=== PATIENT | female | born 1940 | race Caucasian/White ===

== ENCOUNTER 2016-06-16 17:31 | Emergency (ER) | payer OTHER, MEDICARE ==
[~2016-06-16] VITALS: Ht 157.5 cm; Wt 49.9 kg
[~2016-06-16 17:31] MED LIST: ADVAIR 250-501 EACH INH; ASPIRIN CHILDRE81 MG PO; ATORVASTATIN CA40 MG PO; BENZONATATE200 M1 PO; CALCIUM1 TAB PO; CIPROFLOXACIN250 MG PO; COUMADIN 1 MG TA1 MG PO; COUMADIN 2.5 M2.5 MG PO; COUMADIN5 M2 PO; LEVOTHYROXINE0.1 M1 PO; MULTI VITAMINS1 TAB PO; SYNTHROID112 MCG PO; VITAMIN C500 M3 PO; VITAMIN D1000 IU PO; WARFARIN SOD5 MG PO
--- NOTE | 2016-06-16 18:00 | ED DYSPNEA/ASTHMA COMPLAINT ---
History of Present Illness General Chief Complaint: Dyspnea (COPD, CHF, Other) Stated Complaint: SOB Source: patient, family, old records Exam Limitations: no limitations Allergies Coded Allergies: alendronate sodium (LIGHT HEADED, WOOZY PER PT 06/16/16) metronidazole (Mild, NAUSEA 10/08/15) risedronate sodium (From ACTONEL) (Mild, DIZZY 10/08/15) tamsulosin (Mild, NAUSEA 10/08/15) Reconcile Medications Albuterol Sulfate 2.5 MG/3 ML (0.083 %) VIAL.NEB 1 Vial INH/CARI Q4P PRN WHEEZING Amoxicillin 500 MG CAPSULE 2 CAP PO BID ANTIBIOTIC (Reported) Ascorbic Acid (Vitamin C) (Unknown Strength) TAB (Unknown Dose) PO DAILY SUPPLEMENT (Reported) Azithromycin (Zithromax) 250 MG TABLET 1 DP PO AD WHEEZING 2 the first day followed by 1 for days 2-5 Benzonatate (Tessalon Perle) 100 MG CAPSULE 1 CAP PO TID PRN COUGH Calcium/Sodium (Calcium) 1 TAB TAB 1 TAB PO DAILY SUPPLEMENT (Reported) Cholecalciferol (Vitamin D3) 1,000 UNIT TABLET 1 TAB PO DAILY SUPPLEMENT ( Reported) Denosumab (Prolia) (Unknown Strength) SYRINGE (Unknown Dose) INJ Q6M BONES ( Reported) Fluticasone/Salmeterol (Advair 250-50 Diskus) 250 MCG-50 MCG/DOSE BLST.W.DEV 1 PUF INH BID PRN BREATHING PROBLEMS (Reported) Levothyroxine Sodium (Synthroid) 112 MCG TABLET 1 TAB PO DAILY AC THYROID ( Reported) Multivitamin (One Daily Multivitamin) 1 TAB TAB 1 TAB PO DAILY SUPPLEMENT ( Reported) [NEBULIZER MACHINE] 0 USE DIRECTED Warfarin Sodium (Coumadin) 5 MG TABLET 1 TAB PO QWED BLOOD THINNER (Reported) Warfarin Sodium (Coumadin) 2.5 MG TAB 1.5 TAB PO AD BLOOD THINNER (Reported) Triage Note: PT STATES THAT SHE HAS ASTHMA AND THAT FOR THE PAST FEW DAYS SHE HAS BEEN HAVING INCREASED SOB. USING INHALERS BUT WITH LITTLE RELIEF.O2 SAT 94% ON RA Triage Nurses Notes Reviewed? yes Onset: Gradual Duration: day(s): (3), constant Timing: recent history Severity: mild, moderate Prior Episodes/Possible Cause: occasional episodes Associated Symptoms: cough HPI: 75-year-old female with history of asthma, aortic valve replacement and thyroidectomy TIA presents emergency room complaining of a three-day history of an asthma exacerbation states she's been short of breath wheezing despite using her albuterol and Advair inhalers. Patient is seen by resort housekeeper Dr. jensen, however states she has an adverse reaction to prednisone forte she cannot take PT is not smoke. She is never been hospitalized secondary to her asthma. She denies any chest pain. She reports that she's had a nonproductive cough since the symptoms began no fever no chills no leg swelling no pain with inspiration. No abdominal pain nausea vomiting or diarrhea. She does not use oxygen at home (SHERYL OLGUNI) Vital Signs & Intake/Output Vital Signs & Intake/Output Vital Signs Date Time Temp Pulse Resp B/P Pulse O2 O2 Flow FiO2 Ox Delivery Rate 06/16 194 98.4 78 20 100/55 95 Room Air 06/16 1801 97 06/16 1735 97.0 78 22 136/82 94 Room Air Past History Travel History Traveled to [place] past 21 day No Medical History Any Pertinent Medical History? 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 No (SHERYL OLGUIN) Review of Systems Review of Systems Constitutional: Reports: see HPI. All Other Systems: Reviewed and Negative Comments Review of systems: See HPI, All other systems negative. Constitutional, no chills no fever, no malaise HEENT: No visual changes no sore throat no congestion Cardiovascular: No chest pain , no palpitation Skin, no rashes, no change in skin Respiratory: dyspnea cough no sputum GI: No nausea no vomiting, no diarrhea, : No dysuria Muscle skeletal: No joint pain, no back pain, no neck pain, Neurologic: No numbness no headache Psych: No stress Heme/endocrine: No bruising no bleeding Immunology: No lymphadenopathy (SHERYL OLGUIN) Physical Exam Physical Exam General Appearance: well developed/nourished, alert, awake Respiratory: normal breath sounds, chest non-tender Comments: Well-developed well-nourished person in no acute distress HEENT: Normal EENT exam; PERRL, EOMI. HEAD is atraumatic. moist mucous membranes. Neck: Supple, normal range of motion Back: Nontender, no CVA tenderness. Full range of motion Cardiovascular: Regular rate and rhythms no murmurs rubs Respiratory:. mild respiratory distress. Patient speaking in full complete sentences.WHEEZING b/l no rhonchi no rales Abdomen: Soft, nontender nondistended, Extremity: No edema, full range of motion of extremities Neuro: Alert oriented x3, motor sensory normal, There were no obvious focal neurologic abnormalities. Skin: No appreciable rash on exposed skin, skin is warm and dry. Psych: Mood and affect is normal, memory and judgment is normal. Core Measures ACS in differential dx? Yes Severe Sepsis Present: No Septic Shock Present: No (SHERYL OLGUIN) Progress Differential Diagnosis: asthma, AMI, bronchitis, costochondritis, COPD, musculoskeletal pain, pericarditis, pulmonary embolism, pneumonia, pneumothorax, unstable angina Diagnostic Imaging: Viewed by Me: Radiology Read. Discussed w/RAD: Radiology Read. Radiology Impression: PATIENT: MILLY KNUTSON PRESENT AGE: 75 PATIENT ACCOUNT NO: [id number] : 38 LOCATION: [facility] ORDERING PHYSICIAN: SHERYL HARRIS SERVICE DATE: 06/16/16 EXAM TYPE: RAD - XRY- CHEST XRAY, PA AND LATERAL EXAMINATION: XR CHEST CLINICAL INFORMATION: Cough and dyspnea. COMPARISON: Chest x-ray 04/17/2016 TECHNIQUE: PA and lateral views of the chest were obtained. FINDINGS: Status post median sternotomy. Lungs are clear. No pulmonary vascular congestion. No infiltrate or pleural effusion. The heart size is normal. The cardiac and mediastinal contours are normal. There are calcifications of the thoracic aorta. There are multilevel degenerative changes of dorsal spine. IMPRESSION: No acute abnormality of the chest. DICTATED BY: KAYKAY PÉREZ MD DATE/TIME DICTATED:06/16/161839 DIRECTOR NEWS:LIGIA DATE/TIME TRANSCRIBED:06/16/161839 CONFIDENTIAL, DO NOT COPY WITHOUT APPROPRIATE AUTHORIZATION. <Electronically signed in Other Vendor System> SIGNED BY: KAYKAY PÉREZ MD 06/16/16 3576 Initial ED EKG: nsr at 70, no acute st seg changes, normal axis Prior EKG: unchanged (04/2016) (TO HARRIS,SHERYL) Plan of Care: Orders Procedure Date/time Status Regular Diet 06/17 B Active PROTHROMBIN TIME 06/16 1800 Complete TROPONIN LEVEL 06/16 1746 Complete COMPREHENSIVE METABOLIC PANEL 06/16 1746 Complete CBC WITHOUT DIFFERENTIAL 06/16 1746 Complete EKG 06/16 174 Active Laboratory Tests 06/16/16 1808: Anion Gap 12, Estimated GFR > 60, BUN/Creatinine Ratio 28.6 H, Glucose 87, Calcium 8.9, Total Bilirubin 0.6, AST 31, ALT 32, Alkaline Phosphatase 67, Troponin I < 0.01, Total Protein 7.0, Albumin 4.2, Globulin 2.8, Albumin/ Globulin Ratio 1.5, PT 26.0 H, INR 2.50 H, CBC w Diff NO MAN DIFF REQ, RBC 4.64, MCV 92.1, MCH 30.7, RDW 13.7, MPV 9.2, Gran % 48.0, Lymphocytes % 30.9, Monocytes % 8.7, Eosinophils % 11.9 H, Basophils % 0.5, Absolute Granulocytes 3.1, Absolute Lymphocytes 2.0, Absolute Monocytes 0.6, Absolute Eosinophils 0.8, Absolute Basophils 0, PUBS MCHC 33.4 Labs ordered alert interviewed patient medicated with DuoNeb chest x-ray ordered. Case was discussed with Dr. Conklin. Patient is refusing dose of prednisone. Old records reviewed patient states that it makes her "feel shaky" and she is refusing at this time despite my recommendations. d/w pt her sx on repeat eval repports improvement, lungs appears cta pt still feels dyspneic, labs pending d/w pt her xray findings repeat albuterol neb ordered. pt was given decadron po during last visit which she states she did not have an adverse reaction too. 06/16/2016 7:31:08 PM patient ambulatory around the ER oxygen saturation 95-96% feeling well she feels better with repeat albuterol neb. Discussed currently follow-up her lab results. I discussed with her need for close follow-up with her resort housekeeper she feels well with going home prescription for Z-Kt and Tessalon Perles that she's had in the past with improvement albuterol machine and albuterol nebs provided she will return at anytime sooner with any concerns. I answered all her questions cleared for discharge (SHERYL OLGUIN) Departure Departure Time of Disposition: 1941 Disposition: HOME OR SELF CARE Condition: Stable Clinical Impression Primary Impression: Asthma Referrals: MAYNOR CLOUD,JORDON Hernandez (PCP/Family) Additional Instructions: ZPAK DIRECTED, TESSALON PERLES FOR COUGH, ALBUTEROL NEBUILZER DISCUSSED. FOLLOW UP WITH DR JENSEN THIS WEEK. CONTINUE USING YOUR INHALERS PREVIOUSLY DIRECTED. RETURN AT ANYTIME SOONER WITH ANY CONCERNS Departure Forms: Customer Survey General Discharge Information Prescriptions: Current Visit Scripts Albuterol Sulfate 1 Vial INH/CARI Q4P PRN WHEEZING #50 Vial Azithromycin (Zithromax) 1 DP PO AD #6 TAB 2 the first day followed by 1 for days 2-5 Benzonatate (Tessalon Perle) 1 CAP PO TID PRN COUGH #30 CAP [NEBULIZER MACHINE] 0 #1 USE DIRECTED (SHERYL OLGUIN) PA/ENGINE DISPATCHER Co-Sign Statement Statement: ED Attending supervision documentation- [X] I saw and evaluated the patient. I have also reviewed all the pertinent lab results and diagnostic results. I agree with the findings and the plan of care as documented in the PA's/ENGINE DISPATCHER's documentation. [] I have reviewed the ED Record and agree with the PA's/ENGINE DISPATCHER's documentation. [] Additions or exceptions (if any) to the PAs/ENGINE DISPATCHER's note and plan are summarized below: [] (ZAID CLOUD,HERI Beth) Critical Care Note Critical Care Note Critical Care Time: non-applicable (SHERYL OLGUIN)
[2016-06-16 18:28] LABS: ABSOLUTE BASOPHIL COUNT 0 /CUMM (0.0-0.2); ABSOLUTE EOSINOPHIL COUNT 0.8 /CUMM (0.0-0.7); ABSOLUTE GRANULOCYTE CT 3.1 /CUMM (1.4-6.5); ABSOLUTE MONOCYTE COUNT 0.6 /CUMM (0.10-0.60); BASOPHIL % 0.5 % (0.0-2.0); EOSINOPHIL % 11.9 % (0-5); HEMATOCRIT 42.7 % (37-47); MEAN CORPUSCULAR HGB 30.7 PG (27.0-31.0); MEAN CORPUSCULAR HGB CONC 33.4 G/DL (33.0-37.0); MEAN CORPUSCULAR VOLUME 92.1 FL (81.0-99.0); MEAN PLATELET VOLUME 9.2 FL (7.4-10.4); PLATELET COUNT 205 /CUMM (130-400); RBC DISTRIBUTION WIDTH 13.7 % (11.5-14.5); RED BLOOD CELL CT 4.64 /CUMM (4.20-5.40); WHITE BLOOD CELL COUNT 6.5 /CUMM (4.8-10.8)
[2016-06-16] MEDS ORDERED: AMOXICILLIN500 M2 PO (18:37)
[2016-06-16] MEDS ORDERED: PROLIA60 MG/1 ML INJ (18:38)
--- NOTE | 2016-06-16 18:45 | RADIOLOGY REPORT ---
EXAMINATION: XR CHEST CLINICAL INFORMATION: Cough and dyspnea. COMPARISON: Chest x-ray 04/17/2016 TECHNIQUE: PA and lateral views of the chest were obtained. FINDINGS: Status post median sternotomy. Lungs are clear. No pulmonary vascular congestion. No infiltrate or pleural effusion. The heart size is normal. The cardiac and mediastinal contours are normal. There are calcifications of the thoracic aorta. There are multilevel degenerative changes of dorsal spine. IMPRESSION: No acute abnormality of the chest.
[2016-06-16] MEDS ORDERED: TESSALON PERLE100 M1 PO (18:53)
[2016-06-16] MEDS ORDERED: ZITHROMAX250 M2 PO (18:53)
[2016-06-16] MEDS ORDERED: NEBULIZER MACHINE (18:53)
[2016-06-16] MEDS ORDERED: ALBUTEROL2.5 MG/3 M INH/SOL (18:53)
[2016-06-16 19:43] VITALS: BP 100/55
[2016-06-17] MEDS ORDERED: ZITHROMAX250 M2 PO (10:37)
[2016-06-17] MEDS ORDERED: DELTASONE20 MG PO (10:37)
[2016-06-17] MEDS ORDERED: TESSALON PERLE100 M1 PO (10:37)
== END 2016-06-16 19:55 ==
LOC: ERH 17:31
PROVIDERS: Physician Assistant Medical
DX: J45.909 Unspecified asthma, uncomplicated (principal)
CPT/HCPCS: 1263; 93005; 93010

== ENCOUNTER 2016-06-17 10:03 | Inpatient (IN) | payer OTHER, MEDICARE ==
[~2016-06-17] VITALS: Ht 157.5 cm; Wt 49.9 kg
[~2016-06-17 10:03] MED LIST changes: +ALBUTEROL2.5 MG/3 M INH/SOL; +AMOXICILLIN500 M2 PO; +NEBULIZER MACHINE; +PROLIA60 MG/1 ML INJ; +TESSALON PERLE100 M1 PO; +ZITHROMAX250 M2 PO
--- NOTE | 2016-06-17 10:15 | NUR ---
PT PRESENTS TO ER C/O OF SOB. PT STATES SHE WAS SEEN HERE YESTERDAY FOR AN ASTHMA ATTACK AND REFUSED ADMISSION BECAUSE OF HER SPOUSE BECAUSE SHE CARES FOR HIM. PT STATES TODAY SHE FEELS WORSE. PT O2 SAT ON ARRIVAL 87%. 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 PT DENIES CHEST PAIN. PT C/O BILATERAL EAR PAIN
--- NOTE | 2016-06-17 10:17 | NUR ---
PT TO ROOM 12 VIA W/C. CHANGED INTO GOWN. AWAITING EVAL.
--- NOTE | 2016-06-17 10:29 | NUR ---
DR DURADN AT BEDSIDE.
--- NOTE | 2016-06-17 10:29 | ED DYSPNEA/ASTHMA COMPLAINT ---
History of Present Illness General Chief Complaint: Wheezing/Asthma Stated Complaint: SOB/ASTHMA Source: patient Exam Limitations: no limitations Vital Signs & Intake/Output Vital Signs & Intake/Output Vital Signs Date Time Temp Pulse Resp B/P Pulse O2 O2 Flow FiO2 Ox Delivery Rate 06/17 1708 95 06/17 1519 97.8 75 20 123/58 93 Room Air 06/17 1429 97.5 77 18 124/69 96 Room Air 06/17 1229 96.9 83 20 124/71 99 Room Air 06/17 1156 16 98 Room Air 06/17 1145 91 06/17 1130 Room Air 06/17 1120 20 97 Room Air 06/17 1046 92 06/17 1012 96.6 107 24 115/81 88 Room Air Allergies Coded Allergies: alendronate sodium (LIGHT HEADED, WOOZY PER PT 06/16/16) metronidazole (Mild, NAUSEA 10/08/15) risedronate sodium (From ACTONEL) (Mild, DIZZY 10/08/15) tamsulosin (Mild, NAUSEA 10/08/15) Reconcile Medications Ascorbic Acid (Vitamin C) (Unknown Strength) TAB (Unknown Dose) PO DAILY SUPPLEMENT (Reported) Azithromycin (Zithromax) 250 MG TABLET 1 DP PO AD WHEEZING 2 the first day followed by 1 for days 2-5 Benzonatate (Tessalon Perle) 100 MG CAPSULE 1 CAP PO TID PRN COUGH Benzonatate (Tessalon Perle) 100 MG CAPSULE 1 CAP PO TID PRN COUGH Calcium/Sodium (Calcium) 1 TAB TAB 1 TAB PO DAILY SUPPLEMENT (Reported) Cholecalciferol (Vitamin D3) 1,000 UNIT TABLET 1 TAB PO DAILY SUPPLEMENT ( Reported) Denosumab (Prolia) (Unknown Strength) SYRINGE (Unknown Dose) INJ Q6M BONES ( Reported) Fluticasone/Salmeterol (Advair 250-50 Diskus) 250 MCG-50 MCG/DOSE BLST.W.DEV 1 PUF INH BID PRN BREATHING PROBLEMS (Reported) Levothyroxine Sodium (Synthroid) 112 MCG TABLET 1 TAB PO DAILY AC THYROID ( Reported) Multivitamin (One Daily Multivitamin) 1 TAB TAB 1 TAB PO DAILY SUPPLEMENT ( Reported) [NEBULIZER MACHINE] 0 USE DIRECTED Prednisone (Deltasone) 20 MG TABLET 2 TAB PO DAILY ASTHMA DATE DOSE 06/20- 60MG 06/22-17 50MG 06/25- 40MG 06/28- 30MG 07/01- 20MG 07/04- 10MG Warfarin Sodium (Coumadin) 5 MG TABLET 1 TAB PO QWED BLOOD THINNER (Reported) Warfarin Sodium (Coumadin) 2.5 MG TAB 1.5 TAB PO AD BLOOD THINNER (Reported) Triage Note: PT PRESENTS TO ER C/O OF SOB. PT STATES SHE WAS SEEN HERE YESTERDAY FOR AN ASTHMA ATTACK AND REFUSED ADMISSION BECAUSE OF HER SPOUSE BECAUSE SHE CARES FOR HIM. PT STATES TODAY SHE FEELS WORSE. PT O2 SAT ON ARRIVAL 87%. 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 PT DENIES CHEST PAIN. PT C/O BILATERAL EAR PAIN Triage Nurses Notes Reviewed? yes Onset: Abrupt Duration: day(s): (3) Timing: multiple episodes today Severity: moderate Activities at Onset: none Associated Symptoms: cough, dyspnea HPI: This is a 75 year old female with history of asthma who was seen in the ED yesterday who presents with persistent difficulty breathing and tachycardia. 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 No fever or chills, denies any productive cough. Past History Travel History Traveled to [place] past 21 day No Medical History Any Pertinent Medical History? 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 No Review of Systems Review of Systems Constitutional: Denies: chills, fever. EENTM: Reports: no symptoms. Respiratory: Reports: cough, short of breath. Denies: sputum production. Cardiovascular: Reports: palpitations. Denies: chest pain. GI: Denies: abdominal pain, nausea, vomiting. Genitourinary: Reports: no symptoms. Musculoskeletal: Reports: no symptoms. Skin: Reports: no symptoms. Neurological/Psychological: Reports: anxiety. Hematologic/Endocrine: Denies: bruising, bleeding, polyuria, polydipsia. Immunologic/Allergic: Denies: splenectomy. All Other Systems: Reviewed and Negative Physical Exam Physical Exam General Appearance: well developed/nourished, alert, awake, anxious, comfortable , moderate distress Head: atraumatic, normal appearance Eyes: Bilateral: normal appearance, PERRL, EOMI. Ears, Nose, Throat: normal pharynx, normal ENT inspection, hearing grossly normal Neck: normal inspection, supple, full range of motion Respiratory: decreased breath sounds, accessory muscle use, wheezing Cardiovascular: regular rate/rhythm Peripheral Pulses: 2+ radial (R), 2+ radial (L) Gastrointestinal: normal bowel sounds, soft, non-tender Extremities: normal inspection, normal capillary refill, normal range of motion, no edema Neurologic/Psych: no motor/sensory deficits, awake, alert Skin: intact, normal color, warm/dry Core Measures ACS in differential dx? No Severe Sepsis Present: No Septic Shock Present: No Progress Differential Diagnosis: asthma, bronchitis, CHF, pneumonia Plan of Care: Orders Procedure Date/time Status Heart Healthy Diet 06/17 D Active RT ED ORDERS 06/[address] in observation 06/17 1242 Active Patient Data 06/17 1242 Active Vital Signs 06/17 1242 Active Code Status 06/17 1242 Active TROPONIN LEVEL 06/17 1237 Complete PARTIAL THROMBOPLASTIN TIME 06/17 1237 Complete PROTHROMBIN TIME 06/17 1237 Complete D-DIMER 06/17 1237 Complete COMPREHENSIVE METABOLIC PANEL 06/17 1237 Complete CBC WITHOUT DIFFERENTIAL 06/17 1237 Complete RT ED ORDERS 06/17 1144 Active Intake & Output 06/17 1037 Active RT ED ORDERS 06/17 1032 Active EKG 06/17 1019 Active Laboratory Tests 06/17/16 1254: Anion Gap 13, Estimated GFR > 60, BUN/Creatinine Ratio 28.3 H, Glucose 106 H, Calcium 9.6, Total Bilirubin 1.1, AST 31, ALT 34, Alkaline Phosphatase 76, Troponin I < 0.01, Total Protein 7.4, Albumin 4.6, Globulin 2.8, Albumin/ Globulin Ratio 1.6, PT 27.2 H, INR 2.62 H, APTT 37, D-Dimer 204, CBC w Diff NO MAN DIFF REQ, RBC 4.97, MCV 91.4, MCH 30.7, RDW 13.4, MPV 9.1, Gran % 76.3 H, Lymphocytes % 18.0 L, Monocytes % 0.9 L, Eosinophils % 4.0, Basophils % 0.8, Absolute Granulocytes 4.9, Absolute Lymphocytes 1.2, Absolute Monocytes 0.1 L, Absolute Eosinophils 0.3, Absolute Basophils 0.1, PUBS MCHC 33.6 Initial ED EKG: NSR Prior EKG: unchanged Departure Departure Time of Disposition: 1724 Disposition: STILL A PATIENT Condition: Stable Clinical Impression Primary Impression: Asthma exacerbation Referrals: JORDON MCGUIRE MD (PCP/Family) Additional Instructions: DEAF/HARD OF HEARING SPECIALIST YOUR PRESCRIPTIONS FROM THE PHARMACY AND FOLLOW UP YOUR DOCTOR. RETURN NEEDED. Departure Forms: Customer Survey General Discharge Information Prescriptions: Current Visit Scripts Benzonatate (Tessalon Perle) 1 CAP PO TID PRN COUGH #30 CAP Prednisone (Deltasone) 2 TAB PO DAILY #20 TAB DATE DOSE 06/20- 60MG 06/22- 50MG 06/25- 40MG 06/28- 30MG 07/01- 20MG 07/04- 10MG Admission Note Spoke With: GENARO MANN MD Documentation of Exam: Documentation of any treatments & extenuating circumstances including Concerns Regarding Discharge (functional status, medication knowledge or non-compliance, living conditions, etc.) that warrant an admission rather than observation: [TRC /NEBS, IV STEROIDS, CT CHEST ANGIOGRAM, PULMONARY CONSULTATION] Critical Care Note Critical Care Note Critical Care Time: 75-104 min ED Attending Observation Initial Observation Note: I have seen and personally examined MILLY KNUTSON on 06/17/16 at 1307. I agree with the current emergency department documentation. The disposition (admission or discharge) is uncertain at this time, she needs a period of observation for the following reason(s): [TRC/NEBS, IV SOLUMEDROL, IV MAGNESIUM, OXYGEN] The ED Nurse caring for this patient has been personally informed as to what the patient is being observed for. Observation Re-Evaluation: I have reevaluated MILLY KNUTSON on 06/17/16 at 1531. The physical findings that support the continued need to observe this patient include [patient resting comfortably with her family at bedside. Second gram of magnesium currently infusing. Scant bilateral wheezing. She is eating her lunch at this time. We will repeat an albuterol nebulizer treatment and reevaluate the patient. In general she is feeling much better. She looks well and is conversing with her family.]. Observation Discharge: I have reevaluated MILLY KNUTSON on 06/17/16 at 1722. The patient is: (): Stable for discharge ([X]): To be admitted to Nursing Floor (): To be placed in Observation on Nursing Floor (): For transfer to other facility The patient was being observed for [ASTHMA EXACERBATION] As a result of that observation, I have determined [STILL INCREASED WORK OF BREATHING WITH AMBULATION, IMPROVED AERATION. SYMPTOMATIC DESPITE IV SOLUMEDROL , MULTIPLE NEB TREATMENTS AND IV MAGNESIUM. WILL REQUIRE INPATIENT.].
--- NOTE | 2016-06-17 10:35 | NUR ---
RT CALLED FOR NEB
[2016-06-17] MEDS ORDERED: ZITHROMAX250 M2 PO (10:37)
[2016-06-17] MEDS ORDERED: DELTASONE20 MG PO (10:37)
[2016-06-17] MEDS ORDERED: TESSALON PERLE100 M1 PO (10:37)
--- NOTE | 2016-06-17 10:45 | NUR ---
RT AT BEDSIDE.
--- NOTE | 2016-06-17 11:29 | NUR ---
RT CALLED FOR ANOTHER DUONEB
--- NOTE | 2016-06-17 11:55 | NUR ---
SECOND DUONEB COMPLETED. 98% ON ROOM AIR AND RESPIRATIONS APPEAR EVEN AND UNLABORED
--- NOTE | 2016-06-17 12:28 | NUR ---
IMPROVEMENT IN AIR MOVEMENT, BREATH SOUNDS INCREASED TO BASES AFTER ALBUTEROL TX. O2 SAT 99% ON ROOM AIR. WET COUGH NOTED, NOT EXPECTORATING ANY SPUTUM. VSS.
--- NOTE | 2016-06-17 12:57 | NUR ---
BLOOD DRAWN AND SENT TO LAB. SST,LAV,BLUE X 2.
--- NOTE | 2016-06-17 13:01 | NUR ---
PT EXPERIENCED SIGNIFICANT DIFF BREATHING AND INCREASED WORK WITH AMBULATION. USE OF ACCESSORY MUSCLES OBSERVED. STATES "I REALLY FEEL LIKE CRAP". AMBULATORY O2 SAT 91-92% RA. 96-99% AT REST WHEN NOT MOVING. DR DURAND INFORMED AND TO BEDSIDE TO DISCUSS PLAN AND RECOMMENDED ADMISSION. PLAN FOR ED OBS AT THIS TIME. IV ESTABLISHED AND MEDICATED WITH SOLUMEDROL PER EMAR, NS IVF BOLUS RUNNING AND MAG SULFATE GTT RUNNING AT 0.5 G/HR (50ML/HR) PER eMAR, PLAN FOR A TOTAL OF 2G INFUSION
[2016-06-17 13:02] LABS: ABSOLUTE BASOPHIL COUNT 0.1 /CUMM (0.0-0.2); ABSOLUTE EOSINOPHIL COUNT 0.3 /CUMM (0.0-0.7); ABSOLUTE GRANULOCYTE CT 4.9 /CUMM (1.4-6.5); ABSOLUTE LYMPH COUNT 1.2 /CUMM (1.2-3.4); ABSOLUTE MONOCYTE COUNT 0.1 /CUMM (0.10-0.60); BASOPHIL % 0.8 % (0.0-2.0); HEMATOCRIT 45.5 % (37-47); MEAN CORPUSCULAR HGB 30.7 PG (27.0-31.0); MEAN CORPUSCULAR HGB CONC 33.6 G/DL (33.0-37.0); MEAN CORPUSCULAR VOLUME 91.4 FL (81.0-99.0); MEAN PLATELET VOLUME 9.1 FL (7.4-10.4); PLATELET COUNT 236 /CUMM (130-400); RBC DISTRIBUTION WIDTH 13.4 % (11.5-14.5); RED BLOOD CELL CT 4.97 /CUMM (4.20-5.40); WHITE BLOOD CELL COUNT 6.4 /CUMM (4.8-10.8)
[2016-06-17 13:03] LABS: GRANULOCYTE % 76.3 % (42.2-75.2)
[2016-06-17 13:16] LABS: PT 27.2 SEC (9.4-12.5); PTT 37 SEC (25-37)
--- NOTE | 2016-06-17 15:11 | NUR ---
2ND MAG SULFATE 1G INFUSING PER EMAR. VSS. FAMILY AT BEDSIDE. PT HAS NO NEEDS/COMPLAINTS AT THIS TIME.
--- NOTE | 2016-06-17 17:05 | NUR ---
RESP AT BEDSIDE FOR TX.
--- NOTE | 2016-06-17 17:46 | NUR ---
DR. MANN TO BEDSIDE FOR EVAL.
--- NOTE | 2016-06-17 18:07 | History & Physical ---
See Addendum ESTEBAN MUNGUIA MD 06/17/16 1806: General Information and HPI History of Present Illness: Ms. Reed is a 75 year old lady with a PMH significant for asthma, Afib on Coumadin, TIA (2010) thoracic aortic aneurysm status post repair and a valve replacement, previously admitted in 2014 for pre-disolcation syndrome, who presents with progressively worsening exertional dyspnea associated with productive cough and wheezing for the past 2 weeks. As per patient she normally uses advair twice a day with rescue inhaler as needed. However due to her worsening shortness of breath especially with walking, patient has been using her albuterol inhaler more frquently, averaging about twice daily. Patient has also been taking prednisone 40mg daily as prescribed by Dr. White outpatient. Her dyspnea persisted, however, and she has been increasingly coughing more, spitting out yellow or white sputum occassionally. Patient subsequently presented to ED yesterday but there were no significant abnormalities found on the CXR and physical exam. As such patient was discharged on azithromycin and benzonatate after being treated with Proventil, Atrovent and Decadron with some relief. However at home patient's dyspnea worsened again and patient returned to ED today with the same unresolved symptoms as a result. On ROS patient endorses palpitations which is chronic for her reportedly. She denies any chest pain, abdominal pain, nausea, vomiting, diarrhea, constipation, headache, dizziness/ lightheadedness. Patient does not smoke and denies any alcohol/substance use. She lives with her at home and is fully independent with all of her ADLs, not requiring any walking aids. Of note, per previous ED records, patient is reportedly allergic to predisone which she has been placed on by Dr. White previously. She has tolerated Decadron without any ADRs however. PCP - Dr. Lopez Financial Writer - Dr. White Rv Technician - Dr. Brandon Full code. Allergies/Medications Allergies: Coded Allergies: alendronate sodium (LIGHT HEADED, WOOZY PER PT 06/16/16) metronidazole (Mild, NAUSEA 10/08/15) risedronate sodium (From ACTONEL) (Mild, DIZZY 10/08/15) tamsulosin (Mild, NAUSEA 10/08/15) Home Med list Albuterol Sulfate 2.5 MG/3 ML (0.083 %) VIAL.NEB 1 Vial INH/CARI Q4P PRN WHEEZING Amoxicillin 500 MG CAPSULE 2 CAP PO BID ANTIBIOTIC (Reported) Ascorbic Acid (Vitamin C) (Unknown Strength) TAB (Unknown Dose) PO DAILY SUPPLEMENT (Reported) Azithromycin (Zithromax) 250 MG TABLET 1 DP PO AD BRONCHITIS 2 the first day followed by 1 for days 2-5 Azithromycin (Zithromax) 250 MG TABLET 1 DP PO AD WHEEZING 2 the first day followed by 1 for days 2-5 Benzonatate (Tessalon Perle) 100 MG CAPSULE 1 CAP PO TID PRN COUGH Benzonatate (Tessalon Perle) 100 MG CAPSULE 1 CAP PO TID PRN COUGH Calcium/Sodium (Calcium) 1 TAB TAB 1 TAB PO DAILY SUPPLEMENT (Reported) Cholecalciferol (Vitamin D3) 1,000 UNIT TABLET 1 TAB PO DAILY SUPPLEMENT ( Reported) Denosumab (Prolia) (Unknown Strength) SYRINGE (Unknown Dose) INJ Q6M BONES ( Reported) Fluticasone/Salmeterol (Advair 250-50 Diskus) 250 MCG-50 MCG/DOSE BLST.W.DEV 1 PUF INH BID PRN BREATHING PROBLEMS (Reported) Levothyroxine Sodium (Synthroid) 112 MCG TABLET 1 TAB PO DAILY AC THYROID ( Reported) Multivitamin (One Daily Multivitamin) 1 TAB TAB 1 TAB PO DAILY SUPPLEMENT ( Reported) [NEBULIZER MACHINE] 0 USE DIRECTED Prednisone (Deltasone) 20 MG TABLET 2 TAB PO DAILY ASTHMA Warfarin Sodium (Coumadin) 5 MG TABLET 1 TAB PO QWED BLOOD THINNER (Reported) Warfarin Sodium (Coumadin) 2.5 MG TAB 1.5 TAB PO AD BLOOD THINNER (Reported) Past History Travel History Traveled to [place] past 21 day No Medical History Neurological: NONE EENT: NONE Cardiovascular: AORTIC VALVE REPLACEMENT Respiratory: asthma Gastrointestinal: NONE Hepatic: NONE Renal: NONE Musculoskeletal: NONE Psychiatric: NONE Endocrine: NONE Blood Disorders: NONE Cancer(s): NONE 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 Home Who Do You Live With? spouse Services at Home: None Primary Language: Ghanaian Smoking Status: Former Smoker (at 11 y/o) ETOH Use: denies use Illicit Drug Use: denies illicit drug use Review of Systems Review of Systems Constitutional: Reports: see HPI. Exam & Diagnostic Data Last 24 Hrs of Vital Signs/I&O Vital Signs Date Time Temp Pulse Resp B/P Pulse O2 O2 Flow FiO2 Ox Delivery Rate 06/17 1708 95 06/17 1519 97.8 75 20 123/58 93 Room Air 06/17 1429 97.5 77 18 124/69 96 Room Air 06/17 1229 96.9 83 20 124/71 99 Room Air 06/17 1156 16 98 Room Air 06/17 1145 91 06/17 1130 Room Air 06/17 1120 20 97 Room Air 06/17 1046 92 06/17 1012 96.6 107 24 115/81 88 Room Air Intake & Output 06/17 1600 06/17 0800 06/17 0000 Intake Total Output Total Balance Patient 49.895 kg Weight Physical Exam General Appearance Alert, Oriented X3, Cooperative, No Acute Distress Skin No Rashes, No Breakdown, No Significant Lesion HEENT Atraumatic, PERRLA, EOMI, Mucous Membr. moist/pink Neck Supple, No JVD, +2 Carotid Pulse wo Bruit, No LAD Cardiovascular Regular Rate, Normal S1, Normal S2, No Murmurs, Gallops, Rubs Lungs Clear to Auscultation, Normal Air Movement Abdomen Normal Bowel Sounds, Soft, No Tenderness, No Hepatospenomegaly, No Masses Neurological Normal Speech, Sensation Intact, Cranial Nerves 3-12 NL Extremities No Clubbing, No Cyanosis, No Edema, Normal Pulses, No Tenderness/ Swelling Vascular Normal Pulses, Pulses Symmetrical Last 24 Hrs of Labs/Emanuel: Laboratory Tests 06/17/16 1254: Anion Gap 13, Estimated GFR > 60, BUN/Creatinine Ratio 28.3 H, Glucose 106 H, Calcium 9.6, Total Bilirubin 1.1, AST 31, ALT 34, Alkaline Phosphatase 76, Troponin I < 0.01, Total Protein 7.4, Albumin 4.6, Globulin 2.8, Albumin/ Globulin Ratio 1.6, PT 27.2 H, INR 2.62 H, APTT 37, D-Dimer 204, CBC w Diff NO MAN DIFF REQ, RBC 4.97, MCV 91.4, MCH 30.7, RDW 13.4, MPV 9.1, Gran % 76.3 H, Lymphocytes % 18.0 L, Monocytes % 0.9 L, Eosinophils % 4.0, Basophils % 0.8, Absolute Granulocytes 4.9, Absolute Lymphocytes 1.2, Absolute Monocytes 0.1 L, Absolute Eosinophils 0.3, Absolute Basophils 0.1, PUBS MCHC 33.6 Microbiology 06/17 2010 BLOOD: Blood Culture - RECD 06/17 1999 BLOOD: Blood Culture - RECD 06/17 1809 LOWER RESP: Respiratory Culture - COLB 06/17 1809 LOWER RESP: Gram Stain - COLB Assessment/Plan Assessment: Ms. Reed is a 75 year old lady with a PMH significant for asthma, Afib on Coumadin, TIA (2010) thoracic aortic aneurysm status post repair and a valve replacement who presents with progressively worsening exertional dyspnea associated with productive cough and wheezing, most likely 2/2 astham exacerbation. # Asthma exacerbation * Admit to general medicine service * Vitals per protocol * Oxygen supplement as needed to maintain O2 sat > 92% * Cont Symbicort and Proventil with TRC nebulizer treatment as neededx * Consult pulmonology (Dr. White) in the morning * Follow CXR * Cont Solumeddrol 40mg IV Q8 with a plan to taper tomorrow * Cont Zithromax 250mg PO daily * Cont Tesalon 100mg PO TID PRN cough # Atrial fibrillation Currently rate and rhythm under control. At home patient reports taking warfarin 3.75mg daily except for on thursday when she takes 5mg. * Check INR daily, dose warfarin (received 3mg in ED today) * Inform Dr. Brandon about the admission (courtesy call) # Hypothyrodism * Cont home med Synthroid 0.112mg PO daily - Heart healthy diet - Mild pain pathway - DVTppx with Coumadin - Full code. As Ranked By This Provider Problem List: 1. Asthma exacerbation 2. TIA (transient ischemic attack) 3. Thoracic aortic aneurysm 4. Asthma 5. DVT prophylaxis 6. Hypothyroidism 7. History of aortic valve replacement with metallic valve Core Measures/Miscellaneous Acute Coronary Syndrome ACS Diagnosis: No Cerebrovascular Accident CVA/TIA Diagnosis: No Congestive Heart Failure CHF Diagnosis: No Venous Thromboembolism VTE Risk Factors: Age > 40 VTE Prophylaxis Ordered Inpt: Pharm- Warfarin No Mech VTE prophylaxis d/t: No contraindications No VTE Pharm Prophylaxis d/t: No contraindications VTE Diagnosis: No VTE Type: NONE VTE Confirmed by (Test): NONE Severe Sepsis Severe Sepsis Present: No Septic Shock Septic Shock Present: No Miscellaneous Documentation Attending Case Discussed With: Dr. Mcmahan Primary Care Physician: JORDON LOPEZ MD Patient sees these Specialists PCP Cardio Pulm Level of Patient Care: General Medicine TEVIN SALEH 06/17/16 6825: Resident Review Statement Resident Statement: examined this patient, discussed with email marketing intern, agreed with email marketing intern, discussed with family Other Findings: Patient is 75 year old female with PMH of aortic aneurysm, prosthetic aortic valve, hx of TIA in 2010, was brought with chief complain of difficulty breathing and wheezing. Patient states that difficulty breathing started a couple of weeks ago, it was exertional in nature and she was also orthopenia. She was using her inhailers advair more than usual. She came to ER yesterday and was sent home on zepack, tesslon perles and albuterol and she was supposed to follow up with Dr. White as outpatient. Patient reports that her symptoms worsened. She also had cough which has improved. She continues to bring yellowish white phlem. Denies any fever/chills. Had flu shot this season. SHe denies smoking, follows with combo welder Dr Brandon every 6 months and takes warfarin for atrial fibrillation. Labs and vitals as above Assessment and plan. WIll start patient on azithromycin PO. wheezing improved after dose of solumedrol in ER, will taper steroids to 40 mg q8 tomorrow. TRC nebs as needed. Patient continued on her home medication including her inhailers. Warfarin dosed as 3.5 mg for tonight will chk INR in am will obtain CXR, pulmonary consult in am DVT ppx - on warfarin Patient is full code GEANRO MCMAHAN MD 06/17/16 5589: Attending MD Review Statement Attending Statement Attending Statement: examined this patient, discuss w/resident/PA/MOTOR BRAKEMAN, agreed w/resident/PA/MOTOR BRAKEMAN, reviewed EMR data (avail), discussed with nursing, reviewed images, amended to note Attending Assessment/Plan: The patient is a 75 yo female with h/o "asthma" (followed by Dr. White), h/o afib (on chronic Coumadin), s/p thoracic aortic aneurysm repair and valve replacement , hypothyroidism, and osteoporosis who presented in the [facility] ED initially yesterday with c/o worsening dyspnea, cough and wheezing over a 2 week period. She was given steroids, zithromax, etc. and was unable to fill the prescription. She has been caring for her who has been ill and took him to a stress test in Cardiology here today. Breathing became worse and she returned to the ED for further evaluation. She was given IV steroids and aerosol treatment. Pulse ox on presentation on RA was 88%. Improved post treatment, however she did have significant dyspnea with minimal exertion. She denied any fever, chills, or chest pain. Sputum has been yellow/white. Physical Exam: VS: T 97.8, P 75, R 20, BP 123/52, PO 88%-92% HEENT: eyes- PERRLA, EOMI bony- sl dry mucosa Neck: no JVD, bruits, or adenopathy Chest: moderate diffuse coarse rhonchi that improve upon cough, minimal wheeze on forced expiration, no rales Cor: RRR, nl S1, S2, no murm Abd: BS+, soft, NT, - HSM Ext: no edema, pulses 1+ Neuro: alert & oriented x 3, non-focal exam Labs/Tests- as above Impression/Plan: #Asthmatic Bronchitis- patient with h/o asthma and now with above symptoms that have been progressing x 2 weeks. Plan: Admit to general medicine. IV Solumedrol Aerosol/Nebs Zithromax Patient is followed by Dr. White/Pulmonary Sputum C & S if possible Tessalon Perles tid prn. #Acute Hypoxic Respiratory Failure- documented pulse ox of 88% upon presentation in ED. Improved with IV Medrol & aerosol. Plan: Close monitoring of pulse ox. #H/O Afib- on Coumadin. INR therapeutic. Plan: Continue OP dose of Coumadin. #Hypothyroid- on Levothyroxine. Clinically euthyroid. Plan: Continue Levothyroxine. #Osteoporosis- on Prolia. Plan: Will resume as OP.
--- NOTE | 2016-06-17 19:45 | NUR ---
PT MEDICATED WITH COUMADIN PER EMAR.
--- NOTE | 2016-06-17 21:48 | RADIOLOGY REPORT ---
EXAMINATION: XR PORTABLE CHEST CLINICAL INFORMATION: Difficulty breathing. COMPARISON: Chest x-ray 06/16/2016 TECHNIQUE: Portable view of the chest was obtained. 7:40 PM FINDINGS: Status post median sternotomy. No acute change of the chest. No pulmonary vascular congestion. The lungs are clear. No pleural effusion. IMPRESSION: No acute abnormality of the chest.
--- NOTE | 2016-06-17 21:49 | Admission Certification ---
Admission Certification Certification Statement - As attending physician, I certify that at the time of - admission, based on clinical presentation, severity of - symptoms, need for further diagnostic testing and - therapeutic interventions, and risk of adverse outcomes - without in-hospital treatment, in my clinical assessment, - this patient requires an acute hospital stay for a minimum - of two nights or longer. I have also considered psychsocial - factors such as support system, advanced age, financial - issues, cognitive issues, and failed out-patient treatments, - past re-admission history, safety of patient, and lack of - compliance as applicable. Specific rationale supporting this admission is: Patient with asthmatic bronchitis and acute hypoxic respiratory failure. Extreme dyspnea. Pulse ox 88% on presentation. Needs admit for close respiratory observation. IV steroids and aerosol RX. Zitrhomax.
--- NOTE | 2016-06-17 22:08 | PN- Att Addend ---
Attending Addendum Attending Brief Note The patient is a 75 yo female with h/o "asthma" (followed by Dr. White), h/o afib (on chronic Coumadin), s/p thoracic aortic aneurysm repair and valve replacement , hypothyroidism, and osteoporosis who presented in the [facility] ED initially yesterday with c/o worsening dyspnea, cough and wheezing over a 2 week period. She was given steroids, zithromax, etc. and was unable to fill the prescription. She has been caring for her who has been ill and took him to a stress test in Cardiology here today. Breathing became worse and she returned to the ED for further evaluation. She was given IV steroids and aerosol treatment. Pulse ox on presentation on RA was 88%. Improved post treatment, however she did have significant dyspnea with minimal exertion. She denied any fever, chills, or chest pain. Sputum has been yellow/white. Physical Exam: VS: T 97.8, P 75, R 20, BP 123/52, PO 88%-92% HEENT: eyes- PERRLA, EOMI bony- sl dry mucosa Neck: no JVD, bruits, or adenopathy Chest: moderate diffuse coarse rhonchi that improve upon cough, minimal wheeze on forced expiration, no rales Cor: RRR, nl S1, S2 Abd: BS+, soft, NT, - HSM Ext: no edema, pulses 1+ Neuro: alert & oriented x 3, non-focal exam Labs/Tests- as above Impression/Plan: #Asthmatic Bronchitis- patient with h/o asthma and now with above symptoms that have been progressing x 2 weeks. Plan: Admit to general medicine. IV Solumedrol Aerosol/Nebs IV Zithromax Patient is followed by Dr. White/Pulmonary Sputum C & S if possible Tessalon Perles tid prn. #Acute Hypoxic Respiratory Failure- documented pulse ox of 88% upon presentation in ED. Improved with IV Medrol & aerosol. Plan: Close monitoring of pulse ox. #H/O Afib- on Coumadin. INR therapeutic. Plan: Continue OP dose of Coumadin. #Hypothyroid- on Levothyroxine. Clinically euthyroid. Plan: Continue Levothyroxine. #Osteoporosis- on Prolia. Plan: Will resume as OP.
[2016-06-17 23:18] VITALS: BP 100/57
[2016-06-18 05:57] LABS: PT 32.5 SEC (9.4-12.5)
[2016-06-18 06:00] LABS: ABSOLUTE BASOPHIL COUNT 0 /CUMM (0.0-0.2); ABSOLUTE EOSINOPHIL COUNT 0 /CUMM (0.0-0.7); ABSOLUTE GRANULOCYTE CT 5.1 /CUMM (1.4-6.5); ABSOLUTE LYMPH COUNT 0.9 /CUMM (1.2-3.4); ABSOLUTE MONOCYTE COUNT 0.5 /CUMM (0.10-0.60); BASOPHIL % 0.2 % (0.0-2.0); EOSINOPHIL % 0 % (0-5); GRANULOCYTE % 78.5 % (42.2-75.2); MEAN CORPUSCULAR HGB 31.1 PG (27.0-31.0); MEAN CORPUSCULAR HGB CONC 33.8 G/DL (33.0-37.0); MEAN CORPUSCULAR VOLUME 92.2 FL (81.0-99.0); MEAN PLATELET VOLUME 9.2 FL (7.4-10.4); PLATELET COUNT 218 /CUMM (130-400); RBC DISTRIBUTION WIDTH 13.5 % (11.5-14.5); RED BLOOD CELL CT 4.37 /CUMM (4.20-5.40); WHITE BLOOD CELL COUNT 6.5 /CUMM (4.8-10.8)
[2016-06-18 06:07] VITALS: BP 101/55
[2016-06-18 06:13] LABS: HEMATOCRIT 40.2 % (37-47)
--- NOTE | 2016-06-18 06:19 | PN- Housestaff ---
EZRA CLOUD,ESTEBAN 06/18/16 0618: Subjective Follow-up For: Asthma exacerbation Subjective: Patient seen and examined at bedside. Resting comfortably in bed, reading a book. Patient says her cough and dyspnea much improved. She had a good night of sleep. Feeling better this morning. Denies headache, fever, chills, chest pain, palpitations, nausea, vomiting, diarrhea, blurred/double vision, dizziness/ lightheadedness. Review of Systems Constitutional: Reports: see HPI. Objective Last 24 Hrs of Vital Signs/I&O Vital Signs Date Time Temp Pulse Resp B/P Pulse O2 O2 Flow FiO2 Ox Delivery Rate 06/18 1319 Room Air 06/18 0800 Room Air 06/18 0723 99.1 81 101/55 96 06/18 0607 99.1 81 20 101/55 92 Room Air 06/17 2318 97.5 78 16 100/57 92 06/17 2255 Room Air 06/17 2251 97.5 78 16 100/57 92 Room Air 06/17 1708 95 06/17 1519 97.8 75 20 123/58 93 Room Air 06/17 1429 97.5 77 18 124/69 96 Room Air Intake & Output 06/18 1600 06/18 0800 06/18 0000 Intake Total 120 Output Total Balance 120 Intake, Oral 120 Patient 49.895 kg Weight Physical Exam General Appearance: Alert, Oriented X3, Cooperative, No Acute Distress Other Physical Findings: Skin No Rashes, No Breakdown, No Significant Lesion HEENT Atraumatic, PERRLA, EOMI, Mucous Membr. moist/pink Neck Supple, No JVD, +2 Carotid Pulse wo Bruit, No LAD Cardiovascular Regular Rate, Normal S1, Normal S2, No Murmurs, Gallops, Rubs Lungs Clear to Auscultation, Normal Air Movement Abdomen Normal Bowel Sounds, Soft, No Tenderness, No Hepatospenomegaly, No Masses Neurological Normal Speech, Sensation Intact, Cranial Nerves 3-12 NL Extremities No Clubbing, No Cyanosis, No Edema, Normal Pulses, No Tenderness/ Swelling Vascular Normal Pulses, Pulses Symmetrical Current Medications: Current Medications Sig/Corby Start time Last Medication Dose Route Stop Time Status Admin Acetaminophen 0 .STK-MED ONE 06/18 0251 DC PO Acetaminophen 650 MG Q8P PRN 06/17 1845 AC 06/18 PO 0253 Albuterol Sulfate 3 ML EVERY 4 HRS/AWAKE 06/18 1600 AC INH Albuterol Sulfate 3 ML EVERY 4 HRS/AWAKE .. 06/18 1350 AC INH 06/18 1559 Albuterol Sulfate 3 ML Q4P PRN 06/17 1845 DC 06/18 INH 1208 Albuterol Sulfate 3 ML ONCE ONE 06/17 1545 DC 06/17 INH 06/17 1546 1708 Azithromycin 250 MG DAILY 06/18 1000 DC 06/18 PO 0934 Benzonatate 100 MG TID PRN 06/17 1900 AC 06/18 PO 0934 Budesonide/ 2 PUF BID 06/17 2200 DC 06/18 Formoterol Fumarate INH 0934 Levothyroxine Sodium 0.112 MG DAILY AC 06/18 0700 AC 06/18 PO 0625 Magnesium Sulfate 1 GM Q2H 06/17 1245 DC 06/17 Dextrose/Water 100 ML IV 06/17 1644 1504 Methylprednisolone 0 .STK-MED ONE 06/18 1411 DC .ROUTE Methylprednisolone 0 .STK-MED ONE 06/18 0614 DC .ROUTE Methylprednisolone 0 .STK-MED ONE 06/17 2210 DC .ROUTE Methylprednisolone 40 MG Q8 06/17 2200 AC 06/18 IV 1415 Warfarin Sodium 3.5 MG COUMADIN 1700 ONE 06/17 1845 DC 06/17 PO 06/17 1846 1945 Last 24 Hrs of Lab/Emanuel Results Last 24 Hrs of Labs/Mics: Laboratory Tests 06/18/16 0541: PT 32.5 H, INR 3.13 H, CBC w Diff NO MAN DIFF REQ, RBC 4.37, MCV 92.2, MCH 31.1 H, RDW 13.5, MPV 9.2, Gran % 78.5 H, Lymphocytes % 13.3 L, Monocytes % 8.0, Eosinophils % 0, Basophils % 0.2, Absolute Granulocytes 5.1, Absolute Lymphocytes 0.9 L, Absolute Monocytes 0.5, Absolute Eosinophils 0, Absolute Basophils 0, PUBS MCHC 33.8 Microbiology 06/17 2010 BLOOD: Blood Culture - RES 06/17 1999 BLOOD: Blood Culture - RES 06/17 1809 LOWER RESP: Respiratory Culture - CAN Cancelled: SPECIMEN NOT RECEIVED IN LABORATORY 06/17 1809 LOWER RESP: Gram Stain - CAN Cancelled: SPECIMEN NOT RECEIVED IN LABORATORY Assessment/Plan Assessment: Ms. Reed is a 75 year old lady with a PMH significant for asthma, Afib on Coumadin, TIA (2010) thoracic aortic aneurysm status post repair and a valve replacement who presents with progressively worsening exertional dyspnea associated with productive cough and wheezing, most likely 2/2 astham exacerbation. # Asthma exacerbation * Admit to general medicine service * Vitals per protocol * Oxygen supplement as needed to maintain O2 sat > 92% * Cont Symbicort and Proventil with TRC nebulizer treatment as neededx * Consult pulmonology (Dr. White) in the morning * Follow CXR * Cont Solumeddrol 40mg IV Q8 with a plan to taper tomorrow * Cont Zithromax 250mg PO daily * Cont Tesalon 100mg PO TID PRN cough # Acute hypoxic respiratory failure Patient's oxygen satruation was low at 88% on admission. Currently satting well on RA after TRC treatment with inhalers and IV steroid. * Cont plans as per above to treat for asthma attack * Vitals qshift * Oxygen support as needed # Atrial fibrillation Currently rate and rhythm under control. At home patient reports taking warfarin 3.75mg daily except for on thursday when she takes 5mg. * Check INR daily, dose warfarin (received 3mg in ED today) * Inform Dr. Brandon about the admission (courtesy call) # Hypothyrodism * Cont home med Synthroid 0.112mg PO daily - Heart healthy diet - Mild pain pathway - DVTppx with Coumadin - Full code. Problem List: 1. Chest pain 2. TIA (transient ischemic attack) 3. Thoracic aortic aneurysm 4. Asthma 5. Hypothyroidism 6. DVT prophylaxis 7. Asthma exacerbation 8. History of aortic valve replacement with metallic valve Pain Ratin Pain Location: 0 Pain Goal: Remain pain free Pain Plan: Mild pathway Tomorrow's Labs & Rationales: CBC to monitor for infection SHAY POPE MD 06/18/16 1352: Attending MD Review Statement Attending Statement Attending MD Statement: examined this patient, discuss w/resident/PA/RETIREMENT ASSISTANT, agreed w/resident/PA/RETIREMENT ASSISTANT, reviewed EMR data (avail), discussed with nursing, discussed with case mgmt, amended to note Attending Assessment/Plan: She has seen and examined. Resting comfortably and not in acute distress. She is afebrile and hemodynamically stable. She saturating 96% on room air. She reports feeling better. She reports mild nonproductive cough. She denies shortness of breath at rest and denies chest pain. On examination she has adequate entry bilaterally with mild expiratory wheeze. She has a soft 2/6 systolic normal. Abdomen is soft and nontender. She has no peripheral edema. She has no jugular venous distention. Recommendation: -Continue current bronchodilator therapy and systemic steroid therapy. -If she continues to do well tomorrow she may be transitioned to oral steroids and possibly discharge if cleared by the pulmonology service. -Her BNP is not significantly elevated. No evidence of volume overload. Her chronic diastolic dysfunction does not appear to be decompensated at present. -Continue anticoagulation therapy with Coumadin. Given her mechanical valve her INR goal is 2.5-3.5.
--- NOTE | 2016-06-18 09:44 | Cons- Pulmonary ---
General Information and HPI Consulting Request Date of Consult: 06/18/16 Requested By: Dr. Mcmahan Reason for Consult: Dyspnea wheezing asthma exacerbation Source of Information: patient Exam Limitations: no limitations History of Present Illness: 75 year old woman. Consultatoin for wheezing, dyspnea and asthma exacerbation. Known to me from office. Seems to be having an exacerbation vs upper respiratory infection. +wheezing, no fevers, no chills. +shortness of breath with exertion outside which has not changed. Asthma was diagnosed about 30 years ago, she is on Advair 250/50 BID with rinsing of the mouth. Patient reporting medication regimen is working well for her. She able to work outside the home without issues with breathing. History of diastolic dysfunction. History of post nasal drip. Gets routine injections for Osteoporosis. No leukocytosis, feels better with steroids. No peak flow recorded as of yet. Allergies/Medications Allergies: Coded Allergies: alendronate sodium (LIGHT HEADED, WOOZY PER PT 06/16/16) metronidazole (Mild, NAUSEA 10/08/15) risedronate sodium (From ACTONEL) (Mild, DIZZY 10/08/15) tamsulosin (Mild, NAUSEA 10/08/15) Home Med List: Albuterol Sulfate 2.5 MG/3 ML (0.083 %) VIAL.NEB 1 Vial INH/CARI Q4P PRN WHEEZING Amoxicillin 500 MG CAPSULE 2 CAP PO BID ANTIBIOTIC (Reported) Ascorbic Acid (Vitamin C) (Unknown Strength) TAB (Unknown Dose) PO DAILY SUPPLEMENT (Reported) Azithromycin (Zithromax) 250 MG TABLET 1 DP PO AD BRONCHITIS 2 the first day followed by 1 for days 2-5 Azithromycin (Zithromax) 250 MG TABLET 1 DP PO AD WHEEZING 2 the first day followed by 1 for days 2-5 Benzonatate (Tessalon Perle) 100 MG CAPSULE 1 CAP PO TID PRN COUGH Benzonatate (Tessalon Perle) 100 MG CAPSULE 1 CAP PO TID PRN COUGH Calcium/Sodium (Calcium) 1 TAB TAB 1 TAB PO DAILY SUPPLEMENT (Reported) Cholecalciferol (Vitamin D3) 1,000 UNIT TABLET 1 TAB PO DAILY SUPPLEMENT ( Reported) Denosumab (Prolia) (Unknown Strength) SYRINGE (Unknown Dose) INJ Q6M BONES ( Reported) Fluticasone/Salmeterol (Advair 250-50 Diskus) 250 MCG-50 MCG/DOSE BLST.W.DEV 1 PUF INH BID PRN BREATHING PROBLEMS (Reported) Levothyroxine Sodium (Synthroid) 112 MCG TABLET 1 TAB PO DAILY AC THYROID ( Reported) Multivitamin (One Daily Multivitamin) 1 TAB TAB 1 TAB PO DAILY SUPPLEMENT ( Reported) [NEBULIZER MACHINE] 0 USE DIRECTED Prednisone (Deltasone) 20 MG TABLET 2 TAB PO DAILY ASTHMA Warfarin Sodium (Coumadin) 5 MG TABLET 1 TAB PO QWED BLOOD THINNER (Reported) Warfarin Sodium (Coumadin) 2.5 MG TAB 1.5 TAB PO AD BLOOD THINNER (Reported) Current Medications: Current Medications Sig/Corby Start time Last Medication Dose Route Stop Time Status Admin Acetaminophen 0 .STK-MED ONE 06/18 0251 DC PO Acetaminophen 650 MG Q8P PRN 06/17 1845 06/18 PO 0253 Albuterol Sulfate 3 ML Q4P PRN 06/17 1845 AC INH Albuterol Sulfate 3 ML ONCE ONE 06/17 1545 DC 06/17 INH 06/17 1546 1708 Albuterol Sulfate 3 ML ONCE ONE 06/17 1145 DC 06/17 INH 06/17 1146 1146 Albuterol Sulfate 3 ML ONCE ONE 06/17 1045 DC 06/17 INH 06/17 1046 1044 Azithromycin 250 MG DAILY 06/18 1000 AC 06/18 PO 0934 Benzonatate 100 MG TID PRN 06/17 1900 AC 06/18 PO 0934 Budesonide/ 2 PUF BID 06/17 2200 06/18 Formoterol Fumarate INH 0934 Ipratropium [place] 2.5 ML ONCE ONE 06/17 1145 MN 06/17 INH 06/17 1146 1146 Ipratropium [place] 2.5 ML ONCE ONE 06/17 1045 DC 06/17 INH 06/17 1046 1044 Levothyroxine Sodium 0.112 MG DAILY AC 06/18 0700 06/18 PO 0625 Magnesium Sulfate 1 GM Q2H 06/17 1245 MN 06/17 Dextrose/Water 100 ML IV 06/17 1644 1504 Methylprednisolone 0 .STK-MED ONE 06/18 0614 DC .ROUTE Methylprednisolone 0 .STK-MED ONE 06/17 2210 DC .ROUTE Methylprednisolone 40 MG Q8 06/17 2200 06/18 IV 0625 Methylprednisolone 125 MG ONCE ONE 06/17 1245 DC 06/17 IV 06/17 1246 1246 Methylprednisolone 0 .STK-MED ONE 06/17 1241 DC .ROUTE Prednisone 40 MG ONCE ONE 06/17 1045 DC 06/17 PO 06/17 1046 1038 Prednisone 0 .STK-MED ONE 06/17 1037 DC PO Sodium Chloride 1,000 ML BOLUS ONE 06/17 1245 DC 06/17 IV 06/17 1344 1250 Warfarin Sodium 3.5 MG COUMADIN 1700 ONE 06/17 1845 DC 06/17 PO 06/17 1846 1945 Review of Systems Comments 18 point review of systems was performed and reviewed. Please see pertinent positives and pertinent negatives in the HPI. Otherwise ROS is negative. 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 Home Who Do You Live With? spouse Services at Home: None Primary Language: Syriac Smoking Status: Former Smoker (at 11 y/o) ETOH Use: denies use Illicit Drug Use: denies illicit drug use Exam & Diagnostic Data Last 24 Hrs of Vital Signs/I&O Vital Signs Date Time Temp Pulse Resp B/P Pulse O2 O2 Flow FiO2 Ox Delivery Rate 06/18 0723 99.1 81 101/55 96 06/18 0607 99.1 81 20 101/55 92 Room Air 06/17 2318 97.5 78 16 100/57 92 06/17 2255 Room Air 06/17 2251 97.5 78 16 100/57 92 Room Air 06/17 1708 95 06/17 1519 97.8 75 20 123/58 93 Room Air 06/17 1429 97.5 77 18 124/69 96 Room Air 06/17 1229 96.9 83 20 124/71 99 Room Air 06/17 1156 16 98 Room Air 06/17 1145 91 06/17 1130 Room Air 06/17 1120 20 97 Room Air 06/17 1046 92 06/17 1012 96.6 107 24 115/81 88 Room Air Intake & Output 06/18 1600 06/18 0800 06/18 0000 Intake Total 120 Output Total Balance 120 Intake, Oral 120 Patient 110 lb Weight Physical Exam Other Physical Findings: Generally - Awake, alert and comfortable without distress Head and neck - normocephalic, atraumatic, EOMI grossly intact Cardiovascular - S1, S2, CLICK present Lungs - bilateral inspiratory and expiratory wheezing Abdomen - Bowel sounds positive, soft, non-tender Extremities - without edema Last 48 Hrs of Labs/Emanuel: Laboratory Tests 06/18/16 0541: PT 32.5 H, INR 3.13 H, CBC w Diff NO MAN DIFF REQ, RBC 4.37, MCV 92.2, MCH 31.1 H, RDW 13.5, MPV 9.2, Gran % 78.5 H, Lymphocytes % 13.3 L, Monocytes % 8.0, Eosinophils % 0, Basophils % 0.2, Absolute Granulocytes 5.1, Absolute Lymphocytes 0.9 L, Absolute Monocytes 0.5, Absolute Eosinophils 0, Absolute Basophils 0, PUBS MCHC 33.8 06/17/16 1254: Anion Gap 13, Estimated GFR > 60, BUN/Creatinine Ratio 28.3 H, Glucose 106 H, Calcium 9.6, Total Bilirubin 1.1, AST 31, ALT 34, Alkaline Phosphatase 76, Troponin I < 0.01, Nit-M-Uxmrgsjpijo Pept Pending, Total Protein 7.4, Albumin 4.6, Globulin 2.8, Albumin/Globulin Ratio 1.6, PT 27.2 H, INR 2.62 H, APTT 37, D-Dimer 204, CBC w Diff NO MAN DIFF REQ, RBC 4.97, MCV 91.4, MCH 30.7, RDW 13.4, MPV 9.1, Gran % 76.3 H, Lymphocytes % 18.0 L, Monocytes % 0.9 L, Eosinophils % 4.0, Basophils % 0.8, Absolute Granulocytes 4.9, Absolute Lymphocytes 1.2, Absolute Monocytes 0.1 L, Absolute Eosinophils 0.3, Absolute Basophils 0.1, PUBS MCHC 33.6 Assessment/Plan Impression/Plan: Impression 75-year-old woman * Exacerbation of asthma likely secondary to URI/bronchitis * Diastolic congestive heart failure stage I history * Atrial fibrillation on Coumadin Plan - Peak flow should be performed in all patients admitted with an asthma exacerbation. Please obtain a peak flow at this time and continue to check once every shift - Continue Solu-Medrol 40 mg IV every 8 today - Discontinue Symbicort patient is on Advair at home we'll continue Advair upon discharge - Continue Lourdes Brody - MEGAN nebs - Continue Coumadin - We'll taper steroids review - Check BNP if elevated would repeat echo to evaluate diastolic dysfunction DVT prophylaxis at all times Consult Acknowledgment - Thank you for your consult request.
--- NOTE | 2016-06-18 10:18 | NUR ---
QUICK FLU OBTAINED AND SENT TO LAB
--- NOTE | 2016-06-18 10:34 | NUR ---
PT ALERT AND ORIENTED X 3. LCTA. NON-PRODUCITVE COUGH. NO C/O PAIN. RAPID FLU OBTIANED ORDERED. WILL CONTINUE TO MONITOR.
--- NOTE | 2016-06-18 12:20 | NUR ---
RT AT BEDSIDE FOR TREATMENT. PT REPORTS IMPROVEMENT IN SYMPTOMS AND SOB. IMPROVED LUNG SOUNDS.
--- NOTE | 2016-06-18 12:28 | NUR ---
BED ASSIGNMENT 223-01, WILL CALL WHEN READY
[2016-06-18 14:48] VITALS: BP 104/59
--- NOTE | 2016-06-18 15:10 | NUR ---
REPORT GIVEN AND DISTRIBUTION CALLED
[2016-06-18 15:42] VITALS: BP 110/60
--- NOTE | 2016-06-18 15:45 | NUR ---
PT ARRIVED TO FLOOR VIA WHEELCHAIR FROM ED. AO, RA, OOB INDEPDENTLY, NO C/O PAIN, VSS, ORIENTED TO ROOM AND CALL LIGHT, ADMISSION COMPLETED BY ED RN. ASSESSMENT COMPLETE. WILL CONTINUE TO MONITOR.
[2016-06-18 22:22] VITALS: BP 102/60
[2016-06-19 06:15] VITALS: BP 102/62
--- NOTE | 2016-06-19 06:21 | PN- Housestaff ---
EZRA CLOUD,ESTEBAN 06/19/16 0620: Subjective Follow-up For: Asthma exacerbation Subjective: Patient seen and examined at bedside. No events reported overnight. Resting comfortably in bed, getting a breathing treatment. Peak flow this morning 250. Patient reports improvement in her cough and dyspnea.Denies headache, fever, chills, chest pain, palpitations, nausea, vomiting, diarrhea, blurred/double vision, dizziness/lightheadedness. Review of Systems Constitutional: Reports: see HPI. Objective Last 24 Hrs of Vital Signs/I&O Vital Signs Date Time Temp Pulse Resp B/P Pulse O2 O2 Flow FiO2 Ox Delivery Rate 06/19 0826 95 Room Air 06/19 0615 98.1 79 20 102/62 94 Room Air 06/18 2222 98.4 74 20 102/60 93 Room Air 06/18 2132 94 Room Air 06/18 2004 94 Room Air 06/18 1645 88 Room Air 06/18 1600 Nasal 2.0L Cannula 06/18 1542 97.4 73 20 110/60 95 Room Air 06/18 1515 96 Room Air 06/18 1448 97.5 77 20 104/59 96 Room Air 06/18 1447 97.5 77 20 104/59 96 Room Air 06/18 1319 Room Air Intake & Output 06/19 1600 06/19 0800 06/19 0000 Intake Total 260 251 Output Total Balance 260 251 Intake, IV 20 11 Intake, Oral 240 240 Physical Exam General Appearance: Alert, Oriented X3, Cooperative, No Acute Distress Other Physical Findings: Skin No Rashes, No Breakdown, No Significant Lesion HEENT Atraumatic, PERRLA, EOMI, Mucous Membr. moist/pink Neck Supple, No JVD, +2 Carotid Pulse wo Bruit, No LAD Cardiovascular Regular Rate, Normal S1, Normal S2, No Murmurs, Gallops, Rubs Lungs Clear to Auscultation, Normal Air Movement Abdomen Normal Bowel Sounds, Soft, No Tenderness, No Hepatospenomegaly, No Masses Neurological Normal Speech, Sensation Intact, Cranial Nerves 3-12 NL Extremities No Clubbing, No Cyanosis, No Edema, Normal Pulses, No Tenderness/ Swelling Vascular Normal Pulses, Pulses Symmetrical Current Medications: Current Medications Sig/Corby Start time Last Medication Dose Route Stop Time Status Admin Acetaminophen 650 MG Q8P PRN 06/17 1845 AC 06/18 PO 0253 Albuterol Sulfate 3 ML EVERY 4 HRS/AWAKE 06/18 1600 AC 06/19 INH 0819 Albuterol Sulfate 3 ML EVERY 4 HRS/AWAKE .. 06/18 1350 DC INH 06/18 1559 Albuterol Sulfate 3 ML Q4P PRN 06/17 1845 DC 06/18 INH 1208 Azithromycin 250 MG DAILY 06/18 1000 DC 06/18 PO 0934 Benzonatate 100 MG TID PRN 06/17 1900 AC 06/18 PO 0934 Budesonide/ 2 PUF BID 06/17 2200 DC 06/18 Formoterol Fumarate INH 0934 Levothyroxine Sodium 0.112 MG DAILY AC 06/18 0700 AC 06/19 PO 0521 Methylprednisolone 0 .STK-MED ONE 06/18 1411 DC .ROUTE Methylprednisolone 40 MG Q8 06/17 2200 AC 06/19 IV 0521 Warfarin Sodium 2 MG ONCE ONE 06/18 1815 CAN PO 06/18 181 Warfarin Sodium 1 MG ONCE ONE 06/18 181 DC 06/18 PO 06/18 1813 Last 24 Hrs of Lab/Emanuel Results Last 24 Hrs of Labs/Mics: Laboratory Tests 06/19/16 0710: PT 36.9 H, INR 3.56 H, CBC w Diff Pending, WBC Pending, RBC Pending, Hgb Pending, Hct Pending, MCV Pending, MCH Pending, RDW Pending, Plt Count Pending, MPV Pending, Gran % Pending, Lymphocytes % Pending, Monocytes % Pending, Eosinophils % Pending, Basophils % Pending, Absolute Granulocytes Pending, Absolute Lymphocytes Pending, Absolute Monocytes Pending, Absolute Eosinophils Pending, Absolute Basophils Pending, PUBS MCHC Pending Assessment/Plan Assessment: Ms. Reed is a 75 year old lady with a PMH significant for asthma, Afib on Coumadin, TIA (2010) thoracic aortic aneurysm status post repair and a valve replacement who presents with progressively worsening exertional dyspnea associated with productive cough and wheezing, most likely 2/2 astham exacerbation. # Asthma exacerbation * Admit to general medicine service * Vitals per protocol * Oxygen supplement as needed to maintain O2 sat > 92% * Cont Symbicort and Proventil with TRC nebulizer treatment as neededx * Consult pulmonology (Dr. White) in the morning * Follow CXR * Cont Solumeddrol 40mg IV Q8 with a plan to taper tomorrow * Cont Zithromax 250mg PO daily * Cont Tesalon 100mg PO TID PRN cough # Acute hypoxic respiratory failure Patient's oxygen satruation was low at 88% on admission. Currently satting well on RA after TRC treatment with inhalers and IV steroid. * Cont plans as per above to treat for asthma attack * Vitals qshift * Oxygen support as needed # Atrial fibrillation Currently rate and rhythm under control. At home patient reports taking warfarin 3.75mg daily except for on thursday when she takes 5mg. * Check INR daily, dose warfarin (received 3mg in ED today) * Inform Dr. Brandon about the admission (courtesy call) # Hypothyrodism * Cont home med Synthroid 0.112mg PO daily - Heart healthy diet - Mild pain pathway - DVTppx with Coumadin - Full code. Problem List: 1. Asthma exacerbation Pain Ratin Pain Location: 0 Pain Goal: Remain pain free Pain Plan: Mild pathway Tomorrow's Labs & Rationales: None - d/c SUMA FORBES 06/19/16 1656: Attending MD Review Statement Attending Statement Attending MD Statement: examined this patient, discuss w/resident/PA/SUBASSEMBLIES WIRER, agreed w/resident/PA/SUBASSEMBLIES WIRER, reviewed EMR data (avail), discussed with nursing, discussed with case mgmt Attending Assessment/Plan: Asthma exacerbation seen by pulmonary today and switch to by mouth prednisone 60 mg daily. INR level as high at 3.56 Will hold Coumadin tonight. Discussed with patient and her care plan.
--- NOTE | 2016-06-19 07:34 | Patient Discharge Instructions ---
Discharge Instructions General Discharge Information You were seen/treated for: Asthma exacerbation Special Instructions: Please follow up with Dr. White (pulmonology) and Dr. Rodriguez (primary care) within 1 week of discharge. Please follow up with Dr. Brandon (cardiology) and Dr. Hipolito Bull ( cardiothoracic surgeon at [facility]; [phone]) within 1 week of discharge. Diet Continue normal diet: Yes Activity Full Activity/No Limits: Yes Acute Coronary Syndrome Inclusion Criteria At DC or during hospital stay patient has or had the following: ACS DIAGNOSIS No Discharge Core Measures Meds if any: Prescribed or Continued at Discharge Meds if any: NOT Prescribed or Continued at Discharge Congestive Heart Failure Inclusion Criteria At DC or during hospital stay patient has or had the following: CHF DIAGNOSIS No Discharge Core Measures Meds if any: Prescribed or Continued at Discharge Meds if any: NOT Prescribed or Continued at Discharge Cerebrovascular accident Inclusion Criteria At DC or during hospital stay patient has or had the following: CVA/TIA Diagnosis No Discharge Core Measures Meds if any: Prescribed or Continued at Discharge Meds if any: NOT Prescribed or Continued at Discharge Venous thromboembolism Inclusion Criteria VTE Diagnosis No VTE Type NONE VTE Confirmed by (Test) NONE Discharge Core Measures - Per Current guidelines, there needs to be overlap - treatment for the first 5 days of Warfarin therapy. - If discharged on Warfarin prior to 5 days of - overlap therapy, the patient will need to be - assessed for post discharge needs including - *Post discharge parental anticoagulation - *Warfarin and/or parental anticoagulation education - *Follow up date to check INR post discharge At least 5 days overlap therapy as Inpatient No Meds if any: Prescribed or Continued at Discharge Note: Overlap Therapy is Warfarin and Anticoagulant Meds if any: NOT Prescribed or Continued at Discharge
[2016-06-19 08:18] LABS: ABSOLUTE BASOPHIL COUNT 0 /CUMM (0.0-0.2); ABSOLUTE EOSINOPHIL COUNT 0 /CUMM (0.0-0.7); ABSOLUTE GRANULOCYTE CT 7.6 /CUMM (1.4-6.5); ABSOLUTE LYMPH COUNT 0.9 /CUMM (1.2-3.4); ABSOLUTE MONOCYTE COUNT 0.3 /CUMM (0.10-0.60); BASOPHIL % 0 % (0.0-2.0); EOSINOPHIL % 0 % (0-5); HEMATOCRIT 40.7 % (37-47); MEAN CORPUSCULAR HGB 30.9 PG (27.0-31.0); MEAN CORPUSCULAR HGB CONC 33.5 G/DL (33.0-37.0); MEAN CORPUSCULAR VOLUME 92.1 FL (81.0-99.0); MEAN PLATELET VOLUME 9.7 FL (7.4-10.4); RBC DISTRIBUTION WIDTH 13.9 % (11.5-14.5); RED BLOOD CELL CT 4.42 /CUMM (4.20-5.40); WHITE BLOOD CELL COUNT 8.9 /CUMM (4.8-10.8)
[2016-06-19 08:28] LABS: PT 36.9 SEC (9.4-12.5)
[2016-06-19 08:57] LABS: GRANULOCYTE % 85.8 % (42.2-75.2); PLATELET COUNT 204 /CUMM (130-400)
[2016-06-19] MEDS ORDERED: DELTASONE20 MG PO ×2 (09:20→12:26)
--- NOTE | 2016-06-19 11:00 | PN- Pulmonary ---
Subjective HPI/Critical Care Issues: Patient seen and examined. No chest pain, still with dyspnea primarily with exertion, significant wheezing. No nausea, vomiting, diarrhea or constipation. Afebrile and hemodynamically stable. Objective Current Medications: Current Medications Sig/Corby Start time Last Medication Dose Route Stop Time Status Admin Acetaminophen 650 MG Q8P PRN 06/17 1845 AC 06/18 PO 0253 Albuterol Sulfate 3 ML EVERY 4 HRS/AWAKE 06/18 1600 AC 06/19 INH 0819 Albuterol Sulfate 3 ML EVERY 4 HRS/AWAKE .. 06/18 1350 DC INH 06/18 1559 Albuterol Sulfate 3 ML Q4P PRN 06/17 1845 DC 06/18 INH 1208 Azithromycin 250 MG DAILY 06/18 1000 DC 06/18 PO 0934 Benzonatate 100 MG TID PRN 06/17 1900 AC 06/18 PO 0934 Levothyroxine Sodium 0.112 MG DAILY AC 06/18 0700 AC 06/19 PO 0521 Methylprednisolone 0 .STK-MED ONE 06/18 1411 DC .ROUTE Methylprednisolone 40 MG Q8 06/17 2200 DC 06/19 IV 0521 Prednisone 40 MG DAILY 06/19 1000 AC PO Warfarin Sodium 2 MG ONCE ONE 06/18 1815 CAN PO 06/18 1816 Warfarin Sodium 1 MG ONCE ONE 06/18 1815 DC 06/18 PO 06/18 181 2123 Vital Signs & I&O Last 24 Hrs of Vitals and I&O: Vital Signs Date Time Temp Pulse Resp B/P Pulse O2 O2 Flow FiO2 Ox Delivery Rate 06/19 0826 95 Room Air 06/19 0615 98.1 79 20 102/62 94 Room Air 06/18 2222 98.4 74 20 102/60 93 Room Air 06/18 2132 94 Room Air 06/18 2004 94 Room Air 06/18 1645 88 Room Air 06/18 1600 Nasal 2.0L Cannula 06/18 1542 97.4 73 20 110/60 95 Room Air 06/18 1515 96 Room Air 06/18 1448 97.5 77 20 104/59 96 Room Air 06/18 1447 97.5 77 20 104/59 96 Room Air 06/18 1319 Room Air Intake & Output 06/19 1600 06/19 0800 06/19 0000 Intake Total 260 251 Output Total Balance 260 251 Intake, IV 20 11 Intake, Oral 240 240 Exam Other Physical Findings: Generally - Awake, alert and comfortable without distress Head and neck - normocephalic, atraumatic, EOMI grossly intact Cardiovascular - S1, S2, CLICK present Lungs - bilateral inspiratory and expiratory wheezing Abdomen - Bowel sounds positive, soft, non-tender Extremities - without edema Results Last 24 Hrs of Lab Results: Laboratory Tests 06/19/16 0710: PT 36.9 H, INR 3.56 H, CBC w Diff NO MAN DIFF REQ, RBC 4.42, MCV 92.1, MCH 30.9, RDW 13.9, MPV 9.7, Gran % 85.8 H, Lymphocytes % 10.3 L, Monocytes % 3.9, Eosinophils % 0, Basophils % 0 L, Absolute Granulocytes 7.6 H, Absolute Lymphocytes 0.9 L, Absolute Monocytes 0.3, Absolute Eosinophils 0, Absolute Basophils 0, PUBS MCHC 33.5 Impression/Plan Impression/Plan Impression/Plan: Impression 75-year-old woman * Exacerbation of asthma likely secondary to URI/bronchitis * Diastolic congestive heart failure stage I history * Atrial fibrillation on Coumadin Plan - Peak flow qshift - begin prednisone 60x3, 50x3, 40x3, 30x3, 20x3, 10x3 then stop, d/c Solu-Medrol - Continue Tessalon Perles - TRC nebs - Continue Coumadin - f/u echo DVT prophylaxis at all times Dc planning for tomorrow
--- NOTE | 2016-06-19 14:21 | NUR ---
AFTER AMBULATING IN HALLWAY ON WHAT PT DESCRIBED "LONG WALK," PT C/O SOB HEADACHE. RN TOOK VITALS: BP: 98/72, P: 92, O2: 97, RR: 16 ROSA ROE, EMBEDDED SOFTWARE ARCHITECT, AND THIS RN PROVIDED COPD EDUCATION. PLACED PT ON 2L O2 NC AND APPLIED COOL WASHCLOTH TO FOREHEAD. STAT ECHOCARDIOGRAM ORDERED. WILL CONTINUE TO MONITOR. ANABELL CUBA RN
[2016-06-19 15:24] VITALS: BP 100/60
--- NOTE | 2016-06-19 16:18 | ECHOCARDIOGRAM REPORT ---
MILLY KNUTSON Age: 75 : 1940 Gender: F Exam Date: 06/19/2016 12:39 Exam Location: [facility] Ht (in): 62 Wt (lb): 110 BSA: 1.48 BP: 102 / 62 Ordering Physician: ESTEBAN MUNGUIA MD Referring Physician: ESTEBAN MUNGUIA MD Technologist: Jadon Gee [facility] Room Number: 223-01 Indications: SHORTNESS OF BREATH Rhythm: Sinus Technical Quality: Fair FINDINGS Left Ventricle Normal size left ventricle. Mild concentric left ventricular hypertrophy. No obvious regional wall motion abnormalities. Normal left ventricular ejection fraction visually estimated at >65 %. "pseudonormal" filling pattern of the left ventricle for age (stage 2 diastolic dysfunction). Right Ventricle Mild right ventricular dilatation. Right Atrium Normal right atrial size. Left Atrium Mild left atrial dilatation. Mitral Valve Mild mitral annular calcification. Mitral valve thickened. Mild mitral regurgitation. Aortic Valve Mechanical prosthetic aortic valve, bileaflet tilting disk type. Gradient recorded across the prosthetic aortic valve within the expected range. Trace aortic regurgitation. Tricuspid Valve Structurally normal tricuspid valve. Trace tricuspid regurgitation. Right ventricular systolic pressure estimated at 30 mmHg. Pulmonic Valve Pulmonic valve not well visualized, grossly normal. Trace pulmonic regurgitation. Pericardium Small pericardial effusion. Great Vessels Moderate aortic dilatation at the level of the sinuses of valsalva (root). CONCLUSIONS Normal size left ventricle. Mild concentric left ventricular hypertrophy. Normal left ventricular ejection fraction visually estimated at >65 "pseudonormal" filling pattern of the left ventricle for age (stage 2 diastolic dysfunction). Mild right ventricular dilatation. Normal right atrial size. Mild left atrial dilatation. Mild mitral regurgitation. Gradient recorded across the prosthetic aortic valve within the expected range. Trace aortic regurgitation. Trace tricuspid regurgitation. Right ventricular systolic pressure estimated at 30 mmHg. Trace pulmonic regurgitation. Small pericardial effusion. Moderate aortic dilatation at the level of the sinuses of valsalva (root). Ambrosio Brandon M.D. (Electronically Signed) Final Date: 19 June 2016 16:18 MEASUREMENTS (Male / Female) Normal Values 2D ECHO LV Diastolic Diameter PLAX 4.2 cm 4.2 - 5.9 / 3.9 - 5.3 cm LV Systolic Diameter PLAX 2.4 cm 2.1 - 4.0 cm LV Fractional Shortening PLAX 42.9 % 25 - 46 % LV Ejection Fraction 2D Teich 74.3 % IVS Diastolic Thickness 1.2 cm LVPW Diastolic Thickness 1.1 cm LV Relative Wall Thickness 0.5 Aortic Root Diameter 4.2 cm LA Systolic Diameter LX 4.4 cm 3.0 - 4.0 / 2.7 - 3.8 cm LV Ejection Fraction MOD BP 69.5 % >= 55 % LV Diastolic Length 4C 7.4 cm 6.9 - 10.3 cm LV Diastolic Area 4C 27.0 cm LV Diastolic Volume MOD 4C 81.0 cm LV Ejection Fraction MOD 4C 64.2 % LV Stroke Volume MOD 4C 52.0 cm LV Systolic Length 4C 6.3 cm LV Systolic Area 4C 14.4 cm LV Systolic Volume MOD 4C 29.0 cm LV Ejection Fraction MOD 2C 74.1 % LV Diastolic Volume 4C AL 84.2 cm 85 - 139 / 69 - 109 cm LV Systolic Volume 4C AL 27.8 cm LV Ejection Fraction 4C AL 67.0 % LV Stroke Volume 4C AL 56.4 cm LV Ejection Fraction 2C AL 75.2 % LA Volume 49.0 cm 18 - 58 / 22 - 52 cm Ascending Aorta Diameter 3.3 cm DOPPLER AV Peak Velocity 219.0 cm/s AV Peak Gradient 19.2 mmHg AV Mean Velocity 130.0 cm/s AV Mean Gradient 8.0 mmHg AV Velocity Time Integral 36.9 cm LVOT Peak Velocity 79.0 cm/s LVOT Peak Gradient 2.5 mmHg LVOT Mean Velocity 56.9 cm/s LVOT Mean Gradient 2.0 mmHg LVOT Velocity Time Integral 16.2 cm MV Peak Velocity 114.0 cm/s MV Peak Gradient 5.2 mmHg MV Mean Velocity 57.4 cm/s MV Mean Gradient 2.0 mmHg Mitral E Point Velocity 80.5 cm/s Mitral A Point Velocity 76.0 cm/s Mitral E to A Ratio 1.1 MV PHT Velocity 91.7 cm/s MV Deceleration [place] 473.0 cm/s MV Pressure Half Time 58.2 ms MV Area PHT 3.8 cm MV Deceleration Time 162.0 ms TR Peak Velocity 250.0 cm/s TR Peak Gradient 25.0 mmHg PV Peak Velocity 101.0 cm/s PV Peak Gradient 4.1 mmHg PV Mean Velocity 67.1 cm/s PV Mean Gradient 2.0 mmHg PV Velocity Time Integral 21.9 cm LV E' Lateral Velocity 8.0 cm/s Mitral E to LV E' Lateral Ratio 10.1 LV E' Septal Velocity 7.6 cm/s Mitral E to LV E' Septal Ratio 10.6
[2016-06-19 23:35] VITALS: BP 104/60
[2016-06-20] MEDS ORDERED: DELTASONE20 MG PO (06:22)
--- NOTE | 2016-06-20 06:25 | PN- Housestaff ---
EZRA CLOUD,ESTEBAN 06/20/16 0624: Subjective Follow-up For: Asthma exacerbation Subjective: Patient seen and examined at bedside. No events reported overnight. No new complaints. Feels better in terms of breathing. Endorses intermitten chest tightness which she has had since 2005 reportedly. Denies headache, fever, chills, chest pain, palpitations, nausea, vomiting, diarrhea, blurred/double vision, dizziness/lightheadedness. Review of Systems Constitutional: Reports: see HPI. Objective Last 24 Hrs of Vital Signs/I&O Vital Signs Date Time Temp Pulse Resp B/P Pulse O2 O2 Flow FiO2 Ox Delivery Rate 06/20 0631 97.6 67 20 104/70 95 Room Air 06/19 2335 97.9 76 20 104/60 96 Room Air 06/19 1625 93 Room Air 06/19 1524 97.7 80 20 100/60 94 06/19 0826 95 Room Air 06/19 0800 97 Nasal 2.0L Cannula Intake & Output 06/20 0800 06/20 0000 06/19 1600 Intake Total 800 1200 Output Total Balance 800 1200 Intake, Oral 800 1200 Physical Exam General Appearance: Alert, Oriented X3, Cooperative, No Acute Distress Other Physical Findings: Skin No Rashes, No Breakdown, No Significant Lesion HEENT Atraumatic, PERRLA, EOMI, Mucous Membr. moist/pink Neck Supple, No JVD, +2 Carotid Pulse wo Bruit, No LAD Cardiovascular Regular Rate, Normal S1, Normal S2, No Murmurs, Gallops, Rubs Lungs Clear to Auscultation, Normal Air Movement Abdomen Normal Bowel Sounds, Soft, No Tenderness, No Hepatospenomegaly, No Masses Neurological Normal Speech, Sensation Intact, Cranial Nerves 3-12 NL Extremities No Clubbing, No Cyanosis, No Edema, Normal Pulses, No Tenderness/ Swelling Vascular Normal Pulses, Pulses Symmetrical Current Medications: Current Medications Sig/Corby Start time Last Medication Dose Route Stop Time Status Admin Acetaminophen 650 MG .STK-MED ONE 06/19 1503 DC PO 06/19 1504 Acetaminophen 650 MG Q8P PRN 06/17 1845 AC 06/19 PO 1508 Albuterol Sulfate 3 ML EVERY 4 HRS/AWAKE 06/18 1600 AC 06/19 INH 2033 Benzonatate 100 MG TID PRN 06/17 1900 AC 06/18 PO 0934 Levothyroxine Sodium 0.112 MG DAILY AC 06/18 0700 AC 06/20 PO 0543 Methylprednisolone 40 MG Q8 06/17 2200 DC 06/19 IV 0521 Patient Medication 1 ED .STK-MED ONE 06/19 1344 DC Teaching ED 06/19 1345 Patient Medication 1 ED .STK-MED ONE 06/19 1328 DC Teaching ED 06/19 1329 Prednisone 60 MG DAILY 06/20 1000 AC PO Prednisone 20 MG ONCE ONE 06/19 1230 DC 06/19 PO 06/19 1231 1435 Prednisone 40 MG DAILY 06/19 1000 DC 06/19 PO 1216 Assessment/Plan Assessment: Ms. Reed is a 75 year old lady with a PMH significant for asthma, Afib on Coumadin, TIA (2010) thoracic aortic aneurysm status post repair and a valve replacement who presents with progressively worsening exertional dyspnea associated with productive cough and wheezing, most likely 2/2 astham exacerbation. # Asthma exacerbation * Vitals per protocol * Oxygen supplement as needed to maintain O2 sat > 92% * Cont Symbicort and Proventil with TRC nebulizer treatment as neededx * Appreciate recs from pulmonology (Dr. White) * Cont steroid taper, Prednisone 60mg PO today * Cont Tesalon 100mg PO TID PRN cough * Patient stable for discharge on steroid taper per Dr. White # Acute hypoxic respiratory failure - Resolved Patient's oxygen satruation was low at 88% on admission. Currently satting well on RA after TRC treatment with inhalers and IV steroid. Currently satting well on RA. * Cont plans as per above to treat for asthma attack * Vitals qshift * Oxygen support as needed # Thoracic aortic aneurysm Patient carries a h/o thoracic aortic aneurysm which has reportedly increased in size on echocardiogram done this admission per Dr. Daniel (singe machine operator). In the setting of patient's persistent chest heaviness, we will pursue an imaging study to r/o mechanical impingement by the dilatation as well as dissection. * CT aniogram to better assess the thoracic aortic aneuyrsm * Appreciate cardio recs # Atrial fibrillation Currently rate and rhythm under control. At home patient reports taking warfarin 3.75mg daily except for on thursday when she takes 5mg. * Check INR daily, dose warfarin * Appreciate cardio recs # Hypothyrodism * Cont home med Synthroid 0.112mg PO daily - Heart healthy diet - Mild pain pathway - DVTppx with Coumadin - Full code. Problem List: 1. Asthma exacerbation Pain Ratin Pain Location: 0 Pain Goal: Remain pain free Pain Plan: Mild pathway Tomorrow's Labs & Rationales: None - d/c SUMA FORBES 06/20/16 1636: Attending MD Review Statement Attending Statement Attending MD Statement: examined this patient, discuss w/resident/PA/HOUSE SERVANT, agreed w/resident/PA/HOUSE SERVANT, reviewed EMR data (avail), discussed with nursing, discussed with case mgmt Attending Assessment/Plan: Patient seen and examined at bedside. Discussed with patient the care plan. Echo done reveals the mechanical wall to be functioning okay without any significant aortic regurgitation. CTA of the chest was done to evaluate for thoracic aneurysm which is stable. Patient is being discharged home in stable condition. Benefit to the discharge summary for more details.
[2016-06-20 06:31] VITALS: BP 104/70
[2016-06-20 08:40] LABS: ABSOLUTE BASOPHIL COUNT 0 /CUMM (0.0-0.2); ABSOLUTE EOSINOPHIL COUNT 0 /CUMM (0.0-0.7); ABSOLUTE GRANULOCYTE CT 5.4 /CUMM (1.4-6.5); ABSOLUTE LYMPH COUNT 2.5 /CUMM (1.2-3.4); ABSOLUTE MONOCYTE COUNT 0.5 /CUMM (0.10-0.60); BASOPHIL % 0.3 % (0.0-2.0); EOSINOPHIL % 0.5 % (0-5); GRANULOCYTE % 63.5 % (42.2-75.2); HEMATOCRIT 41.8 % (37-47); MEAN CORPUSCULAR HGB 30.8 PG (27.0-31.0); MEAN CORPUSCULAR HGB CONC 33.2 G/DL (33.0-37.0); MEAN CORPUSCULAR VOLUME 92.6 FL (81.0-99.0); MEAN PLATELET VOLUME 9.4 FL (7.4-10.4); PLATELET COUNT 183 /CUMM (130-400); RBC DISTRIBUTION WIDTH 13.3 % (11.5-14.5); RED BLOOD CELL CT 4.52 /CUMM (4.20-5.40); WHITE BLOOD CELL COUNT 8.4 /CUMM (4.8-10.8)
[2016-06-20 08:43] LABS: PT 29.9 SEC (9.4-12.5)
--- NOTE | 2016-06-20 10:58 | Cons- Cardiology ---
General Information and HPI Consulting Request Date of Consult: 06/20/16 Requested By: SHAY POPE M.D Reason for Consult: Chest discomfort. Source of Information: patient, old records Exam Limitations: no limitations History of Present Illness: Mrs. Catia Reed is a 75-year-old female with a history of light remote tobacco use, dyslipidemia, thyroid carcinoma s/p thyroidectomy, subsequent hypothyroidism on replacement, ascending thoracic aortic aneurysm s/p repair and placement of a mechanical aortic valve prosthesis (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 She denied any fever, chills, weight gain, orthopnea, paroxysmal nocturnal dyspnea, lower extremity edema, etc. The echocardiogram performed yesterday (06/19/2016) revealed dilatation of the aortic root to 4.2 cm and ascending thoracic aorta to 3.3 cm both of which have increased from her previous echocardiogram (01/29/2014) when her aortic root was 3.8 cm and her ascending thoracic aorta was 2.9 cm. Her last CTA (07/04/2015) revealed dilatation of the aortic root to 4.5 cm in its maximal AP diameter (unchanged from prior CTA performed 01/02/2015) and mid ascending thoracic aorta to 4.3 x 3.9 cm where it previously measured 4.1 x 3.9. Similarly, the ascending aorta at the level of the brachiocephalic artery was 3.9 x 3.5 cm where previously measured 3.7 x 3.4 cm. Allergies/Medications Allergies: Coded Allergies: alendronate sodium (LIGHT HEADED, WOOZY PER PT 06/16/16) metronidazole (Mild, NAUSEA 10/08/15) risedronate sodium (From ACTONEL) (Mild, DIZZY 10/08/15) tamsulosin (Mild, NAUSEA 10/08/15) Home Med List: Albuterol Sulfate 2.5 MG/3 ML (0.083 %) VIAL.NEB 1 Vial INH/CARI Q4P PRN WHEEZING Amoxicillin 500 MG CAPSULE 2 CAP PO BID ANTIBIOTIC (Reported) Ascorbic Acid (Vitamin C) (Unknown Strength) TAB (Unknown Dose) PO DAILY SUPPLEMENT (Reported) Azithromycin (Zithromax) 250 MG TABLET 1 DP PO AD WHEEZING 2 the first day followed by 1 for days 2-5 Benzonatate (Tessalon Perle) 100 MG CAPSULE 1 CAP PO TID PRN COUGH Benzonatate (Tessalon Perle) 100 MG CAPSULE 1 CAP PO TID PRN COUGH Calcium/Sodium (Calcium) 1 TAB TAB 1 TAB PO DAILY SUPPLEMENT (Reported) Cholecalciferol (Vitamin D3) 1,000 UNIT TABLET 1 TAB PO DAILY SUPPLEMENT ( Reported) Denosumab (Prolia) (Unknown Strength) SYRINGE (Unknown Dose) INJ Q6M BONES ( Reported) Fluticasone/Salmeterol (Advair 250-50 Diskus) 250 MCG-50 MCG/DOSE BLST.W.DEV 1 PUF INH BID PRN BREATHING PROBLEMS (Reported) Levothyroxine Sodium (Synthroid) 112 MCG TABLET 1 TAB PO DAILY AC THYROID ( Reported) Multivitamin (One Daily Multivitamin) 1 TAB TAB 1 TAB PO DAILY SUPPLEMENT ( Reported) [NEBULIZER MACHINE] 0 USE DIRECTED Prednisone (Deltasone) 20 MG TABLET 2 TAB PO DAILY ASTHMA DATE DOSE 06/20- 60MG 06/22- 50MG 06/25- 40MG 06/28- 30MG 07/01- 20MG 07/04- 10MG Warfarin Sodium (Coumadin) 5 MG TABLET 1 TAB PO QWED BLOOD THINNER (Reported) Warfarin Sodium (Coumadin) 2.5 MG TAB 1.5 TAB PO AD BLOOD THINNER (Reported) Review of Systems Review of Systems: A 14 point system review was obtained and was noncontributory other than as above, except for the fact that the patient wears glasses. 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 Home Who Do You Live With? spouse Services at Home: None Primary Language: Vietnamese Smoking Status: Former Smoker (at 11 y/o) ETOH Use: denies use Illicit Drug Use: denies illicit drug use Exam & Diagnostic Data Vital Signs and I&O Vital Signs Date Time Temp Pulse Resp B/P Pulse O2 O2 Flow FiO2 Ox Delivery Rate 06/20 0821 98 Room Air Room Air 06/20 0631 97.6 67 20 104/70 95 Room Air 06/19 2335 97.9 76 20 104/60 96 Room Air 06/19 1625 93 Room Air 06/19 1524 97.7 80 20 100/60 94 Intake & Output 06/20 1600 06/20 0800 06/20 0000 06/19 1600 06/19 0800 06/19 0000 Intake Total 800 1200 260 251 Output Total Balance 800 1200 260 251 Intake, IV 20 11 Intake, Oral 800 1200 240 240 Physical Exam: Well-developed, well-nourished elderly female with nasal oxygen in place in no acute distress. Vital signs: See above. HEENT: Normocephalic, atraumatic, EOMI, slightly dry mucous membranes. Neck: No JVD, no bruits. Lungs: Decreased breath sounds with occasional wheeze. Heart: S1, S2 with appropriate mechanical valve sounds and grade 1-2/6 systolic murmur. No gallop or rub appreciated. PMI fifth ICS at [facility]. Abdomen: Soft, nontender, positive bowel sounds. Extremities: No edema. Labs/Emanuel Results: Laboratory Tests 06/20 06/19 0655 0710 Coagulation PT (9.4 - 12.5 SEC) 29.9 H 36.9 H INR (0.90 - 1.19) 2.88 H 3.56 H Hematology CBC w Diff NO MAN DIFF REQ NO MAN DIFF REQ WBC (4.8 - 10.8 /CUMM) 8.4 8.9 RBC (4.20 - 5.40 /CUMM) 4.52 4.42 Hgb (12.0 - 16.0 G/DL) 13.9 13.6 Hct (37 - 47 %) 41.8 40.7 MCV (81.0 - 99.0 FL) 92.6 92.1 MCH (27.0 - 31.0 PG) 30.8 30.9 RDW (11.5 - 14.5 %) 13.3 13.9 Plt Count (130 - 400 /CUMM) 183 204 MPV (7.4 - 10.4 FL) 9.4 9.7 Gran % (42.2 - 75.2 %) 63.5 85.8 H Lymphocytes % (20.5 - 51.1 %) 29.5 10.3 L Monocytes % (1.7 - 9.3 %) 6.2 3.9 Eosinophils % (0 - 5 %) 0.5 0 Basophils % (0.0 - 2.0 %) 0.3 0 L Absolute Granulocytes (1.4 - 6.5 /CUMM) 5.4 7.6 H Absolute Lymphocytes (1.2 - 3.4 /CUMM) 2.5 0.9 L Absolute Monocytes (0.10 - 0.60 /CUMM) 0.5 0.3 Absolute Eosinophils (0.0 - 0.7 /CUMM) 0 0 Absolute Basophils (0.0 - 0.2 /CUMM) 0 0 PUBS MCHC (33.0 - 37.0 G/DL) 33.2 33.5 Diagnostic Data EKG Results (06/17/2016) sinus rhythm, probable left atrial abnormality, and minor nondiagnostic ST depression. Minor changes when compared to previous tracing ( 06/16/2016). CXR Results (06/17/2016) Status post median sternotomy. No acute change of the chest. No pulmonary vascular congestion. The lungs are clear. No pleural effusion. Other Results Echocardiogram (06/19/2016) Normal size left ventricle. Mild concentric left ventricular hypertrophy. Normal left ventricular ejection fraction visually estimated at >65 5. "pseudonormal" filling pattern of the left ventricle for age (stage 2 diastolic dysfunction). Mild right ventricular dilatation. Normal right atrial size. Mild left atrial dilatation. Mild mitral regurgitation. Gradient recorded across the prosthetic aortic valve within the expected range. Trace aortic regurgitation. Trace tricuspid regurgitation. Right ventricular systolic pressure estimated at 30 mmHg. Trace pulmonic regurgitation. Small pericardial effusion. Moderate aortic dilatation at the level of the sinuses of valsalva ( root). Assessment/Plan Assessment/Plan Mrs. Reed is an elderly female with a history of ascending thoracic aortic aneurysm s/p repair and placement of a mechanical aortic valve prosthesis ([employer]) for associated moderate aortic regurgitation on 08/05/2005 and asthma who was admitted to [facility] on Thursday (06/17/2016) with a one-week history of progressive shortness of breath on exertion, wheezing, shakiness, lightheadedness, productive and nonproductive cough, and constant moderately severe ("8/10") substernal "pressure". Although, she feels improved as far as her asthma is concerned and is less short of breath, the substernal chest pressure she has been experiencing is still present and of concern. The discomfort is also not reproducible by palpation to the chest wall, which would be anticipated were the discomfort secondary to musculoskeletal soreness from her coughing. The concern is whether the discomfort may be secondary to mechanical impingement of surrounding structures in her chest from further dilatation of her ascending thoracic aortic aneurysm, dissection, etc. Would recommend repeating a CTA of her chest to reassess the size of her aortic root and ascending thoracic aorta. Should there be no significant change from her previous CTA or other unsuspected abnormalities, anticipate that she can be discharged for further outpatient evaluation and management which will include follow-up with her cardiothoracic surgeon at [facility] (Hipolito Bull M.D. [phone]). Continue warfarin anticoagulation for her mechanical aortic prosthesis which is also serving to prophylax against deep venous thrombosis. Further recommendations will follow, thank you. Consult Acknowledgment - Thank you for your consult request.
--- NOTE | 2016-06-20 11:32 | PN- Pulmonary ---
Subjective HPI/Critical Care Issues: Patient seen and examined. No chest pain, improved dyspnea and off oxygen. No nausea, vomiting, diarrhea or constipation. Afebrile and hemodynamically stable. Objective Current Medications: Current Medications Sig/Corby Start time Last Medication Dose Route Stop Time Status Admin Acetaminophen 650 MG .STK-MED ONE 06/19 1503 DC PO 06/19 1504 Acetaminophen 650 MG Q8P PRN 06/17 1845 AC 06/19 PO 1508 Albuterol Sulfate 3 ML EVERY 4 HRS/AWAKE 06/18 1600 AC 06/20 INH 0818 Benzonatate 100 MG TID PRN 06/17 1900 AC 06/18 PO 0934 Levothyroxine Sodium 0.112 MG DAILY AC 06/18 0700 AC 06/20 PO 0543 Patient Medication 1 ED .STK-MED ONE 06/19 1344 MN Teaching ED 06/19 1345 Patient Medication 1 ED .STK-MED ONE 06/19 1328 MN Teaching ED 06/19 1329 Prednisone 50 MG DAILY 06/22 1000 AC PO Prednisone 60 MG DAILY 06/20 1000 AC 06/20 PO 06/21 2300 1018 Prednisone 20 MG ONCE ONE 06/19 1230 DC 06/19 PO 06/19 1231 1435 Prednisone 40 MG DAILY 06/19 1000 DC 06/19 PO 1216 Vital Signs & I&O Last 24 Hrs of Vitals and I&O: Vital Signs Date Time Temp Pulse Resp B/P Pulse O2 O2 Flow FiO2 Ox Delivery Rate 06/20 0821 98 Room Air Room Air 06/20 0631 97.6 67 20 104/70 95 Room Air 06/19 2335 97.9 76 20 104/60 96 Room Air 06/19 1625 93 Room Air 06/19 1524 97.7 80 20 100/60 94 Intake & Output 06/20 1600 06/20 0800 06/20 0000 Intake Total 800 Output Total Balance 800 Intake, Oral 800 Exam Other Physical Findings: Generally - Awake, alert and comfortable without distress Head and neck - normocephalic, atraumatic, EOMI grossly intact Cardiovascular - S1, S2, CLICK present Lungs - bilateral inspiratory and expiratory wheezing Abdomen - Bowel sounds positive, soft, non-tender Extremities - without edema Results Last 24 Hrs of Lab Results: Laboratory Tests 06/20/16 0655: PT 29.9 H, INR 2.88 H, CBC w Diff NO MAN DIFF REQ, RBC 4.52, MCV 92.6, MCH 30.8, RDW 13.3, MPV 9.4, Gran % 63.5, Lymphocytes % 29.5, Monocytes % 6.2, Eosinophils % 0.5, Basophils % 0.3, Absolute Granulocytes 5.4, Absolute Lymphocytes 2.5, Absolute Monocytes 0.5, Absolute Eosinophils 0, Absolute Basophils 0, PUBS MCHC 33.2 Impression/Plan Impression/Plan Impression/Plan: Impression 75-year-old woman * Exacerbation of asthma likely secondary to URI/bronchitis * Diastolic congestive heart failure stage I history * Atrial fibrillation on Coumadin Plan - Peak flow qshift - prednisone 60x3, 50x3, 40x3, 30x3, 20x3, 10x3 then stop, d/c Solu-Medrol - Continue Tessalon Perles - TRC nebs - Continue Coumadin - f/u echo DVT prophylaxis at all times Dc planning cardiology follow up
[2016-06-20 14:07] VITALS: BP 100/60
--- NOTE | 2016-06-20 15:21 | CT SCAN REPORT ---
EXAMINATION: CT ANGIOGRAM CHEST CLINICAL INFORMATION: Chest pain with history of thoracic aortic aneurysm. COMPARISON: CTA chest from 07/04/2015. TECHNIQUE: Multiple axial images were obtained through the chest after the administration of 96 mL of Optiray 350 intravenous contrast. Images were reviewed on a dedicated 3-D workstation. DLP: 302 mGy-cm. FINDINGS: Median sternotomy, aortic valve replacement, and ascending aortic repair. Vascular measurements: The following vascular measurements (maximum diameter by minimum diameter) were made orthogonal to the center line using curved planar reformats. Sinuses of Valsalva: 5.0 x 4.1 cm. Previously 4.9 x 3.8 cm. Sinotubular junction: 3.3 x 2.8 cm. Previously 3.6 x 3.2 cm. Mid ascending aorta: 4.0 x 3.6 cm. Previously 4.4 x 3.9 cm. Distal ascending aorta: 4.0 x 3.6 cm. Previously 4.0 x 3.4 cm. Mid aortic arch: 3.6 x 3.3 cm. Previously 3.6 x 3.2 cm. Proximal descending aorta: 3.2 x 2.7 cm. Previously 3.1 x 2.8 cm. Distal descending aorta: 2.9 x 2.6 cm. Previously 2.7 x 2.4 cm. Diffuse fusiform aneurysmal change of the thoracic aorta. No evidence for intramural hematoma or acute aortic dissection. Four-vessel aortic arch. The great vessels are patent. Minor atelectasis in the lung bases. No suspicious nodule or mass lesion. No lymphadenopathy in the mediastinum. No axillary adenopathy or chest wall mass. There are multiple simple cysts in the liver. The upper left kidney and spleen and visible portion of the pancreas are unremarkable. IMPRESSION: Status post aortic valve replacement with ascending aortic repair. No significant change in diffuse fusiform aneurysmal change of the thoracic aorta when compared to prior exam. No evidence of dissection or intramural hematoma.
--- NOTE | 2016-06-20 15:42 | Discharge Summary ---
See Addendum Visit Information Visit Dates Admission Date: 06/17/16 Discharge Date: 06/19/16 Hospital Course Course Attending Physician: SHAY POPE M.D Primary Care Physician: MAYNOR CLOUD,JORDON Hernandez Hospital Course: Ms. Reed is a 75 year old lady with a PMH significant for asthma, Afib on Coumadin, TIA (2010) thoracic aortic aneurysm status post repair and a valve replacement who presented with progressively worsening exertional dyspnea associated with productive cough and wheezing, most likely 2/2 astham exacerbation. # Asthma exacerbation Patient was admitted to general medicine service. She received oxygen supplement as needed to maintain O2 sat > 92%. She was kept on Symbicort and Proventil with TRC nebulizer treatment as needed. She received 1 dose of Zithromax 250mg PO. Her maintenance trainer Dr. White was consulted and followed the patient daily. Patient received IV Solumedrol which was transitioned to prednisone. Patient was discharged on steroid taper starting at a dose of 60mg. She was also kept and discharged on Tesalon 100mg PO TID PRN cough. # Acute hypoxic respiratory failure Patient's oxygen satruation was low at 88% on admission, requiring 2L of oxygen via NC. Most likely due to her asthma exacerbation. Cardiac causes were ruled out with echocardiogram, which showed a normal size LV with a normal EF > 65%. Echo was remarkable for "pseudonormal" filling pattern of the left ventricle for age (stage 2 diastolic dysfunction) but this finding was not significant enough to cause her repiratory decompensation. Patient's respiratory status imporved through the hospital stay after the treatment as described above. Patient was satting well on RA by the time of discharge. # Thoracic aortic aneurysm Patient carries a h/o thoracic aortic aneurysm which has reportedly increased in size on echocardiogram done this admission per Dr. Daniel (clerical and office support workers). In the setting of patient's persistent chest heaviness, we pursued an imaging study to r/o mechanical impingement by the dilatation as well as dissection. CT aniogram showed no significant change in diffuse fusiform aneurysmal change of the thoracic aorta when compared to prior exam. No evidence of dissection or intramural hematoma. She was instructed to follow up with Dr. Peter Bull (cardiothoracic surgeon at [facility]; [phone]) within 1 week of discharge. # Atrial fibrillation Her rate and rhythm were well controlled. Patient's INR was checked daily and she received the appropriate dose of warfarin. # Hypothyrodism * Continued home med Synthroid 0.112mg PO daily Allergies: Coded Allergies: alendronate sodium (LIGHT HEADED, WOOZY PER PT 06/16/16) metronidazole (Mild, NAUSEA 10/08/15) risedronate sodium (From ACTONEL) (Mild, DIZZY 10/08/15) tamsulosin (Mild, NAUSEA 10/08/15) Disposition Summary Disposition Principal Diagnosis: Asthma exacerbation Additional Diagnosis: Acute hypoxic respiratory failure Discharge Disposition: home or self care Discharge Instructions General Discharge Information Code Status: Full Code Patient's Diet: Regular Patient's Activity: Full Follow-Up Instructions/Appts: Please follow up with Dr. White (pulmonology) and Dr. Rodriguez (primary care) within 1 week of discharge. Please follow up with Dr. Brandon (cardiology) and Dr. Peter Bull ( cardiothoracic surgeon at [facility]; [phone]) within 1 week of discharge. Medications at Discharge Discharge Medications: Stop taking the following medications: Amoxicillin (Amoxicillin) 500 MG CAPSULE ORAL TWICE DAILY Qty = 12 Continue taking these medications: Fluticasone/Salmeterol (Advair 250-50 Diskus) 250 MCG-50 MCG/DOSE BLST.W.DEV 1 Puff Inhale through mouth TWICE DAILY as needed for BREATHING PROBLEMS Calcium/Sodium (Calcium) 1 TAB TAB 1 Tablet ORAL DAILY Comments: PER PT Cholecalciferol (Vitamin D3) 1,000 UNIT TABLET 1 Tablet ORAL DAILY Comments: PER PT Warfarin Sodium (Coumadin) 5 MG TABLET 1 Tablet ORAL EVERY THURSDAY Comments: LAST GIVEN 06/20/16 AT 5:00 PM Warfarin Sodium (Coumadin) 2.5 MG TAB 1.5 Tablet ORAL As Directed Comments: 3.75MG ON ALL DAYS EXCEPT THU PER PT Levothyroxine Sodium (Synthroid) 112 MCG TABLET 1 Tablet ORAL DAILY BEFORE BREAKFAST Comments: LAST GIVEN 06/20/16 AT 0600 AM Multivitamin (One Daily Multivitamin) 1 TAB TAB 1 Tablet ORAL DAILY Comments: PER PT Ascorbic Acid (Vitamin C) (Unknown Strength) TAB Unknown Dose ORAL DAILY Comments: PER PT Denosumab (Prolia) (Unknown Strength) SYRINGE Unknown Dose INJECTABLE Q6M Comments: PER PT APR 2016 Azithromycin (Zithromax) 250 MG TABLET 1 Dose Pack ORAL As Directed Qty = 6 Instructions: 2 the first day followed by 1 for days 2-5 Benzonatate (Tessalon Perle) 100 MG CAPSULE 1 Capsule ORAL THREE TIMES DAILY as needed for COUGH Qty = 30 Comments: LAST GIVEN 06/18/16 AT 09:30 AM [NEBULIZER MACHINE] 0 Qty = 1 Instructions: USE DIRECTED Start taking the following new medications: Prednisone (Deltasone) 20 MG TABLET 2 Tablet ORAL DAILY Qty = 20 No Refills Instructions: DATE DOSE 06/20- 60MG 06/22- 50MG 06/25- 40MG 06/28- 30MG 07/01- 20MG 07/04- 10MG Comments: LAST GIVEN 06/20/16 AT 10:00 AM Benzonatate (Tessalon Perle) 100 MG CAPSULE 1 Capsule ORAL THREE TIMES DAILY as needed for COUGH Qty = 30 No Refills Comments: LAST GIVEN 06/18/16 AT 09:90 AM Copies To: CHRISTOPHER CLOUD,PETER Cheney; ALEX CLOUD,GINGER Bhatti; LINA CLOUD,LARA Attending MD Review Statement Documenting Attending: ANDREI CLOUD,SUMA Bhatti Other Findings: Patient seen and examined at bedside. Discussed with patient the care plan. Echo done reveals the mechanical wall to be functioning okay without any significant aortic regurgitation. CTA of the chest was done to evaluate for thoracic aneurysm which is stable. Patient is being discharged home in stable condition. Please refer to the discharge summary for more details. Agree with the resident documentation.
== END 2016-06-20 17:21 | DRG 202 ==
LOC: ENRESERVTM → ENRESERVDT → ERH 10:03 → ERHI 12:42 → ERH 12:42 → ERHI 12:42 → 2NA 18:12 → ENPENDDIS 18:12 → ERHI 18:12 → 2NA 18:12 → ERHI 18:38 → 2NA 06-18 15:27
PROVIDERS: Emergency Medicine; Internal Medicine; ADMIT Internal Medicine
DX: J45.901 Unspecified asthma with (acute) exacerbation (principal); J96.01 Acute respiratory failure with hypoxia; I50.32 Chronic diastolic (congestive) heart failure; I48.91 Unspecified atrial fibrillation; Z79.01 Long term (current) use of anticoagulants; Z86.73 Personal history of transient ischemic attack (TIA), and cerebral infarction without residual deficits; Z87.891 Personal history of nicotine dependence; Z95.2 Presence of prosthetic heart valve; E03.9 Hypothyroidism, unspecified; M81.0 Age-related osteoporosis without current pathological fracture
CPT/HCPCS: 2NASP; ERO; 87040; 87070; 87804; 87804-59; 93005; 93010; 93306; J0456; J2920; J2930; J3490

== ENCOUNTER 2017-07-08 07:53 | Inpatient (IN) | payer OTHER ==
[~2017-07-08] VITALS: Ht 157.5 cm; Wt 51.7 kg
[~2017-07-08 07:53] MED LIST changes: +ADVAIR 500-501 EACH INH; +CALCIUM 500 +1 EAC5 PO; -CALCIUM1 TAB PO; +CALCIUM600 M3 PO; +COUMADIN7.5 M1 PO; +DELTASONE20 MG PO; +LEVOTHYROXINE125 MCG PO; +MEDROL4 M2 PO; +MONTELUKAST SOD10 M1 PO; -MULTI VITAMINS1 TAB PO; +ONE DAILY MULT1 EAC2 PO; +PREDNISONE10 M2 PO; +VIBRAMYCIN100 MG PO; -VITAMIN C500 M3 PO; +VITAMIN C500 M6 PO; +VITAMIN D250000 UNIT PO; +WARFARIN SODIUM1 M1 PO; +WARFARIN SODIUM5 M1 PO
--- NOTE | 2017-07-08 07:58 | ED GENERAL ADULT ---
See Addendum History of Present Illness General Chief Complaint: Dyspnea (COPD, CHF, Other) Stated Complaint: SOB Source: patient Exam Limitations: no limitations Vital Signs & Intake/Output Vital Signs & Intake/Output Vital Signs Date Time Temp Pulse Resp B/P B/P Pulse O2 O2 Flow FiO2 Mean Ox Delivery Rate 07/08 0855 99 Nasal 4.0L Cannula 07/08 0808 97.6 84 24 167/103 96 Room Air Allergies Coded Allergies: alendronate sodium (LIGHT HEADED, WOOZY PER PT 07/08/17) metronidazole (Mild, NAUSEA 07/08/17) risedronate sodium (From ACTONEL) (Mild, DIZZY 07/08/17) tamsulosin (Mild, NAUSEA 07/08/17) Reconcile Medications Albuterol Sulfate 2.5 MG/3 ML (0.083 %) VIAL.NEB 1 Vial INH/CARI TID RESP ( Reported) Ascorbate Calcium (Vitamin C) (Unknown Strength) TABLET (Unknown Dose) PO DAILY SUPPLEMENT (Reported) Calcium (Elemental-Fr Calcarb) (Calcium) (Unknown Strength) TABLET (Unknown Dose) PO DAILY SUPPLEMENT (Reported) Denosumab (Prolia) (Unknown Strength) SYRINGE (Unknown Dose) INJ Q6M BONES ( Reported) Doxycycline Hyclate (Vibramycin) 100 MG CAPSULE 1 CAP PO BID bronchitis Ergocalciferol (Vitamin D2) (Vitamin D2) 50,000 UNIT CAPSULE 1 CAP PO Q2W SUPPLEMENT (Reported) Fluticasone/Salmeterol (Advair 500-50 Diskus) 500 MCG-50 MCG/DOSE BLST.W.DEV 1 PUF INH BID RESP (Reported) Levothyroxine Sodium 125 MCG TABLET 1 TAB PO DAILY THYROID (Reported) Methylprednisolone. (Medrol) 4 MG TAB.DS.PK 0 PO SEE ADMIN CRITERIA asthma Montelukast Sodium 10 MG TABLET 1 TAB PO DAILY hypereosinophilia (Reported) Multivitamin (One Daily Multivitamin) 1 EACH TABLET 1 TAB PO DAILY SUPPLEMENT (Reported) Warfarin Sodium 5 MG TABLET 1 TAB PO TUWTHFRSASUN BLOOD THINNER (Reported) Warfarin Sodium 1 MG TABLET 3.75 MG PO QMON BLOOD THINNER (Reported) Triage Nurses Notes Reviewed? yes Onset: Abrupt Duration: day(s): Timing: recent history HPI: 07/07/17 8:30 AM 68-year-old female presents to the emergency department for difficulty breathing. The patient has a past medical history of asthma. She is also status post aortic valve replacement. She says she's had severe difficulty breathing that started last night and became severe this morning. She denies any chest pain. There is no fever. She does have a cough. Past History Travel History Traveled to [place] past 21 day No Medical History Any Pertinent Medical History? 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 No Review of Systems Review of Systems Constitutional: Denies: fever. EENTM: Reports: no symptoms. Respiratory: Reports: cough, short of breath. Cardiovascular: Denies: chest pain. GI: Denies: abdominal pain. Genitourinary: Reports: no symptoms. Musculoskeletal: Reports: muscle pain. Skin: Reports: no symptoms. Neurological/Psychological: Reports: no symptoms. Hematologic/Endocrine: Reports: no symptoms. Immunologic/Allergic: Reports: no symptoms. Physical Exam Physical Exam General Appearance: alert, awake, anxious, moderate distress Head: atraumatic, normal appearance Eyes: Bilateral: normal appearance, PERRL, EOMI. Ears, Nose, Throat: normal pharynx, normal ENT inspection Neck: normal inspection, supple Respiratory: decreased breath sounds, wheezing Cardiovascular: regular rate/rhythm, increased S1 Peripheral Pulses: 4+ radial (R), 4+ radial (L) Gastrointestinal: non-tender Back: normal range of motion Extremities: normal range of motion Neurologic/Psych: awake, alert, oriented x 3 Skin: intact, normal color, warm/dry Core Measures ACS in differential dx? Yes No ASA d/t ON ANTICOAGULANTS CVA/TIA Diagnosis: No Sepsis Present: No Sepsis Focused Exam Completed? No Progress Differential Diagnoses I considered the following diagnoses in my evaluation of the patient: [CHF, pneumonia, COPD exacerbation] Plan of Care: Orders Procedure Date/time Status RAPID VIRAL INFLUENZA A 07/08 947 Active UPPER RESPIRATORY CULTURE 07/08 947 Active AEROSOL (GEN) 07/08 914 Complete AEROSOL (GEN) 07/08 0855 Complete D-DIMER 07/08 847 Complete TROPONIN LEVEL 07/08 845 Complete PROTHROMBIN TIME 07/08 845 Complete COMPREHENSIVE METABOLIC PANEL 07/08 845 Complete CBC WITHOUT DIFFERENTIAL 07/08 845 Complete EKG 07/08 0754 Active Laboratory Tests 07/08/17 0854: PT 20.5 H, INR 1.97 H 07/08/17 0854: Anion Gap 13, Estimated GFR > 60, BUN/Creatinine Ratio 25.0, Glucose 80, Calcium 9.6, Total Bilirubin 0.7, AST 31, ALT 29, Alkaline Phosphatase 63, Troponin I < 0.01, Total Protein 7.3, Albumin 4.6, Globulin 2.7, Albumin/Globulin Ratio 1.7, D-Dimer High Sensitivty < 200, CBC w Diff NO MAN DIFF REQ, RBC 5.12, MCV 90.3, MCH 29.9, MCHC 33.1, RDW 13.7, MPV 9.6, Gran % 64.4, Lymphocytes % 20.2 L, Monocytes % 9.1, Eosinophils % 5.9 H, Basophils % 0.4, Absolute Granulocytes 4.4, Absolute Lymphocytes 1.4, Absolute Monocytes 0.6, Absolute Eosinophils 0.4, Absolute Basophils 0 Microbiology 07/08 947 UPPER RESP: Upper Respiratory Culture - ORD 07/08 947 NASOPHARYN: Influenza Virus A & B Rapid Smear - ORD Initial ED EKG: SINUS RHYTHYM, NSST, NO SIG CHANGE, PAC Departure Departure Disposition: STILL A PATIENT Condition: Stable Clinical Impression Primary Impression: Asthma Secondary Impressions: Dyspnea Referrals: Jessica CLOUD,Margarito Hernandez (PCP/Family) Departure Forms: Customer Survey General Discharge Information Admission Note Spoke With: Satya CLOUD,Sara Cheney Documentation of Exam: Documentation of any treatments & extenuating circumstances including Concerns Regarding Discharge (functional status, medication knowledge or non-compliance, living conditions, etc.) that warrant an admission rather than observation: [The patient needs admission for IV steroids, nebulizers every 4 hours, oxygen, pulmonary consultation`] Critical Care Note Critical Care Note Critical Care Time: non-applicable
[2017-07-08 09:03] LABS: ABSOLUTE BASOPHIL COUNT 0 /CUMM (0.0-0.2); ABSOLUTE EOSINOPHIL COUNT 0.4 /CUMM (0.0-0.7); ABSOLUTE GRANULOCYTE CT 4.4 /CUMM (1.4-6.5); ABSOLUTE LYMPH COUNT 1.4 /CUMM (1.2-3.4); ABSOLUTE MONOCYTE COUNT 0.6 /CUMM (0.10-0.60); BASOPHIL % 0.4 % (0.0-2.0); EOSINOPHIL % 5.9 % (0-5); GRANULOCYTE % 64.4 % (42.2-75.2); HEMATOCRIT 46.2 % (37-47); MEAN CORPUSCULAR HGB 29.9 PG (27.0-31.0); MEAN CORPUSCULAR HGB CONC 33.1 G/DL (33.0-37.0); MEAN CORPUSCULAR VOLUME 90.3 FL (81.0-99.0); MEAN PLATELET VOLUME 9.6 FL (7.4-10.4); PLATELET COUNT 232 /CUMM (130-400); RBC DISTRIBUTION WIDTH 13.7 % (11.5-14.5); RED BLOOD CELL CT 5.12 /CUMM (4.20-5.40); WHITE BLOOD CELL COUNT 6.8 /CUMM (4.8-10.8)
[2017-07-08 09:13] LABS: PT 20.5 SEC (9.4-12.5)
--- NOTE | 2017-07-08 09:33 | RADIOLOGY REPORT ---
EXAMINATION: CR PORTABLE CHEST CLINICAL INFORMATION: Shortness of breath. Rule out pneumonia. COMPARISON: Several prior chest x-rays, most recent of which is dated 04/23/2017. TECHNIQUE: Portable AP erect view of the chest was obtained. FINDINGS: The patient is status post median sternotomy. The cardiac silhouette is within normal limits in size. Ectasia and tortuosity of the thoracic aorta is again noted, unchanged. Lungs appear hyperinflated. There is some linear opacity in the left lung base, consistent with subsegmental atelectasis. No dense consolidation, effusion or pneumothorax is seen. Mild S-shaped thoracic scoliosis is again noted. IMPRESSION: 1. Findings consistent with obstructive lung disease with minimal subsegmental atelectasis in left lung base. 2. Ectatic and tortuous aorta.
--- NOTE | 2017-07-08 10:36 | History & Physical ---
[place] CLOUD,[facility] 07/08/17 1035: General Information and HPI MD Statement: I have seen and personally examined MILLY KNUTSON and documented this H&P. The patient is a 76 year old F who presented with a patient stated chief complaint of shortness of breath. Source of Information: patient Exam Limitations: no limitations History of Present Illness: This is a pleasemt 76-year-old lady with a history of light remote tobacco use, dyslipidemia, thyroid carcinoma s/p thyroidectomy, subsequent hypothyroidism on replacement, ascending thoracic aortic aneurysm s/p repair and placement of a mechanical aortic valve prosthesis ([employer]) for associated moderate aortic regurgitation on 08/05/2005 complicated by pericarditis/pericardial effusion requiring pericardial window 09/2005, a retroperitoneal bleed while on warfarin anticoagulation with supratherapeutic INR 01/2007, a suspected transient ischemic attack in 12/2010, asthma with recent [facility] admission in 02/2017 for asthma exacerbation (no intubation was needed, managed by steroid taper and discharged on day 3), presents for evaluation of shortness of breath. Onset of shortness of breath less than 24 hours while she was home doing her regular chores. She reported increased work of breathing that progressivley worsened today in the morning prompting her to present at ED. Denies any chest pain/tightness, fever/chills, acute worsening of her chronicn cough, recent URI, sick contact or recent travel. When interviewed by house staff, patient was noted to be speaking in full sentences with no apparent respiratory distress. However, this was after patient had received solumedrol 125mg IV and nebulizer treatments. At baseline patient is able to do gardening and ild to moderate exertional activities without any problem. She intermittently uses her rescue MDI less than once a week, no nocturnal symptoms and is on Advair and singulair maintanence therapy. No reports of recent frequent use of the rescue inhaler. Never intubated for asthma, followed by Dr White. No occupational or home exposure to allergens. Up to date with Flu and Pneumovax Vaccination. Has home peak flow meter but does not recall her baseline. Allergies/Medications Allergies: Coded Allergies: alendronate sodium (LIGHT HEADED, WOOZY PER PT 07/08/17) metronidazole (Mild, NAUSEA 07/08/17) risedronate sodium (From ACTONEL) (Mild, DIZZY 07/08/17) tamsulosin (Mild, NAUSEA 07/08/17) Home Med list Albuterol Sulfate 2.5 MG/3 ML (0.083 %) VIAL.NEB 1 Vial INH/CARI TID RESP ( Reported) Ascorbate Calcium (Vitamin C) (Unknown Strength) TABLET (Unknown Dose) PO DAILY SUPPLEMENT (Reported) Calcium (Elemental-Fr Calcarb) (Calcium) (Unknown Strength) TABLET (Unknown Dose) PO DAILY SUPPLEMENT (Reported) Denosumab (Prolia) (Unknown Strength) SYRINGE (Unknown Dose) INJ Q6M BONES ( Reported) Doxycycline Hyclate (Vibramycin) 100 MG CAPSULE 1 CAP PO BID bronchitis Ergocalciferol (Vitamin D2) (Vitamin D2) 50,000 UNIT CAPSULE 1 CAP PO Q2W SUPPLEMENT (Reported) Fluticasone/Salmeterol (Advair 500-50 Diskus) 500 MCG-50 MCG/DOSE BLST.W.DEV 1 PUF INH BID RESP (Reported) Levothyroxine Sodium 125 MCG TABLET 1 TAB PO DAILY THYROID (Reported) Methylprednisolone. (Medrol) 4 MG TAB.DS.PK 0 PO SEE ADMIN CRITERIA asthma Montelukast Sodium 10 MG TABLET 1 TAB PO DAILY hypereosinophilia (Reported) Multivitamin (One Daily Multivitamin) 1 EACH TABLET 1 TAB PO DAILY SUPPLEMENT (Reported) Warfarin Sodium 5 MG TABLET 1 TAB PO TUWTHFRSASUN BLOOD THINNER (Reported) Warfarin Sodium 1 MG TABLET 3.75 MG PO QMON BLOOD THINNER (Reported) Past History Travel History Traveled to [place] past 21 day No Medical History Neurological: NONE EENT: NONE Cardiovascular: AORTIC VALVE REPLACEMENT Respiratory: asthma Gastrointestinal: diverticulitis Hepatic: NONE Renal: NONE Musculoskeletal: NONE Psychiatric: NONE Endocrine: NONE Blood Disorders: NONE Cancer(s): NONE PATTERN HAND/Reproductive: NONE History of MRSA: No History of VRE: No History of CDIFF: No Tetanus Vaccine: 06/24/12 Surgical History Surgical History: appendectomy, hysterectomy, GALLBLADDER aortic valve replacement Past Family/Social History Family History Relations & Conditions if any Relation not specified for: *No pertinent family history Psychosocial History Who Do You Live With? spouse Services at Home: None Primary Language: Serbian Review of Systems Review of Systems Constitutional: Reports: see HPI. EENTM: Reports: no symptoms. Cardiovascular: Reports: no symptoms. Respiratory: Reports: short of breath. GI: Reports: no symptoms. Genitourinary: Reports: no symptoms. Musculoskeletal: Reports: no symptoms. Skin: Reports: no symptoms. Neurological/Psychological: Reports: no symptoms. Hematologic/Endocrine: Reports: no symptoms. Immunologic/Allergic: Reports: no symptoms. All Other Systems: Reviewed and Negative Exam & Diagnostic Data Last 24 Hrs of Vital Signs/I&O Vital Signs Date Time Temp Pulse Resp B/P B/P Pulse O2 O2 Flow FiO2 Mean Ox Delivery Rate 07/09 1412 98.0 82 18 100/60 92 07/09 0830 95 Room Air 07/09 0620 98.2 75 18 100/64 95 Room Air 07/09 0000 Room Air 07/08 2240 98.0 77 20 108/70 91 Room Air 07/08 2058 Room Air 07/08 1806 97 Room Air 07/08 1806 98.2 44 20 110/62 97 Room Air 07/08 1547 98.4 84 22 124/74 95 Room Air Intake & Output 07/09 1600 07/09 0800 07/09 0000 Intake Total 950 120 120 Output Total Balance 950 120 120 Intake, IV 20 20 Intake, Oral 950 100 100 Patient 51.71 kg Weight Weight Reported by Patient Measurement Method Physical Exam General Appearance Alert, Oriented X3, Cooperative Skin No Significant Lesion Skin Temp/Moisture Exam: Warm/Dry Sepsis Skin Exam (color): Normal for Ethnicity HEENT Atraumatic, PERRLA, EOMI, Mucous Membr. moist/pink Neck Supple, No JVD Lymphatic Cervical nl Cardiovascular Regular Rate, loud systolic click click heard in aortic and pulmonic area. Lungs minimal exp wheezes heard on upper lung billings bilaterally (exam was done s/p solumedrol iv and nebulizer treatment). Abdomen Normal Bowel Sounds, Soft, No Tenderness Neurological Normal Speech, Strength at 5/5 X4 Ext, Normal Tone, Sensation Intact, Cranial Nerves 3-12 NL Extremities No Clubbing, No Cyanosis, No Edema, Normal Pulses, No Tenderness/ Swelling Assessment/Plan Assessment: This is a 76 yo lady with a history of asthma and card valvular abnormalisties s /p prosthetic valve placement present with acute onset of shortness of breath and increased work of breathing. No fever/chills, leukocytes. CXR suggestive of atelectasis. Impression Asthma Exacerbation. Possibly 2/2 to acute viral bronchitis. History of chronic diseases: Hypothyroidism, valvular diseass reqiring prostehic aortic valve placement, diastolic CHF. Plan * Admit to gen med * 02 supplementation to keep sats >88% * Please obtain peak flow measurement now and q shift after neb treatment * Incentive spirometry * s/p Solumedrol 125, continue with 40 mg q 8h and taper accordingly * TRC/nebs * f/u sputum cultures and legionella/strept urine antigen * Continue singulair * Obtain TSH level * Dose coumadin per INR ideal goal of 2.5, we will also bridge with Lovenox 1.5mg/kg today since INR is subtheraputic at 1.97. * CODE STATUS: DNR/DNI * DIET: REGULAR * DVT PPX: Addressed by Coumadin As Ranked By This Provider Problem List: 1. Asthma with acute exacerbation Core Measures/Misc (02/22) Acute Coronary Syndrome ACS Diagnosis: No Congestive Heart Failure Congestive Heart Failure Diagnosis No Cerebrovascular Accident CVA/TIA Diagnosis: No VTE (View Protocol) VTE Risk Factors No risk factors No Mechanical VTE Prophylaxis d/t N/A MechProphylax Ordered No VTE Pharm Prophylaxis d/t Other Sepsis (View protocol) Sepsis Present: No [place] CLOUD,Rosaura 07/08/17 1209: Attending MD Review Statement Attending Statement Attending MD Statement: examined this patient, discuss w/resident/PA/LACING STRING CUTTER, agreed w/resident/PA/LACING STRING CUTTER, reviewed EMR data (avail), discussed with nursing, discussed with case mgmt, reviewed images, amended to note Attending Assessment/Plan: 76 y/o F with pmh sig for dyslipidemia, thyroid carcinoma s/p thyroidectomy, subsequent hypothyroidism on replacement, ascending thoracic aortic aneurysm s/p repair and placement of a mechanical aortic valve prosthesis ([employer]) for associated moderate aortic regurgitation on 08/05/2005 complicated by pericarditis/pericardial effusion requiring pericardial window 09/2005, a retroperitoneal bleed while on warfarin anticoagulation with supratherapeutic INR 01/2007, a suspected transient ischemic attack in 12/2010, asthma with recent [facility] admission in 02/2017 for asthma exacerbation, presented with shortness of breath and dyspnea on exertion. Symptoms started this morning. She did mention that she went to her granddaughter's [place] this past weekend. She is complaining of feeling more dyspneic and having shortness of breath. She says that she always coughs but currently she is coughing more with production of yellowish sputum. She denies any fevers or chills. She denies any chest pain. She denies any nausea, vomiting or abdominal pain. No sore throat/ear ache. Vital Signs Date Time Temp Pulse Resp B/P B/P Pulse O2 O2 Flow FiO2 Mean Ox Delivery Rate 07/08 1157 97.8 87 20 113/73 97 Nasal 2.0L Cannula 07/08 0855 99 Nasal 4.0L Cannula 07/08 0808 97.6 84 24 167/103 96 Room Air on exam; aox3, nad. cv; s1,s2, rrr, + click sound from the valve. resp; overall decreased bs b/l abd; soft, nt, bs+ ext; no edema. Laboratory Tests 07/08 07/08 0854 0854 Chemistry Sodium (137 - 145 mmol/L) 147 H Potassium (3.5 - 5.1 mmol/L) 4.0 Chloride (98 - 107 mmol/L) 104 Carbon Dioxide (22 - 30 mmol/L) 30 Anion Gap (5 - 16) 13 BUN (7 - 17 mg/dL) 15 Creatinine (0.5 - 1.0 mg/dL) 0.6 Estimated GFR (>60 ml/min) > 60 BUN/Creatinine Ratio (7 - 25 %) 25.0 Glucose (65 - 99 mg/dL) 80 Calcium (8.4 - 10.2 mg/dL) 9.6 Total Bilirubin (0.2 - 1.3 mg/dL) 0.7 AST (14 - 36 U/L) 31 ALT (9 - 52 U/L) 29 Alkaline Phosphatase (<127 U/L) 63 Troponin I (< 0.11 ng/ml) < 0.01 Total Protein (6.3 - 8.2 g/dL) 7.3 Albumin (3.5 - 5.0 g/dL) 4.6 Globulin (1.9 - 4.2 gm/dL) 2.7 Albumin/Globulin Ratio (1.1 - 2.2 %) 1.7 Coagulation PT (9.4 - 12.5 SEC) 20.5 H INR (0.90 - 1.19) 1.97 H D-Dimer High Sensitivty (0 - 243 ng/ml) < 200 Hematology CBC w Diff NO MAN DIFF REQ WBC (4.8 - 10.8 /CUMM) 6.8 RBC (4.20 - 5.40 /CUMM) 5.12 Hgb (12.0 - 16.0 G/DL) 15.3 Hct (37 - 47 %) 46.2 MCV (81.0 - 99.0 FL) 90.3 MCH (27.0 - 31.0 PG) 29.9 MCHC (33.0 - 37.0 G/DL) 33.1 RDW (11.5 - 14.5 %) 13.7 Plt Count (130 - 400 /CUMM) 232 MPV (7.4 - 10.4 FL) 9.6 Gran % (42.2 - 75.2 %) 64.4 Lymphocytes % (20.5 - 51.1 %) 20.2 L Monocytes % (1.7 - 9.3 %) 9.1 Eosinophils % (0 - 5 %) 5.9 H Basophils % (0.0 - 2.0 %) 0.4 Absolute Granulocytes (1.4 - 6.5 /CUMM) 4.4 Absolute Lymphocytes (1.2 - 3.4 /CUMM) 1.4 Absolute Monocytes (0.10 - 0.60 /CUMM) 0.6 Absolute Eosinophils (0.0 - 0.7 /CUMM) 0.4 Absolute Basophils (0.0 - 0.2 /CUMM) 0 CXR: IMPRESSION: 1. Findings consistent with obstructive lung disease with minimal subsegmental atelectasis in left lung base. 2. Ectatic and tortuous aorta. EKG: sinus rythm with APCs. A/P; 76 y/o F with pmh sig for dyslipidemia, thyroid carcinoma s/p thyroidectomy , subsequent hypothyroidism on replacement, ascending thoracic aortic aneurysm s /p repair and placement of a mechanical aortic valve prosthesis ([employer]) for associated moderate aortic regurgitation on 08/05/2005 complicated by pericarditis/pericardial effusion requiring pericardial window 09/2005, a retroperitoneal bleed while on warfarin anticoagulation with supratherapeutic INR 01/2007, a suspected transient ischemic attack in 12/2010, asthma is presenting with the shortness of breath. Patient will be admitted with acute asthma exacerbation. Patient will be admitted to medicine floor. Received IV steroids in the emergency room. We'll continue the IV steroids and TRC nebs. Will continue montelukast past. Appreciate pulmonology input. Please follow recommendations. Please check sputum cultures. INR is subtherapeutic. Patient does have a mechanical valve. Her goal INR should be between 2.5 - 3.5. Patient should receive Lovenox to bridge with Coumadin until her INR is at the goal. Continue other home meds. DVT px; On coumadin. DNR/I.
--- NOTE | 2017-07-08 11:28 | Cons- Pulmonary ---
General Information and HPI Consulting Request Date of Consult: 07/08/17 Requested By: Dr. Bliss Reason for Consult: Asthma exacerbation Source of Information: patient Exam Limitations: no limitations History of Present Illness: 76-year-old woman with significant history of asthma. Her fractional excretion of nitric oxide in the office significantly elevated. She is compliant with her medications and is a nonsmoker. She frequently visits [facility] and may have had sick contacts throughout her visits. Overall she's feeling somewhat better but her wheezing has been severe and she is still winded although she has improved she will require a period of observation and nebulizer/steroid therapy No chest pain no palpitations no nausea vomiting or diarrhea or headaches. Allergies/Medications Allergies: Coded Allergies: alendronate sodium (LIGHT HEADED, WOOZY PER PT 07/08/17) metronidazole (Mild, NAUSEA 07/08/17) risedronate sodium (From ACTONEL) (Mild, DIZZY 07/08/17) tamsulosin (Mild, NAUSEA 07/08/17) Home Med List: Albuterol Sulfate 2.5 MG/3 ML (0.083 %) VIAL.NEB 1 Vial INH/CARI TID RESP ( Reported) Ascorbate Calcium (Vitamin C) (Unknown Strength) TABLET (Unknown Dose) PO DAILY SUPPLEMENT (Reported) Calcium (Elemental-Fr Calcarb) (Calcium) (Unknown Strength) TABLET (Unknown Dose) PO DAILY SUPPLEMENT (Reported) Denosumab (Prolia) (Unknown Strength) SYRINGE (Unknown Dose) INJ Q6M BONES ( Reported) Doxycycline Hyclate (Vibramycin) 100 MG CAPSULE 1 CAP PO BID bronchitis Ergocalciferol (Vitamin D2) (Vitamin D2) 50,000 UNIT CAPSULE 1 CAP PO Q2W SUPPLEMENT (Reported) Fluticasone/Salmeterol (Advair 500-50 Diskus) 500 MCG-50 MCG/DOSE BLST.W.DEV 1 PUF INH BID RESP (Reported) Levothyroxine Sodium 125 MCG TABLET 1 TAB PO DAILY THYROID (Reported) Methylprednisolone. (Medrol) 4 MG TAB.DS.PK 0 PO SEE ADMIN CRITERIA asthma Montelukast Sodium 10 MG TABLET 1 TAB PO DAILY hypereosinophilia (Reported) Multivitamin (One Daily Multivitamin) 1 EACH TABLET 1 TAB PO DAILY SUPPLEMENT (Reported) Warfarin Sodium 5 MG TABLET 1 TAB PO TUWTHFRSASUN BLOOD THINNER (Reported) Warfarin Sodium 1 MG TABLET 3.75 MG PO QMON BLOOD THINNER (Reported) Current Medications: Current Medications Sig/[place] Start time Last Medication Dose Route Stop Time Status Admin Acetaminophen 500 MG Q6P PRN 07/08 1100 AC PO Acetaminophen 1,000 MG Q8P PRN 07/08 1100 AC IV Acetaminophen 0 .STK-MED ONE 07/08 0948 DC IV Acetaminophen 1,000 MG ONCE ONE 07/08 0945 DC 07/08 IV 07/08 0946 0946 Albuterol Sulfate 3 ML ONCE ONE 07/08 0845 DC 07/08 INH 07/08 0846 0855 Albuterol Sulfate 3 ML ONCE ONE 07/08 0845 DC 07/08 INH 07/08 0846 0914 Ipratropium [place] 2.5 ML ONCE ONE 07/08 0845 DC 07/08 INH 07/08 0846 0855 Ipratropium [place] 2.5 ML ONCE ONE 07/08 0845 DC 07/08 INH 07/08 0846 0914 Levothyroxine Sodium 0.125 MG DAILY AC 07/09 0700 AC PO Methylprednisolone 40 MG Q8 07/08 2200 AC IV Methylprednisolone 0 .STK-MED ONE 07/08 0855 DC .ROUTE Methylprednisolone 125 MG ONCE ONE 07/08 0845 DC 07/08 IV 07/08 0846 0853 Montelukast Sodium 10 MG DAILY 07/08 1044 AC 07/08 PO 1124 Review of Systems Comments 18 point review of systems was performed and reviewed. Please see pertinent positives and pertinent negatives in the HPI. Otherwise ROS is negative. 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 spouse Services at Home: None Primary Language: Luxembourgish Exam & Diagnostic Data Last 24 Hrs of Vital Signs/I&O Vital Signs Date Time Temp Pulse Resp B/P B/P Pulse O2 O2 Flow FiO2 Mean Ox Delivery Rate 07/08 0755 99 Nasal 4.0L Cannula 07/08 807 97.6 84 24 167/103 96 Room Air Intake & Output 07/08 1600 07/08 0800 07/08 0000 Intake Total Output Total Balance Patient 115 lb Weight Weight Reported by Patient Measurement Method Physical Exam Other Physical Findings: Generally - Awake, alert Head and neck - normocephalic, atraumatic, EOMI grossly intact Cardiovascular - S1, S2, no murmurs, rubs or gallops Lungs -bilateral scattered wheezing Abdomen - Bowel sounds positive, soft, non-tender Extremities - without edema Last 48 Hrs of Labs/Emanuel: Laboratory Tests 07/08/17 0854: PT 20.5 H, INR 1.97 H 07/08/17 0854: Anion Gap 13, Estimated GFR > 60, BUN/Creatinine Ratio 25.0, Glucose 80, Calcium 9.6, Total Bilirubin 0.7, AST 31, ALT 29, Alkaline Phosphatase 63, Troponin I < 0.01, Total Protein 7.3, Albumin 4.6, Globulin 2.7, Albumin/Globulin Ratio 1.7, D-Dimer High Sensitivty < 200, CBC w Diff NO MAN DIFF REQ, RBC 5.12, MCV 90.3, MCH 29.9, MCHC 33.1, RDW 13.7, MPV 9.6, Gran % 64.4, Lymphocytes % 20.2 L, Monocytes % 9.1, Eosinophils % 5.9 H, Basophils % 0.4, Absolute Granulocytes 4.4, Absolute Lymphocytes 1.4, Absolute Monocytes 0.6, Absolute Eosinophils 0.4, Absolute Basophils 0 Assessment/Plan Impression/Plan: Impression 68-year-old woman with a significant history of asthma here with exacerbation of asthma likely secondary to viral bronchitis Plan -Continue Solu-Medrol 40 mg IV every 8 hours -ensure patient has peak flow checked qshift and recorded -[facility] nebs -Continue home medications -Continue Singulair -Nebulizer therapy -Out of bed as tolerated -Ensure patient has incentive spirometer -DVT prophylaxis at all times Consult Acknowledgment - Thank you for your consult request.
--- NOTE | 2017-07-08 12:18 | Admission Certification ---
Admission Certification Certification Statement - As attending physician, I certify that at the time of - admission, based on clinical presentation, severity of - symptoms, need for further diagnostic testing and - therapeutic interventions, and risk of adverse outcomes - without in-hospital treatment, in my clinical assessment, - this patient requires an acute hospital stay for a minimum - of two nights or longer. I have also considered psychsocial - factors such as support system, advanced age, financial - issues, cognitive issues, and failed out-patient treatments, - past re-admission history, safety of patient, and lack of - compliance as applicable. Specific rationale supporting this admission is: Patient admitted with acute asthma exacerbation, needs IV steroids, TRC nebs.
[2017-07-08 18:06] VITALS: BP 110/62
[2017-07-08 22:40] VITALS: BP 108/70
[2017-07-09 06:20] VITALS: BP 100/64
--- NOTE | 2017-07-09 08:09 | PN- Housestaff ---
[place] CLOUD,Rick 07/09/17 0809: Subjective Follow-up For: Asthma exacerbation Subjective: Seen and examined at bedside. She reports that her most of breath has improved compared to yesterday. She however endorses fatigue and some shortness of breath on ambulation. She states "I don't think I am ready to go home". She denies any fever, chills chest pain, palpitation, nausea, vomiting, abdominal pain or dysuria. No acute overnight event reported by nursing staff. Review of Systems Constitutional: Reports: see HPI. Objective Last 24 Hrs of Vital Signs/I&O Vital Signs Date Time Temp Pulse Resp B/P B/P Pulse O2 O2 Flow FiO2 Mean Ox Delivery Rate 07/09 0830 95 Room Air 07/09 0620 98.2 75 18 100/64 95 Room Air 07/09 0000 Room Air 07/08 2240 98.0 77 20 108/70 91 Room Air 07/08 2058 Room Air 07/08 1806 97 Room Air 07/08 1806 98.2 44 20 110/62 97 Room Air 07/08 1547 98.4 84 22 124/74 95 Room Air 07/08 1157 97.8 87 20 113/73 97 Nasal 2.0L Cannula Intake & Output 07/09 1600 07/09 0800 07/09 0000 Intake Total 120 120 Output Total Balance 120 120 Intake, IV 20 20 Intake, Oral 100 100 Patient 51.71 kg Weight Weight Reported by Patient Measurement Method Physical Exam General Appearance: Alert, Oriented X3, Cooperative Skin: No Rashes, No Significant Lesion Neck: Supple, No JVD Lymphatic: Axillary nl, Cervical nl Cardiovascular: MECHANICAL HEART VALVE CLICK SOUND HEARD DURING SYSTOLE. Lungs: B/L RHONCI Abdomen: Normal Bowel Sounds, Soft, No Tenderness Neurological: Normal Gait, Normal Speech Extremities: No Clubbing, No Cyanosis Assessment/Plan Assessment: This is a 76-year-old pleasant lady with a history of mild intermittent asthma, aortic valve replacement and thoracic aneurysm repair on Coumadin, hypothyroidism, resistance with symptoms of shortness of breath consistent with an asthma exacerbation. Impression Asthma exacerbation. Most likely secondary to possible viral bronchitis. History of chronic diseases: Hypothyroidism, aortic valve replacement, asthma Plan * We'll switch Solu-Medrol to 4O mg q 12 * Will start Mucomyst twice a day * Incentive spirometry * TRC/nebs * f/u sputum cultures and legionella/strept urine antigen * Continue singulair * Will start azithromycin * INR 2.97 today, will dose 5 mg Coumadin * CODE STATUS: DNR/DNI * DIET: REGULAR * DVT PPX: Addressed by Coumadin Problem List: 1. Asthma with acute exacerbation Pain Ratin Pain Location: HEADACHE Pain Goal: Remain pain free Pain Plan: PER PATHWAY Tomorrow's Labs & Rationales: APAP [place] CLOUD,Rosaura 07/09/17 1145: Attending MD Review Statement Attending Statement Attending MD Statement: examined this patient, discuss w/resident/PA/[employer], agreed w/resident/PA/[employer], reviewed EMR data (avail), discussed with nursing, discussed with case mgmt, reviewed images, amended to note Attending Assessment/Plan: Patient seen and examined, still coughing quite a bit. Still feeling a bit short of breath. Bringing up yellowish brownish sputum. Vital Signs Date Time Temp Pulse Resp B/P B/P Pulse O2 O2 Flow FiO2 Mean Ox Delivery Rate 07/09 0830 95 Room Air 07/09 0620 98.2 75 18 100/64 95 Room Air 07/09 0000 Room Air 07/08 2240 98.0 77 20 108/70 91 Room Air 07/08 2058 Room Air 07/08 1806 97 Room Air 07/08 1806 98.2 44 20 110/62 97 Room Air 07/08 1547 98.4 84 22 124/74 95 Room Air 07/08 1157 97.8 87 20 113/73 97 Nasal 2.0L Cannula on exam; aox3, nad. cv; s1,s2, rrr resp; some scattered wheeze abd; soft, nt, bs+ ext; no edema Laboratory Tests 07/09 08 Chemistry Sodium (137 - 145 mmol/L) 141 Potassium (3.5 - 5.1 mmol/L) 4.7 Chloride (98 - 107 mmol/L) 103 Carbon Dioxide (22 - 30 mmol/L) 24 Anion Gap (5 - 16) 13 BUN (7 - 17 mg/dL) 22 H Creatinine (0.5 - 1.0 mg/dL) 0.6 Estimated GFR (>60 ml/min) > 60 BUN/Creatinine Ratio (7 - 25 %) 36.7 H Coagulation PT (9.4 - 12.5 SEC) 31.0 H INR (0.90 - 1.19) 2.98 H Hematology CBC w Diff NO MAN DIFF REQ WBC (4.8 - 10.8 /CUMM) 8.5 RBC (4.20 - 5.40 /CUMM) 4.57 Hgb (12.0 - 16.0 G/DL) 13.8 Hct (37 - 47 %) 41.2 MCV (81.0 - 99.0 FL) 90.1 MCH (27.0 - 31.0 PG) 30.3 MCHC (33.0 - 37.0 G/DL) 33.6 RDW (11.5 - 14.5 %) 13.7 Plt Count (130 - 400 /CUMM) 225 MPV (7.4 - 10.4 FL) 9.4 Gran % (42.2 - 75.2 %) 87.4 H Lymphocytes % (20.5 - 51.1 %) 9.9 L Monocytes % (1.7 - 9.3 %) 2.6 Eosinophils % (0 - 5 %) 0.1 Basophils % (0.0 - 2.0 %) 0 Absolute Granulocytes (1.4 - 6.5 /CUMM) 7.4 H Absolute Lymphocytes (1.2 - 3.4 /CUMM) 0.8 L Absolute Monocytes (0.10 - 0.60 /CUMM) 0.2 Absolute Eosinophils (0.0 - 0.7 /CUMM) 0 Absolute Basophils (0.0 - 0.2 /CUMM) 0 A/P; 76 y/o F with pmh sig for dyslipidemia, thyroid carcinoma s/p thyroidectomy , subsequent hypothyroidism on replacement, ascending thoracic aortic aneurysm s /p repair and placement of a mechanical aortic valve prosthesis ([employer]) for associated moderate aortic regurgitation on 08/05/2005 complicated by pericarditis/pericardial effusion requiring pericardial window 09/2005, a retroperitoneal bleed while on warfarin anticoagulation with supratherapeutic INR 01/2007, a suspected transient ischemic attack in 12/2010, asthma is admitted with acute asthma exacerbation as well as acute bronchitis. Would add azithromycin. We'll also add Mucomyst nebulized twice a day as recommended by pulmonology. Please check sputum culture. Will decrease steroids to every 12. INR is therapeutic today, will dose Coumadin accordingly. No need to give further Lovenox. Continue other TRC nebs and medications. DVT px: Patient on Coumadin, will be dosed at 4 mg today. INR is in therapeutic range.
[2017-07-09 09:28] LABS: ABSOLUTE BASOPHIL COUNT 0 /CUMM (0.0-0.2); ABSOLUTE EOSINOPHIL COUNT 0 /CUMM (0.0-0.7); ABSOLUTE GRANULOCYTE CT 7.4 /CUMM (1.4-6.5); ABSOLUTE LYMPH COUNT 0.8 /CUMM (1.2-3.4); ABSOLUTE MONOCYTE COUNT 0.2 /CUMM (0.10-0.60); BASOPHIL % 0 % (0.0-2.0); EOSINOPHIL % 0.1 % (0-5); MEAN CORPUSCULAR HGB 30.3 PG (27.0-31.0); MEAN CORPUSCULAR HGB CONC 33.6 G/DL (33.0-37.0); MEAN CORPUSCULAR VOLUME 90.1 FL (81.0-99.0); MEAN PLATELET VOLUME 9.4 FL (7.4-10.4); PLATELET COUNT 225 /CUMM (130-400); RBC DISTRIBUTION WIDTH 13.7 % (11.5-14.5); RED BLOOD CELL CT 4.57 /CUMM (4.20-5.40); WHITE BLOOD CELL COUNT 8.5 /CUMM (4.8-10.8)
[2017-07-09 10:15] LABS: HEMATOCRIT 41.2 % (37-47)
--- NOTE | 2017-07-09 10:27 | PN- Pulmonary ---
Subjective HPI/Critical Care Issues: Patient seen and examined this morning. She is still coughing some brownish phlegm overall she is improved from admission. Objective Current Medications: Current Medications Sig/Corby Start time Last Medication Dose Route Stop Time Status Admin Acetaminophen 0 .STK-MED ONE 07/08 1501 DC IV Acetaminophen 500 MG Q6P PRN 07/08 1100 AC PO Acetaminophen 1,000 MG Q8P PRN 07/08 1100 AC 07/08 IV 1500 Acetylcysteine 2 ML BID 07/09 1018 UNVr INH Albuterol Sulfate 3 ML EVERY 4 HRS/AWAKE 07/09 0800 AC 07/09 INH 0823 Azithromycin 250 MG DAILY 07/10 1000 AC PO Azithromycin 500 MG ONCE ONE 07/09 1015 DC PO 07/09 1016 Enoxaparin Sodium 80 MG ONCE ONE 07/08 1445 DC 07/08 SC 07/08 1446 1457 Levothyroxine Sodium 0.125 MG DAILY AC 07/09 0700 DC PO Levothyroxine Sodium 0.125 MG DAILY AC 07/08 1715 AC 07/09 PO 0551 Methylprednisolone 40 MG Q12 07/09 1000 AC IV Methylprednisolone 40 MG Q8 07/08 2200 DC 07/09 IV 0550 Montelukast Sodium 10 MG DAILY 07/08 1044 AC 07/09 PO 0859 Sodium Chloride 2 SPRAY Q4P PRN 07/09 0930 AC POLLO Tramadol HCl 0 .STK-MED ONE 07/08 1726 DC PO Tramadol HCl 50 MG ONCE ONE 07/08 1715 DC 07/08 PO 07/08 1716 1738 Warfarin Sodium 5 MG COUMADIN 1700 ONE 07/09 1700 UNVr PO 07/09 1701 Warfarin Sodium 5 MG COUMADIN 1700 ONE 07/08 1700 DC 07/08 PO 07/08 1701 1738 Vital Signs & I&O Last 24 Hrs of Vitals and I&O: Vital Signs Date Time Temp Pulse Resp B/P B/P Pulse O2 O2 Flow FiO2 Mean Ox Delivery Rate 07/09 0830 95 Room Air 07/09 0620 98.2 75 18 100/64 95 Room Air 07/09 0000 Room Air 07/08 2240 98.0 77 20 108/70 91 Room Air 07/088 Room Air 07/08 180 97 Room Air 07/08 180 98.2 44 20 110/62 97 Room Air 07/08 1547 98.4 84 22 124/74 95 Room Air 07/08 1157 97.8 87 20 113/73 97 Nasal 2.0L Cannula Intake & Output 07/09 1600 07/09 0800 07/09 0000 Intake Total 120 120 Output Total Balance 120 120 Intake, IV 20 20 Intake, Oral 100 100 Patient 114 lb Weight Weight Reported by Patient Measurement Method Exam Other Physical Findings: Generally - Awake, alert Head and neck - normocephalic, atraumatic, EOMI grossly intact Cardiovascular - S1, S2, no murmurs, rubs or gallops Lungs -bilateral scattered wheezing Abdomen - Bowel sounds positive, soft, non-tender Extremities - without edema Results Last 24 Hrs of Lab Results: Laboratory Tests 07/09/17 0825: Anion Gap 13, Estimated GFR > 60, BUN/Creatinine Ratio 36.7 H, PT 31.0 H, INR 2.98 H, CBC w Diff Pending, WBC Pending, RBC Pending, Hgb Pending, Hct Pending, MCV Pending, MCH Pending, MCHC Pending, RDW Pending, Plt Count Pending, MPV Pending, Gran % Pending, Lymphocytes % Pending, Monocytes % Pending, Eosinophils % Pending, Basophils % Pending, Absolute Granulocytes Pending, Absolute Lymphocytes Pending, Absolute Monocytes Pending, Absolute Eosinophils Pending, Absolute Basophils Pending Impression/Plan Impression/Plan Impression/Plan: Impression 68-year-old woman with a significant history of asthma here with exacerbation of asthma likely secondary to viral bronchitis Plan -reduce solumedrol to 40mg iv q12h -mucomyst nebulized bid -add zithromax -peak flow q shift -TR nebs -Continue home medications -Continue Singulair -Nebulizer therapy -Out of bed as tolerated -incentive spirometery -DVT prophylaxis at all times
[2017-07-09 10:29] LABS: GRANULOCYTE % 87.4 % (42.2-75.2)
[2017-07-09 14:12] VITALS: BP 100/60
[2017-07-09 22:25] VITALS: BP 110/62
[2017-07-10 05:57] VITALS: BP 118/70
--- NOTE | 2017-07-10 07:26 | PN- Housestaff ---
[place] CLOUD,Rick 07/10/17 0726: Subjective Follow-up For: asthma exacerbation Subjective: Seen and examined at [facility]. Pt reports no increased shortness of breath, afebrile. Review of Systems Constitutional: Reports: see HPI. Objective Last 24 Hrs of Vital Signs/I&O Vital Signs Date Time Temp Pulse Resp B/P B/P Pulse O2 O2 Flow FiO2 Mean Ox Delivery Rate 07/10 0820 92 Room Air 07/10 0557 97.9 91 20 118/70 94 07/09 2225 97.5 91 18 110/62 92 Room Air Intake & Output 07/10 1600 07/10 0800 07/10 0000 Intake Total 400 500 Output Total Balance 400 500 Intake, Oral 400 500 Physical Exam General Appearance: Alert, Oriented X3, Cooperative Cardiovascular: Regular Rate Lungs: Clear to Auscultation, Normal Air Movement Abdomen: Normal Bowel Sounds, Soft, No Tenderness Other Physical Findings: kin: No Rashes, No Significant Lesion Neck: Supple, No JVD Lymphatic: Axillary nl, Cervical nl Cardiovascular: MECHANICAL HEART VALVE CLICK SOUND HEARD DURING SYSTOLE. Lungs: cta b/l Abdomen: Normal Bowel Sounds, Soft, No Tenderness Neurological: Normal Gait, Normal Speech Extremities: No Clubbing, No Cyanosis Current Medications: Current Medications Sig/Corby Start time Last Medication Dose Route Stop Time Status Admin Acetaminophen 500 MG Q6P PRN 07/08 1100 DCD 07/10 PO 0344 Acetaminophen 1,000 MG Q8P PRN 07/08 1100 DCD 07/08 IV 1500 Acetylcysteine 4 ML BID 07/09 1018 DCD 07/10 INH 0817 Albuterol Sulfate 3 ML EVERY 4 HRS/AWAKE 07/09 0800 DCD 07/10 INH 0813 Azithromycin 250 MG DAILY 07/10 1000 DCD 07/10 PO 0930 Levothyroxine Sodium 0.125 MG DAILY AC 07/08 1715 DCD 07/10 PO 0627 Methylprednisolone 40 MG Q12 07/09 1000 DCD 07/10 IV 0930 Montelukast Sodium 10 MG DAILY 07/08 1044 DCD 07/10 PO 0930 Sodium Chloride 2 SPRAY Q4P PRN 07/09 0930 DCD 07/10 POLLO 0628 Last 24 Hrs of Lab/Emanuel Results Last 24 Hrs of Labs/Mics: Laboratory Tests 07/10/17 0745: Anion Gap 13, Estimated GFR > 60, BUN/Creatinine Ratio 41.7 H, PT 45.8 *H, INR 4.43 *H, CBC w Diff NO MAN DIFF REQ, RBC 4.53, MCV 91.0, MCH 30.0, MCHC 33.0, RDW 14.1, MPV 9.9, Gran % 82.3 H, Lymphocytes % 12.9 L, Monocytes % 4.8, Eosinophils % 0, Basophils % 0, Absolute Granulocytes 7.6 H, Absolute Lymphocytes 1.2, Absolute Monocytes 0.5, Absolute Eosinophils 0, Absolute Basophils 0 Assessment/Plan Assessment: This is a 76-year-old pleasant lady with a history of mild intermittent asthma, aortic valve replacement and thoracic aneurysm repair on Coumadin, hypothyroidism, resistance with symptoms of shortness of breath consistent with an asthma exacerbation. Impression Asthma exacerbation. Most likely secondary to possible viral bronchitis. History of chronic diseases: Hypothyroidism, aortic valve replacement, asthma Plan Respiratory status improved. Patient was ambulating with no obvious shortness of breath. Stable with no wheezes on physical examination. Will discharge patient on a rapid prednisone taper and 3 days supply of azithromycin to complete a 5 day course. Problem List: 1. Asthma with acute exacerbation Pain Ratin Pain Location: none Pain Goal: Remain pain free Pain Plan: per pathway Tomorrow's Labs & Rationales: none-discharge Jane Cheatham MDesha 07/10/17 1051: Attending MD Review Statement Attending Statement Attending MD Statement: examined this patient, discuss w/resident/PA/[employer], agreed w/resident/PA/[employer], reviewed EMR data (avail), discussed with nursing, discussed with case mgmt, reviewed images, amended to note Attending Assessment/Plan: Patient seen and examined, overall feeling much better. Her BP has improved and she's not coughing as bad. She remains afebrile and has a normal white count. Her INR is supratherapeutic today. Patient is otherwise medically stable for discharge home today. She is not requiring any oxygen and her lung exam also shows much improvement with wheezing and rhonchi. Patient was instructed to not to take any Coumadin tonight. Take 3 mg of Coumadin on Thursday and Thursday which is lower than her home dose. Repeat INR check will be done on Thursday. Patient goes to Coumadin clinic across the hospital for her Coumadin check. Afterwards her Coumadin can be adjusted according to her INR. Patient be discharged on prednisone taper as well as antibiotics azithromycin to complete the course. She will follow with her primary care doctor and Dr. White as an outpatient.
[2017-07-10] MEDS ORDERED: AZITHROMYCIN250 M1 PO (08:22)
[2017-07-10 09:08] LABS: ABSOLUTE BASOPHIL COUNT 0 /CUMM (0.0-0.2); ABSOLUTE EOSINOPHIL COUNT 0 /CUMM (0.0-0.7); ABSOLUTE GRANULOCYTE CT 7.6 /CUMM (1.4-6.5); ABSOLUTE LYMPH COUNT 1.2 /CUMM (1.2-3.4); ABSOLUTE MONOCYTE COUNT 0.5 /CUMM (0.10-0.60); BASOPHIL % 0 % (0.0-2.0); EOSINOPHIL % 0 % (0-5); GRANULOCYTE % 82.3 % (42.2-75.2); HEMATOCRIT 41.2 % (37-47); MEAN PLATELET VOLUME 9.9 FL (7.4-10.4); PLATELET COUNT 207 /CUMM (130-400); RBC DISTRIBUTION WIDTH 14.1 % (11.5-14.5); RED BLOOD CELL CT 4.53 /CUMM (4.20-5.40); WHITE BLOOD CELL COUNT 9.3 /CUMM (4.8-10.8)
[2017-07-10] MEDS ORDERED: PREDNISONE10 M2 PO (09:11)
[2017-07-10 09:17] LABS: PT 45.8 SEC (9.4-12.5)
--- NOTE | 2017-07-10 09:36 | Patient Discharge Instructions ---
Discharge Instructions General Discharge Information You were seen/treated for: Asthma worsening Special Instructions: Please seek immediate medical attention if you develop worsening breathing problems Please hold of you coumadin today, and then take 3 mg on 07/11 and 07/12. On Thursday 07/13 Please get your INR labwork done and based on the results check with your primary care physician julissa you should resume your original coumadin dosing (Your regular dosing has been tem[porarily stopped) Acute Coronary Syndrome Inclusion Criteria At DC or during hospital stay patient has or had the following: ACS DIAGNOSIS No Discharge Core Measures Meds if any: Prescribed or Continued at Discharge Meds if any: NOT Prescribed or Continued at Discharge Congestive Heart Failure Inclusion Criteria At DC or during hospital stay patient has or had the following: CHF DIAGNOSIS No Discharge Core Measures Meds if any: Prescribed or Continued at Discharge Meds if any: NOT Prescribed or Continued at Discharge Cerebrovascular accident Inclusion Criteria At DC or during hospital stay patient has or had the following: CVA/TIA Diagnosis No Discharge Core Measures Meds if any: Prescribed or Continued at Discharge Meds if any: NOT Prescribed or Continued at Discharge Venous thromboembolism Inclusion Criteria VTE Diagnosis No VTE Type NONE VTE Confirmed by (Test) NONE Discharge Core Measures - Per Current guidelines, there needs to be overlap - treatment for the first 5 days of Warfarin therapy. - If discharged on Warfarin prior to 5 days of - overlap therapy, the patient will need to be - assessed for post discharge needs including - *Post discharge parental anticoagulation - *Warfarin and/or parental anticoagulation education - *Follow up date to check INR post discharge At least 5 days overlap therapy as Inpatient No Meds if any: Prescribed or Continued at Discharge Note: Overlap Therapy is Warfarin and Anticoagulant Meds if any: NOT Prescribed or Continued at Discharge
--- NOTE | 2017-07-10 10:35 | PN- Pulmonary ---
Subjective HPI/Critical Care Issues: pt seen and examined feeling much better Objective Current Medications: Current Medications Sig/Corby Start time Last Medication Dose Route Stop Time Status Admin Acetaminophen 500 MG Q6P PRN 07/08 1100 AC 07/10 PO 0344 Acetaminophen 1,000 MG Q8P PRN 07/08 1100 AC 07/08 IV 1500 Acetylcysteine 4 ML BID 07/09 1018 AC 07/10 INH 0817 Albuterol Sulfate 3 ML EVERY 4 HRS/AWAKE 07/09 0800 AC 07/10 INH 0813 Azithromycin 250 MG DAILY 07/10 1000 AC 07/10 PO 0930 Levothyroxine Sodium 0.125 MG DAILY AC 07/08 1715 AC 07/10 PO 0627 Methylprednisolone 40 MG Q12 07/09 1000 AC 07/10 IV 0930 Montelukast Sodium 10 MG DAILY 07/08 1044 AC 07/10 PO 0930 Sodium Chloride 2 SPRAY Q4P PRN 07/09 0930 AC 07/10 POLLO 0628 Warfarin Sodium 5 MG COUMADIN 1700 ONE 07/09 1700 CAN PO 07/09 1701 Warfarin Sodium 4 MG COUMADIN 1700 ONE 07/09 1700 DC 07/09 PO 07/09 1701 1656 Vital Signs & I&O Last 24 Hrs of Vitals and I&O: Vital Signs Date Time Temp Pulse Resp B/P B/P Pulse O2 O2 Flow FiO2 Mean Ox Delivery Rate 07/10 0557 97.9 91 20 118/70 94 07/09 2225 97.5 91 18 110/62 92 Room Air 07/09 1709 96 Room Air 07/09 1412 98.0 82 18 100/60 92 Intake & Output 07/10 1600 07/10 0800 07/10 0000 Intake Total 400 500 Output Total Balance 400 500 Intake, Oral 400 500 Exam Other Physical Findings: Generally - Awake, alert Head and neck - normocephalic, atraumatic, EOMI grossly intact Cardiovascular - S1, S2, no murmurs, rubs or gallops Lungs -bilateral scattered wheezing Abdomen - Bowel sounds positive, soft, non-tender Extremities - without edema Results Last 24 Hrs of Lab Results: Laboratory Tests 07/10/17 0745: Anion Gap 13, Estimated GFR > 60, BUN/Creatinine Ratio 41.7 H, PT 45.8 *H, INR 4.43 *H, CBC w Diff NO MAN DIFF REQ, RBC 4.53, MCV 91.0, MCH 30.0, MCHC 33.0, RDW 14.1, MPV 9.9, Gran % 82.3 H, Lymphocytes % 12.9 L, Monocytes % 4.8, Eosinophils % 0, Basophils % 0, Absolute Granulocytes 7.6 H, Absolute Lymphocytes 1.2, Absolute Monocytes 0.5, Absolute Eosinophils 0, Absolute Basophils 0 Impression/Plan Impression/Plan Impression/Plan: Impression 68-year-old woman with a significant history of asthma here with exacerbation of asthma likely secondary to viral bronchitis Plan -dc solumedrol -begin prednisone 60x2, 50x2, 40x2, 30x2, 20x2, 10x2 then stop -plan for dc today -mucomyst nebulized bid -course of zithromax -peak flow q shift -TRC nebs -Continue home medications -Continue Singulair -Nebulizer therapy -Out of bed as tolerated -incentive spirometery -DVT prophylaxis at all times
--- NOTE | 2017-07-10 11:35 | Discharge Summary ---
Hospital Course Allergies: Coded Allergies: alendronate sodium (LIGHT HEADED, WOOZY PER PT 07/08/17) metronidazole (Mild, NAUSEA 07/08/17) risedronate sodium (From ACTONEL) (Mild, DIZZY 07/08/17) tamsulosin (Mild, NAUSEA 07/08/17) Discharge Instructions Medications at Discharge Discharge Medications: Stop taking the following medications: Warfarin Sodium (Warfarin Sodium) 5 MG TABLET ORAL WTFRSASUN Qty = 90 Warfarin Sodium (Warfarin Sodium) 1 MG TABLET ORAL EVERY THURSDAY Methylprednisolone. (Medrol) 4 MG TAB.DS.PK ORAL SEE INSTRUCTIONS Qty = 1 Doxycycline Hyclate (Vibramycin) 100 MG CAPSULE ORAL TWICE DAILY Qty = 14 Continue taking these medications: Multivitamin (One Daily Multivitamin) 1 EACH TABLET 1 Tablet ORAL DAILY Ascorbate Calcium (Vitamin C) (Unknown Strength) TABLET Unknown Dose ORAL DAILY Denosumab (Prolia) (Unknown Strength) SYRINGE Unknown Dose INJECTABLE Q6M Comments: NOT GIVEN Montelukast Sodium (Montelukast Sodium) 10 MG TABLET 1 Tablet ORAL DAILY Qty = 90 Comments: Last Taken:07/10/17 Time: 0930 Fluticasone/Salmeterol (Advair 500-50 Diskus) 500 MCG-50 MCG/DOSE BLST.W.DEV 1 Puff Inhale through mouth TWICE DAILY Qty = 60 Albuterol Sulfate (Albuterol Sulfate) 2.5 MG/3 ML (0.083 %) VIAL.NEB 1 Vial Inhale Solution THREE TIMES DAILY Qty = 540 Comments: Last Taken:07/10/17 Time:0800 Levothyroxine Sodium (Levothyroxine Sodium) 125 MCG TABLET 1 Tablet ORAL DAILY Qty = 90 Comments: Last Taken:07/10/17 Time:0300 Ergocalciferol (Vitamin D2) (Vitamin D2) 50,000 UNIT CAPSULE 1 Capsule ORAL EVERY 2 WEEKS Qty = 6 Calcium (Elemental-Fr Calcarb) (Calcium) (Unknown Strength) TABLET Unknown Dose ORAL DAILY Start taking the following new medications: Azithromycin (Azithromycin) 250 MG TABLET 250 Milligram ORAL DAILY Qty = 3 No Refills Instructions: TAKE FOR 3 MORE DAYS TO COMPLETE TOTAL OF 5 DAYS Prednisone (Prednisone) 10 MG TABLET 1 Tablet ORAL SEE INSTRUCTIONS Qty = 29 No Refills Instructions: 5 TABS FOR 2 DAYS, 4 TABS FOR 2 DAYS, 3 TABS FOR 2 DAYS, 2 FOR 2 DAYS, 1 TAB FOR 1 DAY, THEN STOP
== END 2017-07-10 11:13 | DRG 202 ==
LOC: ERH 07:53 → ERHI 10:18 → 2NA 10:18 → ENRESERV 15:29 → ENTRNSPT 17:28 → EDTRNSPTSTS 17:47 → EDTRNSPT 17:47 → 2NA 17:57 → CMPTRNSPT 18:01 → 2NA 07-10 07:21 → ENPENDDIS 07-10 10:12 → 2NA 07-10 11:13
PROVIDERS: Emergency Medicine; Student in an Organized Health Care Education/Training Program
DX: J45.901 Unspecified asthma with (acute) exacerbation (principal); I50.32 Chronic diastolic (congestive) heart failure; J20.8 Acute bronchitis due to other specified organisms; F17.200 Nicotine dependence, unspecified, uncomplicated; E78.5 Hyperlipidemia, unspecified; Z85.850 Personal history of malignant neoplasm of thyroid; E03.9 Hypothyroidism, unspecified; Z79.01 Long term (current) use of anticoagulants
CPT/HCPCS: 2NAP; 36415; 71045; 82436; 87070; 87449; 87450; 87804; 87804-59; 93005; 93010; 96374; 96375; J0131; J0456; J1650; J2920; J2930; J7608

== ENCOUNTER 2017-11-22 07:36 | Inpatient (IN) | payer OTHER ==
[~2017-11-22] VITALS: Ht 157.5 cm; Wt 50.0 kg
[~2017-11-22 07:36] MED LIST changes: +AZITHROMYCIN250 M1 PO
[2017-11-22] MEDS ORDERED: COUMADIN2.5 M1 PO (07:49)
--- NOTE | 2017-11-22 08:20 | ED DYSPNEA/ASTHMA COMPLAINT ---
History of Present Illness General Chief Complaint: Dyspnea (COPD, CHF, Other) Stated Complaint: SOB Source: patient, family, old records Exam Limitations: no limitations Vital Signs & Intake/Output Vital Signs & Intake/Output Vital Signs Date Time Temp Pulse Resp B/P B/P Pulse O2 O2 Flow FiO2 Mean Ox Delivery Rate 11/24 1320 97.9 84 21 109/62 97 Nasal Cannula 11/24 0810 96 Nasal 2.0L Cannula 11/24 0800 96 Nasal 2.0L Cannula 11/24 0608 97.9 66 20 110/78 96 Nasal 2.0L Cannula 11/23 2259 95 Nasal 2.0L Cannula 11/23 2214 97.7 86 18 96/58 95 Nasal Cannula 11/23 2054 Nasal 2.0L Cannula ED Intake and Output 11/24 0000 11/23 1200 Intake Total 980 260 Output Total Balance 980 260 Intake, IV 20 20 Intake, Oral 960 240 Patient 114 lb Weight Allergies Coded Allergies: alendronate sodium (LIGHT HEADED, WOOZY PER PT 07/08/17) metronidazole (Mild, NAUSEA 07/08/17) risedronate sodium (From ACTONEL) (Mild, DIZZY 07/08/17) tamsulosin (Mild, NAUSEA 07/08/17) Reconcile Medications Albuterol Sulfate 2.5 MG/3 ML (0.083 %) VIAL.NEB 1 Vial INH/CARI TID RESP ( Reported) Ascorbate Calcium (Vitamin C) (Unknown Strength) TABLET (Unknown Dose) PO DAILY SUPPLEMENT (Reported) Azithromycin 250 MG TABLET 250 MG PO DAILY BRONCHITIS/ASTHMA TAKE FOR 3 MORE DAYS TO COMPLETE TOTAL OF 5 DAYS Calcium (Elemental-Fr Calcarb) (Calcium) (Unknown Strength) TABLET (Unknown Dose) PO DAILY SUPPLEMENT (Reported) Denosumab (Prolia) (Unknown Strength) SYRINGE (Unknown Dose) INJ Q6M BONES ( Reported) Ergocalciferol (Vitamin D2) (Vitamin D2) 50,000 UNIT CAPSULE 1 CAP PO Q2W SUPPLEMENT (Reported) Fluticasone/Salmeterol (Advair 500-50 Diskus) 500 MCG-50 MCG/DOSE BLST.W.DEV 1 PUF INH BID RESP (Reported) Levothyroxine Sodium 125 MCG TABLET 1 TAB PO DAILY THYROID (Reported) Montelukast Sodium 10 MG TABLET 1 TAB PO DAILY hypereosinophilia (Reported) Multivitamin (One Daily Multivitamin) 1 EACH TABLET 1 TAB PO DAILY SUPPLEMENT (Reported) Prednisone 10 MG TABLET 1 TAB PO SEE ADMIN CRITERIA ASTHMA 5 TABS FOR 2 DAYS, 4 TABS FOR 2 DAYS, 3 TABS FOR 2 DAYS, 2 FOR 2 DAYS, 1 TAB FOR 1 DAY, THEN STOP Warfarin Sodium (Coumadin) 2.5 MG TABLET 1 TAB PO DAILY AORTIC VALVE REPLACEMENT (Reported) Triage Note: PT TO ED C/O WORSENING SOB SINCE YESTERDAY. H/O ASTHMA AND COPD. HAS BEEN USING INHALERS AND NEBS WITH NO RELIEF. RA SATS 94%. PT NOTED SOB WITH SPEECH, DENIES ANY PAIN. HEARTRATE 44. TAKEN TO ROOM 12 VIA W/C. PLACED ON 2L NC. Triage Nurses Notes Reviewed? yes HPI: Patient presents for evaluation of gradually worsening and now severe shortness of breath that began about 2 days ago. Patient has an history of COPD and has been using her nebulizer about twice a day and her rescue inhaler a bit more frequently. She denies any associated fever or cold symptoms chest pain or leg swelling. She does refer however a cough productive of yellowish phlegm. She has used her metered-dose inhaler twice today or with her Advair inhaler. She last used her nebulizer her last night. She denies cigarette smoking. Past History Travel History Traveled to [place] past 21 day No Medical History Any Pertinent Medical History? 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 No Review of Systems Review of Systems Constitutional: Reports: no symptoms. EENTM: Reports: no symptoms. Respiratory: Reports: see HPI. Cardiovascular: Reports: no symptoms. GI: Reports: no symptoms. Genitourinary: Reports: no symptoms. Musculoskeletal: Reports: no symptoms. Skin: Reports: no symptoms. Neurological/Psychological: Reports: no symptoms. Hematologic/Endocrine: Reports: no symptoms. Immunologic/Allergic: Reports: no symptoms. All Other Systems: Reviewed and Negative Physical Exam Physical Exam Respiratory: SEE BELOW Comments: Gen.: Well-nourished, well-developed, mild to moderate respiratory distress. Head: Normocephalic, atraumatic. Eyes: Normal inspection bilaterally Ears: Normal inspection bilaterally Nose: Normal inspection Throat/mouth : Moist mucosa Neck: Supple, full range of motion, no goiter Heart: Slightly irregular rate and rhythm, no murmurs rubs or gallops Lungs: Scattered and expiratory wheezing with otherwise adequate air entry Chest: Nontender Back: Normal range of motion Abdomen: Soft, nontender, nondistended, normal bowel sounds Extremities: Normal range of motion grossly, equal radial pulses, no cyanosis clubbing or edema, calves nontender Neurologic: Cranial nerves grossly intact, speech is clear Skin: warm and dry Psychiatric: Calm, cooperative, no apparent delusions or hallucinations Core Measures ACS in differential dx? No CVA/TIA Diagnosis No Sepsis Present: No Sepsis Focused Exam Completed? No Progress Differential Diagnosis: asthma, bronchitis, CHF, COPD, pneumonia Plan of Care: Orders Procedure Date/time Status PROTHROMBIN TIME 11/25 0600 Active LOWER RESPIRATORY CULTURE 11/24 1100 Active THERAPIST ORDERS 11/24 UNK Complete Change service to 11/24 UNK Active AEROSOL CHG 11/23 UNK Complete OXYGEN 11/23 UNK Complete OXYGEN DAILY CHARGE 11/23 UNK Complete Current Medications Sig/Corby Start time Last Medication Dose Stop Time Status Admin Methylprednisolone 40 MG BID 11/24 2100 AC (Solumedrol) Loratadine 10 MG DAILY 11/24 1345 AC 11/24 (Claritin) 1446 Azithromycin 250 MG DAILY 11/23 1005 AC 11/24 (Zithromax) 11/26 0901 0807 Montelukast Sodium 10 MG DAILY 11/23 0900 AC 11/24 (Singulair) 1446 Levothyroxine Sodium 0.125 MG DAILY AC 11/23 0700 AC 11/24 (Synthroid) 0556 Albuterol Sulfate 3 ML TID 11/22 2100 AC 11/24 (Proventil) 1327 Laboratory Tests 11/24/17 0730: PT 29.5 H, INR 2.68 H Microbiology 11/24 1100 LOWER RESP: Respiratory Culture - RES 11/24 1100 LOWER RESP: Gram Stain - RES Diagnostic Imaging: Discussed w/RAD: Radiology Read. CXR Impression: PATIENT: MILLY KNUTSON PRESENT AGE: 76 PATIENT ACCOUNT NO: [id number] : 38 LOCATION: [facility] ORDERING PHYSICIAN: Jose Davison MD SERVICE DATE: 11/22/17 EXAM TYPE: RAD - XRY-CHEST XRAY, TWO VIEWS EXAMINATION: XR CHEST CLINICAL INFORMATION: Dyspnea; question pneumonia. COMPARISON: Prior chest regressed, most recently 07/08/2017; CT thorax dated 06/20/2016. TECHNIQUE: Frontal and lateral views of the chest were obtained. FINDINGS: The heart, great vessels, pulmonary vasculature and mediastinum are stable. Again, there is tortuosity of the thoracic aorta. Median sternotomy wires are noted. There is mild left basilar linear atelectasis. The right lung field appears clear. There is mild hyperinflation. No acute osseous abnormality is seen. IMPRESSION: 1. No active cardiopulmonary disease. There is no significant change. 2. There is mild left base linear atelectasis. 3. There is mild hyperinflation. DICTATED BY: Hipolito Tello MD DATE/TIME DICTATED:821 FULL TIME STAFF INTERPRETER:LIGIA DATE/TIME TRANSCRIBED:11/22/17821 CONFIDENTIAL, DO NOT COPY WITHOUT APPROPRIATE AUTHORIZATION. <Electronically signed in Other Vendor System> SIGNED BY: Hipolito Tello MD 11/22/1728 Initial ED EKG: NSR, PAC,PVC Comments: 11/22/2017 9:02:17 AM patient has just received a nebulizer treatment. She appears more comfortable clinically, her air entry has improved and her wheezing has begun to resolve. Patient however did have a pronounced cough and sputum specimen has been obtained. Departure Departure Disposition: STILL A PATIENT Condition: Stable Clinical Impression Primary Impression: COPD exacerbation Referrals: Jessica CLOUD,Margarito Hernandez (PCP/Family) Departure Forms: Customer Survey General Discharge Information Admission Note Spoke With: Humberto Mcmahan MD Documentation of Exam: Documentation of any treatments & extenuating circumstances including Concerns Regarding Discharge (functional status, medication knowledge or non-compliance, living conditions, etc.) that warrant an admission rather than observation: Patient is experiencing an acute exacerbation of COPD. Despite nebulizers and steroids the patient still feels too short of breath to return home. With ambulation the patient's O2 saturation dropped to 88%. I do not feel she is capable of outpatient treatment at this time. She likely would have great difficulty in compliance with outpatient treatment and could potentially return in worse clinical condition. In addition the exertion of outpatient treatment would worsen her dyspnea leading to hypoxia chest pain syncope and mortality. I feel she now requires hospitalization for nebulizer treatments [id number], IV steroids and oxygen supplementation as needed. Pulmonary consultation should be considered. Given the patient's advanced age and medical comorbidities I feel her treatment and recovery will likely be prolonged and complicated. I feel she will require a multiple day hospitalization. Critical Care Note Critical Care Note Critical Care Time: 30-74 min
--- NOTE | 2017-11-22 08:28 | RADIOLOGY REPORT ---
EXAMINATION: XR CHEST CLINICAL INFORMATION: Dyspnea; question pneumonia. COMPARISON: Prior chest regressed, most recently 07/08/2017; CT thorax dated 06/20/2016. TECHNIQUE: Frontal and lateral views of the chest were obtained. FINDINGS: The heart, great vessels, pulmonary vasculature and mediastinum are stable. Again, there is tortuosity of the thoracic aorta. Median sternotomy wires are noted. There is mild left basilar linear atelectasis. The right lung field appears clear. There is mild hyperinflation. No acute osseous abnormality is seen. IMPRESSION: 1. No active cardiopulmonary disease. There is no significant change. 2. There is mild left base linear atelectasis. 3. There is mild hyperinflation.
[2017-11-22 08:49] LABS: ABSOLUTE BASOPHIL COUNT 0 /CUMM (0.0-0.2); ABSOLUTE EOSINOPHIL COUNT 0.9 /CUMM (0.0-0.7); ABSOLUTE GRANULOCYTE CT 3.6 /CUMM (1.4-6.5); ABSOLUTE LYMPH COUNT 1.5 /CUMM (1.2-3.4); ABSOLUTE MONOCYTE COUNT 0.6 /CUMM (0.10-0.60); BASOPHIL % 0.3 % (0.0-2.0); EOSINOPHIL % 13.9 % (0-5); GRANULOCYTE % 53.9 % (42.2-75.2); HEMATOCRIT 46.9 % (37-47); MEAN CORPUSCULAR HGB 30.6 PG (27.0-31.0); MEAN CORPUSCULAR HGB CONC 33.8 G/DL (33.0-37.0); MEAN CORPUSCULAR VOLUME 90.3 FL (81.0-99.0); MEAN PLATELET VOLUME 9.1 FL (7.4-10.4); PLATELET COUNT 253 /CUMM (130-400); RBC DISTRIBUTION WIDTH 13.4 % (11.5-14.5); WHITE BLOOD CELL COUNT 6.7 /CUMM (4.8-10.8)
--- NOTE | 2017-11-22 14:10 | History & Physical ---
[place] CLOUD,[facility] 11/22/17 1409: General Information and HPI MD Statement: I have seen and personally examined MILLY KNUTSON and documented this H&P. The patient is a 76 year old F who presented with a patient stated chief complaint of shortness of breath. Exam Limitations: no limitations History of Present Illness: This is a pleasemt 76-year-old lady with a history of remote tobacco use, dyslipidemia, thyroid carcinoma s/p thyroidectomy, subsequent hypothyroidism on replacement, ascending thoracic aortic aneurysm s/p repair and placement of a mechanical aortic valve prosthesis ([employer] Bret) for associated moderate aortic regurgitation on 08/05/2005 complicated by pericarditis/pericardial effusion requiring pericardial window 09/2005, a retroperitoneal bleed while on warfarin anticoagulation with supratherapeutic INR 01/2007, a suspected transient ischemic attack in 12/2010, chronic asthma with recent [facility] admission in 2017 for exacerbation, presents to [facility] ED for 2-3 day history of worsenig shortness of breath. Associated symptoms include increase cough and sputum production. In the past few days, she has had an increase usage of her albuterol MDI. Denies fever/chills, recent URI, sick contact or recent travel. She also denies cp/palpitation, lower extremity swelling, PND or increased orthopnea. Patient's tower loader operator is Dr White, she was scheduled for a routine f/u next week. Patient reports her asthma is normally well controlled with advair and albuterol MDI. She actively engages in outdoor walking exrecise. She has never had an exacerbation wich required intubation. Allergies/Medications Allergies: Coded Allergies: alendronate sodium (LIGHT HEADED, WOOZY PER PT 07/08/17) metronidazole (Mild, NAUSEA 07/08/17) risedronate sodium (From ACTONEL) (Mild, DIZZY 07/08/17) tamsulosin (Mild, NAUSEA 07/08/17) Home Med list Albuterol Sulfate 2.5 MG/3 ML (0.083 %) VIAL.NEB 1 Vial INH/CARI TID RESP ( Reported) Ascorbate Calcium (Vitamin C) (Unknown Strength) TABLET (Unknown Dose) PO DAILY SUPPLEMENT (Reported) Azithromycin 250 MG TABLET 250 MG PO DAILY BRONCHITIS/ASTHMA TAKE FOR 3 MORE DAYS TO COMPLETE TOTAL OF 5 DAYS Calcium (Elemental-Fr Calcarb) (Calcium) (Unknown Strength) TABLET (Unknown Dose) PO DAILY SUPPLEMENT (Reported) Denosumab (Prolia) (Unknown Strength) SYRINGE (Unknown Dose) INJ Q6M BONES ( Reported) Ergocalciferol (Vitamin D2) (Vitamin D2) 50,000 UNIT CAPSULE 1 CAP PO Q2W SUPPLEMENT (Reported) Fluticasone/Salmeterol (Advair 500-50 Diskus) 500 MCG-50 MCG/DOSE BLST.W.DEV 1 PUF INH BID RESP (Reported) Levothyroxine Sodium 125 MCG TABLET 1 TAB PO DAILY THYROID (Reported) Montelukast Sodium 10 MG TABLET 1 TAB PO DAILY hypereosinophilia (Reported) Multivitamin (One Daily Multivitamin) 1 EACH TABLET 1 TAB PO DAILY SUPPLEMENT (Reported) Prednisone 10 MG TABLET 1 TAB PO SEE ADMIN CRITERIA ASTHMA 5 TABS FOR 2 DAYS, 4 TABS FOR 2 DAYS, 3 TABS FOR 2 DAYS, 2 FOR 2 DAYS, 1 TAB FOR 1 DAY, THEN STOP Warfarin Sodium (Coumadin) 2.5 MG TABLET 1 TAB PO DAILY AORTIC VALVE REPLACEMENT (Reported) Past History Travel History Traveled to [place] past 21 day No Medical History Neurological: NONE EENT: NONE Cardiovascular: AORTIC VALVE REPLACEMENT Respiratory: asthma, COPD Gastrointestinal: diverticulitis Hepatic: NONE Renal: NONE Musculoskeletal: NONE Psychiatric: NONE Endocrine: NONE Blood Disorders: NONE Cancer(s): thyroid cancer 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 spouse Services at Home: None Primary Language: Stateless ETOH Use: denies use Illicit Drug Use: denies illicit drug use Review of Systems Review of Systems Constitutional: Reports: no symptoms. Exam & Diagnostic Data Last 24 Hrs of Vital Signs/I&O Vital Signs Date Time Temp Pulse Resp B/P B/P Pulse O2 O2 Flow FiO2 Mean Ox Delivery Rate 11/22 1630 96 Nasal 2.0L Cannula 11/22 1630 97.9 86 20 123/68 96 Nasal 2.0L Cannula 11/22 1613 97.3 84 18 126/85 98 Nasal 2.0L Cannula 11/22 1423 98.7 86 20 113/65 98 Room Air 11/22 1137 96.6 102 24 125/94 93 Room Air 11/22 1044 95 Nasal 2.0L Cannula 11/22 0840 95 Nasal 2.0L Cannula 11/22 0820 97 Nasal 2.0L Cannula 11/22 0741 96.5 44 20 133/85 93 Room Air Intake & Output 11/22 1600 11/22 0800 11/22 0000 Intake Total Output Total Balance Patient 51.71 kg Weight Weight Estimated Measurement Method Physical Exam General Appearance Alert, Oriented X3, Cooperative Last 24 Hrs of Labs/Emanuel: Laboratory Tests 11/22/17 1525: Troponin I < 0.01 11/22/17 1525: Anion Gap 11, Estimated GFR > 60, BUN/Creatinine Ratio 28.3 H, Phosphorus 3.7, TSH 0.017 L, PT 31.0 H, INR 2.81 H, CBC w Diff MAN DIFF ORDERED, RBC 4.91, MCV 90.5, MCH 30.6, MCHC 33.8, RDW 13.0, MPV 9.5, Gran % 92.3 H, Lymphocytes % 7.1 L, Monocytes % 0.4 L, Eosinophils % 0.1, Basophils % 0.1, Absolute Granulocytes 6.1, Segmented Neutrophils 85 H, Band Neutrophils 6 H, Absolute Lymphocytes 0.5 L, Lymphocytes 7 L, Monocytes 2, Absolute Monocytes 0 L, Absolute Eosinophils 0, Absolute Basophils 0, Platelet Estimate ADEQUATE, Normocytic RBCs VERIFIED, Normochromic RBCs VERIFIED 11/22/17 0803: Anion Gap 10, Estimated GFR > 60, BUN/Creatinine Ratio 22.9, Glucose 83, Calcium 9.4, Troponin I < 0.01, CBC w Diff NO MAN DIFF REQ, RBC 5.20, MCV 90.3, MCH 30.6 , MCHC 33.8, RDW 13.4, MPV 9.1, Gran % 53.9, Lymphocytes % 23.2, Monocytes % 8.7 , Eosinophils % 13.9 H, Basophils % 0.3, Absolute Granulocytes 3.6, Absolute Lymphocytes 1.5, Absolute Monocytes 0.6, Absolute Eosinophils 0.9, Absolute Basophils 0 Microbiology 11/22 1438 URINE ROUT: Legionella Antigen - COLB 11/22 1438 URINE ROUT: Streptococcus pneumoniae Antigen (M - COLB 11/23 0730 LOWER RESP: Respiratory Culture - RES 11/22 829 LOWER RESP: Gram Stain - RES Assessment/Plan Assessment: This is a 76 yo lady with a history of asthma and cardiac valve abnormalisties s /p prosthetic valve placement and on coumadin, present with acute onset of shortness of breath and increased work of breathing. No fever/chills, leukocytes. CXR suggestive of atelectasis. Impression * Dsypnea worsened on exertion in the context of asthma exacerbation. ACS unlikely given the lack of chest pain, unremarkable trops and EKG. * Asthma Exacerbation. Possibly 2/2 to acute viral bronchitis vs atelectasis. * History of chronic diseases: Hypothyroidism, valvular diseases reqiring prostehic aortic valve placement and on coumadin, diastolic CHF. Plan * Place in observation at [facility] * 02 supplementation to keep sats >88% * Please obtain peak flow measurement now and q shift after neb treatment * s/p Solumedrol 125, continue with 40 mg q 8h and taper accordingly * TRC/nebs * Incentive spirometry * f/u sputum cultures and legionella/strept urine antigen * Continue singulair * Obtain TSH level * Dose coumadin per INR ideal goal of 2.5 * CODE STATUS: DNR/DNI * DIET: DNRI/DNI * DVT PPX: Addressed by Coumadin As Ranked By This Provider Problem List: 1. Asthma exacerbation Core Measures/Misc (02/22) Acute Coronary Syndrome ACS Diagnosis: No Congestive Heart Failure Congestive Heart Failure Diagnosis No Cerebrovascular Accident CVA/TIA Diagnosis: No VTE (View Protocol) VTE Risk Factors Acute Medical Illness No Mechanical VTE Prophylaxis d/t N/A MechProphylax Ordered No VTE Pharm Prophylaxis d/t Other (patinet on coumadin) Sepsis (View protocol) Sepsis Present: No If YES complete Sepsis Event Note If YES complete Sepsis Event Note Bruno Lorenzo 11/22/17 1450: Core Measures/Misc (02/22) Sepsis (View protocol) If YES complete Sepsis Event Note If YES complete Sepsis Event Note Attending MD Review Statement Attending Statement Attending MD Statement: examined this patient, discuss w/resident/PA/CHOCOLATE MOLDER, agreed w/resident/PA/CHOCOLATE MOLDER, discussed with family, reviewed EMR data (avail), discussed with nursing, discussed with case mgmt, reviewed images, amended to note Attending Assessment/Plan: Agree with above
[2017-11-22 16:06] LABS: ABSOLUTE BASOPHIL COUNT 0 /CUMM (0.0-0.2); ABSOLUTE EOSINOPHIL COUNT 0 /CUMM (0.0-0.7); ABSOLUTE GRANULOCYTE CT 6.1 /CUMM (1.4-6.5); ABSOLUTE LYMPH COUNT 0.5 /CUMM (1.2-3.4); ABSOLUTE MONOCYTE COUNT 0 /CUMM (0.10-0.60); BASOPHIL % 0.1 % (0.0-2.0); EOSINOPHIL % 0.1 % (0-5); HEMATOCRIT 44.4 % (37-47); MEAN CORPUSCULAR HGB 30.6 PG (27.0-31.0); MEAN CORPUSCULAR HGB CONC 33.8 G/DL (33.0-37.0); MEAN CORPUSCULAR VOLUME 90.5 FL (81.0-99.0); MEAN PLATELET VOLUME 9.5 FL (7.4-10.4); PLATELET COUNT 238 /CUMM (130-400); RED BLOOD CELL CT 4.91 /CUMM (4.20-5.40); WHITE BLOOD CELL COUNT 6.6 /CUMM (4.8-10.8)
[2017-11-22 16:11] LABS: GRANULOCYTE % 92.3 % (42.2-75.2)
[2017-11-22 16:30] VITALS: BP 123/68
[2017-11-22 22:00] VITALS: BP 100/69
[2017-11-23 06:30] VITALS: BP 100/68
--- NOTE | 2017-11-23 08:10 | PN- Housestaff ---
Cuca Edouard 11/23/17 0810: Subjective Follow-up For: Asthma exacerbation Subjective: Seen and examined patient this morning. Reports some minimal improvement in breathing, however she still feels short of breath at rest. Endorses yellowish sputum production. Denies fever, chills, bowel and bladder symptoms. Review of Systems Constitutional: Reports: see HPI. Objective Last 24 Hrs of Vital Signs/I&O Vital Signs Date Time Temp Pulse Resp B/P B/P Pulse O2 O2 Flow FiO2 Mean Ox Delivery Rate 11/23 1028 94 Nasal 2.0L Cannula 11/23 0630 97.6 72 22 100/68 96 Nasal 2.0L Cannula 11/23 0212 94 Nasal 2.0L Cannula 11/22 2256 96 Nasal 2.0L Cannula 11/22 2200 98.0 81 18 100/69 96 11/22 1939 Nasal 2.0L Cannula 11/22 1630 96 Nasal 2.0L Cannula 11/22 1630 97.9 86 20 123/68 96 Nasal 2.0L Cannula 11/22 1613 97.3 84 18 126/85 98 Nasal 2.0L Cannula 11/22 1423 98.7 86 20 113/65 98 Room Air Intake & Output 11/23 1600 11/23 0800 11/23 0000 Intake Total 260 250 Output Total Balance 260 250 Intake, IV 20 10 Intake, Oral 240 240 Patient 114 lb Weight Physical Exam General Appearance: Alert, Oriented X3, Cooperative, No Acute Distress Cardiovascular: Regular Rate, Normal S1, loud P2 Lungs: b/l coarse rhonchi with scattered wheezing Current Medications: Current Medications Sig/Croby Start time Last Medication Dose Route Stop Time Status Admin Albuterol Sulfate 3 ML TID 11/22 2100 AC 11/23 INH 0626 Azithromycin 250 MG DAILY 11/23 1005 AC PO 11/26 0901 Levothyroxine Sodium 0.125 MG DAILY AC 11/23 0700 AC 11/23 PO 0613 Methylprednisolone 40 MG Q8 11/23 0600 AC 11/23 IV 0613 Montelukast Sodium 10 MG DAILY 11/23 0900 AC 11/23 PO 1103 Warfarin Sodium 2.5 MG COUMADIN 1700 ONE 11/22 1830 DC 11/22 PO 11/22 [id number] Last 24 Hrs of Lab/Emanuel Results Last 24 Hrs of Labs/Mics: Laboratory Tests 11/23/17 1220: PT 36.2 H, INR 3.28 H 11/22/17 1525: Troponin I < 0.01 11/22/17 1525: Anion Gap 11, Estimated GFR > 60, BUN/Creatinine Ratio 28.3 H, Phosphorus 3.7, TSH 0.017 L, PT 31.0 H, INR 2.81 H, CBC w Diff MAN DIFF ORDERED, RBC 4.91, MCV 90.5, MCH 30.6, MCHC 33.8, RDW 13.0, MPV 9.5, Gran % 92.3 H, Lymphocytes % 7.1 L, Monocytes % 0.4 L, Eosinophils % 0.1, Basophils % 0.1, Absolute Granulocytes 6.1, Segmented Neutrophils 85 H, Band Neutrophils 6 H, Absolute Lymphocytes 0.5 L, Lymphocytes 7 L, Monocytes 2, Absolute Monocytes 0 L, Absolute Eosinophils 0, Absolute Basophils 0, Platelet Estimate ADEQUATE, Normocytic RBCs VERIFIED, Normochromic RBCs VERIFIED Microbiology 11/23 1004 LOWER RESP: Respiratory Culture - ORD 11/23 1004 LOWER RESP: Gram Stain - ORD 11/22 1932 URINE ROUT: Legionella Antigen - COMP 11/22 1932 URINE ROUT: Streptococcus pneumoniae Antigen (M - COMP Assessment/Plan Assessment: 76 year woman former smoker with past medical history of asthma (last exacerbation 07/26), s/p Aortic [employer] mechanical valve placement currently on coumadin, admitted for acute onset of shortness of breath and increased work of breathing. CXR suggestive of atelectasis. Continues to be short of breath at rest and continues to require supplement oxygen. prob list: -Acute hypoxic respiratory failure -Asthma Exacerbation 2/2 to acute viral bronchitis vs atelectasis. -Hypothyroidism -prostehic aortic valve placement and on coumadin Plan * Her symptoms have not improved by much since admission, she will required more days for IV steriods. Will convert her to full admission * 02 supplementation to keep sats >88%, taper * obtain peak flow measurement q shift after neb treatment * s/p Solumedrol 125, continue with 40 mg q 8h today, accuchecks dailu * TRC/nebs * Incentive spirometry * f/u sputum cultures and legionella/strept urine antigen * Continue singulair * LowTSH level 0.017, f/up T4, continue levothryoxine * INR today 3.28. will dose 1MG today. INR ideal goal of 2.5-3.5 * CODE STATUS: DNR/DNI * DIET: DNRI/DNI * DVT PPX: Addressed by Coumadin Problem List: 1. Asthma with acute exacerbation 2. History of aortic valve replacement with metallic valve Pain Ratin Pain Location: na Pain Goal: Pain 4 or less Pain Plan: current regimen Tomorrow's Labs & Rationales: INR Humberto Mcmahan MD 11/23/17 1237: Attending MD Review Statement Attending Statement Attending MD Statement: examined this patient, discuss w/resident/PA/PRINTING MECHANIST, agreed w/resident/PA/PRINTING MECHANIST, reviewed EMR data (avail), discussed with nursing, discussed with case mgmt, amended to note Attending Assessment/Plan: The patient was seen and discussed with house staff, nursing and case management. Still significant wheeze and rhonchi with dyspnea and cough that is productive. Will convert to full admission and continue Medrol q8h today (will decrease to bid tomorrow if improving).
--- NOTE | 2017-11-23 11:12 | Cons- Pulmonary ---
General Information and HPI Consulting Request Date of Consult: 11/23/17 Requested By: Dr. Mcmahan Reason for Consult: Ashtma exacerbation Source of Information: patient Exam Limitations: no limitations History of Present Illness: 76-year-old woman with significant history of asthma. Her fractional excretion of nitric oxide in the office significantly elevated. She is compliant with her medications and is a nonsmoker. She frequently visits [facility] and may have had sick contacts throughout her visits. Overall she's feeling somewhat better but her wheezing has been severe and she is still winded although she has improved she will require a period of observation and nebulizer/steroid therapy No chest pain no palpitations no nausea vomiting or diarrhea or headaches. She takes Rohini and Singulair at home and feels that seasonal allergies may have caused an exacerbation in her issues. Allergies/Medications Allergies: Coded Allergies: alendronate sodium (LIGHT HEADED, WOOZY PER PT 07/08/17) metronidazole (Mild, NAUSEA 07/08/17) risedronate sodium (From ACTONEL) (Mild, DIZZY 07/08/17) tamsulosin (Mild, NAUSEA 07/08/17) Home Med List: Albuterol Sulfate 2.5 MG/3 ML (0.083 %) VIAL.NEB 1 Vial INH/CARI TID RESP ( Reported) Ascorbate Calcium (Vitamin C) (Unknown Strength) TABLET (Unknown Dose) PO DAILY SUPPLEMENT (Reported) Azithromycin 250 MG TABLET 250 MG PO DAILY BRONCHITIS/ASTHMA TAKE FOR 3 MORE DAYS TO COMPLETE TOTAL OF 5 DAYS Calcium (Elemental-Fr Calcarb) (Calcium) (Unknown Strength) TABLET (Unknown Dose) PO DAILY SUPPLEMENT (Reported) Denosumab (Prolia) (Unknown Strength) SYRINGE (Unknown Dose) INJ Q6M BONES ( Reported) Ergocalciferol (Vitamin D2) (Vitamin D2) 50,000 UNIT CAPSULE 1 CAP PO Q2W SUPPLEMENT (Reported) Fluticasone/Salmeterol (Advair 500-50 Diskus) 500 MCG-50 MCG/DOSE BLST.W.DEV 1 PUF INH BID RESP (Reported) Levothyroxine Sodium 125 MCG TABLET 1 TAB PO DAILY THYROID (Reported) Montelukast Sodium 10 MG TABLET 1 TAB PO DAILY hypereosinophilia (Reported) Multivitamin (One Daily Multivitamin) 1 EACH TABLET 1 TAB PO DAILY SUPPLEMENT (Reported) Prednisone 10 MG TABLET 1 TAB PO SEE ADMIN CRITERIA ASTHMA 5 TABS FOR 2 DAYS, 4 TABS FOR 2 DAYS, 3 TABS FOR 2 DAYS, 2 FOR 2 DAYS, 1 TAB FOR 1 DAY, THEN STOP Warfarin Sodium (Coumadin) 2.5 MG TABLET 1 TAB PO DAILY AORTIC VALVE REPLACEMENT (Reported) Current Medications: Current Medications Sig/Corby Start time Last Medication Dose Route Stop Time Status Admin Albuterol Sulfate 3 ML TID 11/22 2100 AC 11/23 INH 0626 Azithromycin 250 MG DAILY 11/23 1005 AC PO 11/26 0901 Azithromycin 500 MG ONCE ONE 11/22 1245 DC 11/22 Sodium Chloride 250 ML IV 11/22 1344 1349 Levothyroxine Sodium 0.125 MG DAILY AC 11/23 0700 AC 11/23 PO 0613 Methylprednisolone 40 MG Q8 11/23 0600 AC 11/23 IV 0613 Montelukast Sodium 10 MG DAILY 11/23 0900 AC 11/23 PO 1103 Warfarin Sodium 2.5 MG COUMADIN 1700 ONE 11/22 1830 DC 11/22 PO 11/22 1831 2023 Review of Systems Comments 18 point review of systems was performed and reviewed. Please see pertinent positives and pertinent negatives in the HPI. Otherwise ROS is negative. Past History Travel History Traveled to [place] past 21 day No Medical History Blood Transfusion Hx: No Neurological: TIA EENT: NONE Cardiovascular: AORTIC VALVE REPLACEMENT Respiratory: asthma, COPD Gastrointestinal: diverticulitis Hepatic: NONE Renal: NONE Musculoskeletal: NONE Psychiatric: NONE Endocrine: NONE Blood Disorders: NONE Cancer(s): thyroid cancer LEI MAKER/Reproductive: NONE Surgical History Surgical History: appendectomy, hysterectomy, GALLBLADDER aortic valve replacement THYROIDECTOMY Family History Relations & Conditions If Any: Relation not specified for: *No pertinent family history Psychosocial History Who Do You Live With? spouse Services at Home: None Primary Language: Belarusian Smoking Status: Former Smoker ETOH Use: denies use Illicit Drug Use: denies illicit drug use Exam & Diagnostic Data Last 24 Hrs of Vital Signs/I&O Vital Signs Date Time Temp Pulse Resp B/P B/P Pulse O2 O2 Flow FiO2 Mean Ox Delivery Rate 11/23 1028 94 Nasal 2.0L Cannula 11/23 0630 97.6 72 22 100/68 96 Nasal 2.0L Cannula 11/23 0212 94 Nasal 2.0L Cannula 11/22 2256 96 Nasal 2.0L Cannula 11/22 2200 98.0 81 18 100/69 96 11/22 1939 Nasal 2.0L Cannula 11/22 1630 96 Nasal 2.0L Cannula 11/22 1630 97.9 86 20 123/68 96 Nasal 2.0L Cannula 11/22 1613 97.3 84 18 126/85 98 Nasal 2.0L Cannula 11/22 1423 98.7 86 20 113/65 98 Room Air 11/22 1137 96.6 102 24 125/94 93 Room Air Intake & Output 11/23 1600 11/23 0800 11/23 0000 Intake Total 260 250 Output Total Balance 260 250 Intake, IV 20 10 Intake, Oral 240 240 Patient 114 lb Weight Physical Exam Other Physical Findings: Generally - Awake, alert Head and neck - normocephalic, atraumatic, EOMI grossly intact Cardiovascular - S1, S2, no murmurs, rubs or gallops Lungs -bilateral scattered wheezing Abdomen - Bowel sounds positive, soft, non-tender Extremities - without edema Last 48 Hrs of Labs/Emanuel: Laboratory Tests 11/22/17 1525: Troponin I < 0.01 11/22/17 1525: Anion Gap 11, Estimated GFR > 60, BUN/Creatinine Ratio 28.3 H, Phosphorus 3.7, TSH 0.017 L, PT 31.0 H, INR 2.81 H, CBC w Diff MAN DIFF ORDERED, RBC 4.91, MCV 90.5, MCH 30.6, MCHC 33.8, RDW 13.0, MPV 9.5, Gran % 92.3 H, Lymphocytes % 7.1 L, Monocytes % 0.4 L, Eosinophils % 0.1, Basophils % 0.1, Absolute Granulocytes 6.1, Segmented Neutrophils 85 H, Band Neutrophils 6 H, Absolute Lymphocytes 0.5 L, Lymphocytes 7 L, Monocytes 2, Absolute Monocytes 0 L, Absolute Eosinophils 0, Absolute Basophils 0, Platelet Estimate ADEQUATE, Normocytic RBCs VERIFIED, Normochromic RBCs VERIFIED 11/22/17 0803: Anion Gap 10, Estimated GFR > 60, BUN/Creatinine Ratio 22.9, Glucose 83, Calcium 9.4, Troponin I < 0.01, CBC w Diff NO MAN DIFF REQ, RBC 5.20, MCV 90.3, MCH 30.6 , MCHC 33.8, RDW 13.4, MPV 9.1, Gran % 53.9, Lymphocytes % 23.2, Monocytes % 8.7 , Eosinophils % 13.9 H, Basophils % 0.3, Absolute Granulocytes 3.6, Absolute Lymphocytes 1.5, Absolute Monocytes 0.6, Absolute Eosinophils 0.9, Absolute Basophils 0 Microbiology 11/22 1932 URINE ROUT: Legionella Antigen - COMP 11/22 1932 URINE ROUT: Streptococcus pneumoniae Antigen (M - COMP Assessment/Plan Impression/Plan: Impression 68-year-old woman with a significant history of asthma here with exacerbation of asthma likely secondary to seasonal allergies Plan -Reduce Solu-Medrol 40 mg IV every 12 hours -ensure patient has peak flow checked qshift and recorded -TRC nebs -Continue home medications -Continue Singulair - add anti-histamine - non-drowsy that is on formularly - takes Rohini - Fexofenadine -Nebulizer therapy -Out of bed as tolerated -Ensure patient has incentive spirometer -DVT prophylaxis at all times Consult Acknowledgment - Thank you for your consult request.
[2017-11-23 12:38] LABS: PT 36.2 SEC (9.4-12.5)
[2017-11-23 14:39] VITALS: BP 108/63
[2017-11-23 22:14] VITALS: BP 96/58
[2017-11-24 06:08] VITALS: BP 110/78
--- NOTE | 2017-11-24 07:16 | PN- Housestaff ---
Marleni Martino 11/24/17 0714: Subjective Follow-up For: Asthma exacerbation Subjective: No new complaints. She is afebrile. Currently on 2L oxygen, and appears sligtly dyspneic at rest. She doesnt complain of any dyspnea, however. No chest pain, palpitations. Vitals stable overnight. Review of Systems Constitutional: Reports: see HPI. Objective Last 24 Hrs of Vital Signs/I&O Vital Signs Date Time Temp Pulse Resp B/P B/P Pulse O2 O2 Flow FiO2 Mean Ox Delivery Rate 11/24 0608 97.9 66 20 110/78 96 Nasal 2.0L Cannula 11/23 2259 95 Nasal 2.0L Cannula 11/23 2214 97.7 86 18 96/58 95 Nasal Cannula 11/23 2054 Nasal 2.0L Cannula 11/23 1600 96 Nasal 2.0L Cannula 11/23 1439 97.7 85 22 108/63 94 Room Air 11/23 1400 Nasal 2.0L Cannula 11/23 1028 94 Nasal 2.0L Cannula 11/23 0800 Nasal 2.0L Cannula Intake & Output 11/24 0800 11/24 0000 11/23 1600 Intake Total 260 260 720 Output Total Balance 260 260 720 Intake, IV 20 20 Intake, Oral 240 240 720 Patient 110 lb 114 lb Weight Physical Exam General Appearance: No Acute Distress Other Physical Findings: General Appearance: Alert, Oriented X3, Cooperative, No Acute Distress Cardiovascular: Regular Rate, Normal S1, loud P2 Lungs: clear, decreased breath sounds, mild exp wheezes. Current Medications: Current Medications Sig/Corby Start time Last Medication Dose Route Stop Time Status Admin Albuterol Sulfate 3 ML TID 11/22 2100 AC 11/23 INH 2035 Azithromycin 250 MG DAILY 11/23 1005 AC 11/23 PO 11/26 0901 1528 Levothyroxine Sodium 0.125 MG DAILY AC 11/23 0700 AC 11/24 PO 0556 Methylprednisolone 40 MG Q8 11/23 06 AC 11/24 IV 0556 Montelukast Sodium 10 MG DAILY 11/23 0900 AC 11/23 PO 1103 Warfarin Sodium 1 MG COUMADIN 1700 ONE 11/23 1700 DC 11/23 PO 11/23 1701 1737 Last 24 Hrs of Lab/Emanuel Results Last 24 Hrs of Labs/Mics: Laboratory Tests 11/23/17 1220: PT 36.2 H, INR 3.28 H Microbiology 11/23 1500 LOWER RESP: Respiratory Culture - CAN Cancelled: NUMBER OF SQUAMOUS CELLS INDICATES POOR QUALITY SPECIMEN 11/23 1500 LOWER RESP: Gram Stain - CAN Cancelled: NUMBER OF SQUAMOUS CELLS INDICATES POOR QUALITY SPECIMEN Assessment/Plan Assessment: Ms Hollingsworth is a 76 year woman former smoker with past medical history of asthma ( last exacerbation 07/26), s/p Aortic St Bret mechanical valve placement currently on coumadin, admitted for acute onset of shortness of breath and increased work of breathing. CXR suggestive of atelectasis. Continues to be short of breath at rest and continues to require supplementaly oxygen. Problem list: -Acute hypoxic respiratory failure -Asthma Exacerbation 2/2 to acute viral bronchitis vs atelectasis. -Hypothyroidism -prostehic aortic valve placement and on coumadin Plan * Continue supplemental oxygen for now, given her symptoms. 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 Informed the nursing staff. * Continue with solumedrol, but decrease the dose to BID. * TRC/nebs * Incentive spirometry * f/u repeat sputum cultures * She likely has colonization of pseudomonas in her airways. Since, she is afebrile and doesnt have any s/s of pneumonia would defer the treatment unless she has fever. Will discuss w/ Dr White, if she might need tx w/ fluoroquinolones at the time of discharge; given increased risk for respiratory infection in her case. * She was found to have normal wbc count, but had granulocytosis likely from an acute infection or due to the effect of solumedrol. Would repeat cbc in the am, since no blood work was done today. * Continue singulair * LowTSH level 0.017. Check FT4. For some reason, total T4 was checked. * Dose coumadin to keep INR between 2.5-3.5, given her prosthetic valve. * CODE STATUS: DNR/DNI * DVT PPX: Addressed by Coumadin Problem List: 1. History of aortic valve replacement with metallic valve 2. Asthma with acute exacerbation 3. Dyspnea Pain Ratin Pain Location: back Pain Goal: Pain 4 or less Pain Plan: tylenol prn Tomorrow's Labs & Rationales: cbc bep Humberto Mcmahan MD 11/24/17 1546: Attending MD Review Statement Attending Statement Attending MD Statement: examined this patient, discuss w/resident/PA/JAVA DESIGNER, agreed w/resident/PA/JAVA DESIGNER, reviewed EMR data (avail), discussed with nursing, discussed with case mgmt, amended to note Attending Assessment/Plan: The patient was seen and discussed with house staff. Agree with plan of care as outlined. Appreciate Pulmonary follow-up. Continue IV Solumedrol.
[2017-11-24 08:31] LABS: PT 29.5 SEC (9.4-12.5)
--- NOTE | 2017-11-24 10:46 | PN- Pulmonary ---
Subjective HPI/Critical Care Issues: pt seen and examined dyspnea with exertion still coughing yellow/white phlegm no cp no n/v/d/c no zarate no dizziness Objective Current Medications: Current Medications Sig/Corby Start time Last Medication Dose Route Stop Time Status Admin Albuterol Sulfate 3 ML TID 11/22 2100 AC 11/24 INH 0809 Azithromycin 250 MG DAILY 11/23 1005 AC 11/24 PO 11/26 0901 0807 Levothyroxine Sodium 0.125 MG DAILY AC 11/23 0700 AC 11/24 PO 0556 Methylprednisolone 40 MG BID 11/24 2100 AC IV Methylprednisolone 40 MG Q8 11/23 0600 DC 11/24 IV 0556 Montelukast Sodium 10 MG DAILY 11/23 0900 AC 11/23 PO 1103 Warfarin Sodium 2.5 MG COUMADIN 1700 ONE 11/24 1700 AC PO 11/24 1701 Warfarin Sodium 1 MG COUMADIN 1700 ONE 11/23 1700 DC 11/23 PO 11/23 1701 1737 Vital Signs & I&O Last 24 Hrs of Vitals and I&O: Vital Signs Date Time Temp Pulse Resp B/P B/P Pulse O2 O2 Flow FiO2 Mean Ox Delivery Rate 11/24 0810 96 Nasal 2.0L Cannula 11/24 0608 97.9 66 20 110/78 96 Nasal 2.0L Cannula 11/23 2259 95 Nasal 2.0L Cannula 11/23 2214 97.7 86 18 96/58 95 Nasal Cannula 11/23 2054 Nasal 2.0L Cannula 11/23 1600 96 Nasal 2.0L Cannula 11/23 1439 97.7 85 22 108/63 94 Room Air 11/23 1400 Nasal 2.0L Cannula Intake & Output 11/24 1600 11/24 0800 11/24 0000 Intake Total 260 260 Output Total Balance 260 260 Intake, IV 20 20 Intake, Oral 240 240 Patient 110 lb Weight Exam Other Physical Findings: Generally - Awake, alert Head and neck - normocephalic, atraumatic, EOMI grossly intact Cardiovascular - S1, S2, no murmurs, rubs or gallops Lungs -bilateral scattered wheezing Abdomen - Bowel sounds positive, soft, non-tender Extremities - without edema Results Last 24 Hrs of Lab Results: Laboratory Tests 11/24/17 0730: PT 29.5 H, INR 2.68 H 11/23/17 1220: PT 36.2 H, INR 3.28 H Impression/Plan Impression/Plan Impression/Plan: Impression 68-year-old woman with a significant history of asthma here with exacerbation of asthma likely secondary to seasonal allergies Plan -continue Solu-Medrol 40 mg IV every 12 hours -peak flow qshift and recorded -TRC nebs -Continue home medications -Continue Singulair - add anti-histamine - non-drowsy that is on formularly - takes Rohini - Fexofenadine -Nebulizer therapy -Out of bed as tolerated -Ensure patient has incentive spirometer DVT prophylaxis at all times
[2017-11-24 13:20] VITALS: BP 109/62
[2017-11-24 22:44] VITALS: BP 114/62
[2017-11-25 06:20] VITALS: BP 106/64
--- NOTE | 2017-11-25 07:42 | PN- Housestaff ---
Marleni Martino 11/25/17 0740: Subjective Follow-up For: Asthma exacerbation Complaints: no complaints Subjective: She was comfortable this am. No new complaints. She continued to walk using oxygen. No dyspnea, chest pain or palpitaitons. Vitals stable. Oxygen saturation above 94-95% on oxygen. She was made ot ambulate with and without oxygen, and she appeared to be acutely dyspneic. Although, she appeared to have oxygen sats > 90 % at at that time. Review of Systems Constitutional: Reports: see HPI. Objective Last 24 Hrs of Vital Signs/I&O Vital Signs Date Time Temp Pulse Resp B/P B/P Pulse O2 O2 Flow FiO2 Mean Ox Delivery Rate 11/25 06 97.7 59 18 106/64 93 Nasal Cannula 11/25 0000 Nasal 2.0L Cannula 11/24 2244 97.6 74 20 114/62 94 Nasal 2.0L Cannula 11/24 2010 95 Nasal 2.0L Cannula 11/24 1320 97.9 84 21 109/62 97 Nasal Cannula 11/24 0810 96 Nasal 2.0L Cannula 11/24 0800 96 Nasal 2.0L Cannula Intake & Output 11/25 0800 11/25 0000 11/24 1600 Intake Total 200 300 Output Total Balance 200 300 Intake, Oral 200 300 Physical Exam General Appearance: No Acute Distress Other Physical Findings: General Appearance: No Acute Distress Other Physical Findings: General Appearance: Alert, Oriented X3, Cooperative, No Acute Distress Cardiovascular: Regular Rate, Normal S1, loud P2 Lungs: clear, decreased breath sounds, mild exp wheezes, improved. Current Medications: Current Medications Sig/Corby Start time Last Medication Dose Route Stop Time Status Admin Albuterol Sulfate 3 ML TID 11/22 2099 AC 11/24 INH 2009 Azithromycin 250 MG DAILY 11/23 1005 AC 11/24 PO 11/26 0901 0807 Levothyroxine Sodium 0.125 MG DAILY AC 11/23 0700 AC 11/25 PO 0534 Loratadine 10 MG DAILY 11/24 1345 AC 11/24 PO 1446 Methylprednisolone 40 MG BID 11/24 2100 AC 11/24 IV 2030 Methylprednisolone 40 MG Q8 11/23 0600 DC 11/24 IV 0556 Montelukast Sodium 10 MG DAILY 11/23 0900 AC 11/24 PO 1446 Patient Medication 1 ED ONE ONE 11/24 1630 DC 11/25 Teaching ED 11/24 1631 0703 Warfarin Sodium 2.5 MG COUMADIN 1700 ONE 11/24 1700 DC 11/24 PO 11/24 1701 1725 Last 24 Hrs of Lab/Emanuel Results Last 24 Hrs of Labs/Mics: Laboratory Tests 11/25/17 0730: Sodium Pending, Potassium Pending, Chloride Pending, Carbon Dioxide Pending, Anion Gap Pending, BUN Pending, Creatinine Pending, BUN/Creatinine Ratio Pending , PT Pending, INR Pending, CBC w Diff Pending, WBC Pending, RBC Pending, Hgb Pending, Hct Pending, MCV Pending, MCH Pending, MCHC Pending, RDW Pending, Plt Count Pending, MPV Pending Microbiology 11/24 1100 LOWER RESP: Respiratory Culture - RES 11/24 1100 LOWER RESP: Gram Stain - RES Assessment/Plan Assessment: Ms Hollingsworth is a 76 year woman former smoker with past medical history of asthma ( last exacerbation 07/26), s/p Aortic St Bret mechanical valve placement currently on coumadin, admitted for acute onset of shortness of breath and increased work of breathing. CXR suggestive of atelectasis. Continues to be short of breath at rest and continues to require supplementaly oxygen. Problem list: -Acute hypoxic respiratory failure -Asthma Exacerbation 2/2 to acute viral bronchitis vs atelectasis. -Hypothyroidism -prostehic aortic valve placement and on coumadin Plan * Continue supplemental oxygen for now, given her symptoms. * 02 supplementation to keep sats >88%, taper * obtain peak flow measurement q shift after neb treatment, as per [employer] reverse winder. * Continue iv solumedrol 40 BID, given her symptoms. Would change to po prednisone 60mg po daily in the am. * TRC/nebs * Incentive spirometry * repeat sputum cultures show growth of GNR. * She likely has colonization of pseudomonas in her airways. Since, she is afebrile and doesnt have any s/s of pneumonia would defer the treatment unless she has fever. Plan is to check cxr, and if found to have consolidation would start tx w/ fluouroquinolones. * Check CBC in the am. * Continue singulair * LowTSH level 0.017. Check FT4. For some reason, total T4 was checked. * Dose coumadin to keep INR between 2.5-3.5, given her prosthetic valve. * CODE STATUS: DNR/DNI * DVT PPX: Addressed by Coumadin Problem List: 1. History of aortic valve replacement with metallic valve 2. COPD exacerbation 3. Dyspnea Pain Ratin Pain Location: back Pain Goal: Pain 4 or less Pain Plan: tylenol prn Tomorrow's Labs & Rationales: cbc Humberto Swift MD 11/25/17 1531: Attending MD Review Statement Attending Statement Attending MD Statement: examined this patient, discuss w/resident/PA/PEARL CUTTER, agreed w/resident/PA/PEARL CUTTER, reviewed EMR data (avail), discussed with nursing, discussed with case mgmt, amended to note Attending Assessment/Plan: The patient was seen and discussed with house staff. Pseudomonas in sputum noted and most likely colonization rather than infection. Appreciate pulmonary follow- up with Dr. White. Still relatively hypoxic and requiring oxygen. Will continue IV Solumedrol today and follow.
[2017-11-25 08:00] VITALS: BP 104/60
[2017-11-25 08:19] LABS: PT 26.3 SEC (9.4-12.5)
[2017-11-25 08:28] LABS: ABSOLUTE BASOPHIL COUNT 0 /CUMM (0.0-0.2); ABSOLUTE EOSINOPHIL COUNT 0 /CUMM (0.0-0.7); ABSOLUTE GRANULOCYTE CT 6.4 /CUMM (1.4-6.5); ABSOLUTE LYMPH COUNT 1.6 /CUMM (1.2-3.4); ABSOLUTE MONOCYTE COUNT 0.3 /CUMM (0.10-0.60); BASOPHIL % 0.2 % (0.0-2.0); EOSINOPHIL % 0.2 % (0-5); GRANULOCYTE % 76.3 % (42.2-75.2); HEMATOCRIT 43.8 % (37-47); MEAN CORPUSCULAR HGB 30.3 PG (27.0-31.0); MEAN CORPUSCULAR HGB CONC 33.3 G/DL (33.0-37.0); MEAN CORPUSCULAR VOLUME 90.8 FL (81.0-99.0); MEAN PLATELET VOLUME 9.6 FL (7.4-10.4); PLATELET COUNT 246 /CUMM (130-400); RBC DISTRIBUTION WIDTH 13.7 % (11.5-14.5); RED BLOOD CELL CT 4.82 /CUMM (4.20-5.40); WHITE BLOOD CELL COUNT 8.4 /CUMM (4.8-10.8)
--- NOTE | 2017-11-25 09:46 | Patient Discharge Instructions ---
Discharge Instructions General Discharge Information You were seen/treated for: - Asthma exacerbation Watch for these problems: - acute onset of dyspnea - chest pain - palpitations - lightheadedness, dizziness Special Instructions: - Please see your PCP within one week of discharge. - Please follow up with your client service coordinator within one week of discharge. - Please make sure that you take your coumadin today 11/26/17. Check INR as per your cardiologists/PCPs recommendation. Acute Coronary Syndrome Inclusion Criteria At DC or during hospital stay patient has or had the following: ACS DIAGNOSIS No Discharge Core Measures Meds if any: Prescribed or Continued at Discharge Meds if any: NOT Prescribed or Continued at Discharge Congestive Heart Failure Inclusion Criteria At DC or during hospital stay patient has or had the following: CHF DIAGNOSIS No Discharge Core Measures Meds if any: Prescribed or Continued at Discharge Meds if any: NOT Prescribed or Continued at Discharge Cerebrovascular accident Inclusion Criteria At DC or during hospital stay patient has or had the following: CVA/TIA Diagnosis No Discharge Core Measures Meds if any: Prescribed or Continued at Discharge Meds if any: NOT Prescribed or Continued at Discharge Venous thromboembolism Inclusion Criteria VTE Diagnosis No VTE Type NONE VTE Confirmed by (Test) NONE Discharge Core Measures - Per Current guidelines, there needs to be overlap - treatment for the first 5 days of Warfarin therapy. - If discharged on Warfarin prior to 5 days of - overlap therapy, the patient will need to be - assessed for post discharge needs including - *Post discharge parental anticoagulation - *Warfarin and/or parental anticoagulation education - *Follow up date to check INR post discharge At least 5 days overlap therapy as Inpatient No Meds if any: Prescribed or Continued at Discharge Note: Overlap Therapy is Warfarin and Anticoagulant Meds if any: NOT Prescribed or Continued at Discharge
[2017-11-25] MEDS ORDERED: PREDNISONE10 M2 PO (09:52)
[2017-11-25 10:04] VITALS: BP 104/60
--- NOTE | 2017-11-25 11:43 | PN- Pulmonary ---
Subjective HPI/Critical Care Issues: pt seen and examined dyspneic with exertion pseudomonas in sputum afebrile, cxr clear, no leukocytosis Objective Current Medications: Current Medications Sig/Corby Start time Last Medication Dose Route Stop Time Status Admin Acetaminophen 650 MG Q8P PRN 11/25 1030 AC 11/25 PO 1033 Albuterol Sulfate 3 ML TID 11/22 2100 AC 11/25 INH 0759 Azithromycin 250 MG DAILY 11/23 1005 AC 11/25 PO 11/26 0901 0916 Levothyroxine Sodium 0.125 MG DAILY AC 11/23 0700 AC 11/25 PO 0534 Loratadine 10 MG DAILY 11/24 1345 AC 11/25 PO 0916 Methylprednisolone 40 MG BID 11/25 2100 AC IV Methylprednisolone 40 MG BID 11/24 2100 DC 11/25 IV 0916 Montelukast Sodium 10 MG DAILY 11/23 0900 AC 11/25 PO 0916 Patient Medication 1 ED ONE ONE 11/24 1630 DC 11/25 Teaching ED 11/24 1631 0703 Prednisone 40 MG DAILY 11/26 0900 CAN PO Warfarin Sodium 2.5 MG COUMADIN 1700 ONE 11/25 1700 AC PO 11/25 1701 Warfarin Sodium 2.5 MG COUMADIN 1700 ONE 11/24 1700 DC 11/24 PO 11/24 1701 1725 Vital Signs & I&O Last 24 Hrs of Vitals and I&O: Vital Signs Date Time Temp Pulse Resp B/P B/P Pulse O2 O2 Flow FiO2 Mean Ox Delivery Rate 11/25 1004 70 18 104/60 90 Room Air 11/25 0809 95 Nasal 2.0L Cannula 11/25 0800 68 104/60 96 Nasal 2.0L Cannula 11/25 06 97.7 59 18 106/64 93 Nasal Cannula 11/25 0000 Nasal 2.0L Cannula 11/24 2244 97.6 74 20 114/62 94 Nasal 2.0L Cannula 11/24 2009 95 Nasal 2.0L Cannula 11/24 1320 97.9 84 21 109/62 97 Nasal Cannula Intake & Output 11/25 1600 11/25 0800 11/25 0000 Intake Total 200 300 Output Total Balance 200 300 Intake, Oral 200 300 Exam Other Physical Findings: Generally - Awake, alert Head and neck - normocephalic, atraumatic, EOMI grossly intact Cardiovascular - S1, S2, no murmurs, rubs or gallops Lungs -bilateral scattered wheezing Abdomen - Bowel sounds positive, soft, non-tender Extremities - without edema Results Last 24 Hrs of Lab Results: Laboratory Tests 11/25/17 0730: Anion Gap 10, Estimated GFR > 60, BUN/Creatinine Ratio 32.9 H, PT 26.3 H, INR 2.39 H, CBC w Diff NO MAN DIFF REQ, RBC 4.82, MCV 90.8, MCH 30.3, MCHC 33.3, RDW 13.7, MPV 9.6, Gran % 76.3 H, Lymphocytes % 19.3 L, Monocytes % 4.0, Eosinophils % 0.2, Basophils % 0.2, Absolute Granulocytes 6.4, Absolute Lymphocytes 1.6, Absolute Monocytes 0.3, Absolute Eosinophils 0, Absolute Basophils 0 Impression/Plan Impression/Plan Impression/Plan: Impression 68-year-old woman with a significant history of asthma here with exacerbation of asthma likely secondary to seasonal allergies Pseudomonas in sputum likely represents colonization. Plan -continue Solu-Medrol 40 mg IV every 12 hours -24-48 DC planning, will taper to PO prednisone upon dc -pseudomonas in sputum is likely colonization - no fever, no wbc, no infiltrates -check CXR today -pseudomonas is sensitive to ciprofloxacin, if evidence of pna in future, can tx at that time -peak flow qshift -trc/nebs -singulair, anti-histamines -oob -IST DVT prophylaxis at all times
--- NOTE | 2017-11-25 12:39 | RADIOLOGY REPORT ---
EXAMINATION: XR CHEST CLINICAL INFORMATION: Dyspnea. COMPARISON: Chest x-ray 11/22/2017 TECHNIQUE: 2 views of the chest were obtained. FINDINGS: Aortic valve replacement again noted. There are new small bilateral pleural effusions. Central vascular congestion without overt edema. No focal consolidation or pneumothorax. Aorta is again noted to be tortuous in course. Median sternotomy wires. Cardiac silhouette size is normal. No acute osseous findings. Thoracic kyphosis. IMPRESSION: New small bilateral pleural effusions. Central vascular congestion without overt edema.
[2017-11-25 14:41] VITALS: BP 118/60
[2017-11-25 22:10] VITALS: BP 102/60
[2017-11-26 06:00] VITALS: BP 108/70
--- NOTE | 2017-11-26 07:36 | PN- Housestaff ---
Subjective Follow-up For: Asthma exacerbation Complaints: no complaints Subjective: She was comfortable this morning. She was on 2-3L oxygen, and the plan was to titrate off oxygen as tolerated. She also ambulated w/o oxygen w/ o2 sats > 90%. No chest pain, dyspnea, or palpitations. No fever. Review of Systems Constitutional: Reports: see HPI. Objective Last 24 Hrs of Vital Signs/I&O Vital Signs Date Time Temp Pulse Resp B/P B/P Pulse O2 O2 Flow FiO2 Mean Ox Delivery Rate 11/26 0600 97.7 73 20 108/70 94 Nasal Cannula 11/26 0000 94 Nasal 2.0L Cannula 11/25 2210 97.8 78 21 102/60 94 Nasal Cannula 11/25 1902 96 Nasal 2.0L Cannula 11/25 1600 94 Nasal 2.0L Cannula 11/25 1441 97.8 88 21 118/60 94 Nasal Cannula 11/25 1004 70 18 104/60 90 Room Air 11/25 0809 95 Nasal 2.0L Cannula 11/25 0800 68 104/60 96 Nasal 2.0L Cannula Intake & Output 11/26 0800 11/26 0000 11/25 1600 Intake Total 520 Output Total Balance 520 Intake, IV 40 Intake, Oral 480 Number 0 1 Bowel Movements Physical Exam General Appearance: No Acute Distress Other Physical Findings: General Appearance: No Acute Distress Other Physical Findings: General Appearance: No Acute Distress Other Physical Findings: General Appearance: Alert, Oriented X3, Cooperative, No Acute Distress Cardiovascular: Regular Rate, Normal S1, loud P2 Lungs: clear, normal breath sounds, no ronchi / rales. Current Medications: Current Medications Sig/Corby Start time Last Medication Dose Route Stop Time Status Admin Acetaminophen 650 MG Q8P PRN 11/25 1030 AC 11/25 PO 1033 Albuterol Sulfate 3 ML TID 11/22 2100 AC 11/25 INH 1900 Azithromycin 250 MG DAILY 11/23 1005 AC 11/25 PO 11/26 0901 0916 Levothyroxine Sodium 0.125 MG DAILY AC 11/23 0700 AC 11/26 PO 0615 Loratadine 10 MG DAILY 11/24 1345 AC 11/25 PO 0916 Methylprednisolone 40 MG BID 11/25 2100 AC 11/25 IV 2031 Methylprednisolone 40 MG BID 11/24 2100 DC 11/25 IV 0916 Montelukast Sodium 10 MG DAILY 11/23 0900 AC 11/25 PO 0916 Patient Medication 1 ED ONE ONE 11/25 1200 DC 11/25 Teaching ED 11/25 1201 1306 Prednisone 40 MG DAILY 11/26 0900 CAN PO Warfarin Sodium 2.5 MG COUMADIN 1700 ONE 11/25 1700 DC 11/25 PO 11/25 1701 1620 Last 24 Hrs of Lab/Emanuel Results Last 24 Hrs of Labs/Mics: Laboratory Tests 11/26/17 0720: PT Pending, INR Pending, CBC w Diff Pending, WBC Pending, RBC Pending, Hgb Pending, Hct Pending, MCV Pending, MCH Pending, MCHC Pending, RDW Pending, Plt Count Pending, MPV Pending Assessment/Plan Assessment: Ms Hollingsworth is a 76 year woman former smoker with past medical history of asthma ( last exacerbation 07/26), s/p Aortic [employer] mechanical valve placement currently on coumadin, admitted for acute onset of shortness of breath and increased work of breathing. CXR suggestive of atelectasis. Continues to be short of breath at rest and continues to require supplementaly oxygen. Problem list: -Acute hypoxic respiratory failure -Asthma Exacerbation 2/2 to acute viral bronchitis vs atelectasis. -Hypothyroidism -prostehic aortic valve placement and on coumadin Plan * 02 supplementation prn only. * obtain peak flow measurement q shift after neb treatment, as per marking stitcher. * Prednisone taper with 60mg daily x 2 days, 50mg x 2 days, 40mgx2 days, 30mgx2 days, 20mgx2 days, [id number]. Since all this information couldnt fit in the e- prescription, informed her verbally to avoid any confusion. * TRC/nebs * Incentive spirometry * repeat sputum cultures show growth of GNR. * She likely has colonization of pseudomonas in her airways. Since, she is afebrile and doesnt have any s/s of pneumonia would defer the treatment unless she has fever. Last cxr didnt have any s/o consolidation. * Continue singulair * LowTSH level 0.017. Check FT4. For some reason, total T4 was checked. * Dose coumadin to keep INR between 2.5-3.5, given her prosthetic valve. Informed her to take her coumadin today ie 11/26/17 when she gets home. She will check INRs regularly and dose accordingly. * CODE STATUS: DNR/DNI * DVT PPX: Addressed by Coumadin Problem List: 1. Asthma exacerbation Pain Ratin Pain Location: back Pain Goal: Pain 4 or less Pain Plan: tylenol prn Tomorrow's Labs & Rationales: no labs
[2017-11-26 08:33] LABS: ABSOLUTE BASOPHIL COUNT 0 /CUMM (0.0-0.2); ABSOLUTE EOSINOPHIL COUNT 0 /CUMM (0.0-0.7); ABSOLUTE GRANULOCYTE CT 5.5 /CUMM (1.4-6.5); ABSOLUTE LYMPH COUNT 1.5 /CUMM (1.2-3.4); ABSOLUTE MONOCYTE COUNT 0.4 /CUMM (0.10-0.60); BASOPHIL % 0.3 % (0.0-2.0); EOSINOPHIL % 0.1 % (0-5); GRANULOCYTE % 74.2 % (42.2-75.2); HEMATOCRIT 42.8 % (37-47); MEAN CORPUSCULAR HGB 30.3 PG (27.0-31.0); MEAN CORPUSCULAR HGB CONC 33.5 G/DL (33.0-37.0); MEAN CORPUSCULAR VOLUME 90.3 FL (81.0-99.0); MEAN PLATELET VOLUME 9.1 FL (7.4-10.4); PLATELET COUNT 235 /CUMM (130-400); RBC DISTRIBUTION WIDTH 13.2 % (11.5-14.5); RED BLOOD CELL CT 4.73 /CUMM (4.20-5.40); WHITE BLOOD CELL COUNT 7.5 /CUMM (4.8-10.8)
[2017-11-26] MEDS ORDERED: PREDNISONE10 M2 PO ×3 (08:42→11:26)
[2017-11-26] MEDS ORDERED: AZITHROMYCIN250 M1 PO ×3 (08:42→11:26)
[2017-11-26 08:44] LABS: PT 25.8 SEC (9.4-12.5)
--- NOTE | 2017-11-26 11:40 | Discharge Summary ---
Visit Information Visit Dates Admission Date: 11/23/17 Discharge Date: 11/26/17 Hospital Course Course Attending Physician: Humberto Mcmahan MD Primary Care Physician: Jessica CLOUD,Margarito Hernandez Hospital Course: Ms Reed is a 76 year old man w/ a PMHx of hyperlipidemia, thyroid carcinoma s/ p thyroidectomy, hypothyroidism, ascending thoracic aortic aneurysm status post repair and mechanical aortic valve prosthesis (St[employer] Bret's valve dx'ed 2005), TIA (2010), asthma, last exacerbation requiring hospital admission to [facility] 06/2017, presented to the ER with a chief concern of acute onset of dyspnea associated with productive cough. She was admitted to general medicine service for management of asthma exacerbation. Etiology for her asthma exacerbation, was thought to be likely allergy, or viral bronchitis. At the time of [id number] 98.7, pulse rate 86, respiration 20, blood pressure 113/65, 98% on 2 L oxygen. Pertinent Findings-WBC 6.7, hemoglobin 15.9, platelets 253. Sodium 145, potassium 4.5, chloride 105, bicarbonate 29, BUN 16, creatinine 0.7. TSH 0.17. Free T4 was not tested. Chest x-ray did not reveal any active cardiopulmonary disease. (Detailed report below). She was initially started on intravenous steroids 40 mg intravenous every 8, which was tapered slowly. She was discharged home on steroid taper. She was continued on 2 L supplemental oxygen, until she felt symptomatically relieved. Oxygen saturation remained above 90%. She was also continued on beta agonists, and antihistamines. Peak flow was tested every shift. There was an incidental finding of microbiological growth pseudomonas aeruginosa and light growth of Haemophilus influenzae. She was monitored closely for any systemic symptoms of infection such as fever, and radiological evidence of consolidation on chest xray, which was negative. Given the incidental finding of pseudomonal growth in sputum, it was not treated w/ any abx. The etiology for her exacerbation was thought to be due to worsening allergies, and was recommended to continue taking casey. The pulmonolgist was consulted for advice, and plan was to monitor these symptoms closely. She was discharged home after she showed good clinical progress w/ a recommendation to follow up with her pulmonogist. There was an incidental finding of low TSH, and currently on LT4 125mcg which needs to be followed up by the PCP. Unfortunately, FT4 was not done in the hospital, which needs to be done at the next PCP visit. She was dosed w/ coumadin to keep the INR between 2.5-3.5. She was recommended to follow up with her PCP to make sure that she keeps her INR in the therapeutic range. She was recommended to take her coumadin dosse on the day of discharge. Allergies: Coded Allergies: alendronate sodium (LIGHT HEADED, WOOZY PER PT 07/08/17) metronidazole (Mild, NAUSEA 07/08/17) risedronate sodium (From ACTONEL) (Mild, DIZZY 07/08/17) tamsulosin (Mild, NAUSEA 07/08/17) Disposition Summary Disposition Principal Diagnosis: Asthma exacerbation Additional Diagnosis: Hypothyroidism Discharge Disposition: home or self care Discharge Instructions General Discharge Information Code Status: Full Code Patient's Diet: as tolerated. Patient's Activity: as tolerated. Follow-Up Instructions/Appts: -Please see your primary care and internal medicine veterinary technician provider within a week of discharge -Please take your medications as prescribed. Medications at Discharge Discharge Medications: Continue taking these medications: Multivitamin (One Daily Multivitamin) 1 EACH TABLET 1 Tablet ORAL DAILY Comments: NOT GIVEN Ascorbate Calcium (Vitamin C) 500 MG TABLET ORAL DAILY Comments: NOT GIVEN Denosumab (Prolia) 60 MG/ML SYRINGE INJECTABLE Q6M Comments: NOT GIVEN Montelukast Sodium (Montelukast Sodium) 10 MG TABLET 1 Tablet ORAL DAILY Qty = 90 Comments: Last Taken: 11/26/17 Time: 930AM Fluticasone/Salmeterol (Advair 500-50 Diskus) 500 MCG-50 MCG/DOSE BLST.W.DEV 1 Puff Inhale through mouth TWICE DAILY Qty = 60 Comments: NOT GIVEN Albuterol Sulfate (Albuterol Sulfate) 2.5 MG/3 ML (0.083 %) VIAL.NEB 1 Vial Inhale Solution THREE TIMES DAILY Qty = 540 Comments: Last Taken: 11/26/17 Time: 841AM Levothyroxine Sodium (Levothyroxine Sodium) 125 MCG TABLET 1 Tablet ORAL DAILY Qty = 90 Comments: Last Taken: 11/26/17 Time: 615AM Ergocalciferol (Vitamin D2) (Vitamin D2) 50,000 UNIT CAPSULE 1 Capsule ORAL EVERY 2 WEEKS Qty = 6 Comments: NOT GIVEN Calcium (Elemental-Fr Calcarb) (Calcium) 600 MG CALCIUM (1,500 MG) TABLET 1 Capsule ORAL DAILY Qty = 30 Comments: NOT GIVEN Warfarin Sodium (Coumadin) 2.5 MG TABLET 1 Tablet ORAL DAILY Qty = 90 Instructions: Please dose Coumadin to keep the INR between 2.5-3.5 Comments: Last Taken: 11/25/17 Time: 420PM Start taking the following new medications: Azithromycin (Azithromycin) 250 MG TABLET 1 Tablet ORAL DAILY Qty = 1 No Refills Instructions: . Comments: Last Taken: 11/26/17 Time: 930AM Prednisone (Prednisone) 10 MG TABLET 1 Tablet ORAL DAILY Qty = 42 No Refills Instructions: 11/27-11/28 60mg,11/29-11/30 50mg,12/01-12/02 40mg,12/03-12/04 30mg,12/05,12/06 20mg,12/07-12/08 10mg Comments: NOT GIVEN Copies To: Jessica CLOUD,Margarito Hernandez Attending MD Review Statement Documenting Attending: Humberto Mcmahan MD
--- NOTE | 2017-11-26 11:45 | PN- Pulmonary ---
Subjective HPI/Critical Care Issues: pt seen and examined afebrile ambulating feeling well anticipating dc Objective Current Medications: Current Medications Sig/Corby Start time Last Medication Dose Route Stop Time Status Admin Acetaminophen 650 MG Q8P PRN 11/25 1030 AC 11/25 PO 1033 Albuterol Sulfate 3 ML TID 11/22 2100 AC 11/26 INH 0841 Azithromycin 250 MG DAILY 11/23 1005 DC 11/26 PO 11/26 0901 0934 Levothyroxine Sodium 0.125 MG DAILY AC 11/23 0700 AC 11/26 PO 0615 Loratadine 10 MG DAILY 11/24 1345 AC 11/26 PO 0934 Methylprednisolone 40 MG BID 11/25 2100 AC 11/26 IV 0936 Montelukast Sodium 10 MG DAILY 11/23 0900 AC 11/26 PO 0934 Patient Medication 1 ED ONE ONE 11/25 1200 DC 11/25 Teaching ED 11/25 1201 1306 Warfarin Sodium 2.5 MG COUMADIN 1700 ONE 11/25 1700 DC 11/25 PO 11/25 1701 1620 Vital Signs & I&O Last 24 Hrs of Vitals and I&O: Vital Signs Date Time Temp Pulse Resp B/P B/P Pulse O2 O2 Flow FiO2 Mean Ox Delivery Rate 11/26 0844 97 Nasal 2.0L Cannula 11/26 06 97.7 73 20 108/70 94 Nasal Cannula 11/26 0000 94 Nasal 2.0L Cannula 11/25 2210 97.8 78 21 102/60 94 Nasal Cannula 11/25 1902 96 Nasal 2.0L Cannula 11/25 1600 94 Nasal 2.0L Cannula 11/25 1441 97.8 88 21 118/60 94 Nasal Cannula Intake & Output 11/26 1600 11/26 0800 11/26 0000 Intake Total Output Total Balance Number 0 Bowel Movements Exam Other Physical Findings: Generally - Awake, alert Head and neck - normocephalic, atraumatic, EOMI grossly intact Cardiovascular - S1, S2, no murmurs, rubs or gallops Lungs -bilateral scattered wheezing Abdomen - Bowel sounds positive, soft, non-tender Extremities - without edema Results Last 24 Hrs of Lab Results: Laboratory Tests 11/26/17 0720: PT 25.8 H, INR 2.35 H, CBC w Diff NO MAN DIFF REQ, RBC 4.73, MCV 90.3, MCH 30.3, MCHC 33.5, RDW 13.2, MPV 9.1, Gran % 74.2, Lymphocytes % 20.4 L, Monocytes % 5.0, Eosinophils % 0.1, Basophils % 0.3, Absolute Granulocytes 5.5, Absolute Lymphocytes 1.5, Absolute Monocytes 0.4, Absolute Eosinophils 0, Absolute Basophils 0 Impression/Plan Impression/Plan Impression/Plan: Impression 68-year-old woman with a significant history of asthma here with exacerbation of asthma likely secondary to seasonal allergies Pseudomonas in sputum likely represents colonization. Plan -steroid taper -pseudomonas in sputum is likely colonization - no fever, no wbc, no infiltrates -pseudomonas is sensitive to ciprofloxacin, if evidence of pna in future, can tx at that time -trc/nebs -singulair, anti-histamines DC today DVT prophylaxis at all times
== END 2017-11-26 12:19 | DRG 202 ==
LOC: ERH 07:36 → 2NA 14:26 → ERHI 14:26 → 2NA 14:26 → ENRESERV 14:32 → ENTRNSPT 15:37 → 2NA 16:16 → CMPTRNSPT 16:25 → 2NA 11-23 08:24 → ENPENDDIS 11-26 11:31 → 2NA 11-26 12:19
PROVIDERS: Emergency Medicine; Internal Medicine; Internal Medicine Endocrinology, Diabetes & Metabolism; Student in an Organized Health Care Education/Training Program
DX: J45.901 Unspecified asthma with (acute) exacerbation (principal); J96.01 Acute respiratory failure with hypoxia; J98.11 Atelectasis; Z85.850 Personal history of malignant neoplasm of thyroid; E78.5 Hyperlipidemia, unspecified; E89.0 Postprocedural hypothyroidism; Z90.89 Acquired absence of other organs; Z95.2 Presence of prosthetic heart valve; Z88.8 Allergy status to other drugs, medicaments and biological substances; Z90.49 Acquired absence of other specified parts of digestive tract; Z90.710 Acquired absence of both cervix and uterus; Z79.01 Long term (current) use of anticoagulants; Z87.891 Personal history of nicotine dependence; Z66 Do not resuscitate
CPT/HCPCS: 2NAP; 6030; 36592; 71046; 82436; 87070; 87071; 87449; 87450; 93005; 93010; 96365; 96375; G0378; J0456; J2920; J2930

== ENCOUNTER 2017-12-18 14:35 | Inpatient (IN) | payer OTHER ==
[~2017-12-18] VITALS: Ht 157.5 cm; Wt 52.8 kg
[~2017-12-18 14:35] MED LIST changes: +COUMADIN2.5 M1 PO
--- NOTE | 2017-12-18 15:34 | RADIOLOGY REPORT ---
EXAMINATION: XR CHEST, 2 VIEWS CLINICAL INFORMATION: Shortness of breath. Presumptive diagnosis of pneumonia. COMPARISON: 11/25/2017 TECHNIQUE: PA and lateral views of the chest were obtained. FINDINGS: Sternal wires overlie the cardiac and mediastinal contours. There is a tortuous, uncoiled thoracic aorta. Cardiac silhouette is normal. Lungs are hyperexpanded. Lungs are clear. No focal consolidation, pneumothorax, or pleural effusion. Pulmonary vasculature is normal. Degenerative disc disease is present throughout the thoracic spine with left convex scoliosis. No acute fractures. IMPRESSION: Clear lungs. No acute pulmonary findings.
--- NOTE | 2017-12-18 15:48 | ED DYSPNEA/ASTHMA COMPLAINT ---
History of Present Illness General Chief Complaint: Dyspnea (COPD, CHF, Other) Stated Complaint: SIB PCP DIFF BREATHING Source: patient, family Exam Limitations: no limitations Allergies Coded Allergies: alendronate sodium (LIGHT HEADED, WOOZY PER PT 07/08/17) metronidazole (Mild, NAUSEA 07/08/17) risedronate sodium (From ACTONEL) (Mild, DIZZY 07/08/17) tamsulosin (Mild, NAUSEA 07/08/17) Reconcile Medications Albuterol Sulfate 2.5 MG/3 ML (0.083 %) VIAL.NEB 1 Vial INH/CARI TID RESP ( Reported) Ascorbate Calcium (Vitamin C) 500 MG TABLET SUPPLEMENT (Reported) Azithromycin 250 MG TABLET 1 TAB PO DAILY ASTHMA . Calcium (Elemental-Fr Calcarb) (Calcium) 600 MG CALCIUM (1,500 MG) TABLET 1 CAP PO DAILY SUPPLEMENT (Reported) Denosumab (Prolia) 60 MG/ML SYRINGE BONES (Reported) Ergocalciferol (Vitamin D2) (Vitamin D2) 50,000 UNIT CAPSULE 1 CAP PO Q2W SUPPLEMENT (Reported) Fluticasone/Salmeterol (Advair 500-50 Diskus) 500 MCG-50 MCG/DOSE BLST.W.DEV 1 PUF INH BID RESP (Reported) Fluticasone/Salmeterol (Advair 250-50 Diskus) 250 MCG-50 MCG/DOSE BLST.W.DEV 1 PUF INH BID ASTHMA (Reported) Levothyroxine Sodium 125 MCG TABLET 1 TAB PO DAILY THYROID (Reported) Levothyroxine Sodium 112 MCG TABLET 1 TAB PO DAILY THYROID (Reported) Montelukast Sodium 10 MG TABLET 1 TAB PO DAILY hypereosinophilia (Reported) Multivitamin (One Daily Multivitamin) 1 EACH TABLET 1 TAB PO DAILY SUPPLEMENT (Reported) Prednisone 10 MG TABLET 1 TAB PO DAILY asthma 11/27-11/28 60mg,11/29-11/30 50mg,12/01-12/02 40mg,12/03-12/04 30mg,12/05,12/06 20mg,7-12/08 10mg Warfarin Sodium (Coumadin) 2.5 MG TABLET 3.75 MG PO DAILY AORTIC VALVE REPLACEMENT (Reported) Please dose Coumadin to keep the INR between 2.5-3.5 TAKES 3.5 MG [id number] AND 5 MG ON SUNDAYS AND THURSDAYS Triage Note: PT SENT TO ED BY DR. MCGUIRE FOR INCREASED SOB X 2 DAYS WITH PRODUCTIVE YELLOW COUGH. PT HAS BEEN USING NEB TREATMENTS AT HOME WITH MINIMAL RELIEF. O2 SAT 92% IN TRIAGE WHICH PT REPORTS IS ABOUT NORMAL FOR HER BUT NOTED TACHYPNIC IN TRIAGE. Triage Nurses Notes Reviewed? yes Onset: Abrupt Duration: day(s): (2), constant, continues in ED, getting worse Timing: recent history Severity: moderate, severe Activities at Onset: none Prior Episodes/Possible Cause: occasional episodes Associated Symptoms: cough, wheezing LMP (ages 10-50): post menopausal, unknown : No Patient currently breastfeeds: No HPI: 77-year-old female history of TIA, asthma, COPD, aortic valve replacement presents for evaluation of cough and shortness of breath and wheezing. Patient reports symptoms started 2 days ago and is been persistent. She isn't using her albuterol nebulizers and inhalers and appropriate. She reports that the cough is productive of yellow sputum. It is worse with exertion. Gets somewhat better at rest. She has no chest pain or hemoptysis or lower extremity edema. She has no history of smoking. No nausea vomiting sweats or chills. No fevers. (Jose Angel Montano) Vital Signs & Intake/Output Vital Signs & Intake/Output Vital Signs Date Time Temp Pulse Resp B/P B/P Pulse O2 O2 Flow FiO2 Mean Ox Delivery Rate 12/18 1828 95 Room Air Room Air 12/18 1806 98.4 86 20 162/81 96 12/18 1719 95 12/18 1550 95 12/18 1519 97.6 88 22 145/90 92 Room Air Room Air (Laney CLOUD,Jose Waller) Past History Travel History Traveled to [place] past 21 day No Medical History Any Pertinent Medical History? 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 No (Jose Angel Montano) Review of Systems Review of Systems Constitutional: Reports: no symptoms. EENTM: Reports: no symptoms. Respiratory: Reports: see HPI, cough, short of breath, sputum production, wheezing. Cardiovascular: Reports: no symptoms. GI: Reports: no symptoms. Genitourinary: Reports: no symptoms. Musculoskeletal: Reports: no symptoms. Skin: Reports: no symptoms. Neurological/Psychological: Reports: no symptoms. Hematologic/Endocrine: Reports: no symptoms. Immunologic/Allergic: Reports: no symptoms. All Other Systems: Reviewed and Negative (Jose Angel Montano) Physical Exam Physical Exam General Appearance: well developed/nourished, no apparent distress, alert, awake Head: atraumatic, normal appearance Eyes: Bilateral: normal appearance, PERRL, EOMI. Ears, Nose, Throat: hearing grossly normal Neck: normal inspection, supple, full range of motion Respiratory: chest non-tender, no respiratory distress, rhonchi, wheezing Cardiovascular: regular rate/rhythm, normal peripheral pulses Peripheral Pulses: 2+ radial (R), 2+ radial (L) Gastrointestinal: soft, non-tender Extremities: normal inspection, normal capillary refill, no edema Neurologic/Psych: no motor/sensory deficits, awake, alert, oriented x 3, normal gait Skin: intact, normal color, warm/dry Lymphatic: no anterior cervical joey Core Measures ACS in differential dx? No CVA/TIA Diagnosis No Sepsis Present: No Sepsis Focused Exam Completed? No (Jose Angel Montano) Progress Differential Diagnosis: asthma, AMI, bronchitis, CHF, COPD, musculoskeletal pain , pericarditis, pulmonary embolism, pneumonia, pneumothorax, unstable angina Diagnostic Imaging: Viewed by Me: Radiology Read. Discussed w/RAD: Radiology Read. CXR Impression: PATIENT: MILLY KNUTSON PRESENT AGE: 77 PATIENT ACCOUNT NO: [id number] : 38 LOCATION: [facility] ORDERING PHYSICIAN: Yadira HARRIS SERVICE DATE: 12/18/177065 EXAM TYPE: RAD - XRY-CHEST XRAY, TWO VIEWS EXAMINATION: XR CHEST, 2 VIEWS CLINICAL INFORMATION: Shortness of breath. Presumptive diagnosis of pneumonia. COMPARISON: 11/25/2017 TECHNIQUE: PA and lateral views of the chest were obtained. FINDINGS: Sternal wires overlie the cardiac and mediastinal contours. There is a tortuous, uncoiled thoracic aorta. Cardiac silhouette is normal. Lungs are hyperexpanded. Lungs are clear. No focal consolidation, pneumothorax, or pleural effusion. Pulmonary vasculature is normal. Degenerative disc disease is present throughout the thoracic spine with left convex scoliosis. No acute fractures. IMPRESSION: Clear lungs. No acute pulmonary findings. DICTATED BY: Ra Traore MD DATE/TIME DICTATED:12/18 DELINQUENT ACCOUNT CLERK:LIGIA DATE/TIME TRANSCRIBED:12/18/171527 CONFIDENTIAL, DO NOT COPY WITHOUT APPROPRIATE AUTHORIZATION. <Electronically signed in Other Vendor System> SIGNED BY: Ra Traore MD 12/18/17 1534 Initial ED EKG: sinus rhythm, LATERAL ST DEPRESSION (Nam HARRIS,Jose Angel) Plan of Care: Orders Procedure Date/time Status Regular Diet 12/19 B Active TROPONIN LEVEL 12/18 1900 Active EKG 12/18 1900 Active Patient Data 12/18 1850 Active Misc Message 12/18 1823 Active ED Holding Orders 12/18 1823 Active Admit to inpatient 12/18 1823 Active Vital Signs 12/18 1823 Active Code Status 12/18 1823 Active Add-on Test (ER Only) 12/18 1742 Active AEROSOL (GEN) 12/18 1719 Complete Add-on Test (ER Only) 12/18 1616 Active PARTIAL THROMBOPLASTIN TIME 12/18 1553 Complete PROTHROMBIN TIME 12/18 1553 Complete D-DIMER 12/18 1553 Complete AEROSOL (GEN) 12/18 1550 Complete TROPONIN LEVEL 12/18 1447 Complete MAGNESIUM 12/18 1447 Complete CBC WITHOUT DIFFERENTIAL 12/18 1447 Complete BASIC METABOLIC PANEL 12/18 1447 Complete EKG 12/18 1437 Active Current Medications Sig/Corby Start time Last Medication Dose Stop Time Status Admin Azithromycin 500 MG ONCE ONE 12/18 1845 UNVr (Zithromax) 12/18 1944 Sodium Chloride 250 ML (Normal Saline 0.9%) Magnesium Sulfate 1 GM Q2H 12/18 1815 UNVr 12/18 (Mag Sulfate in D5) 12/184 1824 Dextrose/Water 100 ML (D5W) Laboratory Tests 12/18/17 1553: Anion Gap 12, Estimated GFR > 60, BUN/Creatinine Ratio 33.3 H, Glucose 93, Calcium 9.0, Magnesium 2.0, Troponin I < 0.01, PT 36.4 H, INR 3.30 H, APTT 46 H, D-Dimer High Sensitivty < 200, CBC w Diff NO MAN DIFF REQ, RBC 4.70, MCV 91.0 , MCH 30.4, MCHC 33.3, RDW 13.9, MPV 8.1, Gran % 57.2, Lymphocytes % 22.5, Monocytes % 8.0, Eosinophils % 11.8 H, Basophils % 0.5, Absolute Granulocytes 3.4, Absolute Lymphocytes 1.3, Absolute Monocytes 0.5, Absolute Eosinophils 0.7, Absolute Basophils 0 Patient is here with diffuse wheezing and rhonchi. She has a history of asthma and COPD. She is 92% on room air. She is tachypneic. Labs EKG chest x-ray ordered patient medicated with Solu-Medrol and a DuoNeb. Blood work really any significant findings including a negative troponin and negative d-dimer no white count. Chest x-ray is clear. Patient continues to have significant wheezing. Additional nebulizers ordered. Patient's EKG shows some lateral ST depressions. She'll get repeats. Patient was ambulated in the emergency department after her DuoNeb and Solu- Medrol. She became visibly dyspneic and desaturated to 90%. She was unable to cannulate more than a few feet. She'll be admitted for an asthma exacerbation. She will require serial labs serial EKGs telemetry IV steroids IV antibiotics and DuoNeb's pulmonology. Case discussed with Dr. Davison he agrees. Patient be admitted to telemetry due to the EKG changes. A repeat EKG was scheduled for 7 PM tonight. (Nam HARRIS,Jose Angel) (Laney CLOUD,Jose Waller) Departure Departure Disposition: STILL A PATIENT Condition: Stable Clinical Impression Primary Impression: Asthma exacerbation Qualifiers: Asthma severity: severe Asthma persistence: unspecified Qualified Code: J45.901 - Unspecified asthma with (acute) exacerbation Referrals: Jessica CLOUD,Margarito Hernandez (PCP/Family) Departure Forms: Customer Survey General Discharge Information Admission Note Spoke With: Mani Ledezma MD Documentation of Exam: Documentation of any treatments & extenuating circumstances including Concerns Regarding Discharge (functional status, medication knowledge or non-compliance, living conditions, etc.) that warrant an admission rather than observation: [ serial labs serial EKGs telemetry IV steroids IV antibiotics and DuoNeb's pulmonology] (Jose Angel Montano) PA/SEO INTERN Co-Sign Statement Statement: ED Attending supervision documentation- [X] I saw and evaluated the patient. I have also reviewed all the pertinent lab results and diagnostic results. I agree with the findings and the plan of care as documented in the PA's/SEO INTERN's documentation. Patient presents for evaluation of worsening trouble breathing over the past few days. Patient does refer a history of asthma and has been taking nebulizers and metered-dose inhalers. No steroids currently. Physical examination reveals diminished breath sounds bilaterally with scattered and expiratory wheezing and mild rhonchi. [] I have reviewed the ED Record and agree with the PA's/SEO INTERN's documentation. [] Additions or exceptions (if any) to the PAs/SEO INTERN's note and plan are summarized below: [] (Laney CLOUD,Jose Waller) Critical Care Note Critical Care Note Critical Care Time: non-applicable (Jose Angel Montano)
[2017-12-18 15:58] LABS: ABSOLUTE BASOPHIL COUNT 0 /CUMM (0.0-0.2); ABSOLUTE EOSINOPHIL COUNT 0.7 /CUMM (0.0-0.7); ABSOLUTE GRANULOCYTE CT 3.4 /CUMM (1.4-6.5); ABSOLUTE LYMPH COUNT 1.3 /CUMM (1.2-3.4); ABSOLUTE MONOCYTE COUNT 0.5 /CUMM (0.10-0.60); BASOPHIL % 0.5 % (0.0-2.0); EOSINOPHIL % 11.8 % (0-5); GRANULOCYTE % 57.2 % (42.2-75.2); HEMATOCRIT 42.8 % (37-47); MEAN CORPUSCULAR HGB 30.4 PG (27.0-31.0); MEAN CORPUSCULAR HGB CONC 33.3 G/DL (33.0-37.0); MEAN PLATELET VOLUME 8.1 FL (7.4-10.4); PLATELET COUNT 209 /CUMM (130-400); RBC DISTRIBUTION WIDTH 13.9 % (11.5-14.5); WHITE BLOOD CELL COUNT 5.9 /CUMM (4.8-10.8)
[2017-12-18 17:59] LABS: PT 36.4 SEC (9.4-12.5); PTT 46 SEC (25-37)
[2017-12-18] MEDS ORDERED: ADVAIR 250-501 EACH INH (18:33)
[2017-12-18] MEDS ORDERED: LEVOTHYROXINE112 MCG PO (18:35)
--- NOTE | 2017-12-18 19:13 | History & Physical ---
Иван CLOUD,Loren 12/18/171912: General Information and [facility] MD Statement: I have seen and personally examined MILLY KNUTSON and documented this H&P. The patient is a 77 year old F who presented with a patient stated chief complaint of []. Source of Information: patient, old records Exam Limitations: no limitations History of Present Illness: Patient is a 77-year-old female with past medical history of asthma with multiple hospitalizations for asthma exacerbation, last admission from November 23 to November 26, history of mechanical valve on Coumadin, descending thoracic aorta status post repair, thyroid cancer status post thyroidectomy, hypothyroidism, echo showing pseudo-normal filling pattern and stage II diastolic dysfunction with small pericardial effusion presenting this admission with chief complaint of shortness of breath. Patient reports that one day prior to admission she started experiencing trouble breathing and noticed some chest tightness. States her symptoms improved after using her nebulizer and she avoided significant physical activity. Reports that today on day of admission she started noticing significant worsening of her shortness of breath each time she was getting up or ambulating. Patient reports that she has a chronic cough with productive phlegm which was thick and white and is now yellow. Patient states that she is currently using her nebulizer, Advair which was recently switched to a higher dose of 500-50 from 250-50. Also reports that she is taking montelukast 1 tablet daily. States that she recently saw her oyster culler, Dr. White approximately one week prior. Denies recent illness, sick contacts, tobacco use or exposure to secondhand smoke, pets, travel. Patient denies any fever, chills, chest pain, nausea/vomiting, constipation/ diarrhea, dysuria/hematuria. 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 spouse Services at Home: None Primary Language: [place] Review of Systems Review of Systems Constitutional: Reports: see HPI. Exam & Diagnostic Data Last 24 Hrs of Vital Signs/I&O Vital Signs Date Time Temp Pulse Resp B/P B/P Pulse O2 O2 Flow FiO2 Mean Ox Delivery Rate 12/18 2305 97.6 85 18 128/66 94 Nasal 2.0L Cannula 12/18 2211 Nasal 1.5L Cannula 12/18 2128 97.7 86 22 118/61 98 Nasal 1.5L Cannula 12/18 1940 96 12/18 1828 95 Room Air Room Air 12/18 1806 98.4 86 20 162/81 96 12/18 1719 95 12/18 1550 95 12/18 1519 97.6 88 22 145/90 92 Room Air Room Air Intake & Output 12/19 0800 12/19 0000 12/18 1600 Intake Total 100 Output Total Balance 100 Intake, IV 100 Patient 115 lb 114 lb Weight Weight Bed scale Reported by Patient Measurement Method Physical Exam General Appearance Alert, Oriented X3, Cooperative, Mild Distress Skin No Rashes Sepsis Skin Exam (color): Normal for Ethnicity HEENT Atraumatic, PERRLA, EOMI, Mucous Membr. moist/pink Lymphatic Axillary nl, Cervical nl Cardiovascular Regular Rate, Normal S1, Normal S2 Lungs bilateral diffuse wheezing Abdomen Normal Bowel Sounds, Soft, No Tenderness Neurological Normal Gait, Strength at 5/5 X4 Ext, Normal Tone, Sensation Intact, Cranial Nerves 3-12 NL, Reflexes 2+ Extremities No Clubbing, No Cyanosis, No Edema, Normal Pulses, No Tenderness/ Swelling Vascular Normal Pulses, Pulses Symmetrical Last 24 Hrs of Labs/Emanuel: Laboratory Tests 12/18/17 1934: Troponin I < 0.01 12/18/17 1553: Anion Gap 12, Estimated GFR > 60, BUN/Creatinine Ratio 33.3 H, Glucose 93, Calcium 9.0, Magnesium 2.0, Troponin I < 0.01, PT 36.4 H, INR 3.30 H, APTT 46 H, D-Dimer High Sensitivty < 200, CBC w Diff NO MAN DIFF REQ, RBC 4.70, MCV 91.0 , MCH 30.4, MCHC 33.3, RDW 13.9, MPV 8.1, Gran % 57.2, Lymphocytes % 22.5, Monocytes % 8.0, Eosinophils % 11.8 H, Basophils % 0.5, Absolute Granulocytes 3.4, Absolute Lymphocytes 1.3, Absolute Monocytes 0.5, Absolute Eosinophils 0.7, Absolute Basophils 0 Assessment/Plan Assessment: Patient is a 77-year-old female with past medical history of asthma with multiple hospitalizations for asthma exacerbation, last admission from November 23 to November 26, history of mechanical valve on Coumadin, descending thoracic aorta status post repair, hypothyroidism, diastolic dysfunction with small pericardial effusion presenting this admission with chief complaint of shortness of breath likely due to asthma exacerbation. On admission: MAXIMUM TEMPERATURE 98.4, heart rate 86, respiration rate 20, blood pressure 145 /90, saturating between 92-96% on room air Labs: CBC unremarkable, sodium 144, potassium 3.8, chloride 107, bicarbonate 26, BUN 20, creatinine 0.6, glucose 93, troponin less than 0.01, INR 3.30, d-dimer less than 200 Chest x-ray is negative for any acute process EKGs show normal sinus rhythm with heart rate of 85, what appears to be ST depressions in V4 V5 and V6 seen in previous EKGs. Patient will be admitted to the telemetry floor for management of the followin. Asthma exacerbation 2. EKG changes Plan: - Admit to tele - Continuous telemetry monitoring - Serial EKG and trops - IV Solu-medrol 40mg q8h - TRC/Nebs - Check peak flow now and with each treatment - Follow up sputum cultures, legionella/strep antigen - Continue montelukast - Continue home medications -Monitor INR and dose coumadin DVT PPx: on coumadin Code: DNR/DNI Diet: Heart heatlhy As Ranked By This Provider Problem List: 1. Asthma exacerbation Qualifiers Asthma severity: severe Asthma persistence: unspecified Qualified Code: J45.901 - Unspecified asthma with (acute) exacerbation 2. EKG abnormalities Core Measures/Misc (02/22) Acute Coronary Syndrome ACS Diagnosis: No Congestive Heart Failure Congestive Heart Failure Diagnosis No Cerebrovascular Accident CVA/TIA Diagnosis: No VTE (View Protocol) VTE Risk Factors Age>40 No Mechanical VTE Prophylaxis d/t N/A MechProphylax Ordered No VTE Pharm Prophylaxis d/t NA PharmProphylax ordered Sepsis (View protocol) Sepsis Present: No If YES complete Sepsis Event Note If YES complete Sepsis Event Note Mani Ledezma MD 12/19/17 6506: General Information and HPI MD Statement: I have seen and personally examined MILLY KNUTSON and documented this H&P. The patient is a 77 year old F who presented with a patient stated chief complaint of []. Source of Information: patient Allergies/Medications Allergies: Coded Allergies: alendronate sodium (LIGHT HEADED, WOOZY PER PT 07/08/17) metronidazole (Mild, NAUSEA 07/08/17) risedronate sodium (From ACTONEL) (Mild, DIZZY 07/08/17) tamsulosin (Mild, NAUSEA 07/08/17) Home Med list Albuterol Sulfate 2.5 MG/3 ML (0.083 %) VIAL.NEB 1 Vial INH/CARI TID RESP ( Reported) Ascorbate Calcium (Vitamin C) 500 MG TABLET SUPPLEMENT (Reported) Calcium (Elemental-Fr Calcarb) (Calcium) 600 MG CALCIUM (1,500 MG) TABLET 1 CAP PO DAILY SUPPLEMENT (Reported) Denosumab (Prolia) 60 MG/ML SYRINGE BONES (Reported) Ergocalciferol (Vitamin D2) (Vitamin D2) 50,000 UNIT CAPSULE 1 CAP PO Q2W SUPPLEMENT (Reported) Fluticasone/Salmeterol (Advair 500-50 Diskus) 500 MCG-50 MCG/DOSE BLST.W.DEV 1 PUF INH BID RESP (Reported) Fluticasone/Salmeterol (Advair 250-50 Diskus) 250 MCG-50 MCG/DOSE BLST.W.DEV 1 PUF INH BID ASTHMA (Reported) Levothyroxine Sodium 112 MCG TABLET 1 TAB PO DAILY THYROID (Reported) Montelukast Sodium 10 MG TABLET 1 TAB PO DAILY hypereosinophilia (Reported) Multivitamin (One Daily Multivitamin) 1 EACH TABLET 1 TAB PO DAILY SUPPLEMENT (Reported) Warfarin Sodium (Coumadin) 2.5 MG TABLET 3.75 MG PO DAILY AORTIC VALVE REPLACEMENT (Reported) Please dose Coumadin to keep the INR between 2.5-3.5 TAKES 3.5 MG [id number] AND 5 MG ON SUNDAYS AND THURSDAYS Past History Medical History Respiratory: asthma Gastrointestinal: diverticulitis Surgical History Surgical History: appendectomy Past Family/Social History Psychosocial History Smoking Status: Former Smoker ETOH Use: occasional use Review of Systems Review of Systems Constitutional: Reports: see HPI. Exam & Diagnostic Data Last 24 Hrs of Vital Signs/I&O Vital Signs Date Time Temp Pulse Resp B/P B/P Pulse O2 O2 Flow FiO2 Mean Ox Delivery Rate 12/19 0353 96 Nasal 2.0L Cannula 12/18 2305 97.6 85 18 128/66 94 Nasal 2.0L Cannula 12/18 2211 Nasal 1.5L Cannula 12/188 97.7 86 22 118/61 98 Nasal 1.5L Cannula 12/18 1940 96 12/18 1828 95 Room Air Room Air 12/18 1806 98.4 86 20 162/81 96 12/18 1719 95 12/18 1550 95 12/18 1519 97.6 88 22 145/90 92 Room Air Room Air Intake & Output 12/19 0800 12/19 0000 12/18 1600 Intake Total 100 Output Total Balance 100 Intake, IV 100 Patient 115 lb 114 lb Weight Weight Bed scale Reported by Patient Measurement Method Physical Exam General Appearance Alert, Oriented X3, Mild Distress HEENT Atraumatic, PERRLA, EOMI Neck Supple, No JVD Cardiovascular Regular Rate, Normal S1, Normal S2 Lungs bilateral diffuse wheezing Abdomen Normal Bowel Sounds, Soft, No Tenderness Extremities No Clubbing, No Cyanosis, No Edema Last 24 Hrs of Labs/Emanuel: Laboratory Tests 12/18/17 1934: Troponin I < 0.01 12/18/17 1553: Anion Gap 12, Estimated GFR > 60, BUN/Creatinine Ratio 33.3 H, Glucose 93, Calcium 9.0, Magnesium 2.0, Troponin I < 0.01, PT 36.4 H, INR 3.30 H, APTT 46 H, D-Dimer High Sensitivty < 200, CBC w Diff NO MAN DIFF REQ, RBC 4.70, MCV 91.0 , MCH 30.4, MCHC 33.3, RDW 13.9, MPV 8.1, Gran % 57.2, Lymphocytes % 22.5, Monocytes % 8.0, Eosinophils % 11.8 H, Basophils % 0.5, Absolute Granulocytes 3.4, Absolute Lymphocytes 1.3, Absolute Monocytes 0.5, Absolute Eosinophils 0.7, Absolute Basophils 0 Core Measures/Misc (02/22) Sepsis (View protocol) If YES complete Sepsis Event Note If YES complete Sepsis Event Note Attending MD Review Statement Attending Statement Attending MD Statement: examined this patient, discuss w/resident/PA/TOOL MACHINE SETUP OPERATOR, agreed w/resident/PA/TOOL MACHINE SETUP OPERATOR, amended to note Attending Assessment/Plan: This patient is a 77-year-old female with a significant past medical history of asthma with multiple hospitalizations for asthma exacerbation, last admission from November 23 to November 26, history of mechanical valve on Coumadin, descending thoracic aorta status post repair, thyroid cancer status post thyroidectomy, hypothyroidism, echo showing pseudo-normal filling pattern and stage II diastolic dysfunction with small pericardial effusion presenting with chief complaint of shortness of breath. The patient reports that one day prior to admission she started experiencing trouble breathing and noticed some chest tightness. States her symptoms improved after using her nebulizer. On day of admission she started noticing significant worsening of her shortness of breath each time she was getting up or ambulating. She is afebrile with a normal WBC count. EKG had nonspecific changes. She was admitted to [facility] for Asthma exacerbation and EKG changes. On IV steroids. Ruling out for MD.
[2017-12-18 23:05] VITALS: BP 128/66
[2017-12-19 07:02] VITALS: BP 110/70
[2017-12-19 08:13] LABS: PT 35.8 SEC (9.4-12.5)
[2017-12-19 08:29] LABS: ABSOLUTE BASOPHIL COUNT 0 /CUMM (0.0-0.2); ABSOLUTE EOSINOPHIL COUNT 0 /CUMM (0.0-0.7); ABSOLUTE GRANULOCYTE CT 3.3 /CUMM (1.4-6.5); ABSOLUTE LYMPH COUNT 0.8 /CUMM (1.2-3.4); ABSOLUTE MONOCYTE COUNT 0.4 /CUMM (0.10-0.60); BASOPHIL % 0.3 % (0.0-2.0); EOSINOPHIL % 0.3 % (0-5); GRANULOCYTE % 72.6 % (42.2-75.2); HEMATOCRIT 39.8 % (37-47); MEAN CORPUSCULAR HGB 30.9 PG (27.0-31.0); MEAN CORPUSCULAR HGB CONC 33.9 G/DL (33.0-37.0); MEAN CORPUSCULAR VOLUME 91.1 FL (81.0-99.0); MEAN PLATELET VOLUME 9.1 FL (7.4-10.4); PLATELET COUNT 203 /CUMM (130-400); RBC DISTRIBUTION WIDTH 13.8 % (11.5-14.5); RED BLOOD CELL CT 4.37 /CUMM (4.20-5.40); WHITE BLOOD CELL COUNT 4.5 /CUMM (4.8-10.8)
[2017-12-19 15:12] VITALS: BP 116/72
--- NOTE | 2017-12-19 15:57 | PN- Att Addend ---
Attending MD Review Statement Attending Statement Attending MD Statement: examined this patient, discuss w/resident/PA/INSIDE SALES ACCOUNT MANAGER, agreed w/resident/PA/INSIDE SALES ACCOUNT MANAGER, reviewed EMR data (avail), discussed w/nursing Attending Assessment/Plan: Laboratory Tests 12/19/17 0605: Anion Gap 8, Estimated GFR > 60, BUN/Creatinine Ratio 36.0 H, Troponin I < 0.01 , PT 35.8 H, INR 3.25 H, CBC w Diff NO MAN DIFF REQ, RBC 4.37, MCV 91.1, MCH 30.9, MCHC 33.9, RDW 13.8, MPV 9.1, Gran % 72.6, Lymphocytes % 18.3 L, Monocytes % 8.5, Eosinophils % 0.3, Basophils % 0.3, Absolute Granulocytes 3.3, Absolute Lymphocytes 0.8 L, Absolute Monocytes 0.4, Absolute Eosinophils 0, Absolute Basophils 0 12/18/17 1934: Troponin I < 0.01 12/18/17 1553: Anion Gap 12, Estimated GFR > 60, BUN/Creatinine Ratio 33.3 H, Glucose 93, Calcium 9.0, Magnesium 2.0, Troponin I < 0.01, PT 36.4 H, INR 3.30 H, APTT 46 H, D-Dimer High Sensitivty < 200, CBC w Diff NO MAN DIFF REQ, RBC 4.70, MCV 91.0 , MCH 30.4, MCHC 33.3, RDW 13.9, MPV 8.1, Gran % 57.2, Lymphocytes % 22.5, Monocytes % 8.0, Eosinophils % 11.8 H, Basophils % 0.5, Absolute Granulocytes 3.4, Absolute Lymphocytes 1.3, Absolute Monocytes 0.5, Absolute Eosinophils 0.7, Absolute Basophils 0 Vital Signs Date Time Temp Pulse Resp B/P B/P Pulse O2 O2 Flow FiO2 Mean Ox Delivery Rate 12/19 1512 97.5 73 18 116/72 98 12/19 1302 Nasal 2.0L Cannula 12/19 0949 98 Nasal 2.0L Cannula 12/19 0702 97.1 84 18 110/70 95 Nasal 2.0L Cannula 12/19 0353 96 Nasal 2.0L Cannula 12/18 2305 97.6 85 18 128/66 94 Nasal 2.0L Cannula 12/18 2211 Nasal 1.5L Cannula 12/19 2127 97.7 86 22 118/61 98 Nasal 1.5L Cannula 12/18 1940 96 12/18 1828 95 Room Air Room Air 12/18 180 98.4 86 20 162/81 96 12/18 1719 95 12/18 1550 95 77 F with PMH of asthma with multiple hospitalizations for asthma exacerbation, last admission from November 23 to November 26, history of aortic mechanical valve on Coumadin, descending thoracic aorta status post repair, thyroid cancer status post thyroidectomy, hypothyroidism, echo showing pseudo-normal filling pattern and stage II diastolic dysfunction with small pericardial effusion presenting this admission with chief complaint of shortness of breath. Asthma exacerbation. - pt feeling better today compared with yesterday. Pt doing ok with nebs. Pt will be started on iv steroids 40mg iv q12h and will see how she does. will f/u on her resp status closely. Aortic valve replacement - [facility] will monitor INR daily and dose coumadin accordingly. Not sure if pt got coumadin last night. Will give her 3.75 mg po coumadin tonight and recheck the INR in am Her serial trop were checked and were negative. d/w pt the care plan.
--- NOTE | 2017-12-19 17:32 | PN- Housestaff ---
Subjective Follow-up For: Asthma exacerbation Complaints: dyspnea Tele-Events Since Last Visit: Normal sinus rhythm, heart rate ranging from 50-93. Subjective: I followed up and examined the patient today. She was resting comfortably in bed, not in acute distress, but still had high respiratory rate. She did receive her breathing treatments/nebulizations, but this morning did not get her IV steroid. Vital signs have remained stable otherwise. Review of Systems Constitutional: Reports: see HPI. Objective Last 24 Hrs of Vital Signs/I&O Vital Signs Date Time Temp Pulse Resp B/P B/P Pulse O2 O2 Flow FiO2 Mean Ox Delivery Rate 12/19 1709 90 Nasal 2.0L Cannula 12/19 1512 97.5 73 18 116/72 98 12/19 1302 Nasal 2.0L Cannula 12/19 0949 98 Nasal 2.0L Cannula 12/19 0702 97.1 84 18 110/70 95 Nasal 2.0L Cannula 12/19 0353 96 Nasal 2.0L Cannula 12/18 2305 97.6 85 18 128/66 94 Nasal 2.0L Cannula 12/18 2211 Nasal 1.5L Cannula 12/18 2128 97.7 86 22 118/61 98 Nasal 1.5L Cannula 12/18 1940 96 12/18 1828 95 Room Air Room Air 12/18 1806 98.4 86 20 162/81 96 Intake & Output 12/19 1600 12/19 0800 12/19 0000 Intake Total 120 100 Output Total Balance 120 100 Intake, IV 100 Intake, Oral 120 Patient 52.163 kg Weight Weight Bed scale Measurement Method Physical Exam General Appearance: Alert, Oriented X3, Cooperative Other Physical Findings: Skin No Rashes Lymphatic Cervical nl Cardiovascular Regular Rate, Normal S1, Normal S2 Lungs bilateral wheezing heard Abdomen Normal Bowel Sounds, Soft, No Tenderness Neurological grossly intact Extremities No Edema, Normal Pulses, No Tenderness/Swelling Vascular Normal Pulses, Pulses Symmetrical Current Medications: Current Medications Sig/Corby Start time Last Medication Dose Route Stop Time Status Admin Acetaminophen 650 MG Q6P PRN 12/19 1100 AC PO Acetaminophen 1,000 MG Q6P PRN 12/19 1100 AC IV Albuterol Sulfate 3 ML EVERY 4 HRS/AWAKE 12/19 1200 AC 12/19 INH 1709 Albuterol Sulfate 3 ML ONCE ONE 12/19 0345 DC 12/19 INH 12/19 0346 0341 Albuterol Sulfate 3 ML ONCE ONE 12/18 1930 DC 12/18 INH 12/18 Azithromycin 500 MG ONCE ONE 12/18 1845 DC 12/18 Sodium Chloride 250 ML IV 12/18 Guaifenesin 0 .STK-MED ONE 12/18 1815 DC PO Guaifenesin/ 10 ML ONCE ONE 12/18 1815 DC 12/18 Dextromethorphan PO 12/19 1815 182 Ipratropium Kula 2.5 ML ONCE ONE 12/18 1930 DC 12/18 INH 12/18 Levothyroxine Sodium 0.112 MG DAILY AC 12/19 0700 AC 12/19 PO 0513 Magnesium Sulfate 1 GM Q2H 12/18 1814 DC 12/18 Dextrose/Water 100 ML IV 12/18 Montelukast Sodium 10 MG DAILY 12/19 0900 AC 12/19 PO 1013 Last 24 Hrs of Lab/Emanuel Results Last 24 Hrs of Labs/Mics: Laboratory Tests 12/19/17 06: Anion Gap 8, Estimated GFR > 60, BUN/Creatinine Ratio 36.0 H, Troponin I < 0.01 , PT 35.8 H, INR 3.25 H, CBC w Diff NO MAN DIFF REQ, RBC 4.37, MCV 91.1, MCH 30.9, MCHC 33.9, RDW 13.8, MPV 9.1, Gran % 72.6, Lymphocytes % 18.3 L, Monocytes % 8.5, Eosinophils % 0.3, Basophils % 0.3, Absolute Granulocytes 3.3, Absolute Lymphocytes 0.8 L, Absolute Monocytes 0.4, Absolute Eosinophils 0, Absolute Basophils 0 12/18/171933: Troponin I < 0.01 Microbiology 12/19 1039 URINE ROUT: Legionella Antigen - COLB 12/19 103 URINE ROUT: Streptococcus pneumoniae Antigen (M - COLB Assessment/Plan Assessment: 77-year-old female with multiple medical problems, including history of mechanical valve on Coumadin, presented with shortness of breath and is being managed in the telemetry floor for the following reasons: #Acute asthma exacerbation Patient's clinical picture is suggestive of acute asthma exacerbation, and she did receive nebulization, oxygen therapy and steroids yesterday however she missed her IV steroids this morning. She received 60 mg of methylprednisolone later in the afternoon, and is now scheduled to have 40 mg of methylprednisolone 12 hourly. We'll continue to reassess her breathing status, and plan to taper her steroids. #ACS has been ruled out with serial troponin and EKG. #We'll continue anticoagulation with regular INR checks. #We'll continue other home medications. Diet Regular diet DVT prophylaxis Coumadin CODE STATUS DNR/DNI Problem List: 1. Asthma exacerbation 2. History of aortic valve replacement with metallic valve Pain Ratin Pain Location: - Pain Goal: Pain 4 or less Pain Plan: prn Tomorrow's Labs & Rationales: CBC, BEP, INR
[2017-12-19 22:03] VITALS: BP 112/60
[2017-12-20 06:47] VITALS: BP 108/64
[2017-12-20 08:04] LABS: ABSOLUTE BASOPHIL COUNT 0 /CUMM (0.0-0.2); ABSOLUTE EOSINOPHIL COUNT 0 /CUMM (0.0-0.7); ABSOLUTE GRANULOCYTE CT 4.8 /CUMM (1.4-6.5); ABSOLUTE LYMPH COUNT 0.9 /CUMM (1.2-3.4); ABSOLUTE MONOCYTE COUNT 0.2 /CUMM (0.10-0.60); BASOPHIL % 0.3 % (0.0-2.0); EOSINOPHIL % 0.4 % (0-5); GRANULOCYTE % 80.4 % (42.2-75.2); HEMATOCRIT 42.2 % (37-47); MEAN CORPUSCULAR HGB 30.7 PG (27.0-31.0); MEAN CORPUSCULAR HGB CONC 33.6 G/DL (33.0-37.0); MEAN CORPUSCULAR VOLUME 91.2 FL (81.0-99.0); MEAN PLATELET VOLUME 9.4 FL (7.4-10.4); PLATELET COUNT 221 /CUMM (130-400); RBC DISTRIBUTION WIDTH 14.1 % (11.5-14.5); RED BLOOD CELL CT 4.62 /CUMM (4.20-5.40)
[2017-12-20 08:22] LABS: PT 31.2 SEC (9.4-12.5)
--- NOTE | 2017-12-20 08:25 | PN- Housestaff ---
Rakesh Gonzalez 12/20/17 0825: Subjective Follow-up For: Asthma Exacerbation Anticoagulation Hyperkalemia Subjective: Patient seen and examined at bedside this morning. No signfiicant events on the tele monitor. She is on 2L nasal canula and states she cant do well without it. She was able to ambulate out of bed to bathroom without significant shortness of breath. Denies chest pain, palpitations or bowel/bladder changes. Review of Systems Constitutional: Denies: see HPI, chills. Objective Last 24 Hrs of Vital Signs/I&O Vital Signs Date Time Temp Pulse Resp B/P B/P Pulse O2 O2 Flow FiO2 Mean Ox Delivery Rate 12/20 1618 95 Nasal 2.0L Cannula 12/20 1435 97.9 83 18 130/80 96 12/20 0805 98 Nasal 2.0L Cannula 12/20 0800 Nasal 3.5L Cannula 12/20 0647 97.8 73 20 108/64 97 Nasal 2.0L Cannula 12/20 0000 Nasal 1.5L Cannula 12/19 2203 98.0 79 18 112/60 95 Nasal 2.0L Cannula 12/19 1910 95 Nasal 2.0L Cannula 12/19 1810 94 Nasal 2.0L Cannula 12/19 1709 90 Nasal 2.0L Cannula Intake & Output 12/20 1600 12/20 0800 12/20 0000 Intake Total 400 120 120 Output Total Balance 400 120 120 Intake, Oral 400 120 120 Patient 115 lb Weight Weight Bed scale Measurement Method Physical Exam General Appearance: Alert, Oriented X3, Cooperative, No Acute Distress HEENT: PERRLA, EOMI, Mucous Membr. moist/pink Neck: Supple, No JVD Cardiovascular: Regular Rate, Normal S1, Normal S2 Lungs: Clear to Auscultation, Normal Air Movement Neurological: Normal Speech, Strength at 5/5 X4 Ext, Reflexes 2+ Extremities: No Clubbing, No Cyanosis, No Edema, Normal Pulses Vascular: Pulses Symmetrical Current Medications: Current Medications Sig/Corby Start time Last Medication Dose Route Stop Time Status Admin Acetaminophen 650 MG Q6P PRN 12/19 1100 AC PO Acetaminophen 1,000 MG Q6P PRN 12/19 1100 AC IV Albuterol Sulfate 3 ML EVERY 4 HRS/AWAKE 12/19 1200 AC 12/20 INH 1615 Levothyroxine Sodium 0.112 MG DAILY AC 12/19 0700 AC 12/20 PO 0545 Methylprednisolone 40 MG Q12 12/19 2100 AC 12/20 IV 0900 Methylprednisolone 60 MG ONCE ONE 12/19 1815 DC 12/19 IV 12/19 181 1834 Montelukast Sodium 10 MG DAILY 12/19 0900 AC 12/20 PO 0900 Warfarin Sodium 5 MG COUMADIN 1700 ONE 12/20 1700 AC PO 12/20 1701 Warfarin Sodium 3.75 MG ONCE ONE 12/19 1745 DC 12/19 PO 12/19 174 1837 Last 24 Hrs of Lab/Emanuel Results Last 24 Hrs of Labs/Mics: Laboratory Tests 12/20/17 0610: Anion Gap 10, Estimated GFR > 60, BUN/Creatinine Ratio 35.0 H, PT 31.2 H, INR 2.83 H, CBC w Diff NO MAN DIFF REQ, RBC 4.62, MCV 91.2, MCH 30.7, MCHC 33.6, RDW 14.1, MPV 9.4, Gran % 80.4 H, Lymphocytes % 14.8 L, Monocytes % 4.1, Eosinophils % 0.4, Basophils % 0.3, Absolute Granulocytes 4.8, Absolute Lymphocytes 0.9 L, Absolute Monocytes 0.2, Absolute Eosinophils 0, Absolute Basophils 0 Assessment/Plan Assessment: A/P: Patient is a 77 year old female with a past medical history of asthma with multiple hospitalizations in the past for asthma exacerbation, history of aortic mechanical valve on coumadin, descending thoracic aorta status post repair, thyroid cancer status post thyroidectomy, hypothyroidism, echo showing pseudo- normla filling pattern and stage II diastolic dysfunction with small pericardial effusion presented to ED with shortness of breath. Problem List: 1. Asthma Exacerbation 2. Aortic Valve Replacement Asthma Exacerbation * Continue to follow up respiratory status * Start IV 40mg IV q12 today Solumedrol * Pulm consult in AM; still hypoxic on 2L O2 Aortic Valve Replacement * INR today: 2.83; 5mgWArfarin today * Will dose coumadin accordingly and recheck INR in the AM Code Status: DNR/DNI DVT PPx: Warfarin Diet: Regular Problem List: 1. Asthma exacerbation Pain Ratin Pain Location: No pain today Pain Goal: Remain pain free Pain Plan: As per pain pathway Tomorrow's Labs & Rationales: CBC BEP INR DVT/Prophylaxis: mechanical, pharmacological Navarro,Kanwardeep 12/20/17 1523: Attending MD Review Statement Attending Statement Attending MD Statement: examined this patient, discuss w/resident/PA/SCAFFOLDER, agreed w/resident/PA/SCAFFOLDER, reviewed EMR data (avail), discussed with nursing, discussed with case mgmt Attending Assessment/Plan: 77 F with PMH of asthma with multiple hospitalizations for asthma exacerbation, last admission from November 23 to November 26, history of aortic mechanical valve on Coumadin, descending thoracic aorta status post repair, thyroid cancer status post thyroidectomy, hypothyroidism, echo showing pseudo-normal filling pattern and stage II diastolic dysfunction with small pericardial effusion presenting this admission with chief complaint of shortness of breath. Asthma exacerbation. - pt feeling better today compared with yesterday. Pt doing ok with nebs. Pt will be cont on iv steroids 40mg iv q12h and will see how she does. will f/u on her resp status closely. Will get pulm consult in am. still hypoxic and on 2 L NC. Aortic valve replacement - on coumadin for mech valve. will monitor INR daily and dose coumadin accordingly. Will give her 5 mg po coumadin tonight and recheck the INR in am . Her serial trop were checked and were negative. Hyperkalemia- unclear etiology. will recheck in am . will tell pt to avoid fruits and fruit juices. d/w pt the care plan.
[2017-12-20 14:35] VITALS: BP 130/80
[2017-12-20 23:38] VITALS: BP 108/62
--- NOTE | 2017-12-21 07:06 | PN- Housestaff ---
Margy Qureshi 12/21/17 0706: Subjective Follow-up For: Asthma exacerbation Complaints: no complaints Tele-Events Since Last Visit: Normal sinus rhythm. Heart rate 74-80 Subjective: Patient seen and examined at bedside this morning. No signfiicant events on the tele monitor. She is on 1.5 nasal canula. She was able to ambulate out of bed to bathroom without shortness of breath. Denies chest pain, palpitations or bowel/ bladder changes. Review of Systems Constitutional: Reports: see HPI. Objective Last 24 Hrs of Vital Signs/I&O Vital Signs Date Time Temp Pulse Resp B/P B/P Pulse O2 O2 Flow FiO2 Mean Ox Delivery Rate 12/21 0715 97.8 78 18 112/72 96 12/20 2338 97.7 74 16 108/62 95 Nasal Cannula 12/20 2139 Nasal 1.5L Cannula 12/20 1618 95 Nasal 2.0L Cannula 12/20 1435 97.9 83 18 130/80 96 Intake & Output 12/21 1600 12/21 0800 12/21 0000 Intake Total 120 240 Output Total Balance 120 240 Intake, Oral 120 240 Patient 115 lb Weight Physical Exam General Appearance: Alert, Oriented X3, Cooperative, No Acute Distress Skin: No Rashes, No Breakdown, No Significant Lesion Skin Temp/Moisture Exam: Cool/Dry Sepsis Skin Exam (color): Normal for Ethnicity HEENT: Atraumatic Neck: Supple Cardiovascular: Regular Rate, Normal S1, Normal S2, No Murmurs Lungs: Clear to Auscultation, Normal Air Movement Abdomen: Normal Bowel Sounds, Soft, No Tenderness Neurological: Normal Gait, Normal Speech, Strength at 5/5 X4 Ext, Normal Tone, Sensation Intact Extremities: No Clubbing, No Cyanosis, No Edema Assessment/Plan Assessment: Patient is a 77 year old female with a past medical history of asthma with multiple hospitalizations in the past for asthma exacerbation, history of aortic mechanical valve on coumadin, descending thoracic aorta status post repair, thyroid cancer status post thyroidectomy, hypothyroidism, echo showing pseudo- normla filling pattern and stage II diastolic dysfunction with small pericardial effusion presented to ED with shortness of breath. Vitals: Vitals are stable overnight. She is on 1.5 L oxygen. She is not on home oxygen. Problem List: 1. Asthma Exacerbation 2. Aortic Valve Replacement 3. On the telemetry floor due to: ST depressions in V4-V6 in the ED at the time of admission Assessment and plan: Asthma Exacerbation * Continue to follow up respiratory status * Continue Solu-Medrol 40 mg IV every 12. Switch to per oral tomorrow morning. * Try to wean patient off oxygen today. * Add loratadine 10 mg per oral daily * Follow pulmonology recommendations Aortic Valve Replacement * INR today: 3.72; we will not dose warfarin today * We will recheck INR in the AM and will dose her accordingly Code Status: DNR/DNI DVT PPx: Warfarin Diet: Regular Problem List: 1. Asthma exacerbation Pain Ratin Pain Location: None Pain Goal: Remain pain free Pain Plan: Follow pain pathway Tomorrow's Labs & Rationales: inr, bep Staya CLOUD,Sara 12/21/17 0944: Attending MD Review Statement Attending Statement Attending MD Statement: examined this patient, discuss w/resident/PA/QUEEN'S COUNSEL, agreed w/resident/PA/QUEEN'S COUNSEL, reviewed EMR data (avail), discussed with nursing, discussed with case mgmt, reviewed images Attending Assessment/Plan: Dr. White was also at the bedside and we discussed the plan of care with him as well. He follows her as an outpatient. This is a 77-year-old female with a past medical history of asthma on Advair, Singulair and Rohini as an outpatient was here with an acute asthma exacerbation that we think his humidity and heat related. She is coughing up yellow sputum but no fever no white count and no evidence of pneumonia. We are going to keep her on IV steroids today and follow her closely with the plan to tentatively switch her to by mouth steroids in the morning. Will dose her Coumadin for her mechanical valve and follow closely.
[2017-12-21 07:15] VITALS: BP 112/72
[2017-12-21] MEDS ORDERED: PREDNISONE10 M2 PO (08:08)
[2017-12-21 08:14] LABS: PT 41.1 SEC (9.4-12.5)
[2017-12-21 08:23] LABS: ABSOLUTE BASOPHIL COUNT 0 /CUMM (0.0-0.2); ABSOLUTE EOSINOPHIL COUNT 0 /CUMM (0.0-0.7); ABSOLUTE GRANULOCYTE CT 5.3 /CUMM (1.4-6.5); ABSOLUTE LYMPH COUNT 1.2 /CUMM (1.2-3.4); ABSOLUTE MONOCYTE COUNT 0.3 /CUMM (0.10-0.60); BASOPHIL % 0.3 % (0.0-2.0); EOSINOPHIL % 0 % (0-5); GRANULOCYTE % 78.2 % (42.2-75.2); HEMATOCRIT 42.3 % (37-47); MEAN CORPUSCULAR HGB 30.6 PG (27.0-31.0); MEAN CORPUSCULAR HGB CONC 33.5 G/DL (33.0-37.0); MEAN CORPUSCULAR VOLUME 91.4 FL (81.0-99.0); MEAN PLATELET VOLUME 9.3 FL (7.4-10.4); PLATELET COUNT 239 /CUMM (130-400); RBC DISTRIBUTION WIDTH 14.1 % (11.5-14.5); RED BLOOD CELL CT 4.63 /CUMM (4.20-5.40); WHITE BLOOD CELL COUNT 6.7 /CUMM (4.8-10.8)
--- NOTE | 2017-12-21 08:32 | Cons- Pulmonary ---
General Information and HPI Consulting Request Date of Consult: 12/21/17 Requested By: Dr. Hernadez Reason for Consult: asthma exacerbation Source of Information: patient Exam Limitations: no limitations History of Present Illness: Consultation for exacerbation of asthma. 77-year-old woman with significant history of asthma. Recent admit for exacerbation of asthma. She is compliant with her medications and is a nonsmoker. Overall she's feeling somewhat better but her wheezing has been severe and she is still dyspneic requiring iv steroids and trc/nebs. No chest pain no palpitations no nausea vomiting or diarrhea or headaches. She takes Rohini and Singulair at home and feels that seasonal allergies may have caused an exacerbation in her issues. CXR is clear. Allergies/Medications Allergies: Coded Allergies: alendronate sodium (LIGHT HEADED, WOOZY PER PT 07/08/17) metronidazole (Mild, NAUSEA 07/08/17) risedronate sodium (From ACTONEL) (Mild, DIZZY 07/08/17) tamsulosin (Mild, NAUSEA 07/08/17) Home Med List: Albuterol Sulfate 2.5 MG/3 ML (0.083 %) VIAL.NEB 1 Vial INH/CARI TID RESP ( Reported) Ascorbate Calcium (Vitamin C) 500 MG TABLET SUPPLEMENT (Reported) Calcium (Elemental-Fr Calcarb) (Calcium) 600 MG CALCIUM (1,500 MG) TABLET 1 CAP PO DAILY SUPPLEMENT (Reported) Denosumab (Prolia) 60 MG/ML SYRINGE BONES (Reported) Ergocalciferol (Vitamin D2) (Vitamin D2) 50,000 UNIT CAPSULE 1 CAP PO Q2W SUPPLEMENT (Reported) Fexofenadine HCl (Rohini Allergy) 60 MG TABLET 1 TAB PO DAILY ASTHMA Fluticasone/Salmeterol (Advair 500-50 Diskus) 500 MCG-50 MCG/DOSE BLST.W.DEV 1 PUF INH BID RESP (Reported) Fluticasone/Salmeterol (Advair 250-50 Diskus) 250 MCG-50 MCG/DOSE BLST.W.DEV 1 PUF INH BID ASTHMA (Reported) Levothyroxine Sodium 112 MCG TABLET 1 TAB PO DAILY THYROID (Reported) Montelukast Sodium 10 MG TABLET 1 TAB PO DAILY hypereosinophilia (Reported) Multivitamin (One Daily Multivitamin) 1 EACH TABLET 1 TAB PO DAILY SUPPLEMENT (Reported) Prednisone 10 MG TABLET 1 TAB PO DAILY asthma Warfarin Sodium (Coumadin) 2.5 MG TABLET 3.75 MG PO DAILY AORTIC VALVE REPLACEMENT (Reported) Please dose Coumadin to keep the INR between 2.5-3.5 TAKES 3.5 MG [id number] AND 5 MG ON SUNDAYS AND THURSDAYS Current Medications: Current Medications Sig/Corby Start time Last Medication Dose Route Stop Time Status Admin Acetaminophen 650 MG Q6P PRN 12/19 1100 AC PO Acetaminophen 1,000 MG Q6P PRN 12/19 1100 AC IV Albuterol Sulfate 3 ML EVERY 4 HRS/AWAKE 12/19 1200 AC 12/21 INH 1152 Levothyroxine Sodium 0.112 MG DAILY AC 12/19 0700 AC 12/21 PO 0620 Loratadine 10 MG DAILY 12/21 1000 AC 12/21 PO 1216 Methylprednisolone 40 MG Q12 12/21 0915 AC 12/21 IV 0941 Methylprednisolone 40 MG Q12 12/19 2100 DC 12/20 IV 2042 Montelukast Sodium 10 MG DAILY 12/19 0900 AC 12/21 PO 0941 Prednisone 40 MG DAILY 12/21 0900 DC PO Warfarin Sodium 5 MG COUMADIN 1700 ONE 12/20 1700 DC 12/20 PO 12/20 1701 1705 Review of Systems Comments 18 point review of systems was performed and reviewed. Please see pertinent positives and pertinent negatives in the HPI. Otherwise ROS is negative. 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 spouse Services at Home: None Primary Language: Danish Smoking Status: Former Smoker ETOH Use: occasional use Exam & Diagnostic Data Last 24 Hrs of Vital Signs/I&O Vital Signs Date Time Temp Pulse Resp B/P B/P Pulse O2 O2 Flow FiO2 Mean Ox Delivery Rate 12/21 1515 97.1 86 18 110/70 95 12/21 1154 94 Nasal 1.0L Cannula 12/21 0800 98 Nasal 1.0L Cannula 07/16 0715 97.8 78 18 112/72 96 12/20 2338 97.7 74 16 108/62 95 Nasal Cannula 12/209 Nasal 1.5L Cannula Intake & Output 12/21 1600 12/21 0800 12/21 0000 Intake Total 420 120 240 Output Total Balance 420 120 240 Intake, IV 20 Intake, Oral 400 120 240 Patient 115 lb Weight Physical Exam Other Physical Findings: Generally - Awake, alert Head and neck - normocephalic, atraumatic, EOMI grossly intact Cardiovascular - S1, S2, +murmur Lungs -bilateral scattered wheezing Abdomen - Bowel sounds positive, soft, non-tender Extremities - without edema Last 48 Hrs of Labs/Emanuel: Laboratory Tests 12/21/17 0650: Anion Gap 9, Estimated GFR > 60, BUN/Creatinine Ratio 28.6 H, PT 41.1 H, INR 3.72 H, CBC w Diff NO MAN DIFF REQ, RBC 4.63, MCV 91.4, MCH 30.6, MCHC 33.5, RDW 14.1, MPV 9.3, Gran % 78.2 H, Lymphocytes % 17.5 L, Monocytes % 4.0, Eosinophils % 0, Basophils % 0.3, Absolute Granulocytes 5.3, Absolute Lymphocytes 1.2, Absolute Monocytes 0.3, Absolute Eosinophils 0, Absolute Basophils 0 12/20/17 0610: Anion Gap 10, Estimated GFR > 60, BUN/Creatinine Ratio 35.0 H, PT 31.2 H, INR 2.83 H, CBC w Diff NO MAN DIFF REQ, RBC 4.62, MCV 91.2, MCH 30.7, MCHC 33.6, RDW 14.1, MPV 9.4, Gran % 80.4 H, Lymphocytes % 14.8 L, Monocytes % 4.1, Eosinophils % 0.4, Basophils % 0.3, Absolute Granulocytes 4.8, Absolute Lymphocytes 0.9 L, Absolute Monocytes 0.2, Absolute Eosinophils 0, Absolute Basophils 0 Assessment/Plan Impression/Plan: Impression 68-year-old woman with a significant history of asthma here with exacerbation of asthma likely secondary to seasonal allergies Plan -today continue Solu-Medrol 40 mg IV every 12 hours -monitor peak flows -TR nebs -Continue home medications -Continue Singulair - add anti-histamine - non-drowsy that is on formularly - takes Rohini - Fexofenadine-can try 20mg daily (2 pills) -Nebulizer therapy -Out of bed as tolerated -Ensure patient has incentive spirometer -DVT prophylaxis at all times DC planning 24-48 hours Consult Acknowledgment - Thank you for your consult request.
--- NOTE | 2017-12-21 09:52 | Patient Discharge Instructions ---
Discharge Instructions General Discharge Information You were seen/treated for: Asthma exacerbation Watch for these problems: Please visit your nearest emergency department if you have worsening shortness of breath, worsening cough, chest tightness, or chest pain Special Instructions: -Please start your warfarin from tomorrow and follow up withyour INR clinic 1 week after discharge -Please follow-up with your primary care physician 1 week after discharge. -Please follow-up with your digital manager 1 week after discharge -Please follow-up with your embedded software engineer 1 week after discharge. Diet Continue normal diet: Yes Activity Activity Self Limited: Yes Acute Coronary Syndrome Inclusion Criteria At DC or during hospital stay patient has or had the following: ACS DIAGNOSIS No Discharge Core Measures Meds if any: Prescribed or Continued at Discharge Meds if any: NOT Prescribed or Continued at Discharge Congestive Heart Failure Inclusion Criteria At DC or during hospital stay patient has or had the following: CHF DIAGNOSIS No Discharge Core Measures Meds if any: Prescribed or Continued at Discharge Meds if any: NOT Prescribed or Continued at Discharge Cerebrovascular accident Inclusion Criteria At DC or during hospital stay patient has or had the following: CVA/TIA Diagnosis No Discharge Core Measures Meds if any: Prescribed or Continued at Discharge Meds if any: NOT Prescribed or Continued at Discharge Venous thromboembolism Inclusion Criteria VTE Diagnosis No VTE Type NONE VTE Confirmed by (Test) NONE Discharge Core Measures - Per Current guidelines, there needs to be overlap - treatment for the first 5 days of Warfarin therapy. - If discharged on Warfarin prior to 5 days of - overlap therapy, the patient will need to be - assessed for post discharge needs including - *Post discharge parental anticoagulation - *Warfarin and/or parental anticoagulation education - *Follow up date to check INR post discharge At least 5 days overlap therapy as Inpatient No Meds if any: Prescribed or Continued at Discharge Note: Overlap Therapy is Warfarin and Anticoagulant Meds if any: NOT Prescribed or Continued at Discharge
[2017-12-21] MEDS ORDERED: ALLEGRA ALLERGY60 M1 PO (11:16)
[2017-12-21 15:15] VITALS: BP 110/70
[2017-12-21 21:35] VITALS: BP 108/68
[2017-12-22 06:48] VITALS: BP 106/64
--- NOTE | 2017-12-22 06:49 | PN- Housestaff ---
See Addendum Subjective Follow-up For: asthma exacerbation Complaints: no complaints Tele-Events Since Last Visit: NSR. 69-85 Subjective: Patient seen and examined at bedside this morning. No events on the tele monitor. She is on 0.5L Oxygen nasal canula. She was able to ambulate out of bed to bathroom and outside her room without oxygen & no SOB. Denies chest pain, palpitations or bowel/bladder changes. Review of Systems Constitutional: Reports: see HPI. Objective Last 24 Hrs of Vital Signs/I&O Vital Signs Date Time Temp Pulse Resp B/P B/P Pulse O2 O2 Flow FiO2 Mean Ox Delivery Rate 12/22 0648 97.9 69 18 106/64 93 Room Air 12/21 2231 94 Room Air 12/21 2135 98.4 81 18 108/68 96 12/21 1700 93 Nasal 0.5L Cannula 12/21 1600 95 Nasal 0.5L Cannula 12/21 1515 97.1 86 18 110/70 95 12/21 1154 94 Nasal 1.0L Cannula 12/21 0800 98 Nasal 1.0L Cannula 12/21 0715 97.8 78 18 112/72 96 Intake & Output 12/22 0800 12/22 0000 12/21 1600 Intake Total 240 360 420 Output Total Balance 240 360 420 Intake, IV 20 Intake, Oral 240 360 400 Patient 117 lb Weight Physical Exam General Appearance: Alert, Oriented X3, Cooperative, No Acute Distress Skin: No Rashes, No Breakdown, No Significant Lesion Skin Temp/Moisture Exam: Cool/Dry Sepsis Skin Exam (color): Normal for Ethnicity HEENT: Atraumatic Neck: Supple Cardiovascular: Regular Rate, Normal S1, Normal S2, No Murmurs Lungs: Clear to Auscultation, Normal Air Movement Abdomen: Normal Bowel Sounds, Soft, No Tenderness, No Hepatospenomegaly Neurological: Normal Gait, Normal Speech, Strength at 5/5 X4 Ext Extremities: No Clubbing, No Cyanosis, No Edema, Normal Pulses Assessment/Plan Assessment: Patient is a 77 year old female with a past medical history of asthma with multiple hospitalizations in the past for asthma exacerbation, history of aortic mechanical valve on coumadin, descending thoracic aorta status post repair, thyroid cancer status post thyroidectomy, hypothyroidism, echo showing pseudo- normla filling pattern and stage II diastolic dysfunction with small pericardial effusion presented to ED with shortness of breath. Vitals: Vitals are stable overnight. She is on 0.5 L oxygen. She is not on home oxygen. Problem List: 1. Asthma Exacerbation 2. PMHx Aortic Valve Replacement on Coumadin 3. On the telemetry floor due to: ST depressions in V4-V6 in the ED at the time of admission Assessment and plan: Plan is to discharge to home today. #Asthma Exacerbation * Give one dose of Solu-Medrol 40 mg IV. Switch to per oral Prednisone taper 40 mg upon discharge as per pulmonology Recs * Follow-up with pulmonology in 1 week after discharge as an outpatient #Aortic Valve Replacement * INR today: 3.96; we will not dose warfarin today * She will start her warfarin 5 mg p.o. daily, from tomorrow at home. She will follow with her INR clinic. Code Status: DNR/DNI DVT PPx: Warfarin Diet: Regular Problem List: 1. Asthma exacerbation Pain Ratin Pain Location: None Pain Goal: Remain pain free Pain Plan: Follow pain pathway Tomorrow's Labs & Rationales: None needed Discharge Plan Discharge Disposition: home Stable for Discharge? Yes
[2017-12-22] MEDS ORDERED: PREDNISONE10 M2 PO ×2 (07:29→08:59)
[2017-12-22 08:42] LABS: PT 43.8 SEC (9.4-12.5)
[2017-12-22] MEDS ORDERED: ALLEGRA ALLERGY60 M1 PO (08:59)
--- NOTE | 2017-12-22 09:02 | Discharge Summary ---
Visit Information Visit Dates Admission Date: 12/18/17 Discharge Date: 12/22/17 Hospital Course Course Attending Physician: Satya CLOUD,Sara Cheney Primary Care Physician: Jessica CLOUD,Margarito Hernandez Hospital Course: Patient is a 77-year-old female with past medical history of asthma with PMHx of multiple hospitalizations for asthma exacerbation, recently admitted(11/23-11/26), mechanical valve on Coumadin, descending thoracic aorta status post repair, thyroid cancer status post thyroidectomy, hypothyroidism, echo showing pseudo- normal filling pattern and stage II diastolic dysfunction with small pericardial effusion who presented with chief complaint of shortness of breath. Patient experienced trouble breathing and chest tightness 1 day. Pt had significant worsening of her shortness of breath each time she was getting up or ambulating. She has a chronic productive cough with thick and white phlegm which later turned yellow. She was using her nebulizer, Advair at a higher dose of 500 -50 (from 250-50). Denies recent illness, sick contacts, tobacco use or exposure to secondhand smoke, pets, travel, fever, chills, chest pain, nausea,vomiting, change in bowel or urinary habits. Problems: 1. Asthma exacerbation 2. EKG changes 3. Mechanical aortic valve on Coumadin HOSPITAL COURSE: Asthma exacerbation: Likely secondary to seasonal allergies. In the ED, The patient received DuoNeb, Solu-Medrol 125 mg 1, MgSO4, azithromycin, & robitussin. She was admitted to the telemetry floor for continuous telemetry monitoring. She was given IV Solu-Medrol 40 mg every 8 hours, which was later changed to every 12; TRC/nebs, oxygen 2 L. Pt does not use oxygen at home. At the time of discharge, she was saturating well on room air. She is discharged on po prednisone taper starting at 40 mg. She will follow -up with her primary care physician and her historical guide within 1 week of discharge. EKG changes: Troponins were trended. (Less than 0.01----less than 0.01----less than 0.01) Mechanical aortic valve: Over the hospital stay, patient's INR was monitored and she was dosed with warfarin accordingly. On the day of discharge INR 3.96, so she was not dosed. She is advised to restart her warfarin from tomorrow. She will follow-up with her INR clinic upon discharge. Allergies: Coded Allergies: alendronate sodium (LIGHT HEADED, WOOZY PER PT 07/08/17) metronidazole (Mild, NAUSEA 07/08/17) risedronate sodium (From ACTONEL) (Mild, DIZZY 07/08/17) tamsulosin (Mild, NAUSEA 07/08/17) Significant Procedures: EKG in the ED: showed normal sinus rhythm with heart rate of 85, what appears to be ST depressions in V4 V5 and V6 seen in previous EKGs. CXR: Clear lungs. No acute pulmonary findings. Disposition Summary Disposition Principal Diagnosis: Asthma exacerbation Additional Diagnosis: EKG changes:normal sinus rhythm with heart rate of 85, ST depressions in V4 V5 and V6 seen in previous EKGs. Mechanical aortic valve on Coumadin Discharge Disposition: home or self care Discharge Instructions General Discharge Information Code Status: Do Not Resucitate/Intubat Patient's Diet: Heart healthy Patient's Activity: As tolerated Follow-Up Instructions/Appts: Watch for these problems: Please visit your nearest emergency department if you have worsening shortness of breath, worsening cough, chest tightness, or chest pain Special Instructions: -Please start your warfarin from tomorrow and follow up with your INR clinic 1 week after discharge -Please follow-up with your primary care physician 1 week after discharge. -Please follow-up with your historical guide 1 week after discharge -Please follow-up with your private branch exchange operator 1 week after discharge. Medications at Discharge Discharge Medications: Continue taking these medications: Multivitamin (One Daily Multivitamin) 1 EACH TABLET 1 Tablet ORAL DAILY Comments: NOT GIVEN Ascorbate Calcium (Vitamin C) 500 MG TABLET ORAL DAILY Comments: NOT GIVEN Denosumab (Prolia) 60 MG/ML SYRINGE INJECTABLE Q6M Comments: NOT GIVEN Montelukast Sodium (Montelukast Sodium) 10 MG TABLET 1 Tablet ORAL DAILY Qty = 90 Comments: Last Taken: 12/22/17 Time: 0745 AM Fluticasone/Salmeterol (Advair 500-50 Diskus) 500 MCG-50 MCG/DOSE BLST.W.DEV 1 Puff Inhale through mouth TWICE DAILY Qty = 60 Comments: NOT GIVEN Albuterol Sulfate (Albuterol Sulfate) 2.5 MG/3 ML (0.083 %) VIAL.NEB 1 Vial Inhale Solution THREE TIMES DAILY Qty = 540 Comments: Last Taken: 12/22/17 Time: 0747 am Ergocalciferol (Vitamin D2) (Vitamin D2) 50,000 UNIT CAPSULE 1 Capsule ORAL EVERY 2 WEEKS Qty = 6 Comments: NOT GIVEN Calcium (Elemental-Fr Calcarb) (Calcium) 600 MG CALCIUM (1,500 MG) TABLET 1 Capsule ORAL DAILY Qty = 30 Comments: NOT GIVEN Warfarin Sodium (Coumadin) 2.5 MG TABLET 3.75 Milligram ORAL DAILY Qty = 90 Instructions: Please dose Coumadin to keep the INR between 2.5-3.5 TAKES 3.5 MG [id number] AND 5 MG ON SUNDAYS AND THURSDAYS Comments: Last Taken: 12/20/17 Time: 1705 Fluticasone/Salmeterol (Advair 250-50 Diskus) 250 MCG-50 MCG/DOSE BLST.W.DEV 1 Puff Inhale through mouth TWICE DAILY Qty = 180 Comments: NOT GIVEN Levothyroxine Sodium (Levothyroxine Sodium) 112 MCG TABLET 1 Tablet ORAL DAILY Qty = 90 Comments: Last Taken:12/22/17 Time:0542 Start taking the following new medications: Prednisone (Prednisone) 10 MG TABLET 1 Tablet ORAL DAILY Qty = 18 No Refills Instructions: . Comments: SOLUMEDROL GIVEN 12/22/17 0900 AM take 3 pill on 12/24-12/26 take 2 pills on 12/27-12/29 take 1 pill on 12/30-01/01 Fexofenadine HCl (Rohini Allergy) 60 MG TABLET 1 Tablet ORAL TWICE DAILY Qty = 60 No Refills Instructions: . Comments: Last Taken:12/22/17 Time:0745 AM MARIAELENA RECEIVED Copies To: Jessica CLOUD,Margarito Hernandez
--- NOTE | 2017-12-22 12:10 | PN- Pulmonary ---
Subjective HPI/Critical Care Issues: pt seen and examined off oxygen feeling better ready for dc Objective Current Medications: Current Medications Sig/Corby Start time Last Medication Dose Route Stop Time Status Admin Acetaminophen 650 MG Q6P PRN 12/19 1100 DCD PO Acetaminophen 1,000 MG Q6P PRN 12/19 1100 DCD IV Albuterol Sulfate 3 ML EVERY 4 HRS/AWAKE 12/19 1200 DCD 12/22 INH 0747 Levothyroxine Sodium 0.112 MG DAILY AC 12/19 0700 DCD 12/22 PO 0542 Loratadine 10 MG DAILY 12/21 1000 DCD 12/22 PO 0747 Methylprednisolone 40 MG ONCE ONE 12/22 0900 DC 12/22 IV 12/22 0901 0910 Methylprednisolone 40 MG Q12 12/21 0915 DC 12/21 IV 2048 Montelukast Sodium 10 MG DAILY 12/19 0900 DCD 12/22 PO 0747 Prednisone 40 MG DAILY 12/22 0900 CAN PO Vital Signs & I&O Last 24 Hrs of Vitals and I&O: Vital Signs Date Time Temp Pulse Resp B/P B/P Pulse O2 O2 Flow FiO2 Mean Ox Delivery Rate 12/22 0754 95 Room Air 12/22 0648 97.9 69 18 106/64 93 Room Air 12/21 2231 94 Room Air 12/21 2135 98.4 81 18 108/68 96 12/21 1700 93 Nasal 0.5L Cannula 12/21 1600 95 Nasal 0.5L Cannula 12/21 1515 97.1 86 18 110/70 95 Intake & Output 12/22 1600 12/22 0800 12/22 0000 Intake Total 240 360 Output Total Balance 240 360 Intake, Oral 240 360 Patient 117 lb Weight Exam Other Physical Findings: awake and alert on room air cvs-s1,s2, +murmur lungs-rare rhonchi/wheezing on expiration abd-soft,bs+ ext without edema Results Last 24 Hrs of Lab Results: Laboratory Tests 12/22/17 0647: PT 43.8 *H, INR 3.96 H Impression/Plan Impression/Plan Impression/Plan: Impression 77f exacerbation of asthma likely due to environmental causes Plan -steroid taper as ordered -trc/nebs -cont home meds -dc with f/u in office
== END 2017-12-22 10:25 | DRG 203 ==
LOC: ERH 14:35 → 1NO 18:23 → ERHI 18:23 → ENRESERV 21:21 → ENTRNSPT 21:46 → 1NO 21:53 → EDTRNSPTSTS 22:07 → CMPTRNSPT 22:16 → 1NO 12-21 08:04 → ENPENDDIS 12-22 09:02 → 1NO 12-22 10:25
PROVIDERS: Internal Medicine; Physical Medicine & Rehabilitation Pain Medicine; Physician Assistant; Student in an Organized Health Care Education/Training Program
DX: J45.901 Unspecified asthma with (acute) exacerbation (principal); Z95.2 Presence of prosthetic heart valve; E87.5 Hyperkalemia; Z79.01 Long term (current) use of anticoagulants; E89.0 Postprocedural hypothyroidism; Z90.710 Acquired absence of both cervix and uterus; Z90.49 Acquired absence of other specified parts of digestive tract; Z66 Do not resuscitate; R94.31 Abnormal electrocardiogram [ECG] [EKG]; Z88.8 Allergy status to other drugs, medicaments and biological substances
CPT/HCPCS: 1NSP; 36592; 71046; 82436; 87449; 87450; 93005; 93010; 96365; 96366; J0131; J2920; J2930

== ENCOUNTER 2018-01-16 14:20 | Inpatient (IN) | payer OTHER ==
[~2018-01-16] VITALS: Ht 157.5 cm; Wt 53.7 kg
[~2018-01-16 14:20] MED LIST changes: +ALLEGRA ALLERGY60 M1 PO; +LEVOTHYROXINE112 MCG PO
[2018-01-16 14:55] LABS: ABSOLUTE BASOPHIL COUNT 0 /CUMM (0.0-0.2); ABSOLUTE EOSINOPHIL COUNT 0.7 /CUMM (0.0-0.7); ABSOLUTE GRANULOCYTE CT 3.3 /CUMM (1.4-6.5); ABSOLUTE LYMPH COUNT 1.4 /CUMM (1.2-3.4); ABSOLUTE MONOCYTE COUNT 0.5 /CUMM (0.10-0.60); BASOPHIL % 0.8 % (0.0-2.0); EOSINOPHIL % 12.1 % (0-5); GRANULOCYTE % 55.1 % (42.2-75.2); HEMATOCRIT 42.5 % (37-47); MEAN CORPUSCULAR HGB 30.5 PG (27.0-31.0); MEAN CORPUSCULAR HGB CONC 33.3 G/DL (33.0-37.0); MEAN CORPUSCULAR VOLUME 91.7 FL (81.0-99.0); MEAN PLATELET VOLUME 8.9 FL (7.4-10.4); PLATELET COUNT 227 /CUMM (130-400); RBC DISTRIBUTION WIDTH 14.4 % (11.5-14.5); RED BLOOD CELL CT 4.64 /CUMM (4.20-5.40); WHITE BLOOD CELL COUNT 5.9 /CUMM (4.8-10.8)
--- NOTE | 2018-01-16 15:08 | ED GENERAL ADULT ---
History of Present Illness General Chief Complaint: Dyspnea (COPD, CHF, Other) Stated Complaint: SOB Source: patient, old records Exam Limitations: no limitations Vital Signs & Intake/Output Vital Signs & Intake/Output Vital Signs Date Time Temp Pulse Resp B/P B/P Pulse O2 O2 Flow FiO2 Mean Ox Delivery Rate 01/17 0814 94 Nasal 2.0L Cannula 01/17 0700 97.5 80 20 118/68 96 Nasal 1.5L Cannula 01/17 0501 96 Nasal 2.0L Cannula 01/16 2207 97.6 85 20 110/70 94 Nasal Cannula 01/16 2121 Nasal 2.0L Cannula 01/16 2100 Nasal 1.5L Cannula 01/16 1957 97.6 81 22 127/76 95 Nasal 1.5L Cannula 01/16 1902 96 Nasal 2.0L Cannula 01/16 1850 97.9 83 20 132/60 93 Nasal 1.5L Cannula 01/16 1642 98.0 87 20 131/77 96 Nasal 1.5L Cannula 01/16 1556 96 Nasal 2.0L Cannula 01/16 1516 96 Nasal 2.0L Cannula 01/16 1428 96.0 88 20 134/83 95 Nasal 2.0L Cannula ED Intake and Output 01/17 0000 01/16 1200 Intake Total 240 Output Total 250 Balance -10 Intake, Oral 240 Output, Urine 250 Patient 115 lb Weight Weight Reported by Patient Measurement Method Allergies Coded Allergies: alendronate sodium (LIGHT HEADED, WOOZY PER PT 07/08/17) metronidazole (Mild, NAUSEA 07/08/17) risedronate sodium (From ACTONEL) (Mild, DIZZY 07/08/17) tamsulosin (Mild, NAUSEA 07/08/17) Triage Note: PT TO ED C/O WORSENING SOB. PT WITH H/O ASTHMA. USED NEBS AT HOME THE LAST COUPLE OF DAYS WITH NO RELIEF. PT HAS PRN O2 AT HOME. RA SAT 89%. PLACED ON 2L NC, SATS UP TO 95%. APPEARS SOB AT REST. PT DENIES ANY PAIN, C/P. Triage Nurses Notes Reviewed? yes HPI: This is a 77-year-old female with history of aortic stenosis status post open aortic valve replacement, on chronic Coumadin, long-term COPD/asthma on home nebulized albuterol, as needed oxygen, recurrent admissions for reactive airway exacerbation, presenting to the emergency department with 1 day of worsening shortness of breath with cough productive of yellow phlegm. Patient states that she use her albuterol inhaler twice today with minimal relief. She was satting in the high 80s to mid 80s at home on room air, improved with supplemental oxygen. She denies any chest pain, fever, chills, nausea, vomiting, diaphoresis. She denies any sick contacts. (Chito Savage MD) Reconcile Medications Ascorbate Calcium (Vitamin C) 500 MG TABLET SUPPLEMENT (Reported) Calcium (Elemental-Fr Calcarb) (Calcium) 600 MG CALCIUM (1,500 MG) TABLET 1 CAP PO DAILY SUPPLEMENT (Reported) Fluticasone/Salmeterol (Advair 250-50 Diskus) 250 MCG-50 MCG/DOSE BLST.W.DEV 1 PUF INH BID ASTHMA (Reported) Levothyroxine Sodium 112 MCG TABLET 1 TAB PO DAILY THYROID (Reported) Montelukast Sodium 10 MG TABLET 1 TAB PO DAILY hypereosinophilia (Reported) Multivitamin (One Daily Multivitamin) 1 EACH TABLET 1 TAB PO DAILY SUPPLEMENT (Reported) Warfarin Sodium (Coumadin) 2.5 MG TABLET 3.75 MG PO DAILY AORTIC VALVE REPLACEMENT (Reported) Please dose Coumadin to keep the INR between 2.5-3.5 TAKES 3.5 MG [id number] AND 5 MG ON SUNDAYS AND THURSDAYS (Katerin CLOUD,Vicente Polk) Past History Travel History Traveled to [place] past 21 day No Medical History Any Pertinent Medical History? see below for history Neurological: TIA EENT: NONE Cardiovascular: AORTIC VALVE REPLACEMENT Respiratory: asthma, O2 PRN Gastrointestinal: diverticulitis Hepatic: NONE Renal: NONE Musculoskeletal: NONE Psychiatric: NONE Endocrine: NONE Blood Disorders: NONE Cancer(s): thyroid cancer PHYTOPATHOLOGIST/Reproductive: NONE History of MRSA: Yes History of VRE: No History of CDIFF: No Tetanus Vaccine: 06/24/12 Surgical History Surgical History: appendectomy Psychosocial History Who do you live with Family Services at Home None What is your primary language Sudanese Tobacco Use: Quit >30 days ago ETOH Use: denies use Illicit Drug Use: denies illicit drug use Family History Family History, If Any: Relation not specified for: *No pertinent family history Hx Contributory? No (Chito Savage MD) Review of Systems Review of Systems Constitutional: Reports: no symptoms. Respiratory: Reports: cough, short of breath, wheezing. Cardiovascular: Denies: chest pain, edema. (Chito Savage MD) Physical Exam Physical Exam General Appearance: well developed/nourished, no apparent distress, alert, awake , thin Comments: Thin, elderly appearing female, no acute distress, presents with increased work of breathing with suprasternal retraction, prolonged expiratory phase and diffuse expiratory wheeze. No focal crackles appreciated on lung exam. Heart sounds significant for mechanical murmur, no pedal edema. Moist mucous membranes, neurologically intact, benign abdominal exam, soft, nondistended, normal bowel sounds. Skin is warm and dry with no obvious lesions. Core Measures ACS in differential dx? Yes CVA/TIA Diagnosis: No Sepsis Present: No Sepsis Focused Exam Completed? No (Chito Savage MD) Progress Differential Diagnoses I considered the following diagnoses in my evaluation of the patient: Reactive airway/asthma/COPD exacerbation, pneumonia, lower suspicion for acute coronary syndrome in this patient given exam features and historical findings, very low suspicion for pulmonary embolism in this patient given lack of suggestive history/trauma/surgery, active anticoagulation, lack of leg swelling, lung exam findings. Plan of Care: Orders Procedure Date/time Status Heart Healthy Diet 01/17 B Active PROTHROMBIN TIME 01/17 0600 Complete Regular Diet 01/16 D Complete Code Status 01/16 2345 Active STREP PNEUMO URINARY ANTIGEN 01/16 2158 Complete LEGIONELLA URINARY ANTIGEN 01/16 2158 Complete LOWER RESPIRATORY CULTURE 01/16 2158 Active URINALYSIS 01/16 215 Complete THERAPIST ORDERS 01/16 2130 Complete Pathway - chart 01/16 2130 Active TRC EVALUATION (GEN) 01/16 2126 Complete THERAPIST ORDERS 01/16 2126 Complete RT: Evaluation 01/16 2121 Active OXYGEN SETUP (GEN) 01/16 2100 Complete Weight 01/16 204 Active Vital Signs 01/16 2045 Active Teach/Educate 01/16 2045 Active Pain Treatment and Response 01/16 2045 Active Nutritional Intake, Monitor 01/16 2045 Active Isolation 01/16 2045 Active Intake & Output 01/16 2045 Active Patient Care Conference 01/16 2045 Active Activity/Ambulation 01/16 2045 Active Intake & Output 01/16 1853 Active Patient Data 01/16 1819 Active Admit to inpatient 01/16 1715 Active Vital Signs 01/16 171 Active Code Status 01/16 1715 Complete PROTHROMBIN TIME 01/16 1507 Complete LACTIC ACID 01/16 1455 Complete B-TYPE NATRIURETIC PEP (BNP) 01/16 1440 Complete TROPONIN LEVEL 01/16 1424 Complete MAGNESIUM 01/16 1424 Complete COMPREHENSIVE METABOLIC PANEL 01/16 1424 Complete CHOLESTEROL 01/16 1424 Complete CBC WITHOUT DIFFERENTIAL 01/16 1424 Complete EKG 01/16 1421 Active TRC EVALUATION (GEN) 01/16 UNK Complete House Staff 01/16 UNK Active VTE Mechanical Prophylaxis 01/16 UNK Active Activity/Ambulation 01/16 UNK Complete PHYSICIAN CONSULT 01/16 UNK Active Current Medications Sig/Corby Start time Last Medication Dose Stop Time Status Admin Albuterol Sulfate 3 ML TID 01/17 0900 AC 01/17 (Proventil) 08 Azithromycin 250 MG DAILY 01/17 09 AC (Zithromax) Budesonide/ 2 PUF BID 01/17 09 AC Formoterol Fumarate (Symbicort) Montelukast Sodium 10 MG DAILY 01/17 09 AC (Singulair) Methylprednisolone 40 MG Q8 01/17 0600 AC 01/17 (Solumedrol) 01/20 2201 0617 Guaifenesin 600 MG Q12 01/17 0200 AC 01/17 (Mucinex) 0418 Levothyroxine Sodium 0.112 MG 2100 01/17 0030 AC 01/17 (Synthroid) 0418 Acetaminophen 650 MG Q6P PRN 01/16 2130 AC (Tylenol) Laboratory Tests 01/17/18 0604: PT 36.3 H, INR 3.29 H 01/17/18 0000: Urine Color YEL, Urine Clarity CLEAR, Urine pH 5.5, Ur Specific [place] >= 1.030 , Urine Protein NEG, Urine Ketones 15 H, Urine Nitrite NEG, Urine Bilirubin NEG , Urine Urobilinogen 0.2, Ur Leukocyte Esterase NEG, Ur Microscopic EXAM NOT REQUIRED, Urine Hemoglobin NEG, Urine Glucose >=1000 H 01/16/18 1755: Lactic Acid Cancelled 01/16/18 1454: [id number]-[id number] Pept Cancelled 01/16/18 1440: Lactic Acid 1.1 01/16/18 1440: Anion Gap 6, Estimated GFR > 60, BUN/Creatinine Ratio 36.7 H, Glucose 91, Calcium 9.0, Magnesium 2.2, Total Bilirubin 0.7, AST 31, ALT 28, Alkaline Phosphatase 64, Troponin I < 0.01, [id number] Pept 337 H, Total Protein 6.6, Albumin 4.2, Globulin 2.4, Albumin/Globulin Ratio 1.8, Cholesterol 242 H, PT 40.6 H, INR 3.68 H, CBC w Diff NO MAN DIFF REQ, RBC 4.64, MCV 91.7, MCH 30.5, MCHC 33.3, RDW 14.4, MPV 8.9, Gran % 55.1, Lymphocytes % 23.9, Monocytes % 8.1, Eosinophils % 12.1 H, Basophils % 0.8, Absolute Granulocytes 3.3, Absolute Lymphocytes 1.4, Absolute Monocytes 0.5, Absolute Eosinophils 0.7, Absolute Basophils 0 Microbiology 01/17 URINE ROUT: Legionella Antigen - COMP 01/17 URINE ROUT: Streptococcus pneumoniae Antigen (M - COMP 01/17 LOWER RESP: Respiratory Culture - COLB 01/17 LOWER RESP: Gram Stain - COLB Plan for labs, lactic acid, IV steroids, DuoNeb, chest x-ray, reassessment. Patient modestly improves following DuoNeb but continues to have increased work of breathing with diffuse expiratory wheezing. She desaturates with minimal exertion. Given this, will admit patient for ongoing treatment. Of note, patient was recently hospitalized and this is in the last 90 days), and could therefore could consider to be developing an hospital-acquired pneumonia, however she has no fever, leukocytosis, lactic acid elevation, physical exam consistent with focal pneumonia. X-ray is equivocal for developing left lower lobe infiltrate. At this time, will cover as if patient has atypical pneumonia with azithromycin. Initial ED EKG: normal axis, normal intervals, normal p-waves, normal QRS complex, normal sinus rhythm, poor RWP; appears similar to prior (Hussein CLOUD,Chito) Departure Departure Time of Disposition: 1715 Disposition: STILL A PATIENT Condition: Stable Clinical Impression Primary Impression: Asthma exacerbation Referrals: Jessica CLOUD,Margarito Hernandez (PCP/Family) Departure Forms: Customer Survey General Discharge Information Admission Note Spoke With: Morgan Beck MD Documentation of Exam: Documentation of any treatments & extenuating circumstances including Concerns Regarding Discharge (functional status, medication knowledge or non-compliance, living conditions, etc.) that warrant an admission rather than observation: Frequent nebulized albuterol/Atrovent, IV steroids, IV antibiotics, physical therapy, frequent vital signs, pulse oximetry, reassessment. I do not believe that this patient will be appropriate for discharge within the next 48 hours given the severity of her presentation. (Chito Savage MD) Resident Co-Sign Statement Statement: ED Attending supervision documentation- [] I saw and evaluated the patient. I have also reviewed all the pertinent lab results and diagnostic results. I agree with the findings and the plan of care as documented in the Resident's documentation. [X] I have reviewed the ED Record and agree with the Resident's documentation. [] Additions or exceptions (if any) to the Resident's note and plan are summarized below: [] (Katerin CLOUD,Vicente Polk) Critical Care Note Critical Care Note Critical Care Time: non-applicable (Chito Savage MD)
--- NOTE | 2018-01-16 15:31 | RADIOLOGY REPORT ---
EXAMINATION: XR PORTABLE CHEST CLINICAL INFORMATION: Shortness of breath COMPARISON: 12/18/2017 TECHNIQUE: Portable frontal view of the chest was obtained. FINDINGS: Anterior sternotomy with associated cerclage wires is redemonstrated. The study is limited by significant patient rotation to the right. The cardiac silhouette is likely unchanged compared to prior. Tortuous curvature of the descending thoracic aorta is redemonstrated. There is some segmental atelectasis at the left lung base, possibly a new finding compared to prior. Otherwise, the lungs are clear. No pleural effusion. IMPRESSION: Limited study secondary to patient positioning. Possible developing pneumonia at the left lung base.
[2018-01-16 16:26] LABS: PT 40.6 SEC (9.4-12.5)
--- NOTE | 2018-01-16 20:25 | History & Physical ---
Glynn Yeung 01/16/182023: General Information and HPI MD Statement: I have seen and personally examined MILLY KNUTSON and documented this H&P. The patient is a 77 year old F who presented with a patient stated chief complaint of [acute shortness of breath/asthma exacerbation x5 days]. 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 Pt states that she was in her normal state of health until Thursday when she noticed she was getting increasingly short of breath while walking from the car to her mobile home. States that she started using her rescue inhaler and switched her advair from 250/50 to 500/50 which still did not help. States that by she was using rescuer inhaler and nebulizer without resolution of symptoms. By thursday she states that she was not able to take in a full breath and that air was not getting in, and called her ex-daughter in law who called brought her in to the ED where her saturation was 89% at the greeters desk. States that she did not have any recent sick contacts, denies fevers/chills/ night sweats/chest pain/palpitations (although states she always hears her mechanical valve)/change in sputum production/abdominal pain/nausea/vomiting/ diarrhea/urinary symptoms/lower extremity edema. States that when her sputum turns yellow she knows that she is getting an infection, however sputum has remained clear at home. Also states that at home she sleeps on three pillows as she is unable to lay flat due to shortness of breath. 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 Allergies/Medications Home Med list Ascorbate Calcium (Vitamin C) 500 MG TABLET SUPPLEMENT (Reported) Calcium (Elemental-Fr Calcarb) (Calcium) 600 MG CALCIUM (1,500 MG) TABLET 1 CAP PO DAILY SUPPLEMENT (Reported) Fluticasone/Salmeterol (Advair 250-50 Diskus) 250 MCG-50 MCG/DOSE BLST.W.DEV 1 PUF INH BID ASTHMA (Reported) Levothyroxine Sodium 112 MCG TABLET 1 TAB PO DAILY THYROID (Reported) Montelukast Sodium 10 MG TABLET 1 TAB PO DAILY hypereosinophilia (Reported) Multivitamin (One Daily Multivitamin) 1 EACH TABLET 1 TAB PO DAILY SUPPLEMENT (Reported) Warfarin Sodium (Coumadin) 2.5 MG TABLET 3.75 MG PO DAILY AORTIC VALVE REPLACEMENT (Reported) Please dose Coumadin to keep the INR between 2.5-3.5 TAKES 3.5 MG [id number] AND 5 MG ON SUNDAYS AND THURSDAYS Past History Travel History Traveled to [place] past 21 day No Medical History Neurological: TIA EENT: NONE Cardiovascular: AORTIC VALVE REPLACEMENT Respiratory: asthma, O2 PRN Gastrointestinal: diverticulitis Hepatic: NONE Renal: NONE Musculoskeletal: NONE Psychiatric: NONE Endocrine: NONE Blood Disorders: NONE Cancer(s): thyroid cancer DETECTIVE YOUTH BUREAU/Reproductive: NONE History of MRSA: Yes History of VRE: No History of CDIFF: No Isolation History: Standard Tetanus Vaccine: 06/24/12 Surgical History Surgical History: appendectomy Past Family/Social History Family History Relations & Conditions if any Relation not specified for: *No pertinent family history Psychosocial History Who Do You Live With? spouse Services at Home: None Primary Language: Finnish Smoking Status: Smoker Current Stat [facility] ETOH Use: denies use Illicit Drug Use: denies illicit drug use Living Will? yes (DNR/DNI) Functional Ability ADLs Independent: dressing, eating, toileting, bathing. Ambulation: independent IADLs Independent: shopping, housework, finances, food prep, telephone, transportation , medication admin. Review of Systems Review of Systems Constitutional: Reports: see HPI. Denies: chills, diaphoresis, fever, malaise, weakness. EENTM: Denies: blurred vision, double vision, visual changes, nasal pain, throat pain, throat swelling. Cardiovascular: Reports: orthopena. Denies: chest pain, edema, palpitations, peripheral edema. Respiratory: Reports: cough (chronic at baseline), orthopnea, short of breath, sputum production, wheezing. Denies: hemoptysis. GI: Reports: no symptoms. Genitourinary: Reports: no symptoms. Musculoskeletal: Reports: no symptoms. Exam & Diagnostic Data Last 24 Hrs of Vital Signs/I&O Vital Signs Date Time Temp Pulse Resp B/P B/P Pulse O2 O2 Flow FiO2 Mean Ox Delivery Rate 01/167 97.6 85 20 110/70 94 Nasal Cannula 01/161 Nasal 2.0L Cannula 01/16 2100 Nasal 1.5L Cannula 01/167 97.6 81 22 127/76 95 Nasal 1.5L Cannula 01/16 1902 96 Nasal 2.0L Cannula 01/16 1850 97.9 83 20 132/60 93 Nasal 1.5L Cannula 01/16 1642 98.0 87 20 131/77 96 Nasal 1.5L Cannula 01/16 1556 96 Nasal 2.0L Cannula 01/16 1516 96 Nasal 2.0L Cannula 01/16 1428 96.0 88 20 134/83 95 Nasal 2.0L Cannula Intake & Output 01/16 1600 01/16 0800 01/16 0000 Intake Total Output Total Balance Patient 114 lb Weight Weight Reported by Patient Measurement Method Physical Exam General Appearance Alert, Oriented X3, Cooperative, No Acute Distress Skin No Rashes, No Breakdown Skin Temp/Moisture Exam: Warm/Dry HEENT Atraumatic Neck No JVD Cardiovascular Regular Rate, Normal S1 (loud in aortic region), Normal S2 (loud in aortic area), No Murmurs Lungs expiratory wheezes in all billings; diminished in the bases, four-five word dyspnea Abdomen Soft, No Tenderness Neurological Normal Speech, Strength at 5/5 X4 Ext, Sensation Intact Extremities No Edema, Normal Pulses Last 24 Hrs of Labs/Emanuel: Laboratory Tests 01/16/18 1755: Lactic Acid Cancelled 01/16/18 1454: Dbp-[id number]-Jqcdfizlcfv Pept Cancelled 01/16/18 1440: Lactic Acid 1.1 01/16/18 1440: Anion Gap 6, Estimated GFR > 60, BUN/Creatinine Ratio 36.7 H, Glucose 91, Calcium 9.0, Magnesium 2.2, Total Bilirubin 0.7, AST 31, ALT 28, Alkaline Phosphatase 64, Troponin I < 0.01, Afd-J-Hgnjssacanj Pept 337 H, Total Protein 6.6, Albumin 4.2, Globulin 2.4, Albumin/Globulin Ratio 1.8, Cholesterol 242 H, PT 40.6 H, INR 3.68 H, CBC w Diff NO MAN DIFF REQ, RBC 4.64, MCV 91.7, MCH 30.5, MCHC 33.3, RDW 14.4, MPV 8.9, Gran % 55.1, Lymphocytes % 23.9, Monocytes % 8.1, Eosinophils % 12.1 H, Basophils % 0.8, Absolute Granulocytes 3.3, Absolute Lymphocytes 1.4, Absolute Monocytes 0.5, Absolute Eosinophils 0.7, Absolute Basophils 0 Microbiology 01/16 2158 URINE ROUT: Legionella Antigen - ORD 01/16 2158 URINE ROUT: Streptococcus pneumoniae Antigen (M - ORD 01/16 2158 LOWER RESP: Respiratory Culture - ORD 01/16 2158 LOWER RESP: Gram Stain - ORD Assessment/Plan Assessment: Milly Knutson is a 77yo F with 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 She has had multiple hospitalizations for acute asthma exacerbations, which she attributes to the humid weather we have been having. She is without leukocytosis or fevers but does have eosinophilia. Her CXR in the ED suggested possible LLL pneumonia although is unchanged from her previous. She did already recieve Azithromycin in the ED as well as 125mg Solumedrol and Duoneb x2. Differentials include Acute Asthma exacerbation, Acute Bronchitis, ?LLL Pneumonia although without fevers or leukocytosis, ?COPD exacerbation Problem List: #Acute Asthma Exacerbation #Eosinophilia #Mechanical aortic valve with supratherapeutic INR #Chronic Medical Conditions #Acute Asthma Exacerbation -Recieved 250mg Azithro IV in ED, will continue inpatient -Recieved 125mg IV solumedrol -Recieved duoneb x 2 in ED -TRC and Nebs as needed -Supplemental O2 to keep saturations above 92% -Mucinex for chronic cough -Dr White is aware of patients admission, will see her tomorrow -Start on IV steroids, with taper per Pulmonology -F/u CBC in the morning #Eosinophilia -Monitor CBC #Supratherapeutic INR -Will hold coumadin, follow up INR in the AM #Chronic Medical Conditions -Continue Home meds DVT PPx: ALPS only as patient has supratherapeutic INR DNR/DNI IV access Regular Diet Dispo: likely to home As Ranked By This Provider Problem List: 1. Asthma with acute exacerbation 2. Dyspnea Core Measures/Misc (02/22) Acute Coronary Syndrome ACS Diagnosis: No Congestive Heart Failure Congestive Heart Failure Diagnosis No Cerebrovascular Accident CVA/TIA Diagnosis: No VTE (View Protocol) VTE Risk Factors Age>40 No Mechanical VTE Prophylaxis d/t N/A MechProphylax Ordered No VTE Pharm Prophylaxis d/t Supratherapeutic INR Sepsis (View protocol) Sepsis Present: No If YES complete Sepsis Event Note If YES complete Sepsis Event Note BernardFunmi 01/16/182030: Core Measures/Misc (02/22) Sepsis (View protocol) If YES complete Sepsis Event Note If YES complete Sepsis Event Note Resident Review Statement Resident Statement: examined this patient, discussed with intern product marketing manager, agreed with intern product marketing manager, discussed with family, reviewed EMR data (avail), discussed with nursing , discussed with case mgmt, reviewed images, amended to note Other Findings: Ms. Knutson is a 77yo F w/ PMH of s/p open AVR on coumadin, COPD/Asthma on alb neb & O2 PRN, recurrent admissions for reactive airway exacerbation, presented to ER CC of worsening SOB w/ productive cough of whitish phlegm starting Thursday. 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 During our clinical interaction, patient denied recent travel/sick contacts, fever/lightheadedness/diaphoresis/night sweat/weight change/Chest Pain/ Palpitation/Abdominal pain/CVA tenderness/bowel movement or urinary abnormality, or other skin/musculoskeletal/neurological/mood disorders, or dietary/appetite change. -Smoking: denied -Alcohol: denied -Drugs: denied -Outpt physicians: Dr White for pulm, PCP On admission, Vitals: stable afeb, on 96% 2LNC. Physical exam as above. Pertinent findings include bilateral expiratory wheezing , accentuated S1S2 due to valve replacement. -CBC: WNL -CMP: WNL except ProBNP 337, trop -ve x1 -PT/INR/DDimer: 40.6/3.68 -CXR: Limited study secondary to patient positioning. Possible developing pneumonia at the left lung base. -EKG: NSR w/o significant ST-T abnormalities, unchanged from previous. -Last Echo: 06/[address] Brandon: Stage 2 diastolic dysfunction w/ RVSP 30mmhg. -Interventions in ER: Duonebs x 2, Zithromax IV, solumedrol 125 x 1, Problem list/Assessment/Hospital Course: #COPD/Asthma exacerbation 2/2 likely bronchitis #Acute bronchitis vs LLL CAP #Supratherapeutic INR #PMH of s/p open AVR on coumadin, COPD/Asthma on alb neb & O2 PRN - Admit to general medicine - Vitals per protocol, monitor I&O per protocol. - Supplemental O2 & TRC Nebs. Measure peak flow as well. - PT/OT in the AM per primary team - Patient's symptoms more likely represented acute bronchitis rather than LLL CAP based on no leukocytosis/fever. Although CXR report stated LLL pneumonia, but compared about the same to previous CXR. - Start solumedrol 40mg q8 and taper per clinical course. - Continue Zithromax PO 250mg x 4 more days starting T+1 - Continue all home meds, except HOLDING warfarin for now and recheck INR daily to dose. - Pending Pulm consult in the AM. - Pending cultures including sputum, urine antigens, etc. - Pain per pathway DVT prophylaxis Coumadin + ALPS Heart Healthy Diet IV Access: Peripheral IV DNR/DNI Dispo: [facility]18 0133: General Information and HPI MD Statement: I have seen and personally examined ZENIADAVIDMILLY G and documented this H&P. The patient is a 77 year old F who presented with a patient stated chief complaint of [shortness of breath]. Source of Information: patient Allergies/Medications Allergies: Coded Allergies: alendronate sodium (LIGHT HEADED, WOOZY PER PT 07/08/17) metronidazole (Mild, NAUSEA 07/08/17) risedronate sodium (From ACTONEL) (Mild, DIZZY 07/08/17) tamsulosin (Mild, NAUSEA 07/08/17) Past History Medical History Neurological: TIA Respiratory: asthma, O2 PRN Gastrointestinal: diverticulitis Surgical History Surgical History: appendectomy Past Family/Social History Psychosocial History Smoking Status: Smoker Current Stat [facility] ETOH Use: denies use Illicit Drug Use: denies illicit drug use Employment History Employment Retired Review of Systems Review of Systems Constitutional: Reports: see HPI. Exam & Diagnostic Data Last 24 Hrs of Vital Signs/I&O Vital Signs Date Time Temp Pulse Resp B/P B/P Pulse O2 O2 Flow FiO2 Mean Ox Delivery Rate 01/16 2207 97.6 85 20 110/70 94 Nasal Cannula 01/16 2121 Nasal 2.0L Cannula 01/16 2100 Nasal 1.5L Cannula 01/16 1957 97.6 81 22 127/76 95 Nasal 1.5L Cannula 01/16 1902 96 Nasal 2.0L Cannula 01/16 1850 97.9 83 20 132/60 93 Nasal 1.5L Cannula 01/16 1642 98.0 87 20 131/77 96 Nasal 1.5L Cannula 01/16 1556 96 Nasal 2.0L Cannula 01/16 1516 96 Nasal 2.0L Cannula 01/16 1428 96.0 88 20 134/83 95 Nasal 2.0L Cannula Intake & Output 01/17 0800 01/17 0000 01/16 1600 Intake Total 240 Output Total 250 Balance -10 Intake, Oral 240 Output, Urine 250 Patient 115 lb 114 lb Weight Weight Reported by Patient Reported by Patient Measurement Method Physical Exam General Appearance Alert, Oriented X3, Cooperative, No Acute Distress Skin No Rashes, No Breakdown Skin Temp/Moisture Exam: Warm/Dry Sepsis Skin Exam (color): Normal for Ethnicity HEENT Atraumatic, PERRLA, EOMI Neck Supple, No JVD Lymphatic Axillary nl, Cervical nl Cardiovascular Regular Rate, Normal S1, Normal S2, No Murmurs Lungs expiratory wheezes in all billings; diminished in the bases, four-five word dyspnea Abdomen Normal Bowel Sounds, Soft, No Tenderness Neurological Normal Speech Extremities No Edema, Normal Pulses Sepsis Peripheral Pulse Location: Dorsalis Pedis Sepsis Peripheral Pulse Exam: Normal Sepsis Cap Refill Exam: <2 Sec Last 24 Hrs of Labs/Emanuel: Laboratory Tests 01/17/18 0000: Urine Color YEL, Urine Clarity CLEAR, Urine pH 5.5, Ur Specific [place] >= 1.030 , Urine Protein NEG, Urine Ketones 15 H, Urine Nitrite NEG, Urine Bilirubin NEG , Urine Urobilinogen 0.2, Ur Leukocyte Esterase NEG, Ur Microscopic EXAM NOT REQUIRED, Urine Hemoglobin NEG, Urine Glucose >=1000 H 01/16/18 1755: Lactic Acid Cancelled 01/16/18 1454: Fsb-V-Shktenvuusp Pept Cancelled 01/16/18 1440: Lactic Acid 1.1 01/16/18 1440: Anion Gap 6, Estimated GFR > 60, BUN/Creatinine Ratio 36.7 H, Glucose 91, Calcium 9.0, Magnesium 2.2, Total Bilirubin 0.7, AST 31, ALT 28, Alkaline Phosphatase 64, Troponin I < 0.01, Vwf-E-Qnwvuduvcbp Pept 337 H, Total Protein 6.6, Albumin 4.2, Globulin 2.4, Albumin/Globulin Ratio 1.8, Cholesterol 242 H, PT 40.6 H, INR 3.68 H, CBC w Diff NO MAN DIFF REQ, RBC 4.64, MCV 91.7, MCH 30.5, MCHC 33.3, RDW 14.4, MPV 8.9, Gran % 55.1, Lymphocytes % 23.9, Monocytes % 8.1, Eosinophils % 12.1 H, Basophils % 0.8, Absolute Granulocytes 3.3, Absolute Lymphocytes 1.4, Absolute Monocytes 0.5, Absolute Eosinophils 0.7, Absolute Basophils 0 Microbiology 01/17 0000 URINE ROUT: Legionella Antigen - COMP 01/17 0000 URINE ROUT: Streptococcus pneumoniae Antigen (M - COMP 01/17 0000 LOWER RESP: Respiratory Culture - ORD 01/17 0000 LOWER RESP: Gram Stain - ORD Core Measures/Misc (02/22) Sepsis (View protocol) If YES complete Sepsis Event Note If YES complete Sepsis Event Note Attending MD Review Statement Attending Statement Attending MD Statement: examined this patient, discuss w/resident/PA/BOILER TUBE REAMER, agreed w/resident/PA/BOILER TUBE REAMER, reviewed EMR data (avail), amended to note Attending Assessment/Plan: This patient is a 77-year-old female with a significant past medical history for aortic stenosis s/p open aortic mechanical valve replacement on chronic coumadin , residential COPD/Asthma on home nebulized albuterol and PRN oxygen, diverticulitis, thyroid cancer, recent admission on 12/18/17 for acute asthma exacerbation and completed a steroid taper who presents to the ED for a 5 day history of progressively worsening shortness of breath associated with chronic productive cough w/o change of sputum color and increased use of rescue inhaler and nebulizers. She was in her normal state of health until 5 days prior to admission when she noticed she was getting increasingly short of breath while walking from the car to her mobile home. She started using her rescue inhaler and switched her advair from 250/50 to 500/50. Three days prior to admission she was using the rescuer inhaler and nebulizer without resolution of symptoms. On the day of admssion she was not able to take in a full breaths. Upon evaluation in the emergency department she was found to be hypoxic at 80% at the greeters desk, elevated eosinophils at 12%, INR 3.68, BUN 22, BNP 337, CXRpossible developing pneumonia at the left lung base, and EKG - no acute changes. The patient will be admitted [facility] for acute exacerbation of COPD and possible left lower lobe pneumonia. Oxygen, neb this, steroids and antibiotics. Pulmonary consult in the a.m. DNR/DNI Pulmonary consult in the a.m. DNR/DNI 01/17 0000 URINE ROUT: Streptococcus pneumoniae Antigen (M - COMP 01/17 0000 LOWER RESP: Respiratory Culture - ORD 01/17 0000 LOWER RESP: Gram Stain - ORD Core Measures/Misc (02/22) Sepsis (View protocol) If YES complete Sepsis Event Note If YES complete Sepsis Event Note Attending MD Review Statement Attending Statement Attending MD Statement: examined this patient, discuss w/resident/PA/BOILER TUBE REAMER, agreed w/resident/PA/BOILER TUBE REAMER, reviewed EMR data (avail), amended to note Attending Assessment/Plan: This patient is a 77-year-old female with a significant past medical history for aortic stenosis s/p open aortic mechanical valve replacement 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 She was in her normal state of health until 5 days prior to admission when she noticed she was getting increasingly short of breath while walking from the car to her mobile home. She started using her rescue inhaler and switched her advair from 250/50 to 500/50. Three days prior to admission she was using the rescuer inhaler and nebulizer without resolution of symptoms. On the day of admssion she was not able to take in a full breaths. Upon evaluation in the emergency department she was found to be hypoxic at 80% at the greeters desk, elevated eosinophils at 12%, INR 3.68, BUN 22, BNP 337, CXRpossible developing pneumonia at the left lung base, and EKG - no acute changes. The patient will be admitted to [facility] for acute exacerbation of COPD and possible left lower lobe pneumonia. Oxygen, neb this, steroids and antibiotics. Pulmonary consult in the a.m. DNR/DNI
[2018-01-16 22:07] VITALS: BP 110/70
[2018-01-17 07:00] VITALS: BP 118/68
[2018-01-17 08:45] LABS: PT 36.3 SEC (9.4-12.5)
--- NOTE | 2018-01-17 08:58 | PN- Housestaff ---
Alicia Harry 01/17/18 0858: Subjective Follow-up For: Dysnea Subjective: Patient was seen and examined at bedside. She says she feels a little better, though she has not walked yet. She reports she still has mild dysnea at rest. She denies fever, chilld, nausea, vomting, diarrhea, constipation. Review of Systems Constitutional: Reports: see HPI. Objective Last 24 Hrs of Vital Signs/I&O Vital Signs Date Time Temp Pulse Resp B/P B/P Pulse O2 O2 Flow FiO2 Mean Ox Delivery Rate 01/17 1534 97.5 92 22 102/60 96 01/17 1142 95 Nasal 2.0L Cannula 01/17 0814 94 Nasal 2.0L Cannula 01/17 0800 Nasal 1.5L Cannula 01/17 0700 97.5 80 20 118/68 96 Nasal 1.5L Cannula 01/17 0501 96 Nasal 2.0L Cannula 01/16 2207 97.6 85 20 110/70 94 Nasal Cannula 01/16 2121 Nasal 2.0L Cannula 01/16 2100 Nasal 1.5L Cannula 01/16 1957 97.6 81 22 127/76 95 Nasal 1.5L Cannula 01/16 1902 96 Nasal 2.0L Cannula 01/16 1850 97.9 83 20 132/60 93 Nasal 1.5L Cannula 01/16 1642 98.0 87 20 131/77 96 Nasal 1.5L Cannula Intake & Output 01/17 1600 01/17 0800 01/17 0000 Intake Total 980 360 240 Output Total 250 250 Balance 980 110 -10 Intake, Oral 980 360 240 Number 0 Bowel Movements Output, Urine 250 250 Patient 115 lb Weight Weight Reported by Patient Measurement Method Physical Exam General Appearance: Alert, Oriented X3, Cooperative, No Acute Distress Skin Temp/Moisture Exam: Warm/Dry Cardiovascular: Regular Rate, Normal S1, Normal S2 Lungs: b/l scattered wheezes Assessment/Plan Assessment: Catia Reed is a 77yo F with PMH aortic stenosis s/p open aortic mechanical valve replacement on chronic coumadin, half-way COPD/Asthma on home nebulized albuterol and 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 She has had multiple hospitalizations for acute asthma exacerbations, which she attributes to the humid weather we have been having. She is without leukocytosis or fevers but does have eosinophilia. Her CXR in the ED suggested possible LLL pneumonia although is unchanged from her previous. Differentials include Acute Asthma exacerbation, Acute Bronchitis, ?LLL Pneumonia although without fevers or leukocytosis, ?COPD exacerbation Problem List: 1.Acute Asthma Exacerbation 2.Eosinophilia 3.Mechanical aortic valve with supratherapeutic INR 4.Chronic Medical Conditions 1.Acute Asthma Exacerbation -Recieved 250mg Azithro IV in ED, will continue inpatient -Recieved 125mg IV solumedrol -Recieved duoneb x 2 in ED -Pulmonary input appreciated. Will follow up recommendations * Will order CT chest to rule out VTE * Will order Fexofenadine 20mg * Will order Singular * Will continue the patient on incentive spirometery -TRC and Nebs as needed -Supplemental O2 to keep saturations above 92% -Mucinex for chronic cough -F/u CBC in the morning 2.Eosinophilia -Monitor CBC 3.Supratherapeutic INR -Will hold coumadin, follow up INR in the AM #Chronic Medical Conditions -Continue Home meds DVT PPx: ALPS only as patient has supratherapeutic INR DNR/DNI IV access Regular Diet Dispo: likely to home Problem List: 1. Asthma with acute exacerbation 2. History of aortic valve replacement with metallic valve 3. Eosinophilia 4. Supratherapeutic INR Pain Ratin Pain Location: na Pain Goal: Remain pain free Pain Plan: na Tomorrow's Labs & Rationales: cbc and bep Chantale CLOUD,Amir 01/17/18 1153: Attending MD Review Statement Attending Statement Attending MD Statement: examined this patient, discuss w/resident/PA/CLEANING PROFESSIONAL, agreed w/resident/PA/CLEANING PROFESSIONAL, reviewed EMR data (avail), discussed with nursing Attending Assessment/Plan: Pt was seen and evaluated. Chart reviewed. --appreciate Pulm consult --cont IV steroids/IC --cont home meds --rest of the plan as per resident's note
--- NOTE | 2018-01-17 11:46 | Cons- Pulmonary ---
General Information and HPI Consulting Request Date of Consult: 01/17/18 Requested By: Dr. Ledezma Reason for Consult: asthma exacerbation Source of Information: patient Exam Limitations: no limitations History of Present Illness: Consultation for exacerbation of asthma. 77-year-old woman with significant history of asthma. Recent admit for exacerbation of asthma in December. She is compliant with her medications and is a nonsmoker. Overall she's feeling somewhat better but her wheezing has been severe and she is still dyspneic requiring iv steroids and trc/nebs. No chest pain no palpitations no nausea vomiting or diarrhea or headaches. She takes Rohini and Singulair at home and feels that seasonal allergies may have caused an exacerbation in her issues. CXR shows a vague opacification of the LLL. Allergies/Medications Allergies: Coded Allergies: alendronate sodium (LIGHT HEADED, WOOZY PER PT 07/08/17) metronidazole (Mild, NAUSEA 07/08/17) risedronate sodium (From ACTONEL) (Mild, DIZZY 07/08/17) tamsulosin (Mild, NAUSEA 07/08/17) Home Med List: Ascorbate Calcium (Vitamin C) 500 MG TABLET SUPPLEMENT (Reported) Calcium (Elemental-Fr Calcarb) (Calcium) 600 MG CALCIUM (1,500 MG) TABLET 1 CAP PO DAILY SUPPLEMENT (Reported) Fluticasone/Salmeterol (Advair 250-50 Diskus) 250 MCG-50 MCG/DOSE BLST.W.DEV 1 PUF INH BID ASTHMA (Reported) Levothyroxine Sodium 112 MCG TABLET 1 TAB PO DAILY THYROID (Reported) Montelukast Sodium 10 MG TABLET 1 TAB PO DAILY hypereosinophilia (Reported) Multivitamin (One Daily Multivitamin) 1 EACH TABLET 1 TAB PO DAILY SUPPLEMENT (Reported) Warfarin Sodium (Coumadin) 2.5 MG TABLET 3.75 MG PO DAILY AORTIC VALVE REPLACEMENT (Reported) Please dose Coumadin to keep the INR between 2.5-3.5 TAKES 3.5 MG [id number] AND 5 MG ON SUNDAYS AND THURSDAYS Current Medications: Current Medications Sig/Corby Start time Last Medication Dose Route Stop Time Status Admin Acetaminophen 650 MG Q6P PRN 01/16 2130 AC 01/17 PO 1111 Albuterol Sulfate 3 ML EVERY 4 HRS/AWAKE 01/17 1200 AC 01/17 INH 1135 Albuterol Sulfate 3 ML TID 01/17 0900 DC 01/17 INH 0809 Albuterol Sulfate 3 ML ONCE ONE 01/16 1715 DC 08/ INH 01/16 1716 1901 Albuterol Sulfate 3 ML ONCE ONE / 1515 DC 08/11 INH 01/16 1516 1555 Azithromycin 250 MG DAILY 01/17 0900 AC 01/17 PO 0944 Azithromycin 500 MG ONCE ONE 01/16 1600 DC 01/16 Sodium Chloride 250 ML IV 01/16 1659 1625 Budesonide/ 2 PUF BID 01/17 0900 AC 01/17 Formoterol Fumarate INH 0944 Guaifenesin 600 MG Q12 01/17 0200 AC 01/17 PO 0418 Ipratropium [place] 2.5 ML ONCE ONE 01/16 1715 DC 08/ INH 01/16 1716 1901 Ipratropium [place] 2.5 ML ONCE ONE 01/16 1515 DC 08/ INH 01/16 1516 1555 Levothyroxine Sodium 0.112 MG 2100 01/17 0030 AC 01/17 PO 0418 Methylprednisolone 40 MG Q8 01/17 0600 AC 01/17 IV 01/20 2201 0617 Methylprednisolone 0 .STK-MED ONE 01/16 1537 DC .ROUTE Methylprednisolone 125 MG ONCE ONE 01/16 1515 DC 08 IV 01/16 1516 1540 Montelukast Sodium 10 MG DAILY 01/17 0900 AC 01/17 PO 0944 Review of Systems Comments 18 point review of systems was performed and reviewed. Please see pertinent positives and pertinent negatives in the HPI. Otherwise ROS is negative. Past History Travel History Traveled to [place] past 21 day No Medical History Blood Transfusion Hx: No Neurological: TIA EENT: NONE Cardiovascular: AORTIC VALVE REPLACEMENT Respiratory: asthma, O2 PRN Gastrointestinal: diverticulitis Hepatic: NONE Renal: NONE Musculoskeletal: NONE Psychiatric: NONE Endocrine: NONE Blood Disorders: NONE Cancer(s): thyroid cancer HEATER HELPER/Reproductive: NONE Surgical History Surgical History: appendectomy Family History Relations & Conditions If Any: Relation not specified for: *No pertinent family history Psychosocial History Where Do You Live? Home Who Do You Live With? spouse Services at Home: None Primary Language: Tamaz[place] Smoking Status: Smoker Current Stat Ukn ETOH Use: denies use Illicit Drug Use: denies illicit drug use Living Will? yes (DNR/DNI) Functional Ability ADLs Independent: dressing, eating, toileting, bathing. Ambulation: independent IADLs Independent: shopping, housework, finances, food prep, telephone, transportation , medication admin. Employment History Employment: Retired Exam & Diagnostic Data Last 24 Hrs of Vital Signs/I&O Vital Signs Date Time Temp Pulse Resp B/P B/P Pulse O2 O2 Flow FiO2 Mean Ox Delivery Rate 01/17 1142 95 Nasal 2.0L Cannula 01/17 0814 94 Nasal 2.0L Cannula 01/17 0800 Nasal 1.5L Cannula 01/17 0700 97.5 80 20 118/68 96 Nasal 1.5L Cannula 01/17 0501 96 Nasal 2.0L Cannula 01/16 2207 97.6 85 20 110/70 94 Nasal Cannula 01/16 2121 Nasal 2.0L Cannula 01/16 2100 Nasal 1.5L Cannula 01/16 1957 97.6 81 22 127/76 95 Nasal 1.5L Cannula 01/16 1902 96 Nasal 2.0L Cannula 01/16 1850 97.9 83 20 132/60 93 Nasal 1.5L Cannula 01/16 1642 98.0 87 20 131/77 96 Nasal 1.5L Cannula 01/16 1556 96 Nasal 2.0L Cannula 01/16 1516 96 Nasal 2.0L Cannula 01/16 1428 96.0 88 20 134/83 95 Nasal 2.0L Cannula Intake & Output 01/17 1600 01/17 0800 01/17 0000 Intake Total 360 240 Output Total 250 250 Balance 110 -10 Intake, Oral 360 240 Output, Urine 250 250 Patient 115 lb Weight Weight Reported by Patient Measurement Method Physical Exam Other Physical Findings: Generally - Awake, alert Head and neck - normocephalic, atraumatic, EOMI grossly intact Cardiovascular - S1, S2, +murmur Lungs -bilateral scattered wheezing Abdomen - Bowel sounds positive, soft, non-tender Extremities - without edema Last 48 Hrs of Labs/Emanuel: Laboratory Tests 01/17/18 0604: PT 36.3 H, INR 3.29 H 01/17/18 0000: Urine Color YEL, Urine Clarity CLEAR, Urine pH 5.5, Ur Specific [place] >= 1.030 , Urine Protein NEG, Urine Ketones 15 H, Urine Nitrite NEG, Urine Bilirubin NEG , Urine Urobilinogen 0.2, Ur Leukocyte Esterase NEG, Ur Microscopic EXAM NOT REQUIRED, Urine Hemoglobin NEG, Urine Glucose >=1000 H 01/16/18 1755: Lactic Acid Cancelled 01/16/18 1454: Uvw-H-Fgpctqqbxyd Pept Cancelled 01/16/18 1440: Lactic Acid 1.1 01/16/18 1440: Anion Gap 6, Estimated GFR > 60, BUN/Creatinine Ratio 36.7 H, Glucose 91, Calcium 9.0, Magnesium 2.2, Total Bilirubin 0.7, AST 31, ALT 28, Alkaline Phosphatase 64, Troponin I < 0.01, Opa-P-Psyzunerxku Pept 337 H, Total Protein 6.6, Albumin 4.2, Globulin 2.4, Albumin/Globulin Ratio 1.8, Cholesterol 242 H, PT 40.6 H, INR 3.68 H, CBC w Diff NO MAN DIFF REQ, RBC 4.64, MCV 91.7, MCH 30.5, MCHC 33.3, RDW 14.4, MPV 8.9, Gran % 55.1, Lymphocytes % 23.9, Monocytes % 8.1, Eosinophils % 12.1 H, Basophils % 0.8, Absolute Granulocytes 3.3, Absolute Lymphocytes 1.4, Absolute Monocytes 0.5, Absolute Eosinophils 0.7, Absolute Basophils 0 Microbiology 01/17 0000 URINE ROUT: Legionella Antigen - COMP 01/17 URINE ROUT: Streptococcus pneumoniae Antigen (M - COMP Assessment/Plan Impression/Plan: Impression 77-year-old woman with a significant history of asthma here with exacerbation of asthma likely secondary to seasonal allergies Plan -continue Solu-Medrol 40 mg IV every 8 hours -check CT chest without contrast to evaluate lung parenchyma, minimal suspicion for VTE given elevated INR on coumadin -monitor peak flow q shift -TRC nebs -Continue home medications -Continue Singulair -add anti-histamine - non-drowsy that is on formularly - takes Rohini - Fexofenadine-can try 20mg daily (2 pills) -Nebulizer therapy -Out of bed as tolerated -Ensure patient has incentive spirometer DVT prophylaxis at all times Consult Acknowledgment - Thank you for your consult request.
[2018-01-17 15:34] VITALS: BP 102/60
--- NOTE | 2018-01-17 15:58 | CT SCAN REPORT ---
EXAMINATION: CT CHEST WITHOUT CONTRAST CLINICAL INFORMATION: Shortness of breath. COMPARISON: Chest x-ray 01/16/2018, CTA chest 06/20/2016 TECHNIQUE: Multidetector volumetric CT imaging of the chest was done. Axial MIP volume rendering provided. Sagittal and coronal reformatted images were obtained. DLP: 178 mGy-cm FINDINGS: LUNGS: There is linear atelectasis versus scarring at the left lung base. The lingula is clear. The remainder of the lungs are clear. No focal consolidation or effusion. The airways are patent to the subsegmental level. MEDIASTINUM: The heart size is within normal limits. There is no significant pericardial effusion. Aortic valvular prosthesis is noted. There is post valvular dilatation of the ascending thoracic aorta which measures approximately 4.4 x 4.1 cm. The diameter of the aorta more superiorly is less dilated measuring 3.5 x 2.9 cm. There is atherosclerotic calcification of the ascending thoracic aorta to the level of the arch. The descending thoracic aorta is normal in caliber. A precarinal lymph node measures 1.1 cm in short axis diameter. PLEURA: There is no pleural effusion. No pleural mass or thickening. AXILLA: No lymphadenopathy. UPPER ABDOMEN: Stable scattered hypoattenuating lesions within the liver. Visualized upper abdomen is otherwise unremarkable. OSSEOUS STRUCTURES: Median sternotomy. Multilevel degenerative changes of the mid and lower thoracic spine. IMPRESSION: 1. No pneumonia. No acute cardiopulmonary process. Left lower lobe linear atelectasis versus scarring. 2. 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 Correlation with history recommended. Consider vascular surgery consultation if not previously performed. The overall diameter of the ascending thoracic aorta does not appear substantially changed compared to the CT 06/20/2016. 3. Stable liver lesions, presumably cysts.
[2018-01-17 22:28] VITALS: BP 108/68
[2018-01-18 06:23] VITALS: BP 110/70
--- NOTE | 2018-01-18 07:18 | PN- Housestaff ---
KamrynAlicia 01/18/18 0718: Subjective Follow-up For: Acute asthma exacerbation Subjective: The patient was seen and examined at bedside. She says she feels much better today. She does not feel short of breatih and she has been getting out of bed and walking. She denies fever, chills, nausea, vomiting, chest pain. dizziness, weakness. Review of Systems Constitutional: Reports: see HPI. Objective Last 24 Hrs of Vital Signs/I&O Vital Signs Date Time Temp Pulse Resp B/P B/P Pulse O2 O2 Flow FiO2 Mean Ox Delivery Rate 01/18 0623 97.8 80 18 110/70 93 Nasal 1.5L Cannula 01/18 0000 93 Nasal 1.5L Cannula 01/17 2228 97.7 83 18 108/68 93 Nasal Cannula 01/17 1635 93 Nasal 1.5L Cannula 01/17 1600 Nasal 1.5L Cannula 01/17 1534 97.5 92 22 102/60 96 01/17 1142 95 Nasal 2.0L Cannula Intake & Output 01/18 1600 01/18 0800 01/18 0000 Intake Total 370 Output Total Balance 370 Intake, IV 10 Intake, Oral 360 Patient 118 lb Weight Physical Exam General Appearance: Alert, Oriented X3, Cooperative, No Acute Distress Neck: Supple Cardiovascular: Regular Rate, Normal S1, Normal S2, No Murmurs Lungs: B/l scattered wheezes Abdomen: Normal Bowel Sounds, Soft, No Tenderness Assessment/Plan Assessment: Catia Reed is a 77yo F with PMH aortic stenosis s/p open aortic mechanical valve replacement on chronic coumadin, skilled nursing COPD/Asthma on home nebulized albuterol and 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 She has had multiple hospitalizations for acute asthma exacerbations, which she attributes to the humid weather we have been having. She is without leukocytosis or fevers but does have eosinophilia. Her CXR on admission did show an evidence of a pneumonia but the findings were unchanged from her previous X-rays. Differentials include Acute Asthma exacerbation, Acute Bronchitis, ?LLL Pneumonia ruled out by a normal CT scan, COPD exacerbation Problem List: 1.Acute Asthma Exacerbation 2.Eosinophilia 3.Mechanical aortic valve with supratherapeutic INR 4.Chronic Medical Conditions 1.Acute Asthma Exacerbation -Recieved 250mg Azithro IV in ED, will continue inpatient -Recieved 125mg IV solumedrol in the ED. currently on 40mg , Dr. White would consider a steorid taper on 01/19. -Recieved duoneb x 2 in ED -Pulmonary input appreciated. 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 We would give the patient copies of her CT to f/u with on in [place] * Patient was started on Loratidine 10mg BID * Patient was started on Singular * Will continue the patient on incentive spirometery -TRC and Nebs as needed -Supplemental O2 to keep saturations above 92% -Mucinex for chronic cough -We are stopping Azithromycin for the patient -F/u CBC in the morning 2.Eosinophilia -0.1% down from 12% 3.Supratherapeutic INR -INR 3.1 today -Will hold coumadin, follow up INR in the AM #Chronic Medical Conditions -Continue Home meds DVT PPx: ALPS only as patient has supratherapeutic INR DNR/DNI IV access Regular Diet Problem List: 1. Supratherapeutic INR 2. Eosinophilia 3. Dyspnea 4. Asthma with acute exacerbation Pain Ratin Pain Location: na Pain Goal: Remain pain free Pain Plan: na Tomorrow's Labs & Rationales: cbc with Ignacio Whipple 01/18/18 1500: Attending MD Review Statement Attending Statement Attending MD Statement: examined this patient, discuss w/resident/PA/FOOD SERVICE KITCHEN SUPERVISOR, agreed w/resident/PA/FOOD SERVICE KITCHEN SUPERVISOR, reviewed EMR data (avail), discussed with nursing, discussed with case mgmt Attending Assessment/Plan: asthma exacerbation- currently on iv steroids. will d/w pulm and see if they are ok with tapering her steroids. Stop azithormycin today. CT showed no pneumonia. AVR in 2005 with mech valve on coumadin. INR 3.04. will restart her back on coumadin on a lower dose than her home dose. will give her 2.5mg coumadin today.
--- NOTE | 2018-01-18 09:08 | PN- Pulmonary ---
Subjective HPI/Critical Care Issues: pt seen and examined improved wheezing peak flow 150 CT chest reviewed, LLL atelectasis/scarring, marked ectasia of ascending aorta no n/v/d/c no zarate no cp Objective Current Medications: Current Medications Sig/[place]by Start time Last Medication Dose Route Stop Time Status Admin Acetaminophen 650 MG Q6P PRN 01/16 2130 AC 01/17 PO 1111 Albuterol Sulfate 3 ML EVERY 4 HRS/AWAKE 01/17 1200 AC 01/17 INH 202 Albuterol Sulfate 3 ML TID 01/17 09 DC 01/17 INH 08 Azithromycin 250 MG DAILY 01/17 09 DC 01/17 PO 0944 Budesonide/ 2 PUF BID 01/17 09 AC 01/18 Formoterol Fumarate INH 0904 Guaifenesin 600 MG Q12 01/17 0200 AC 01/18 PO 0904 Levothyroxine Sodium 0.112 MG 2100 01/17 0030 AC 01/17 PO 2042 Loratadine 10 MG DAILY 01/17 1835 CAN PO Loratadine 10 MG DAILY 01/17 1612 AC 01/18 PO 0904 Methylprednisolone 40 MG Q8 01/17 0600 AC 01/18 IV 01/20 2201 0606 Montelukast Sodium 10 MG DAILY 01/17 09 AC 01/18 PO 0904 Vital Signs & I&O Last 24 Hrs of Vitals and I&O: Vital Signs Date Time Temp Pulse Resp B/P B/P Pulse O2 O2 Flow FiO2 Mean Ox Delivery Rate 01/18 0623 97.8 80 18 110/70 93 Nasal 1.5L Cannula 01/18 0000 93 Nasal 1.5L Cannula 01/17 2228 97.7 83 18 108/68 93 Nasal Cannula 01/17 1635 93 Nasal 1.5L Cannula 01/17 1600 Nasal 1.5L Cannula 01/17 1534 97.5 92 22 102/60 96 01/17 1142 95 Nasal 2.0L Cannula Intake & Output 01/18 1600 01/18 0800 01/18 0000 Intake Total 260 370 Output Total Balance 260 370 Intake, IV 20 10 Intake, Oral 240 360 Patient 118 lb Weight Exam Other Physical Findings: Generally - Awake, alert Head and neck - normocephalic, atraumatic, EOMI grossly intact Cardiovascular - S1, S2, +murmur Lungs -bilateral scattered wheezing Abdomen - Bowel sounds positive, soft, non-tender Extremities - without edema Impression/Plan Impression/Plan Impression/Plan: Impression 77-year-old woman with a significant history of asthma here with exacerbation of asthma likely secondary to seasonal allergies. Ectasia of aorta. Plan -continue Solu-Medrol 40 mg IV every 8 hours for now - will plan to taper 01/19 -CT reviewed - pt is under the care of Dr. Bull in [place] - she should get a copy of the CT chest report so it can be reviewed by him to commen on ectasia of ascending aorta -monitor peak flow q shift -[facility] nebs -Continue home medications -Continue Singulair -continue anti-histamine -Out of bed as tolerated -Ensure patient has incentive spirometer DVT prophylaxis at all times
[2018-01-18 10:28] LABS: PT 33.5 SEC (9.4-12.5)
[2018-01-18 10:56] LABS: ABSOLUTE BASOPHIL COUNT 0 /CUMM (0.0-0.2); ABSOLUTE EOSINOPHIL COUNT 0 /CUMM (0.0-0.7); ABSOLUTE GRANULOCYTE CT 7.9 /CUMM (1.4-6.5); ABSOLUTE LYMPH COUNT 0.7 /CUMM (1.2-3.4); ABSOLUTE MONOCYTE COUNT 0.1 /CUMM (0.10-0.60); BASOPHIL % 0.1 % (0.0-2.0); EOSINOPHIL % 0.1 % (0-5); HEMATOCRIT 43.2 % (37-47); MEAN CORPUSCULAR HGB 30.8 PG (27.0-31.0); MEAN CORPUSCULAR HGB CONC 33.5 G/DL (33.0-37.0); MEAN CORPUSCULAR VOLUME 91.8 FL (81.0-99.0); MEAN PLATELET VOLUME 9.5 FL (7.4-10.4); PLATELET COUNT 249 /CUMM (130-400); RBC DISTRIBUTION WIDTH 14.9 % (11.5-14.5); RED BLOOD CELL CT 4.71 /CUMM (4.20-5.40); WHITE BLOOD CELL COUNT 8.8 /CUMM (4.8-10.8)
[2018-01-18 12:32] LABS: GRANULOCYTE % 90.4 % (42.2-75.2)
[2018-01-18 15:11] VITALS: BP 112/70
[2018-01-18 22:05] VITALS: BP 102/70
[2018-01-19 06:08] VITALS: BP 108/66
--- NOTE | 2018-01-19 07:20 | PN- Housestaff ---
See Addendum Subjective Follow-up For: Acute asthma exacerbation Subjective: Patient was seen and examined at bedside. She was taken off Oxygen last night and had been saturating well (92-94%). She said she went down to 90% when walking. This morning when I saw her, she had just walked back to her bed form the bathroom. She was visibly short of breath. A pulse ox showed saturation of 80%. I put her back on 1.5 L Oxygen and informed respirtory for treatment. She does report pounding of her heart when she gets short of breath. She denies fever, chills, nausea, vomiting, chest pain or dizziness. Review of Systems Constitutional: Reports: see HPI. Objective Last 24 Hrs of Vital Signs/I&O Vital Signs Date Time Temp Pulse Resp B/P B/P Pulse O2 O2 Flow FiO2 Mean Ox Delivery Rate 01/19 0608 97.9 85 20 108/66 94 Room Air 01/19 0000 92 Room Air 01/18 2205 97.8 80 20 102/70 98 Nasal 1.5L Cannula 01/18 1610 92 Room Air 01/18 1551 Room Air 01/18 1511 97.8 87 20 112/70 94 Nasal 1.5L Cannula 01/18 0918 94 Nasal 2.0L Cannula Intake & Output 01/19 1600 01/19 0800 01/19 0000 Intake Total 480 800 Output Total Balance 480 800 Intake, Oral 480 800 Physical Exam General Appearance: Alert, Oriented X3, Cooperative, Mild Distress Skin Temp/Moisture Exam: Cool/Dry Neck: Supple Cardiovascular: Regular Rate, Gallop sounds heard in the aortic region Lungs: b/l wheezes Abdomen: Normal Bowel Sounds, Soft, No Tenderness Assessment/Plan Assessment: is a 77yo F with PMH aortic stenosis s/p open aortic mechanical valve replacement on chronic coumadin, mcc Asthma on home nebulized albuterol, diverticulitis, thyroid cancer, recent admission on 12/18/17 for acute asthma exacerbation and completed a steroid taper is admitted for acute asthma exacerbation associated with productive cough. She has had multiple hospitalizations for acute asthma exacerbations, which she attributes to the humid weather we have been having. She is without leukocytosis or fevers. She did have eosiphilia on presentation which has resolved. Her CXR on admission did show an evidence of a pneumonia but the findings were unchanged from her previous X-rays. Problem List: 1.Acute Asthma Exacerbation 2.Mechanical aortic valve with supratherapeutic INR 3.Chronic Medical Conditions 1.Acute Asthma Exacerbation -Recieved 250mg Azithro IV in ED, will continue inpatient -Steroid tapered down to 40mg q12 h -Recieved duoneb x 2 in ED -Pulmonary input appreciated. 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 We would give the patient copies of her CT to f/u with on in [place] * Patient was started on Loratidine 10mg BID * Patient was started on Singular * Will continue the patient on incentive spirometery -TRC and Nebs as needed -Supplemental O2 to keep saturations above 92% -Mucinex for chronic cough 2.Eosinophilia -0.1% down from 12% 3.Supratherapeutic INR -INR 1.86 today -We have started her on Coumadin. We will re-check her INR in the morning. DVT PPx: ALPS DNR/DNI IV access Regular Diet Problem List: 1. Asthma with acute exacerbation 2. History of aortic valve replacement Pain Ratin Pain Location: na Pain Goal: Remain pain free Pain Plan: na Tomorrow's Labs & Rationales: cbc, bep and PT/INR
--- NOTE | 2018-01-19 08:51 | PN- Pulmonary ---
Subjective HPI/Critical Care Issues: pt seen and examined overall improved, however significant dyspnea with exertion today requiring o2 no n/v/d/c no cp no zarate afebrile Objective Current Medications: Current Medications Sig/Corby Start time Last Medication Dose Route Stop Time Status Admin Acetaminophen 650 MG Q6P PRN 01/16 2130 AC 01/17 PO 1111 Albuterol Sulfate 3 ML EVERY 4 HRS/AWAKE 01/17 1200 AC 01/19 INH 0816 Azithromycin 250 MG DAILY 01/17 0900 DC 01/17 PO 0944 Budesonide/ 2 PUF BID 01/17 09 AC 01/18 Formoterol Fumarate INH 2108 Guaifenesin 600 MG Q12 01/17 0200 AC 01/18 PO 210 Levothyroxine Sodium 0.112 MG 2100 01/17 0030 AC 01/18 PO 210 Loratadine 10 MG DAILY 01/17 1612 AC 01/18 PO 0904 Methylprednisolone 40 MG Q8 01/17 0600 AC 01/19 IV 01/20 2201 0555 Montelukast Sodium 10 MG DAILY 01/17 0900 AC 01/18 PO 0904 Vital Signs & I&O Last 24 Hrs of Vitals and I&O: Vital Signs Date Time Temp Pulse Resp B/P B/P Pulse O2 O2 Flow FiO2 Mean Ox Delivery Rate 01/19 0608 97.9 85 20 108/66 94 Room Air 01/19 0000 92 Room Air 01/18 2205 97.8 80 20 102/70 98 Nasal 1.5L Cannula 01/18 1610 92 Room Air 01/18 1551 Room Air 01/18 1511 97.8 87 20 112/70 94 Nasal 1.5L Cannula 01/18 0918 94 Nasal 2.0L Cannula Intake & Output 01/19 1600 01/19 0800 01/19 0000 Intake Total 480 800 Output Total Balance 480 800 Intake, Oral 480 800 Exam Other Physical Findings: Generally - Awake, alert Head and neck - normocephalic, atraumatic, EOMI grossly intact Cardiovascular - S1, S2, +murmur Lungs - rare rhonchi scattered Abdomen - Bowel sounds positive, soft, non-tender Extremities - without edema Results Last 24 Hrs of Lab Results: Laboratory Tests 01/19/18 0610: Sodium Pending, Potassium Pending, Chloride Pending, Carbon Dioxide Pending, Anion Gap Pending, BUN Pending, Creatinine Pending, BUN/Creatinine Ratio Pending 01/18/18 0919: Anion Gap 12, Estimated GFR > 60, BUN/Creatinine Ratio 31.7 H, PT 33.5 H, INR 3.04 H, CBC w Diff NO MAN DIFF REQ, RBC 4.71, MCV 91.8, MCH 30.8, MCHC 33.5, RDW 14.9 H, MPV 9.5, Gran % 90.4 H, Lymphocytes % 8.1 L, Monocytes % 1.3 L, Eosinophils % 0.1, Basophils % 0.1, Absolute Granulocytes 7.9 H, Absolute Lymphocytes 0.7 L, Absolute Monocytes 0.1, Absolute Eosinophils 0, Absolute Basophils 0 Impression/Plan Impression/Plan Impression/Plan: Impression 77-year-old woman with a significant history of asthma here with exacerbation of asthma likely secondary to seasonal allergies. Ectasia of aorta. Plan -REDUCE solumedrol to 40mg iv q12h, tomorrow can taper to po prednisone and plan for discharge tomorrow if no events. Can taper with prednisone [id number], 50x2, 40x2, 30x2, 20x2, then leave on 10mg until re-evaluated in the office -CT reviewed - pt is under the care of Dr. Bull in [place] - she should get a copy of the CT chest report so it can be reviewed by him to commen on ectasia of ascending aorta -monitor peak flow q shift -[facility] nebs -Continue home medications -Continue Singulair -continue anti-histamine -Out of bed as tolerated -Ensure patient has incentive spirometer DVT prophylaxis at all times
[2018-01-19 11:22] LABS: PT 20.4 SEC (9.4-12.5)
[2018-01-19 14:01] VITALS: BP 140/70
[2018-01-19 21:41] VITALS: BP 112/70
[2018-01-20 05:55] VITALS: BP 110/50
--- NOTE | 2018-01-20 07:42 | PN- Housestaff ---
CholoAlicia 01/20/18 0742: Subjective Follow-up For: Acute Asthma Flare up Subjective: Patient was seen and examined at bedside. She has been off oxygen since 4:00 last evening and is saturating well. She states she feels better and has not been short of breath since. She denies fever, chills, chest pain, nausea, vomiting, diarrhea, constipation. Review of Systems Constitutional: Reports: see HPI. Objective Last 24 Hrs of Vital Signs/I&O Vital Signs Date Time Temp Pulse Resp B/P B/P Pulse O2 O2 Flow FiO2 Mean Ox Delivery Rate 01/20 0909 95 Room Air 01/20 0555 97.5 75 20 110/50 94 01/20 0000 92 Room Air 01/19 2141 97.4 68 20 112/70 92 01/19 2025 92 Room Air Room Air 01/19 1631 94 Nasal 0.5L Cannula 01/19 1557 Nasal 0.5L Cannula Intake & Output 01/20 1600 01/20 0800 01/20 0000 Intake Total 360 700 Output Total Balance 360 700 Intake, Oral 360 700 Physical Exam General Appearance: Alert, Oriented X3, Cooperative, No Acute Distress Skin: No Rashes Neck: Supple Cardiovascular: Regular Rate, Normal S1, mechanical valve in place Lungs: b/l scattered wheezes Abdomen: Normal Bowel Sounds, Soft, No Tenderness Assessment/Plan Assessment: is a 77yo F with PMH aortic stenosis s/p open aortic mechanical valve replacement on chronic coumadin, alf Asthma on home nebulized albuterol, diverticulitis, thyroid cancer, recent admission on 12/18/17 for acute asthma exacerbation and completed a steroid taper is admitted for acute asthma exacerbation associated with productive cough. She has had multiple hospitalizations for acute asthma exacerbations, which she attributes to the humid weather we have been having. She is without leukocytosis or fevers. She did have eosiphilia on presentation which has resolved. Her CXR on admission did show an evidence of a pneumonia but the findings were unchanged from her previous X-rays. Problem List: 1.Acute Asthma Exacerbation 2.Mechanical aortic valve with supratherapeutic INR 3.Chronic Medical Conditions 1.Acute Asthma Exacerbation -Steroid tapered down to 60mg PO -Pulmonary input appreciated. 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 We would give the patient copies of her CT to f/u with on in [place] * Continue loratadine 10 mg twice daily * Continue Singulair * The patient is likely to be discharged home on a steroid taper today. * She would continue with incentive spirometry at home after discharge from the hospital -TR and Nebs as needed -Supplemental O2 to keep saturations above 92% -Mucinex for chronic cough 2.Eosinophilia -0.1% down from 12% 3.Supratherapeutic INR -INR 1.79 today -She is currently on Coumadin The patient is being discharged home today on a steroid taper. She will follow up with Dr. White as an outpatient. DVT PPx: ALPS DNR/DNI IV access Regular Diet Problem List: 1. History of aortic valve replacement 2. Asthma exacerbation Pain Ratin Pain Location: na Pain Goal: Remain pain free Pain Plan: na Tomorrow's Labs & Rationales: Bruno Michael 01/20/18 1106: Attending MD Review Statement Attending Statement Attending MD Statement: examined this patient, discuss w/resident/PA/COMMISSARY AGENT, agreed w/resident/PA/COMMISSARY AGENT, discussed with family, reviewed EMR data (avail), discussed with nursing, discussed with case mgmt, reviewed images, amended to note Attending Assessment/Plan: Agree with plan above. Needs outpatient follow up with Pulmonary Dr White and also continue with prednisone taper.
[2018-01-20 08:14] LABS: ABSOLUTE BASOPHIL COUNT 0 /CUMM (0.0-0.2); ABSOLUTE EOSINOPHIL COUNT 0 /CUMM (0.0-0.7); ABSOLUTE GRANULOCYTE CT 4.6 /CUMM (1.4-6.5); ABSOLUTE LYMPH COUNT 1.3 /CUMM (1.2-3.4); ABSOLUTE MONOCYTE COUNT 0.4 /CUMM (0.10-0.60); BASOPHIL % 0.2 % (0.0-2.0); EOSINOPHIL % 0 % (0-5); GRANULOCYTE % 73.4 % (42.2-75.2); HEMATOCRIT 41.2 % (37-47); MEAN CORPUSCULAR HGB 30.7 PG (27.0-31.0); MEAN CORPUSCULAR HGB CONC 33.3 G/DL (33.0-37.0); MEAN CORPUSCULAR VOLUME 92.2 FL (81.0-99.0); MEAN PLATELET VOLUME 9.3 FL (7.4-10.4); PLATELET COUNT 215 /CUMM (130-400); RBC DISTRIBUTION WIDTH 14.6 % (11.5-14.5); RED BLOOD CELL CT 4.47 /CUMM (4.20-5.40); WHITE BLOOD CELL COUNT 6.3 /CUMM (4.8-10.8)
[2018-01-20 08:18] LABS: PT 19.6 SEC (9.4-12.5)
--- NOTE | 2018-01-20 08:51 | Discharge Summary ---
Hospital Course Allergies: Coded Allergies: alendronate sodium (LIGHT HEADED, WOOZY PER PT 07/08/17) metronidazole (Mild, NAUSEA 07/08/17) risedronate sodium (From ACTONEL) (Mild, DIZZY 07/08/17) tamsulosin (Mild, NAUSEA 07/08/17) Discharge Instructions Medications at Discharge Discharge Medications: Stop taking the following medications: Denosumab (Prolia) 60 MG/ML SYRINGE INJECTABLE Q6M Fluticasone/Salmeterol (Advair 500-50 Diskus) 500 MCG-50 MCG/DOSE BLST.W.DEV Inhale through mouth TWICE DAILY Qty = 60 Albuterol Sulfate (Albuterol Sulfate) 2.5 MG/3 ML (0.083 %) VIAL.NEB Inhale Solution THREE TIMES DAILY Qty = 540 Ergocalciferol (Vitamin D2) (Vitamin D2) 50,000 UNIT CAPSULE ORAL EVERY 2 WEEKS Qty = 6 Prednisone (Prednisone) 10 MG TABLET ORAL DAILY Qty = 18 Fexofenadine HCl (Rohini Allergy) 60 MG TABLET ORAL TWICE DAILY Qty = 60
--- NOTE | 2018-01-20 08:56 | PN- Pulmonary ---
Subjective HPI/Critical Care Issues: pt seen and examined feeling better peak flow 220 from 150 ambulated without oxygen Objective Current Medications: Current Medications Sig/Corby Start time Last Medication Dose Route Stop Time Status Admin Acetaminophen 650 MG Q6P PRN 01/16 2130 AC 01/17 PO 1111 Albuterol Sulfate 3 ML EVERY 4 HRS/AWAKE 01/17 1200 AC 01/20 INH 0854 Budesonide/ 2 PUF BID 01/17 0900 AC 01/19 Formoterol Fumarate INH 2106 Guaifenesin 600 MG Q12 01/17 0200 AC 01/19 PO 2106 Levothyroxine Sodium 0.112 MG 2100 01/17 0030 AC 01/19 PO 2106 Loratadine 10 MG DAILY 01/17 1612 AC 01/19 PO 0849 Methylprednisolone 40 MG Q12 01/19 0900 DC 01/19 IV 01/19 2200 2106 Methylprednisolone 40 MG Q8 01/17 0600 DC 01/19 IV 01/20 2201 0555 Montelukast Sodium 10 MG DAILY 01/17 0900 AC 01/19 PO 0850 Patient Medication 1 ED ONE ONE 01/19 1515 DC 01/19 Teaching ED 01/19 1516 1533 Prednisone 60 MG DAILY 01/20 0900 AC PO Warfarin Sodium 2.5 MG COUMADIN 1700 ONE 01/19 1700 CAN PO 01/19 1701 Warfarin Sodium 5 MG COUMADIN 1700 01/19 1700 DC 01/19 PO 01/19 2359 1606 Vital Signs & I&O Last 24 Hrs of Vitals and I&O: Vital Signs Date Time Temp Pulse Resp B/P B/P Pulse O2 O2 Flow FiO2 Mean Ox Delivery Rate 01/20 0555 97.5 75 20 110/50 94 01/20 0000 92 Room Air 01/19 2141 97.4 68 20 112/70 92 01/19 202 92 Room Air Room Air 01/19 1631 94 Nasal 0.5L Cannula 01/19 1557 Nasal 0.5L Cannula 01/19 1401 98.7 89 20 140/70 94 Nasal 1.0L Cannula 01/19 0957 92 Nasal 2.0L Cannula Intake & Output 01/20 1600 01/20 0800 01/20 0000 Intake Total 360 700 Output Total Balance 360 700 Intake, Oral 360 700 Exam Other Physical Findings: Generally - Awake, alert Head and neck - normocephalic, atraumatic, EOMI grossly intact Cardiovascular - S1, S2, +murmur Lungs - rare rhonchi scattered Abdomen - Bowel sounds positive, soft, non-tender Extremities - without edema Results Last 24 Hrs of Lab Results: Laboratory Tests 01/20/18 0604: Sodium Pending, Potassium Pending, Chloride Pending, Carbon Dioxide Pending, Anion Gap Pending, BUN Pending, Creatinine Pending, BUN/Creatinine Ratio Pending , PT 19.6 H, INR 1.79 H, CBC w Diff NO MAN DIFF REQ, RBC 4.47, MCV 92.2, MCH 30.7, MCHC 33.3, RDW 14.6 H, MPV 9.3, Gran % 73.4, Lymphocytes % 20.5, Monocytes % 5.9, Eosinophils % 0, Basophils % 0.2, Absolute Granulocytes 4.6, Absolute Lymphocytes 1.3, Absolute Monocytes 0.4, Absolute Eosinophils 0, Absolute Basophils 0 01/19/18 1100: PT 20.4 H, INR 1.86 H Impression/Plan Impression/Plan Impression/Plan: Impression 77-year-old woman with a significant history of asthma here with exacerbation of asthma likely secondary to seasonal allergies. Ectasia of aorta. Plan -patient requesting discharge and appears to be ready -taper with prednisone [id number], 50x2, 40x2, 30x2, 20x2, then leave on 10mg until re-evaluated in the office -CT reviewed - pt is under the care of Dr. Bull in [place] - she should get a copy of the CT chest report so it can be reviewed by him to commen on ectasia of ascending aorta -Continue Singulair -continue anti-histamine DVT prophylaxis at all times
[2018-01-20] MEDS ORDERED: ADVAIR 500-501 EACH INH (11:16)
[2018-01-20] MEDS ORDERED: VITAMIN D250000 UNIT PO (11:16)
[2018-01-20] MEDS ORDERED: PREDNISONE10 M2 PO ×2 (11:16→13:42)
[2018-01-20] MEDS ORDERED: ALBUTEROL2.5 MG/3 M INH/SOL (11:16)
[2018-01-20] MEDS ORDERED: ALLEGRA ALLERGY60 M1 PO (11:16)
[2018-01-20] MEDS ORDERED: PROLIA60 MG/1 ML INJ (11:16)
--- NOTE | 2018-01-20 11:22 | Patient Discharge Instructions ---
Discharge Instructions General Discharge Information You were seen/treated for: Exacerbation of Asthma Watch for these problems: 1. Being excessively short of breath 2. Excessive coughing Special Instructions: 1. Please take your steroid medications accordingto the instructions 2. Please schedule an appointment with for follow up Acute Coronary Syndrome Inclusion Criteria At DC or during hospital stay patient has or had the following: ACS DIAGNOSIS No Discharge Core Measures Meds if any: Prescribed or Continued at Discharge Meds if any: NOT Prescribed or Continued at Discharge Congestive Heart Failure Inclusion Criteria At DC or during hospital stay patient has or had the following: CHF DIAGNOSIS No Discharge Core Measures Meds if any: Prescribed or Continued at Discharge Meds if any: NOT Prescribed or Continued at Discharge Cerebrovascular accident Inclusion Criteria At DC or during hospital stay patient has or had the following: CVA/TIA Diagnosis No Discharge Core Measures Meds if any: Prescribed or Continued at Discharge Meds if any: NOT Prescribed or Continued at Discharge Venous thromboembolism Inclusion Criteria VTE Diagnosis No VTE Type NONE VTE Confirmed by (Test) NONE Discharge Core Measures - Per Current guidelines, there needs to be overlap - treatment for the first 5 days of Warfarin therapy. - If discharged on Warfarin prior to 5 days of - overlap therapy, the patient will need to be - assessed for post discharge needs including - *Post discharge parental anticoagulation - *Warfarin and/or parental anticoagulation education - *Follow up date to check INR post discharge At least 5 days overlap therapy as Inpatient No Meds if any: Prescribed or Continued at Discharge Note: Overlap Therapy is Warfarin and Anticoagulant Meds if any: NOT Prescribed or Continued at Discharge
[2018-01-20] MEDS ORDERED: PROAIR HFA8.5 GM INH (13:25)
== END 2018-01-20 14:32 | DRG 203 ==
LOC: ERH 14:20 → ERHI 17:15 → 2NA 17:15 → ENRESERV 18:53 → ENTRNSPT 19:57 → EDTRNSPTSTS 20:22 → EDTRNSPT 20:22 → 2NA 20:27 → CMPTRNSPT 20:57 → 2NA 21:03 → ENPENDDIS 01-20 13:55 → ENTRNSPT 01-20 14:22 → EDTRNSPT 01-20 14:29 → EDTRNSPTSTS 01-20 14:29 → 2NA 01-20 14:32 → CMPTRNSPT 01-20 15:00
PROVIDERS: Hospitalist; Physician Assistant Medical; Student in an Organized Health Care Education/Training Program
DX: J45.901 Unspecified asthma with (acute) exacerbation (principal); D72.1 Eosinophilia; R79.1 Abnormal coagulation profile; T45.515A Adverse effect of anticoagulants, initial encounter; I77.819 Aortic ectasia, unspecified site; Z95.2 Presence of prosthetic heart valve; Z66 Do not resuscitate; Z79.01 Long term (current) use of anticoagulants; F17.200 Nicotine dependence, unspecified, uncomplicated; Z85.850 Personal history of malignant neoplasm of thyroid; Z88.8 Allergy status to other drugs, medicaments and biological substances
CPT/HCPCS: 2NASP; 36415; 36592; 71045; 81003; 82436; 87070; 87071; 87449; 87450; 93005; 93010; 96374; 96375; J0456; J2920; J2930; J3490; J7040